=== PATIENT | female | born 1970 | race Caucasian/White ===

== ENCOUNTER → 2016-07-05 | Outpatient (CLI) | payer MEDICAID ==
--- NOTE | 2016-07-05 16:01 | US ---
EXAMINATION TYPE: US venous doppler duplex LE LT DATE OF EXAM: 07/05/2016 3:51 PM COMPARISON: prior 2013 in [facility] CLINICAL HISTORY: M79.605 Pain in left leg. Red area lower calf cellulitis, pt put on antibiotic toda y SIDE PERFORMED: Left VESSELS IMAGED: External Iliac Vein (EIV) Common Femoral Vein Deep Femoral Vein Greater Saphenous Vein * Femoral Vein Popliteal Vein Small Saphenous Vein * Proximal Calf Veins (* superficial vessels) IMPRESSION: no DVT seen, left leg, superficial veins prominent over lower reddened calf area Left Leg: Negative for DVT
== END | disposition home or self-care (01) ==
LOC: RADUSWWP 15:26
PROVIDERS: ATTEND Family Medicine
DX: M79.605 Pain in left leg (principal)

== ENCOUNTER 2016-07-31 09:28 | Emergency (ER) | payer MEDICAID, OTHER ==
[2016-07-31 09:43] VITALS: TEMP 97.8
--- NOTE | 2016-07-31 10:16 | XR ---
EXAMINATION TYPE: XR wrist complete LT DATE OF EXAM: 07/31/2016 10:08 AM COMPARISON: 01/03/2016 HISTORY: 45-year-old female with a posterior wrist pain after impact against a piece of metal. TECHNIQUE: 4 views FINDINGS: Redemonstrated bony irregularity along the dorsal carpus. No acute fracture, subluxation, or dislocat ion. Radiocarpal and distal radioulnar joints as well as the midcarpal compartment appear intact. IMPRESSION: There is some bone irregularity along the dorsal carpus probably relating to a healed deformity of andres reyes's previously seen triquetral fracture. No acute osseous abnormality seen.
--- NOTE | 2016-07-31 10:32 | ED ---
Upper Extremity HPI - General Chief Complaint: Extremity Injury, Upper Stated Complaint: [facility] left wrist injury Time Seen by Provider: 07/31/16 10:07 Source: patient Mode of arrival: ambulatory Limitations: no limitations - History of Present Illness Initial Comments: This patient is a 45-year-old woman who states that this morning at work she reached for an object and struck the dorsum of her left wrist on a laundry press. The patient has history of previous wrist fracture. She states that she was having pain at the area of the base of the hand, so she thought that should be checked. Patient denies loss of sensation or movement. Complaint: Injury to:: left -: hour(s) Other Extremity Injury: Wrist: Left Handedness: right Place: work Improves With: cold therapy Worsens With: movement of extremity Context: direct blow Associated Symptoms: denies other symptoms Treatments Prior to Arrival: cold therapy - Related Data Allergies Allergy/AdvReac Type Severity Reaction Status Date / Time Penicillins Allergy Unknown Verified 07/31/16 10:02 Review of Systems ROS Statement: Those systems with pertinent positive or pertinent negative responses have been documented in the HPI. ROS Other: All systems not noted in ROS Statement are negative. Constitutional: Denies: weakness Musculoskeletal: Reports: as per HPI, arthralgia Skin: Denies: lesions Neurological: Denies: weakness, numbness, paresthesias Past Medical History Past Medical History: Hypertension History of Any Multi-Drug Resistant Organisms: None Reported Past Surgical History: No Surgical Hx Reported Past Psychological History: No Psychological Hx Reported Smoking Status: Never smoker Past Alcohol Use History: None Reported Past Drug Use History: None Reported General Exam Limitations: no limitations General appearance: alert, in no apparent distress Cardiovascular Exam: Present: other (Radial all her pulse as well as capillary refill normal throughout the left hand) Left Elbow exam: Present: normal inspection, full ROM Forearm Wrist exam: Present: normal inspection, full ROM. Absent: tenderness, swelling Hand Wrist exam: Present: tenderness, other (Patient has mild tenderness to the dorsum of the hand overlying the carpal bones. No obvious deformity. The passive range of motion and active range of motion are normal at the wrist and hand. Sensorimotor function intact throughout the hand.). Absent: laceration, ecchymosis, deformity, crepitus, dislocation, erythema, amputation, nail avulsion, subungual hematoma Neurological exam: Present: alert. Absent: motor sensory deficit Skin exam: Present: warm, dry, intact, normal color Course Vital Signs 07/31/16 09:41 Temperature 97.8 F Pulse Rate 58 L Respiratory 20 Rate Blood Pressure 123/58 O2 Sat by Pulse 98 Oximetry Disposition Clinical Impression: Contusion Disposition: HOME SELF-CARE Condition: Good Instructions: Contusion in Adults (ED) Additional Instructions: As we discussed, follow-up with the [facility] to have a reevaluation and to have formal work restrictions. Referrals: Karie Grider MD [Primary Care Provider] - 1-2 days Yaniv Yanes DO [Doctor of Osteopathic Medicine] - 1-2 days
[2016-07-31 10:57] VITALS: BP 136/63; PULSE 97; RESP 12
== END 2016-07-31 10:57 | disposition home or self-care (01) ==
LOC: EC 09:28
DX: S60.212A Contusion of left wrist, initial encounter (principal); Z88.0 Allergy status to penicillin; W22.09XA Striking against other stationary object, initial encounter; Y99.0 Civilian activity done for income or pay
CPT/HCPCS: 99283

== ENCOUNTER → 2019-01-16 | Outpatient (CLI) | payer MEDICAID ==
[2019-01-16 08:54] LABS: Albumin 4.4 g/dL (3.5-5.0); Calcium 9.6 mg/dL (8.4-10.2); Potassium 4.6 mmol/L (3.5-5.1); Total Bilirubin 0.9 mg/dL (0.2-1.3); Total Protein 7.1 g/dL (6.3-8.2)
== END | disposition home or self-care (01) ==
LOC: LABPAT 08:16
PROVIDERS: ATTEND Internal Medicine Clinical Cardiac Electrophysiology
DX: Z01.812 Encounter for preprocedural laboratory examination (principal); I48.1 Persistent atrial fibrillation
CPT/HCPCS: 80053; 84443

== ENCOUNTER → 2019-01-23 | Day surgery (SDC) | payer MEDICAID ==
[2019-01-16 16:22] VITALS: BMI 34.9
[~2019-01-23] MED LIST: LACTATED RINGERS 1,000 ML IV SCH; LIDOCAINE 1% INJ 10MG/ML (20 ML MDV) ONE; PROPOFOL 10 MG/ML 20 ML VIAL IV ONE; SODIUM CHLORIDE 0.9% 1,000 ML IV SCH
[2019-01-23 09:14] VITALS: RESP 18; TEMP 98.2
--- NOTE | 2019-01-23 10:46 | HP ---
HISTORY AND PHYSICAL Maria Del Rosario Reich is a 48-year-old female who has a past history of myocarditis that was diagnosed in 2000. She has mild cardiomyopathy with ejection fraction of 45%. She has a history of atrial fibrillation, is quite symptomatic. She gets very short of breath with exertion and sometimes gets dizzy. She is constantly fatigued. She does complain of palpitations and dizziness. She was initially on Eliquis, but she had heavy menstrual bleeding and therefore she was switched to Xarelto in November. Subsequently, she has not had any problems. Her last stress test in 2015 did not show any reversible ischemia. PAST MEDICAL HISTORY: Past history of myocarditis and hypertension. MEDICATION LIST: Medication list includes: 1. Aldactone. 2. Aspirin. 3. Captopril. 4. Cordarone 100 mg p.o. daily. 5. Carvedilol. 6. Digoxin. 7. Lasix. 8. Lipitor. 9. Potassium. 10.Slow-Mag. 11.Xarelto. REVIEW OF SYSTEMS: No fever, chills, or rigors. No cough or expectoration. No nausea, vomiting, or diarrhea. No hematuria or dysuria. No strokes, seizures. No skin lesions. No musculoskeletal complaints. PHYSICAL EXAMINATION: On examination, the rhythm is irregular. Blood pressure is normal. Heart sounds S1, S2 normal, but irregular. Breath sounds are clear. No rhonchi, no crackles. Abdomen is soft, nontender. IMPRESSION: 1. Symptomatic atrial fibrillation with tiredness, fatigue, shortness of breath and dizziness and palpitations. 2. History of nonischemic cardiomyopathy in the past and history of nonischemic cardiomyopathy, currently left ventricular ejection fraction of 45%. 3. Stable from congestive heart failure standpoint with chronic left ventricular systolic dysfunction, which is mild class 2 congestive heart failure. SUGGEST: The patient is stable to proceed with an electrical cardioversion from a heart failure standpoint. We will proceed with electrical cardioversion and continue amiodarone and continue Xarelto. MMODL / IJN: [id number] /
[2019-01-23 11:46] VITALS: BP 116/75; PULSE 66
--- NOTE | 2019-01-23 17:06 | P.PCN ---
Preoperative Diagnosis: Diagnosis Symptomatic persistent atrial fibrillation, failed amiodarone therapy 100 mg by mouth daily History of myocarditis, nonischemic current myopathy left ventricular ejection fraction 45% Procedure: Electrical cardioversion under anesthesia A 360 J biphasic shock in the AP configuration successfully converted the patient to sinus rhythm Twelve-lead ECG: Sinus mechanism GA and told mildly prolonged at 204 ms, narrow QRS, normal ST segments, QT interval less than 450 ms Impression Successful electrical cardioversion for atrial fibrillation, symptomatic Plan Continue anticoagulation, Heart failure medications and 100 mg of amiodarone by mouth daily Follow-up in the office within 2-3 weeks
== END ==
LOC: CATHEP 08:54
PROVIDERS: ATTEND Internal Medicine Clinical Cardiac Electrophysiology
DX: I48.1 Persistent atrial fibrillation (principal); I42.9 Cardiomyopathy, unspecified; I11.0 Hypertensive heart disease with heart failure; I50.22 Chronic systolic (congestive) heart failure; E78.5 Hyperlipidemia, unspecified; I25.10 Atherosclerotic heart disease of native coronary artery without angina pectoris; Z79.01 Long term (current) use of anticoagulants; Z79.82 Long term (current) use of aspirin; Z79.899 Other long term (current) drug therapy; Z88.0 Allergy status to penicillin
CPT/HCPCS: 92960; 81025; J2001; J2704

== ENCOUNTER 2019-09-29 13:56 | Emergency (ER) | payer MEDICAID ==
[2019-09-29 14:02] VITALS: BP 106/67; PULSE 68; RESP 18; TEMP 97.4
--- NOTE | 2019-09-29 15:19 | XR ---
EXAMINATION TYPE: XR wrist complete LT DATE OF EXAM: 09/29/2019 COMPARISON: 07/31/2016 HISTORY: Left wrist pain, no known injury TECHNIQUE: Left wrist examining 4 projections. FINDINGS: No displaced fractures are identified. There appears to be a cyst formation within the base of the capitate. The dorsal bony prominence of the wrist is again evident and stable. There is some prominence of the scapholunate space, slightly greater than prior. Scapholunate disasso ciation should be considered. Diffuse soft tissue swelling is present especially noted dorsally. IMPRESSION: 1. No acute fractures. 2. Clinical consideration for scapholunate disassociation. This could be evaluated with MRI. 3. Probable old posttraumatic changes dorsal carpal region, stable from comparison.
--- NOTE | 2019-09-29 15:32 | ED ---
Extremity Problem HPI - General Chief complaint: Extremity Problem,Nontraumatic Stated complaint: left wrist pain Time Seen by Provider: 09/29/19 14:04 Source: patient Mode of arrival: ambulatory Limitations: no limitations - History of Present Illness Initial comments: Patient is a 49-year-old female presented to the emergency Department with complaints of left wrist pain 3 days. She denies falling on her wrist or any other trauma. She is not sure how she hurt her wrist. Patient is having pain with gripping as well as range of motion. She denies any previous surgeries on this wrist. She is left hand dominant. She has no other complaints at this time. - Related Data Home Medications Medication Instructions Recorded Confirmed Amiodarone [Cordarone] 100 mg PO DAILY 07/31/16 01/23/19 Atorvastatin [Lipitor] 20 mg PO HS 07/31/16 01/23/19 Captopril [Capoten] 50 mg PO AC-BID 07/31/16 01/23/19 Carvedilol [Coreg] 25 mg PO BID 07/31/16 01/23/19 Digoxin [Digitek] 125 mcg PO DAILY 07/31/16 01/23/19 Furosemide [Lasix] 40 mg PO BID 07/31/16 01/23/19 Potassium Chloride ER [K-Dur 10] 10 meq PO BID 07/31/16 01/23/19 Spironolactone [Aldactone] 25 mg PO DAILY 07/31/16 01/23/19 Aspirin [Adult Low Dose Aspirin EC] 81 mg PO DAILY 01/16/19 01/23/19 Rivaroxaban [Xarelto] 20 mg PO DAILY 01/16/19 01/23/19 Allergies Allergy/AdvReac Type Severity Reaction Status Date / Time Penicillins Allergy Unknown Verified 09/29/19 14:02 Sulfa (Sulfonamide Allergy Swelling Verified 09/29/19 14:02 Antibiotics) Review of Systems ROS Statement: Those systems with pertinent positive or pertinent negative responses have been documented in the HPI. ROS Other: All systems not noted in ROS Statement are negative. Past Medical History Past Medical History: Hypertension Additional Past Medical History / Comment(s): CHF History of Any Multi-Drug Resistant Organisms: None Reported Past Surgical History: No Surgical Hx Reported Additional Past Surgical History / Comment(s): Lumbar injection, dental work. Past Anesthesia/Blood Transfusion Reactions: No Reported Reaction Past Psychological History: No Psychological Hx Reported Smoking Status: Never smoker Past Alcohol Use History: None Reported Past Drug Use History: None Reported - Past Family History Mother Family Medical History: No Reported History General Exam - General Exam Comments Initial Comments: GENERAL: Well-appearing, well-nourished and in no acute distress. HEAD: Atraumatic, normocephalic. EYES: Pupils equal round and reactive to light, extraocular movements intact, sclera anicteric, conjunctiva are normal. ENT: Moist mucous membranes. NECK: Normal range of motion, supple without lymphadenopathy or JVD. LUNGS: Breath sounds clear to auscultation bilaterally and equal. No wheezes rales or rhonchi. HEART: Regular rate and rhythm without murmurs, rubs or gallops. ABDOMEN: Soft, nontender, normoactive bowel sounds. No guarding, no rebound. No masses appreciated. : Deferred EXTREMITIES: Patient has pain with palpation of the left wrist, dorsal aspect. Patient has limited range of motion secondary to pain. She does have some mild swelling of the dorsal aspect of her left wrist. She is neurovascular intact. No pain of the left forearm, left elbow. No clubbing or cyanosis. NEUROLOGICAL: Normal speech, normal gait. PSYCH: Normal mood, normal affect. SKIN: Warm, Dry, normal turgor, no rashes or lesions noted. Limitations: no limitations Course Vital Signs 09/29/19 13:57 Temperature 97.4 F L Pulse Rate 68 Respiratory 18 Rate Blood Pressure 106/67 O2 Sat by Pulse 99 Oximetry Medical Decision Making - Medical Decision Making Patient is a 49 -year-old female here for left wrist pain. She denies any falls or trauma to her left wrist. X-rays of the left wrist reveal that there might be some scapholunate disassociation. No acute fractures. I discussed these results with the patient. Patient did come to the ER with a supportive wrist brace. I discussed with her to keep in this wrist base and follow-up with orthopedics. She is stable for discharge. She is in agreement with this plan of care. Disposition Clinical Impression: Left wrist pain Disposition: HOME SELF-CARE Condition: Stable Instructions (If sedation given, give patient instructions): Wrist Injury (ED) Additional Instructions: Please return to the Emergency Department if symptoms worsen or any other concerns. Continue to wear wrist splint. May ice to area. Follow up with orthopedics as discussed. Is patient prescribed a controlled substance at d/c from ED?: No Referrals: Valery Arenas MD [Primary Care Provider] - 1-2 days Fredrick Frey DO [Doctor of Osteopathic Medicine] - 1-2 days
== END 2019-09-29 15:55 | disposition home or self-care (01) ==
LOC: EC 13:56
DX: M25.532 Pain in left wrist (principal); I11.0 Hypertensive heart disease with heart failure; I50.9 Heart failure, unspecified; Z79.01 Long term (current) use of anticoagulants; Z79.02 Long term (current) use of antithrombotics/antiplatelets; Z79.82 Long term (current) use of aspirin; Z79.899 Other long term (current) drug therapy; Z88.0 Allergy status to penicillin; Z88.2 Allergy status to sulfonamides
CPT/HCPCS: 99283

== ENCOUNTER → 2019-11-10 | Outpatient (CLI) | payer OTHER ==
--- NOTE | 2019-11-10 10:54 | XR ---
EXAMINATION TYPE: XR ankle complete 3 views LT, XR foot complete 3 views LT DATE OF EXAM: 11/10/2019 COMPARISON: NONE HISTORY: 49-year-old female for an ankle pain, S93.402A, S93.602A FINDINGS: Ankle: Circumferential soft tissue swelling at the ankle. Talar dome is intact. Ankle mortise remains congru ent. No fracture, subluxation, or dislocation seen. Subtalar joint is aligned. Small posterior and pl kaylee calcaneal spurs. Foot: No acute fracture, subluxation, or dislocation. IMPRESSION: Ankle and foot: Circumferential soft tissue swelling at the ankle. No acute osseous abnormality seen. Posterior and plantar calcaneal spurs.
== END | disposition home or self-care (01) ==
LOC: RADXRMAIN 10:20
PROVIDERS: ATTEND Emergency Medicine
DX: M79.89 Other specified soft tissue disorders (principal); M77.32 Calcaneal spur, left foot

== ENCOUNTER → 2019-11-20 | Outpatient (CLI) | payer OTHER ==
--- NOTE | 2019-11-20 12:25 | XR ---
EXAMINATION TYPE: XR foot complete LT DATE OF EXAM: 11/20/2019 COMPARISON: NONE HISTORY: sprain of foot pain across top of foot ran over with a heavy cart. TECHNIQUE: Three-view left foot FINDINGS: Metatarsal tarsal alignment appears normal. No acute fractures or dislocations are evident. Joint spaces appear preserved. Mild valgus deformity of the distal fifth digit is present. Calcaneal heel spurs are present. Soft tissue swelling is over the dorsum of the foot. Follow-up exams can be performed 7-10 days from acute trauma for continued pain. IMPRESSION: 1. Soft tissue swelling dorsum of foot. 2. No acute osseous abnormality. 3. Calcaneal heel spurs.
== END | disposition home or self-care (01) ==
LOC: RADXRMAIN 11:58
PROVIDERS: ATTEND Emergency Medicine
DX: M79.89 Other specified soft tissue disorders (principal); M77.32 Calcaneal spur, left foot

== ENCOUNTER → 2020-03-16 | Outpatient (CLI) | payer MEDICAID ==
--- NOTE | 2020-03-16 11:00 | US ---
EXAMINATION TYPE: US venous doppler duplex LE RT DATE OF EXAM: 03/16/2020 10:48 AM COMPARISON: NONE CLINICAL HISTORY: M79.671 Pain in right foot, L03.115 cellulitis of. SIDE PERFORMED: Right TECHNIQUE: The lower extremity deep venous system is examined utilizing real time linear array sonog janine with graded compression, doppler sonography and color-flow sonography. VESSELS IMAGED: External Iliac Vein (EIV) Common Femoral Vein Deep Femoral Vein Greater Saphenous Vein * Femoral Vein Popliteal Vein Small Saphenous Vein * Proximal Calf Veins (* superficial vessels) Right Leg: Negative for DVT Grayscale, color doppler, spectral doppler imaging performed of the deep veins of the right lower ext remity. There is normal flow, compressibility, vascular waveforms. IMPRESSION: No ultrasound evidence for acute DVT in the right lower extremity.
== END | disposition home or self-care (01) ==
LOC: RADUSMAIN 10:13
PROVIDERS: ATTEND Physician Assistant
DX: L03.115 Cellulitis of right lower limb (principal); I80.231 Phlebitis and thrombophlebitis of right tibial vein; I80.01 Phlebitis and thrombophlebitis of superficial vessels of right lower extremity; M79.671 Pain in right foot; M79.661 Pain in right lower leg; M10.9 Gout, unspecified; I11.9 Hypertensive heart disease without heart failure; E78.5 Hyperlipidemia, unspecified

== ENCOUNTER 2020-03-30 07:48 | Day surgery (SDC) | payer MEDICAID ==
[2020-03-25 14:43] VITALS: BMI 36.6
[~2020-03-30 07:48] MED LIST changes: +ALPRAZolam 0.25 MG TAB PO PRN; +ALPRAZolam 0.5 MG TAB PO PRN; +ASPIRIN 325 MG TAB PO STA; -LACTATED RINGERS 1,000 ML IV SCH; -LIDOCAINE 1% INJ 10MG/ML (20 ML MDV) ONE; +NITROGLYCERIN SL TABS 0.4 MG TAB SUBLINGUAL PRN; -PROPOFOL 10 MG/ML 20 ML VIAL IV ONE; -SODIUM CHLORIDE 0.9% 1,000 ML IV SCH; +SODIUM CHLORIDE 0.9% 1,000 ML in EMPTY BAG 1 BAG IV ONE
[2020-03-30] MEDS ORDERED: SODIUM CHLORIDE 0.9% 1,000 ML IV ONE (08:12)
[2020-03-30 08:16] VITALS: TEMP 98
[2020-03-30 08:22] LABS: Basophils # (A) 0.1 k/uL (0-0.2); Basophils % (A) 1 %; Eosinophils # (A) 0.4 k/uL (0-0.7); Eosinophils % (A) 4 %; HCT 43.6 % (34.0-46.0); HGB 13.8 gm/dL (11.4-16.0); Hypochromasia Slight; Lymphocytes # (A) 1.6 k/uL (1.0-4.8); Lymphocytes % (A) 15 %; MCH 29.4 pg (25.0-35.0); MCHC 31.7 g/dL (31.0-37.0); MCV 92.9 fL (80.0-100.0); Mean Platelet Volume 7.5; Monocytes # (A) 0.5 k/uL (0-1.0); Monocytes % (A) 5 %; Neutrophils # (A) 7.7 k/uL (1.3-7.7); Neutrophils % (A) 74 %; Platelet Count 269 k/uL (150-450); RBC 4.69 m/uL (3.80-5.40); RDW 14.8 % (11.5-15.5); WBC 10.4 k/uL (3.8-10.6)
[2020-03-30 08:29] LABS: HCG,Qualitative Serum Not Detected
[2020-03-30 08:30] LABS: Anion Gap 9 mmol/L; Blood Urea Nitrogen 24 mg/dL (7-17); Carbon Dioxide 31 mmol/L (22-30); Chloride 100 mmol/L (98-107); Glucose 121 mg/dL (74-99); Potassium 4.2 mmol/L (3.5-5.1); Sodium 140 mmol/L (137-145)
[2020-03-30 08:31] LABS: African American GFR (CKD) 70 (>60 ml/min/1.73 sqM); Calcium 9.8 mg/dL (8.4-10.2); Non-African American GFR(CKD) 61 (>60 ml/min/1.73 sqM)
[2020-03-30] MEDS ORDERED: LIDOCAINE 1% INJ 10MG/ML (20 ML MDV) SQ ONE ×2 (09:13→09:30)
[2020-03-30] MEDS ORDERED: MIDAZOLAM 2 MG/2 ML VIAL IV ONE (09:16)
[2020-03-30] MEDS ORDERED: IOPAMIDOL-370 50ML BTL INJ ONE (09:47)
[2020-03-30] MEDS ORDERED: IOPAMIDOL-370 125ML BTL INJ ONE (09:48)
[2020-03-30] MEDS ORDERED: SODIUM CHLORIDE 0.9% 1,000 ML IV SCH (10:00)
--- NOTE | 2020-03-30 10:09 | P.CARDCATH ---
Date of Procedure: 03/30/20 Description of Procedure: PROCEDURES PERFORMED: Left heart catheterization, left ventriculogram, bilateral coronary angiography, ultrasound access INDICATION: Cardiomyopathy, ventricular tachycardia HISTORY: Patient is a pleasant 49-year-old female of Dr. Salcedo with history of hypertension, hyperlipidemia, cardiomyopathy with last ejection fraction documented at 45%, and ventricular tachycardia who presents for elective heart catheterization. She has been noting increasing fatigue and has also been having palpitations with monitors showing nonsustained ventricular tachycardia. She therefore presented for elective heart catheterization. CONSENT:I have discussed the risks, benefits and alternative therapies for the above-mentioned procedure and for both sedation/analgesia as well as necessary blood product administration, if indicated, as they pertain to this patient. The patient has indicated understanding and acceptance of the risks and procedures discussed. PROCEDURE: After the risks, benefits and alternatives of the above mentioned procedure explained in detail with the patient, informed consent was obtained. Patient was taken to the catheterization lab and prepped and draped in usual fashion. 1% lidocaine was used to anesthetize the right radial area. Patient had a poor pulse and even with ultrasound guidance right radial artery access could not be obtained. Therefore a 6-Senegalese sheath was placed in the right femoral artery using micropuncture an ultrasound guidance. Left coronary angiography was performed with a 6-Senegalese JL 4.0 catheter and right coronary angiography was performed with a 6-[place]e JR4 catheter in various views. A 5- [place] pigtail catheter was inserted into the left ventricle and pressure measurements were obtained. Left ventriculography was performed in the JACOBS projection with a power injection. The right femoral angiogram showed adequate anatomy for closure. A 6-[place]alese Angio-Seal was placed and hemostasis was achieved. The patient tolerated the procedure well. Patient was transported back to the post catheterization holding area in stable condition. Conscious Sedation: Patient was monitored under the direct supervision of vision of myself for conscious sedation using one mg Versed and 25 mcg fentanyl for a total duration of 41 minutes HEMODYNAMICS: Aorta: 121/83 LV: 124/8, LVEDP 32 SELECTIVE CORONARY ARTERIOGRAPHY: LEFT MAIN: The left main is a large caliber vessel which bifurcates into the LAD and circumflex. There is no significant stenosis. LEFT ANTERIOR DESCENDING CORONARY ARTERY: LAD is a large caliber vessel which wraps around to the apex. There is no significant stenosis. LEFT CIRCUMFLEX CORONARY ARTERY: Left circumflex is a moderate caliber vessel without significant stenosis. RIGHT CORONARY ARTERY: The right coronary artery is a large caliber vessel which gives off a PDA and PLV branch and is the dominant vessel. There is no significant stenosis. LEFT VENTRICULOGRAPHY: Left ventricular ejection fraction is 10-15% with global hypokinesis however mid cavity appears more hypokinetic than the apex and bases. Possibly consistent with mid cavitary Takatsubo's or focal myocarditis. There is 1-2+ mitral regurgitation worsened with PVC and no significant gradient with pullback across the aortic valve. FINAL IMPRESSION: 1. Normal coronary arteries as described above. 2. Reduced ejection fraction 10-15% with predominantly global hypokinesis however worsened mid cavitary hypokinesis, possibly consistent with mid cavitary Takatsubo's or focal myocarditis. 3. Elevated left-sided filling pressures. PLAN: 1. Aggressive risk factor modification per most recent ACC/AHA guidelines. 2. 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
[2020-03-30 11:06] VITALS: RESP 16
[2020-03-30] MEDS ORDERED: RX INFO: IV CONTRAST WAS GIVEN 1 EACH MISC MISCELLANE PRN (11:07)
[2020-03-30 13:52] VITALS: BP 136/72; PULSE 67
== END 2020-03-30 13:59 | disposition home or self-care (01) ==
LOC: CATHCVL 07:48
PROVIDERS: ATTEND Internal Medicine
DX: I49.3 Ventricular premature depolarization (principal); I47.2 Ventricular tachycardia; I42.8 Other cardiomyopathies; I34.0 Nonrheumatic mitral (valve) insufficiency; I50.9 Heart failure, unspecified; E78.5 Hyperlipidemia, unspecified; Z82.49 Family history of ischemic heart disease and other diseases of the circulatory system; E78.00 Pure hypercholesterolemia, unspecified; Z79.01 Long term (current) use of anticoagulants; Z79.82 Long term (current) use of aspirin; Z79.899 Other long term (current) drug therapy; Z88.0 Allergy status to penicillin
CPT/HCPCS: 93458; 80048; 85025; 84703; C1760; C1894 ×2; C1769 ×3; J2250; J2001; Q9967 ×2

== ENCOUNTER 2020-05-11 07:26 | Observation (INO) | payer MEDICAID, OTHER ==
[2020-05-11] MEDS ORDERED: ASPIRIN 81 MG PO STA (07:46)
[2020-05-11] MEDS ORDERED: NITROGLYCERIN SL TABS 0.4 MG TAB SUBLINGUAL STA ×2 (07:46)
--- NOTE | 2020-05-11 07:49 | ED ---
General Adult HPI - General Chief complaint: Chest Pain Stated complaint: Chest Pain Time Seen by Provider: 05/11/20 07:33 Source: patient, RN notes reviewed Mode of arrival: wheelchair Limitations: no limitations - History of Present Illness Initial comments: Patient is a pleasant 49-year-old female presenting to the emergency Department with complaints of chest discomfort. Onset of symptoms was at work while moving a part. Patient does not know if there was a specific movement that she did because the discomfort. Discomfort is somewhat severe. Difficult to describe type of discomfort. No radiation. Discomfort is right sternal region. Patient does have mild associated dyspnea and nausea. No history of similar symptoms previously. No sweating. No leg pain or leg swelling. Discomfort does increase with deep breaths. - Related Data Home Medications Medication Instructions Recorded Confirmed Atorvastatin [Lipitor] 20 mg PO HS 07/31/16 05/11/20 Carvedilol [Coreg] 50 mg PO BID 07/31/16 05/11/20 Furosemide [Lasix] 40 mg PO BID 07/31/16 05/11/20 Spironolactone [Aldactone] 50 mg PO DAILY 07/31/16 05/11/20 Rivaroxaban [Xarelto] 20 mg PO DAILY@1200 01/16/19 05/11/20 Acetaminophen Tab [Tylenol Tab] 500 mg PO Q6H PRN 03/08/20 05/11/20 Ergocalciferol [Vitamin D2] 50,000 unit PO KENT 03/08/20 05/11/20 Allopurinol [Zyloprim] 300 mg PO DAILY 05/11/20 05/11/20 Losartan Potassium 50 mg PO DAILY 05/11/20 05/11/20 Allergies Allergy/AdvReac Type Severity Reaction Status Date / Time amoxicillin Allergy Rash/Hives Verified 05/11/20 08:52 Penicillins Allergy Rash/Hives Verified 05/11/20 08:52 Sulfa (Sulfonamide Allergy Swelling Verified 05/11/20 08:52 Antibiotics) Review of Systems ROS Statement: Those systems with pertinent positive or pertinent negative responses have been documented in the HPI. ROS Other: All systems not noted in ROS Statement are negative. Constitutional: Denies: fever Eyes: Denies: eye pain ENT: Denies: ear pain Respiratory: Reports: as per HPI. Denies: cough Cardiovascular: Reports: as per HPI, chest pain Endocrine: Denies: fatigue Gastrointestinal: Denies: abdominal pain Genitourinary: Denies: dysuria Musculoskeletal: Denies: back pain Skin: Denies: rash Neurological: Denies: weakness Past Medical History Past Medical History: Atrial Fibrillation, Heart Failure, Eye Disorder, Hyperlipidemia, Hypertension, Skin Disorder Additional Past Medical History / Comment(s): cellulitis rt lower leg(healed), psoriasis, gout, keratoconus rt eye History of Any Multi-Drug Resistant Organisms: None Reported Past Surgical History: Heart Catheterization Additional Past Surgical History / Comment(s): cardioversion, lumbar injection, Past Anesthesia/Blood Transfusion Reactions: No Reported Reaction Past Psychological History: No Psychological Hx Reported Smoking Status: Former smoker Past Alcohol Use History: None Reported Past Drug Use History: None Reported - Past Family History Mother Family Medical History: No Reported History General Exam Limitations: no limitations General appearance: alert, in no apparent distress Head exam: Present: normocephalic Eye exam: Present: normal appearance Neck exam: Present: normal inspection Respiratory exam: Present: normal lung sounds bilaterally, chest wall tenderness (Mild tenderness right sternal region) Cardiovascular Exam: Present: regular rate, normal rhythm Expanded Peripheral pulses: 2+: Radial (R), Radial (L), Dorsalis Pedis (R), Dorsalis Pedis (L) GI/Abdominal exam: Present: soft. Absent: tenderness Extremities exam: Present: normal inspection. Absent: pedal edema, calf tenderness Neurological exam: Present: alert Psychiatric exam: Present: normal affect, normal mood Skin exam: Present: normal color Course Vital Signs 05/11/20 05/11/20 05/11/20 07:26 08:03 08:17 Temperature 97.6 F Pulse Rate 62 59 L Respiratory 20 18 Rate Blood Pressure 81/57 110/54 101/51 O2 Sat by Pulse 97 100 96 Oximetry 05/11/20 09:40 Temperature Pulse Rate 52 L Respiratory 18 Rate Blood Pressure 87/37 O2 Sat by Pulse 100 Oximetry EKG Findings - EKG Comments: EKG Findings:: Normal sinus rhythm 60. For screening AV block WA of 208. QRS 104. QTC 494. QTC 494. Normal axis. Normal QRS. Nonspecific ST-T. Medical Decision Making - Medical Decision Making Patient reevaluated and resting currently in bed. Patient updated. Case discussed with Dr. Arenas, who will admit his patient. - Lab Data Result diagrams: 05/11/20 07:58 05/11/20 07:58 Lab Results 05/11/20 05/11/20 05/11/20 Range/Units 07:58 07:58 07:58 WBC 8.4 (3.8-10.6) k/uL RBC 4.35 (3.80-5.40) m/uL Hgb 13.0 (11.4-16.0) gm/dL Hct 39.2 (34.0-46.0) % MCV 90.1 D (80.0-100.0) fL MCH 29.8 (25.0-35.0) pg MCHC 33.1 (31.0-37.0) g/dL RDW 15.8 H (11.5-15.5) % Plt Count 213 (150-450) k/uL MPV 7.7 Neutrophils % 79 % Lymphocytes % 10 % Monocytes % 5 % Eosinophils % 2 % Basophils % 2 % Neutrophils # 6.6 (1.3-7.7) k/uL Lymphocytes # 0.8 L (1.0-4.8) k/uL Monocytes # 0.4 (0-1.0) k/uL Eosinophils # 0.2 (0-0.7) k/uL Basophils # 0.2 (0-0.2) k/uL PT 14.9 H (9.0-12.0) sec INR 1.5 H (<1.2) APTT 32.3 H (22.0-30.0) sec D-Dimer 0.63 H (<0.60) mg/L FEU Sodium 139 (137-145) mmol/L Potassium 4.5 (3.5-5.1) mmol/L Chloride 105 (98-107) mmol/L Carbon Dioxide 26 (22-30) mmol/L Anion Gap 8 mmol/L BUN 31 H (7-17) mg/dL Creatinine 1.11 H (0.52-1.04) mg/dL Est GFR (CKD-EPI)AfAm 68 (>60 ml/min/1.73 sqM) Est GFR (CKD-EPI)NonAf 59 (>60 ml/min/1.73 sqM) Glucose 118 H (74-99) mg/dL Calcium 9.4 (8.4-10.2) mg/dL Magnesium 1.9 (1.6-2.3) mg/dL Total Bilirubin 1.1 (0.2-1.3) mg/dL AST 28 (14-36) U/L ALT 16 (4-34) U/L Alkaline Phosphatase 75 (38-126) U/L Troponin I (0.000-0.034) ng/mL NT-Pro-B Natriuret Pep pg/mL Total Protein 7.2 (6.3-8.2) g/dL Albumin 4.5 (3.5-5.0) g/dL Coronavirus (PCR) (Not Detectd) 05/11/20 05/11/20 05/11/20 Range/Units 07:58 07:58 08:43 WBC (3.8-10.6) k/uL RBC (3.80-5.40) m/uL Hgb (11.4-16.0) gm/dL Hct (34.0-46.0) % MCV (80.0-100.0) fL MCH (25.0-35.0) pg MCHC (31.0-37.0) g/dL RDW (11.5-15.5) % Plt Count (150-450) k/uL MPV Neutrophils % % Lymphocytes % % Monocytes % % Eosinophils % % Basophils % % Neutrophils # (1.3-7.7) k/uL Lymphocytes # (1.0-4.8) k/uL Monocytes # (0-1.0) k/uL Eosinophils # (0-0.7) k/uL Basophils # (0-0.2) k/uL PT (9.0-12.0) sec INR (<1.2) APTT (22.0-30.0) sec D-Dimer (<0.60) mg/L FEU Sodium (137-145) mmol/L Potassium (3.5-5.1) mmol/L Chloride (98-107) mmol/L Carbon Dioxide (22-30) mmol/L Anion Gap mmol/L BUN (7-17) mg/dL Creatinine (0.52-1.04) mg/dL Est GFR (CKD-EPI)AfAm (>60 ml/min/1.73 sqM) Est GFR (CKD-EPI)NonAf (>60 ml/min/1.73 sqM) Glucose (74-99) mg/dL Calcium (8.4-10.2) mg/dL Magnesium (1.6-2.3) mg/dL Total Bilirubin (0.2-1.3) mg/dL AST (14-36) U/L ALT (4-34) U/L Alkaline Phosphatase (38-126) U/L Troponin I <0.012 (0.000-0.034) ng/mL NT-Pro-B Natriuret Pep 3950 pg/mL Total Protein (6.3-8.2) g/dL Albumin (3.5-5.0) g/dL Coronavirus (PCR) Not Detected (Not Detectd) - Radiology Data Radiology results: report reviewed (Computed tomography scan shows no central pulmonary embolism. Suboptimal study. Cardiomegaly with alveolar edema. Left hilar consolidation or atelectasis. Suspect heart failure.), image reviewed (Chest x-ray shows diffuse interstitial pattern, correlate for CHF versus interstitial infiltrate) Disposition Clinical Impression: Chest pain, Congestive heart failure Disposition: ADMITTED IP TO THIS HOSP Is patient prescribed a controlled substance at d/c from ED?: No Referrals: Valery Arenas MD [Primary Care Provider] - 1-2 days Decision Time: 09:44
[2020-05-11] MEDS ORDERED: MORPHINE SULFATE 2 MG/ML SYRINGE IVP STA (08:05)
[2020-05-11] MEDS ORDERED: SODIUM CHLORIDE 0.9% 500 ML 500 ML IV STA (08:06)
[2020-05-11] MEDS: NITROGLYCERIN SL TABS 0.4 MG TAB SUBLINGUAL STA (08:09)
[2020-05-11 08:10] LABS: Basophils # (A) 0.2 k/uL (0-0.2); Basophils % (A) 2 %; Eosinophils # (A) 0.2 k/uL (0-0.7); Eosinophils % (A) 2 %; HCT 39.2 % (34.0-46.0); Lymphocytes # (A) 0.8 k/uL (1.0-4.8); Lymphocytes % (A) 10 %; MCH 29.8 pg (25.0-35.0); MCHC 33.1 g/dL (31.0-37.0); Mean Platelet Volume 7.7; Monocytes # (A) 0.4 k/uL (0-1.0); Monocytes % (A) 5 %; Neutrophils # (A) 6.6 k/uL (1.3-7.7); Neutrophils % (A) 79 %; Platelet Count 213 k/uL (150-450); RBC 4.35 m/uL (3.80-5.40); RDW 15.8 % (11.5-15.5); WBC 8.4 k/uL (3.8-10.6)
[2020-05-11 08:14] LABS: MCV 90.1 fL (80.0-100.0)
--- NOTE | 2020-05-11 08:19 | XR ---
EXAMINATION TYPE: XR chest 2V DATE OF EXAM: 05/11/2020 COMPARISON: 05/03/2013 TECHNIQUE: PA and lateral views submitted. HISTORY: Chest pain FINDINGS: Heart is enlarged and there is diffuse interstitial pattern. No pleural effusion or pneumothorax. Sub segmental changes at both lung bases. IMPRESSION: 1. Correlate for CHF versus interstitial pneumonia.
[2020-05-11 08:21] LABS: Albumin 4.5 g/dL (3.5-5.0); Calcium 9.4 mg/dL (8.4-10.2); Magnesium 1.9 mg/dL (1.6-2.3); Potassium 4.5 mmol/L (3.5-5.1); Total Bilirubin 1.1 mg/dL (0.2-1.3); Total Protein 7.2 g/dL (6.3-8.2)
[2020-05-11 08:30] LABS: INR 1.5 (<1.2); Partial Thromboplastin Time 32.3 sec (22.0-30.0); Prothrombin Time 14.9 sec (9.0-12.0)
[2020-05-11 08:37] LABS: D-Dimer 0.63 mg/L FEU (<0.60)
--- NOTE | 2020-05-11 09:21 | CT ---
EXAMINATION TYPE: CT angio chest DATE OF EXAM: 05/11/2020 9:11 AM COMPARISON: Chest x-ray earlier today and older x-ray May 03, 2013 HISTORY: Dyspnea and chest pain. History of cardiac stent. CT DLP: 576.6 mGycm Automated exposure control for dose reduction was used. CONTRAST: CTA scan of the thorax is performed with IV Contrast, patient injected with 93ml mL of Isovue 370, pu lmonary embolism protocol. MIP images are created and reviewed. FINDINGS: LUNGS: Exam is suboptimal as patient unable to hold breath. This limits evaluation particularly for s ubcentimeter nodules. Mosaic attenuation bilaterally suggest mild alveolar edema. There is mild linea r scarring and/or atelectasis left lung base. Focal left hilar consolidation and/or atelectasis. No a dditional suspicious focal consolidation. No pleural effusion or pneumothorax noted. MEDIASTINUM: There is suboptimal bolus with some heterogeneity in the periphery, there is no central or lobar pulmonary embolism. Cannot entirely exclude segmental or subsegmental pulmonary embolism on this study. Marked cardiomegaly with moderate to severe left greater than right atrial dilatation. Th ere is moderate to severe left ventricular dilatation and mild to moderate right ventricular dilatati on. Reflux of contrast into intrahepatic IVC and hepatic veins suggest a degree of right heart failur e. There are prominent bilateral hilar lymph nodes. No mediastinal adenopathy. Mild/moderate coronary artery calcification LAD distribution. Metallic coronary stent not well visualized. No pericardial e ffusion is seen. OTHER: Spine is straightened on lateral view. IMPRESSION: 1. Suboptimal study due to respiratory motion artifact compromise and heterogeneity in the periphery. No central pulmonary embolism. Cannot entirely exclude small segmental and subsegmental PE. 2. Marked cardiomegaly with mild alveolar edema. Focal left hilar consolidation and/or atelectasis. B ilateral hilar adenopathy may warrant follow-up. Correlate clinically. Suspected right heart failure.
[2020-05-11] MEDS ORDERED: ASPIRIN 325 MG TAB PO STA (09:44)
[2020-05-11] MEDS: FUROSEMIDE 10 MG/ML 4 ML VIAL IV SCH ×2 (11:47→17:31)
[2020-05-11] MEDS ORDERED: RIVAROXABAN 20 MG TAB PO SCH (12:00)
--- NOTE | 2020-05-11 12:39 | P.CRDCN ---
History of Present Illness Consult date: 05/11/20 History of present illness: CHIEF COMPLAINT: Chest pain HISTORY OF PRESENT ILLNESS: This is a 49 -year old female with a past medical history significant for hypertension, hyperlipidemia, ventricular tachycardia, nonischemic cardiomyopathy, and paroxysmal atrial fibrillation. Patient follows in the office with Dr. Salcedo. We have been asked to see the patient in consultation for chest pain. And examined this morning at the bedside in the emergency room. Patient states she was pushing a cart while at work this morning that she believes weighed approximately 100 pounds. She states after pushing it, she developed a sharp chest pain in the middle of her chest. She denied any radiation. She states the pain is worse with movement and deep inspiration. The pain is also reproducible with palpation. She reports mild shortness of breath over the past couple days. She also reports some increased lower extremity edema. Patient underwent a cardiac catheterization with Dr. Garcia on 03/30/2020 revealing normal coronary arteries. She was found to have an ejection fraction of 10-15% at that time. DIAGNOSTICS: EKG reveals sinus rhythm with no acute signs of ischemia Chest xray correlate for CHF versus interstitial pneumonia CTA chest: Negative for pulmonary embolism Laboratory data: WBC 8.4. Hemoglobin 13.0. Platelet count 213. D-dimer 0.63. Sodium 139. Potassium 4.5. BUN 31. Creatinine 1.11. Magnesium 1.9. Troponin negative 2. Current home cardiac medications include Aldactone 50 mg daily, Xarelto 20 mg daily, losartan 50 mg daily, Lasix 40 mg twice a day, Coreg 50 mg twice a day, Lipitor 20 mg daily REVIEW OF SYSTEMS: At the time of my exam: CONSTITUTIONAL: Denies fever or chills. HEENT: Denies blurred vision, vision changes, or eye pain. Denies hemoptysis CARDIOVASCULAR: Reports mild chest discomfort. Denies orthopnea, PND or palpitations RESPIRATORY: No shortness of breath. GASTROINTESTINAL: Denies abdominal pain. Denies nausea or vomiting. HEMATOLOGIC: Denies bleeding disorders. GENITOURINARY: Denies any blood in urine. SKIN: Denies pruitis. Denies rash. PHYSICAL EXAM: VITAL SIGNS: Reviewed. GENERAL: Well-developed in no acute distress. HEENT: Head is normocephalic. Pupils are equal, round. Sclerae anicteric. Mucous membranes of the mouth are moist. Neck supple. No JVD or thyromegaly LUNGS: Respirations even and unlabored. Lungs diminished. HEART: Regular rate and rhythm. S1 and S2 heard. ABDOMEN: Soft. Nondistended. Nontender. EXTREMITIES: Normal range of motion. No clubbing or cyanosis. Peripheral pulses intact. 1+ bilateral lower extremity edema. NEUROLOGIC: Awake and alert. Oriented x 3. ASSESSMENT: Atypical chest pain Acute exacerbation of her chronic systolic congestive heart failure Severe nonischemic cardiomyopathy, EF 10-15% History of paroxysmal atrial fibrillation, on long-term anticoagulation with Xarelto History of ventricular tachycardia Hypertension Hyperlipidemia History of cardiac catheterization March 2020 revealing normal coronary arteri es Obesity: BMI 37.3 PLAN: An acute coronary event has been ruled out Resume home cardiac medications. Parameters have been added to her medications to hold for systolic less than 90. Continue IV Lasix Monitor kidney function Daily weight Accurate I&O Obtain 2-D echo to assess cardiac structure and function Further recommendations pending patient's course Nurse practitioner note has been reviewed by physician. Signing provider agrees with the documented findings, assessment, and plan of care. Past Medical History Past Medical History: Atrial Fibrillation, Heart Failure, Eye Disorder, Hyperlipidemia, Hypertension, Skin Disorder Additional Past Medical History / Comment(s): cellulitis rt lower leg(healed), psoriasis, gout, keratoconus rt eye History of Any Multi-Drug Resistant Organisms: None Reported Past Surgical History: Heart Catheterization Additional Past Surgical History / Comment(s): cardioversion, lumbar injection, Past Anesthesia/Blood Transfusion Reactions: No Reported Reaction Past Psychological History: No Psychological Hx Reported Smoking Status: Former smoker Past Alcohol Use History: None Reported Past Drug Use History: None Reported - Past Family History Mother Family Medical History: No Reported History Medications and Allergies Home Medications Medication Instructions Recorded Confirmed Type Atorvastatin [Lipitor] 20 mg PO HS 07/31/16 05/11/20 History Carvedilol [Coreg] 50 mg PO BID 07/31/16 05/11/20 History Furosemide [Lasix] 40 mg PO BID 07/31/16 05/11/20 History Spironolactone [Aldactone] 50 mg PO DAILY 07/31/16 05/11/20 History Rivaroxaban [Xarelto] 20 mg PO DAILY@1200 01/16/19 05/11/20 History Acetaminophen Tab [Tylenol Tab] 500 mg PO Q6H PRN 03/08/20 05/11/20 History Ergocalciferol [Vitamin D2] 50,000 unit PO KENT 03/08/20 05/11/20 History Allopurinol [Zyloprim] 300 mg PO DAILY 05/11/20 05/11/20 History Losartan Potassium 50 mg PO DAILY 05/11/20 05/11/20 History Allergies Allergy/AdvReac Type Severity Reaction Status Date / Time amoxicillin Allergy Rash/Hives Verified 05/11/20 08:52 Penicillins Allergy Rash/Hives Verified 05/11/20 08:52 Sulfa (Sulfonamide Allergy Swelling Verified 05/11/20 08:52 Antibiotics) Physical Exam Vitals: Vital Signs Temp Pulse Resp BP Pulse Ox 05/11/20 09:40 52 L 18 87/37 100 05/11/20 08:17 59 L 18 101/51 96 05/11/20 08:03 110/54 100 05/11/20 07:26 97.6 F 62 20 81/57 97 Intake and Output 05/10/20 05/11/20 05/11/20 22:59 06:59 14:59 Other: Weight 106.594 kg Results 05/11/20 07:58 05/11/20 07:58 Cardiac Enzymes 05/11/20 05/11/20 05/11/20 Range/Units 07:58 07:58 11:09 AST 28 (14-36) U/L Troponin I <0.012 <0.012 (0.000-0.034) ng/mL Coagulation 05/11/20 Range/Units 07:58 PT 14.9 H (9.0-12.0) sec APTT 32.3 H (22.0-30.0) sec CBC 05/11/20 Range/Units 07:58 WBC 8.4 (3.8-10.6) k/uL RBC 4.35 (3.80-5.40) m/uL Hgb 13.0 (11.4-16.0) gm/dL Hct 39.2 (34.0-46.0) % Plt Count 213 (150-450) k/uL Comprehensive Metabolic Panel 05/11/20 Range/Units 07:58 Sodium 139 (137-145) mmol/L Potassium 4.5 (3.5-5.1) mmol/L Chloride 105 (98-107) mmol/L Carbon Dioxide 26 (22-30) mmol/L BUN 31 H (7-17) mg/dL Creatinine 1.11 H (0.52-1.04) mg/dL Glucose 118 H (74-99) mg/dL Calcium 9.4 (8.4-10.2) mg/dL AST 28 (14-36) U/L ALT 16 (4-34) U/L Alkaline Phosphatase 75 (38-126) U/L Total Protein 7.2 (6.3-8.2) g/dL Albumin 4.5 (3.5-5.0) g/dL Current Medications Generic Name Dose Route Start Last Admin Trade Name Freq PRN Reason Stop Dose Admin Atorvastatin Calcium 20 mg 05/11/20 21:00 Atorvastatin 20 Mg Tab PO HS ROE Carvedilol 50 mg 05/11/20 17:30 Carvedilol 12.5 Mg Tab PO BID-W/MEALS ROE Furosemide 40 mg 05/11/20 10:00 05/11/20 11:47 Furosemide 10 Mg/Ml 4 Ml Vial IV Not Given Q8H ROE Losartan Potassium 50 mg 05/12/20 09:00 Losartan 50 Mg Tab PO DAILY ROE Rivaroxaban 20 mg 05/11/20 12:00 Rivaroxaban 20 Mg Tab PO DAILY@1200 ROE Sodium Chloride 10 ml 05/11/20 21:00 Sodium Chloride 0.9% Flush 10 Ml Syringe IV BID ROE Spironolactone 50 mg 05/12/20 09:00 Spironolactone 25 Mg Tab PO DAILY [facility] Intake and Output 05/10/20 05/11/20 05/11/20 22:59 06:59 14:59 Other: Weight 106.594 kg Patient Weight 05/12/20 06:59 Weight 106.594 kg 05/11/20 07:58 05/11/20 07:58
[2020-05-11] MEDS ORDERED: NITROGLYCERIN OINT 1 INCH/GM PACKET TOPICAL SCH (13:00)
[2020-05-11] MEDS: carvediloL 12.5 MG TAB PO SCH (17:31)
--- NOTE | 2020-05-11 18:26 | P.HPIM ---
History of Present Illness H&P Date: 05/11/20 Chief Complaint: Chest pain Maria Del Rosario Reich, he is a 49-year-old female who presented to [facility] emergency room with a chief complaint of chest pain and shortness of breath patient was evaluated in the emergency room vital examination on presentation revealed a temperature of 97.6 pulse 62 respiration 20 blood pressure 81/57 pulse ox 97% on room air white blood count on presentation was 8.4 hemoglobin 13.0 platelet count 213 INR 1.5 d-dimer 0.63 BUN 31 creatinine 1.11 glucose 118 troponin level less than 0.012 BNP 3950 chest x-ray revealed evidence of cardiomegaly and interstitial pattern suggestive of congestive heart failure exacerbation versus interstitial pneumonia EKG revealed normal sinus rhythm with nonspecific ST and T-wave abnormality CT angiogram of the chest was done in the emergency room there was no evidence of central pulmonary embolism. Patient was admitted to telemetry floor cardiology consultation was requested. Patient has a known history of hypertension, hyperlipidemia, nonischemic cardiomyopathy, ventricular tachycardia, paroxysmal atrial fibrillation, she follows with Dr. Graham and as outpatient she underwent cardiac catheterization recently that revealed normal coronary arteries ejection fraction at that time was 10-15%. On review of systems patient denies any fever or chills no headache or dizziness, no cough no nausea or vomiting no abdominal pain no diarrhea no blood in the stools no burning with urination no frequency or urgency and no hematuria Past Medical History Past Medical History: Atrial Fibrillation, Heart Failure, Eye Disorder, Hyperlipidemia, Hypertension, Skin Disorder Additional Past Medical History / Comment(s): cellulitis rt lower leg(healed), psoriasis, gout, keratoconus rt eye History of Any Multi-Drug Resistant Organisms: None Reported Past Surgical History: Heart Catheterization Additional Past Surgical History / Comment(s): cardioversion, lumbar injection, Past Anesthesia/Blood Transfusion Reactions: No Reported Reaction Past Psychological History: No Psychological Hx Reported Smoking Status: Former smoker Past Alcohol Use History: None Reported Past Drug Use History: None Reported - Past Family History Mother Family Medical History: No Reported History Medications and Allergies Home Medications Medication Instructions Recorded Confirmed Type Atorvastatin [Lipitor] 20 mg PO HS 07/31/16 05/11/20 History Carvedilol [Coreg] 50 mg PO BID 07/31/16 05/11/20 History Furosemide [Lasix] 40 mg PO BID 07/31/16 05/11/20 History Spironolactone [Aldactone] 50 mg PO DAILY 07/31/16 05/11/20 History Rivaroxaban [Xarelto] 20 mg PO DAILY@1200 01/16/19 05/11/20 History Acetaminophen Tab [Tylenol Tab] 500 mg PO Q6H PRN 03/08/20 05/11/20 History Ergocalciferol [Vitamin D2] 50,000 unit PO KENT 03/08/20 05/11/20 History Allopurinol [Zyloprim] 300 mg PO DAILY 05/11/20 05/11/20 History Losartan Potassium 50 mg PO DAILY 05/11/20 05/11/20 History Allergies Allergy/AdvReac Type Severity Reaction Status Date / Time amoxicillin Allergy Rash/Hives Verified 05/11/20 08:52 Penicillins Allergy Rash/Hives Verified 05/11/20 08:52 Sulfa (Sulfonamide Allergy Swelling Verified 05/11/20 08:52 Antibiotics) Physical Exam Vitals: Vital Signs Temp Pulse Resp BP Pulse Ox 05/11/20 09:40 52 L 18 87/37 100 05/11/20 08:17 59 L 18 101/51 96 05/11/20 08:03 110/54 100 05/11/20 07:26 97.6 F 62 20 81/57 97 Intake and Output 05/10/20 05/11/20 05/11/20 22:59 06:59 14:59 Other: Weight 106.594 kg In general patient is alert and oriented 3 in no apparent distress HEENT head normocephalic and atraumatic Neck is supple no JVD no goiter no lymphadenopathy Chest exam reveals a few scattered crackles in both lung lawrence no wheezing Cardiac exam reveals regular heart sounds S1 and S2 no gallops no murmurs Abdomen is soft nontender no organomegaly with normal bowel sounds Extremity exam reveals no edema no cyanosis or clubbing Neurological examination reveals no gross focal deficit Results CBC & Chem 7: 05/11/20 07:58 05/11/20 07:58 Labs: Abnormal Lab Results - Last 24 Hours (Table) 05/11/20 05/11/20 05/11/20 Range/Units 07:58 07:58 07:58 RDW 15.8 H (11.5-15.5) % Lymphocytes # 0.8 L (1.0-4.8) k/uL PT 14.9 H (9.0-12.0) sec INR 1.5 H (<1.2) APTT 32.3 H (22.0-30.0) sec D-Dimer 0.63 H (<0.60) mg/L FEU BUN 31 H (7-17) mg/dL Creatinine 1.11 H (0.52-1.04) mg/dL Glucose 118 H (74-99) mg/dL Assessment and Plan Plan: #1 episode of chest pain atypical for cardiac ischemia patient is admitted to telemetry floor cardiology consultation is requested #2 acute exacerbation of systolic congestive heart failure patient started on IV Lasix cardiology consultation requested #3 underlying history of severe nonischemic cardiomyopathy #4 underlying history of paroxysmal atrial fibrillation maintained on #5 underlying history of hypertension #6 underlying history of ventricular tachycardia #7 underlying history of hyperlipidemia At this time medication and labs were reviewed continue was current management Will follow in the
[2020-05-11] MEDS ORDERED: ATORVASTATIN 20 MG TAB PO SCH (21:00)
[2020-05-12] MEDS: FUROSEMIDE 10 MG/ML 4 ML VIAL IV SCH ×2 (02:58→09:58)
[2020-05-12] MEDS: carvediloL 12.5 MG TAB PO SCH (08:35)
[2020-05-12] MEDS ORDERED: ASPIRIN 325 MG TAB PO SCH (09:00)
[2020-05-12] MEDS ORDERED: LOSARTAN 50 MG TAB PO SCH (09:00)
[2020-05-12] MEDS ORDERED: SPIRONOLACTONE 25 MG TAB PO SCH (09:00)
[2020-05-12 09:31] LABS: Calcium 9.7 mg/dL (8.4-10.2)
[2020-05-12 09:38] VITALS: BP 112/62; PULSE 63; RESP 16; TEMP 97.9
--- NOTE | 2020-05-12 09:48 | P.PN ---
Subjective Progress Note Date: 05/12/20 CHIEF COMPLAINT: Chest pain HISTORY OF PRESENT ILLNESS: Patient examined this morning at the bedside. Patient denies any further episodes of chest discomfort. She denies shortness of breath. Lower extremity edema has resolved. PHYSICAL EXAM: VITAL SIGNS: Reviewed. GENERAL: Well-developed in no acute distress. HEENT: Head is normocephalic. Pupils are equal, round. Sclerae anicteric. Mucous membranes of the mouth are moist. Neck supple. No JVD or thyromegaly LUNGS: Respirations even and unlabored. Lungs clear to auscultation HEART: Regular rate and rhythm. S1 and S2 heard. ABDOMEN: Soft. Nondistended. Nontender. EXTREMITIES: Normal range of motion. No clubbing or cyanosis. Peripheral pulses intact. No lower extremity edema. NEUROLOGIC: Awake and alert. Oriented x 3. ASSESSMENT: Atypical chest pain Acute exacerbation of her chronic systolic congestive heart failure Severe nonischemic cardiomyopathy, EF 10-15% History of paroxysmal atrial fibrillation, on long-term anticoagulation with Xarelto History of ventricular tachycardia Hypertension Hyperlipidemia History of cardiac catheterization March 2020 revealing normal coronary arteries Obesity: BMI 37.3 PLAN: 2-D echo ordered. Await results Discontinue IV Lasix. Resume home dose of oral Lasix 40 mg twice a day Patient is stable for discharge home today from a cardiac perspective. She is to follow up outpatient with Dr. Salcedo Nurse practitioner note has been reviewed by physician. Signing provider agrees with the documented findings, assessment, and plan of care. Objective - Vital Signs Vital signs: Vital Signs Temp 97.9 F 05/12/20 08:33 Pulse 63 05/12/20 09:00 Resp 16 05/12/20 09:00 BP 112/62 05/12/20 08:33 Pulse Ox 97 05/12/20 08:33 Intake & Output 05/11/20 05/12/20 05/12/20 18:59 06:59 18:59 Intake Total 480 300 Balance 480 300 Weight 108 kg 105 kg Intake: Oral 480 300 Other: Voiding Method Toilet Toilet # Voids 4 2 - Labs CBC & Chem 7: 05/11/20 07:58 05/12/20 09:03 Labs: Abnormal Lab Results - Last 24 Hours (Table) 05/12/20 Range/Units 09:03 Carbon Dioxide 32 H (22-30) mmol/L BUN 22 H (7-17) mg/dL Glucose 121 H (74-99) mg/dL
--- NOTE | 2020-05-12 09:50 | ECHOF ---
Referral Reason:LV function, chest pain MEASUREMENTS -------- HEIGHT: 170.2 cm WEIGHT: 106.6 kg BP: 87/37 RVIDd: 3.7 cm (< 3.3) IVSd: 0.9 cm (0.6 - 1.1) LVIDd: 6.3 cm (3.9 - 5.3) LVPWd: 1.0 cm (0.6 - 1.1) IVSs: 1.1 cm LVIDs: 4.5 cm LVPWs: 1.3 cm LA Diam: 4.8 cm (2.7 - 3.8) LAESV Index (A-L): 42.42 ml/m Ao Diam: 2.5 cm (2.0 - 3.7) AV Cusp: 1.6 cm (1.5 - 2.6) MV EXCURSION: 15.857 mm (> 18.000) MV EF SLOPE: 104 mm/s (70 - 150) EPSS: 0.8 cm RAP: 15.00 mmHg RVSP: 75.13 mmHg FINDINGS -------- Sinus rhythm. This was a technically adequate study. The left ventricle is severely dilated. Left ventricular wall thickness is normal. There is sever e global hypokinesis of LV . Overall left ventricular systolic function is severely impaired with, an EF between 20 - 25 %. Global hypokinesis The right ventricle is mild to moderately enlarged. LA is severely dilated >40 ml/m2 The right atrial size is normal. Interatrial and interventricular septum intact. The aortic valve is trileaflet, and appears structurally normal. No aortic stenosis or regurgitation. The mitral valve is normal. Moderate mitral regurgitation is present. Moderate tricuspid regurgitation present. There is severe pulmonary hypertension. The right ventr icular systolic pressure, as measured by Doppler, is 75.13mmHg. Trace/mild (physiologic) pulmonic regurgitation. The aortic root size is normal. The inferior vena cava is dilated with no significant inspiratory collapse which is consistent estima evelyn right atrial pressure of >15 mmHg. There is no pericardial effusion. CONCLUSIONS -------- 1. The left ventricle is severely dilated. 2. There is severe global hypokinesis of LV . 3. Overall left ventricular systolic function is severely impaired with, an EF between 20 - 25 %. 4. Global hypokinesis 5. The right ventricle is mild to moderately enlarged. 6. LA is severely dilated >40 ml/m2 7. The aortic valve is trileaflet, and appears structurally normal. No aortic stenosis or regurgitati on. 8. Moderate mitral regurgitation is present. 9. Moderate tricuspid regurgitation present. 10. There is severe pulmonary hypertension. 11. Trace/mild (physiologic) pulmonic regurgitation. 12. The inferior vena cava is dilated with no significant inspiratory collapse which is consistent es timated right atrial pressure of >15 mmHg. 13. There is no pericardial effusion. SPRAY APPLICATOR: Yuko Up RDCS
--- NOTE | 2020-05-12 10:37 | P.DS ---
Providers Date of admission: 05/11/20 09:49 Expected date of discharge: 05/12/20 Attending physician: Valery Arenas Consults: 05/11/20 09:44 Consult Physician Routine Consulting Provider: Raven More Consult Reason/Comments: cp, chf Do you want consulting provider notified?: Yes Primary care physician: Valeryeduardo Arenas [facility] Course: Diagnosis on discharge: #1 episode of chest pain atypical for cardiac ischemia patient is admitted to telemetry floor cardiology consultation is requested #2 acute exacerbation of systolic congestive heart failure patient started on IV Lasix cardiology consultation requested #3 underlying history of severe nonischemic cardiomyopathy #4 underlying history of paroxysmal atrial fibrillation maintained on #5 underlying history of hypertension #6 underlying history of ventricular tachycardia #7 underlying history of hyperlipidemia Hospital course: Maria Del Rosario Reich, he is a 49-year-old female who presented to [facility] emergency room with a chief complaint of chest pain and shortness of breath patient was evaluated in the emergency room vital examination on presentation revealed a temperature of 97.6 pulse 62 respiration 20 blood pressure 81/57 pulse ox 97% on room air white blood count on presentation was 8.4 hemoglobin 13.0 platelet count 213 INR 1.5 d-dimer 0.63 BUN 31 creatinine 1.11 glucose 118 troponin level less than 0.012 BNP 3950 chest x-ray revealed evidence of cardiomegaly and interstitial pattern suggestive of congestive heart failure exacerbation versus interstitial pneumonia EKG revealed normal sinus rhythm with nonspecific ST and T-wave abnormality CT angiogram of the chest was done in the emergency room there was no evidence of central pulmonary embolism. Patient was admitted to telemetry floor cardiology consultation was requested. Patient has a known history of hypertension, hyperlipidemia, nonischemic cardiomyopathy, ventricular tachycardia, paroxysmal atrial fibrillation, she follows with Dr. Graham and as outpatient she underwent cardiac catheterization recently that revealed normal coronary arteries ejection fraction at that time was 10-15%. On review of systems patient denies any fever or chills no headache or dizziness, no cough no nausea or vomiting no abdominal pain no diarrhea no blood in the stools no burning with urination no frequency or urgency and no hematuria On 05/12/2020 patient was seen and examined on the medical floor she is alert and oriented 3 in no apparent distress, she is feeling better there is no new episodes of chest pain, her shortness of breath has improved otherwise she denies any complaints there is no fever or chills no headache or dizziness no cough no nausea or vomiting no abdominal pain no diarrhea no burning with urination no frequency or urgency and no hematuria. Patient had an echocardiogram yesterday that revealed left ventricle is severely dilated with an ejection fraction of 20-25% with global hypokinesia, patient was evaluated by cardiology today IV Lasix was discontinued patient was resumed on her oral Lasix 40 mg by mouth twice daily she was cleared for discharge. Patient seen and examined she is feels that she is ready for discharge. Patient was discharged home today she will be seen in our office in 2 days she will resume her home medication as prior to admission she was instructed to have a very low salt diet and to report any symptoms or weight gain as soon as possible. Plan - Discharge Summary Discharge Rx Participant: Yes New Discharge Prescriptions: Continue Spironolactone [Aldactone] 50 mg PO DAILY Furosemide [Lasix] 40 mg PO BID Carvedilol [Coreg] 50 mg PO BID Atorvastatin [Lipitor] 20 mg PO HS Rivaroxaban [Xarelto] 20 mg PO DAILY@1200 Ergocalciferol [Vitamin D2 (DRISDOL)] 50,000 unit PO KENT Acetaminophen Tab [Tylenol] 500 mg PO Q6H PRN PRN Reason: Pain Losartan Potassium 50 mg PO DAILY Allopurinol [Zyloprim] 300 mg PO DAILY Discharge Medication List Atorvastatin [Lipitor] 20 mg PO HS 07/31/16 [History] Carvedilol [Coreg] 50 mg PO BID 07/31/16 [History] Furosemide [Lasix] 40 mg PO BID 07/31/16 [History] Spironolactone [Aldactone] 50 mg PO DAILY 07/31/16 [History] Rivaroxaban [Xarelto] 20 mg PO DAILY@1200 01/16/19 [History] Acetaminophen Tab [Tylenol] 500 mg PO Q6H PRN 03/08/20 [History] Ergocalciferol [Vitamin D2 (DRISDOL)] 50,000 unit PO KENT 03/08/20 [History] Allopurinol [Zyloprim] 300 mg PO DAILY 05/11/20 [History] Losartan Potassium 50 mg PO DAILY 05/11/20 [History] Follow up Appointment(s)/Referral(s): Valery Arenas MD [Primary Care Provider] - 1-2 days
[2020-05-12 11:13] VITALS: BMI 36.2
[2020-05-12] MEDS ORDERED: FUROSEMIDE 40 MG TAB PO SCH (16:00)
== END 2020-05-12 11:05 | disposition home or self-care (01) ==
LOC: EC 07:26 → 1SOBS 09:49
PROVIDERS: ADMIT Internal Medicine; ATTEND Internal Medicine
DX: R07.89 Other chest pain (principal); R06.00 Dyspnea, unspecified; R11.0 Nausea; I11.0 Hypertensive heart disease with heart failure; I50.23 Acute on chronic systolic (congestive) heart failure; I42.8 Other cardiomyopathies; I48.0 Paroxysmal atrial fibrillation; E78.5 Hyperlipidemia, unspecified; H18.601 Keratoconus, unspecified, right eye; L40.9 Psoriasis, unspecified; M10.9 Gout, unspecified; E66.9 Obesity, unspecified; Z68.37 Body mass index [BMI] 37.0-37.9, adult; Z79.899 Other long term (current) drug therapy; Z79.01 Long term (current) use of anticoagulants; Z88.2 Allergy status to sulfonamides; Z88.0 Allergy status to penicillin; Z88.1 Allergy status to other antibiotic agents; Z86.19 Personal history of other infectious and parasitic diseases; Z87.891 Personal history of nicotine dependence; Z20.828 Contact with and (suspected) exposure to other viral communicable diseases; Z95.5 Presence of coronary angioplasty implant and graft; Z86.79 Personal history of other diseases of the circulatory system
CPT/HCPCS: 96376; 96361; 96374; 96375; 99285; 36415; 93005; 93306; 85379; 83880; 80053; 80048; 83735; 84484; 85025; 85610; 85730; 87635; 71046; 71275; G0378 ×2; J1940 ×2; J2270; Q9967

== ENCOUNTER → 2020-07-08 | Day surgery (SDC) | payer MEDICAID ==
[2020-07-02 09:58] VITALS: BMI 37.0
[~2020-07-08] MED LIST changes: +ACETAMINOPHEN IV (For NPO) 1,000 MG in EMPTY BAG 1 BAG IVPB ONE; +ACETAMINOPHEN TAB 325 MG TAB PO PRN; -ALPRAZolam 0.25 MG TAB PO PRN; -ALPRAZolam 0.5 MG TAB PO PRN; -ASPIRIN 325 MG TAB PO STA; +CLINDAMYCIN 600 MG in SODIUM CHLORIDE 0.9% 250 ML IRRIGATION PRN; +CLINDAMYCIN 900 MG in DEXTROSE 5% IN WATER 50 ML IVPB PRN; +CLINDAMYCIN 900 MG in DEXTROSE 5% IN WATER 50 ML IVPB SCH; +DEXAMETHASONE SOD PHOSPHATE 4 MG/ML 1 ML VIAL IV ONE; +FUROSEMIDE 40 MG TAB PO SCH; +HYDROmorphone 0.5 MG/0.5 ML SYRINGE IVP PRN; +IOPAMIDOL-370 50ML BTL INJ ONE; +LACTATED RINGERS 1,000 ML IV SCH; +LIDOCAINE 1% (10MG/ML) FOR IV START INTRADERMA PRN; +LIDOCAINE 1% INJ 10MG/ML (20 ML MDV) ONE; +MIDAZOLAM 2 MG/2 ML VIAL IV PRN; +MIDAZOLAM 2 MG/2 ML VIAL ONE; -NITROGLYCERIN SL TABS 0.4 MG TAB SUBLINGUAL PRN; +ONDANSETRON 4 MG/2 ML VIAL IVP ONE; +PROPOFOL 10 MG/ML 20 ML VIAL IV ONE; +SODIUM CHLORIDE 0.9% 1,000 ML IV SCH; -SODIUM CHLORIDE 0.9% 1,000 ML in EMPTY BAG 1 BAG IV ONE; +WATER FOR INJECTION, STERILE 10 ML VIAL IV ONE; +carvediloL 12.5 MG TAB PO SCH; +ePHEDrine SULFATE/0.9% NACL/PF 50 MG/5 ML SYRINGE IV ONE; +fentaNYL (PF) 50 MCG/ML 2 ML AMP ONE
[2020-07-08 08:39] VITALS: RESP 18; TEMP 98.8
[2020-07-08] MEDS: LIDOCAINE 1% INJ 10MG/ML (20 ML MDV) SQ ONE ×2 (10:59→11:05)
--- NOTE | 2020-07-08 13:38 | CE ---
CARDIAC ELECTROPHYSIOLOGY REPORT This is a 49-year-old female who has nonischemic cardiomyopathy congestive heart failure and is on heart failure medications. She has severe LV dysfunction, congestive heart failure class 2-3. She is brought in for dual-chamber ICD implant. She also has bradycardia. She is on medical treatment greater than 6 months. Patient was brought to the EP lab in a fasting state. Written informed consent was obtained prior to the procedure. The left shoulder area was prepped and draped as per protocol and 1% lidocaine was used for local anesthesia. A 4 cm incision was made parallel to the deltopectoral groove, about 1.5 cm medial to it. The incision was carried down to the level of the pectoralis muscle. A subfascial pocket was made. Hemostasis was assured. The left axillary vein was accessed at 2 separate points under fluoroscopy and via appropriately-sized introducer sheath 2 leads were positioned the right heart. The atrial lead was a Medtronic model number 5076, 52 cm in length and serial number [id number]. P-waves 3 mV, pacing impedance 860 ohms, pacing threshold 1.9 V at 0.5 milliseconds. Ten volt test is negative. The RV lead was a Med[employer]onic model number 6935M, 62 cm in length and serial number [id number]. This was positioned in the RV septum. R-waves 5.2 mV, pacing impedance 588 ohms, pacing threshold 0.8 V at 0.5 milliseconds. Ten volt test is negative. Both leads were secured to the underlying pectoralis fascia using 2 nonabsorbable sutures. Pocket was irrigated with antibiotic solution. Leads were connected to the generator (Evera MRI XT, DF4 device. This is a model number [id number], serial number [id number]). The leads and generator were then placed in subfascial pocket. The wound was closed in 3 layers and dressed per protocol. RESULT: Successful dual-chamber pacemaker implantation for primary prevention of sudden cardiac in patient with nonischemic cardiomyopathy with class 2-3 heart failure symptoms. The patient tolerated the procedure well without any acute complications. DFT testing was performed under anesthesia. Shock T-wave protocol was used to induce ventricular fibrillation and this was detected at least sensitivity, but a 10-joule shock was unsuccessful. This was repeated with 20 joule shock and 6 dropouts were noted, but the patient was successfully defibrillated with a 20 joule shock. The charge time was 4 seconds and the shock impedance was 68 ohms. No post shock noise. IMPRESSION: 1. Dual-chamber ICD implantation for severe nonischemic cardiomyopathy with congestive heart failure class 2-3. 2. Elevated high DFT at 20 joules. The device was then programmed with Madit-RIT programming with appropriate antitachycardia pacing, cardioversion, defibrillation and long detection intervals. The bib parameters were programmed to AAIR-DDDR 60-130 ppm. MMODL / IJN: [id number] /
--- NOTE | 2020-07-08 15:44 | XR ---
EXAMINATION TYPE: XR chest 1V portable DATE OF EXAM: 07/08/2020 Comparison: 05/11/2020 Clinical History: 49-year-old female Lead placement check Findings: Left anterior chest wall AICD generator with right atrial and right ventricular leads. Heart is enlar ged. Large patient body habitus results in underpenetration and hazy bilateral densities. No lei co nsolidation or sizable effusion. Impression: Left anterior chest wall pacemaker generator with right atrial and right ventricular leads. Mild card iomegaly. No definite acute process.
[2020-07-08 17:37] VITALS: BP 103/66; PULSE 61
== END ==
LOC: CATHEP 07:47
PROVIDERS: ATTEND Internal Medicine Clinical Cardiac Electrophysiology
DX: I42.0 Dilated cardiomyopathy (principal); I42.8 Other cardiomyopathies; I11.0 Hypertensive heart disease with heart failure; I50.22 Chronic systolic (congestive) heart failure; I05.9 Rheumatic mitral valve disease, unspecified; I48.0 Paroxysmal atrial fibrillation; I47.1 Supraventricular tachycardia; Z87.891 Personal history of nicotine dependence; Z98.890 Other specified postprocedural states; Z88.0 Allergy status to penicillin; Z79.01 Long term (current) use of anticoagulants; Z79.899 Other long term (current) drug therapy; Z88.2 Allergy status to sulfonamides
CPT/HCPCS: 93641; 33249; 81025; 71045; C1769 ×4; C1892; C1898; C1895; C1721; J2250; J2001; J3010; J0131; J2704; Q9967

== ENCOUNTER 2020-07-26 16:48 | Inpatient (IN) | payer MEDICAID ==
--- NOTE | 2020-07-26 17:43 | ED ---
General Adult HPI - General Source: patient, EMS, RN notes reviewed Mode of arrival: EMS Limitations: no limitations <Joe Paredes - Last Filed: 07/26/20 18:44> <Rashid Begum - Last Filed: 07/26/20 19:06> - General Chief complaint: Weakness Stated complaint: Weakness Time Seen by Provider: 07/26/20 17:15 - History of Present Illness Initial comments: This is a 49-year-old female presents emergency Department with chief complaint of generalized weakness. Patient presented emergency from via EMS. Patient's been having severe vaginal bleeding with clots Over the last 2 weeks. Patient states that her menstrual cycles were not regular prior to this. Patient is on Xarelto and takes entresto for her cardiomyopathy. Patient states her surveillance officer is Dr. Salcedo. Patient states she had a pacemaker placed 06/30/2020. Patient states that she has severe cardiomyopathy. Patient's had some shortness of breath, chest discomfort, severe dizziness. Patient states she is so weak that she cannot stand up. Patient states that she has no history of anemia. Patient does admit to abdominal cramping.Patient states she's had multiple falls recently. Patient states that she has struck her head along the right side and left periorbital region (Joe Paredes) - Related Data Home Medications Medication Instructions Recorded Confirmed Atorvastatin [Lipitor] 20 mg PO HS 07/31/16 07/08/20 Carvedilol [Coreg] 50 mg PO BID 07/31/16 07/08/20 Furosemide [Lasix] 40 mg PO BID 07/31/16 07/08/20 Spironolactone [Aldactone] 50 mg PO DAILY 07/31/16 07/08/20 Rivaroxaban [Xarelto] 20 mg PO DAILY@1200 01/16/19 07/08/20 Ergocalciferol [Vitamin D2 50,000 unit PO KENT 03/08/20 07/08/20 (DRISDOL)] Allopurinol [Zyloprim] 300 mg PO DAILY 05/11/20 07/08/20 Sacubitril/Valsartan [Entresto 24 1 each PO BID 07/02/20 07/08/20 mg-26 mg Tablet] Allergies Allergy/AdvReac Type Severity Reaction Status Date / Time amoxicillin Allergy Rash/Hives Verified 07/08/20 08:23 Penicillins Allergy Rash/Hives Verified 07/08/20 08:23 Sulfa (Sulfonamide Allergy Swelling Verified 07/08/20 08:23 Antibiotics) Review of Systems ROS Other: All systems not noted in ROS Statement are negative. <Joe Paredes - Last Filed: 07/26/20 18:44> ROS Other: All systems not noted in ROS Statement are negative. <Rashid Begum - Last Filed: 07/26/20 19:06> ROS Statement: Those systems with pertinent positive or pertinent negative responses have been documented in the HPI. Past Medical History Past Medical History: Atrial Fibrillation, Heart Failure, Eye Disorder, Hyperlipidemia, Hypertension, Skin Disorder Additional Past Medical History / Comment(s): See Dr Salcedo H&P, psoriasis, gout, keratoconus rt eye History of Any Multi-Drug Resistant Organisms: None Reported Past Surgical History: Heart Catheterization Additional Past Surgical History / Comment(s): cardioversion, lumbar injection, Past Anesthesia/Blood Transfusion Reactions: No Reported Reaction Past Psychological History: No Psychological Hx Reported Smoking Status: Former smoker - Past Family History Mother Family Medical History: No Reported History <Joe Paredes - Last Filed: 07/26/20 18:44> General Exam Limitations: no limitations General appearance: alert, in no apparent distress Head exam: Present: atraumatic, normocephalic. Absent: normal inspection (Ecchymosis on the right temporal region) Eye exam: Present: normal appearance, PERRL, EOMI, periorbital swelling (Left with ecchymosis noted), periorbital tenderness. Absent: scleral icterus, conjunctival injection ENT exam: Present: normal exam, normal oropharynx, mucous membranes moist, TM's normal bilaterally, normal external ear exam Neck exam: Present: normal inspection, full ROM. Absent: tenderness, meningismus, lymphadenopathy Respiratory exam: Present: normal lung sounds bilaterally. Absent: respiratory distress, wheezes, rales, rhonchi, stridor Cardiovascular Exam: Present: regular rate, normal rhythm, normal heart sounds. Absent: systolic murmur, diastolic murmur, rubs, gallop, clicks GI/Abdominal exam: Present: soft, normal bowel sounds. Absent: distended, tenderness, guarding, rebound, rigid Extremities exam: Present: normal inspection, full ROM, normal capillary refill. Absent: tenderness, pedal edema, joint swelling, calf tenderness Neurological exam: Present: alert, oriented X3, CN II-XII intact Skin exam: Present: warm, dry, intact. Absent: normal color (Pale), rash <Joe Paredes - Last Filed: 07/26/20 18:44> Course <Joe Paredes - Last Filed: 07/26/20 18:44> Vital Signs 07/26/20 07/26/20 07/26/20 16:52 17:00 17:07 Temperature 98.9 F Pulse Rate 82 Respiratory 14 Rate Blood Pressure 67/28 90/44 73/28 O2 Sat by Pulse 97 Oximetry 07/26/20 07/26/20 07/26/20 17:10 17:15 17:32 Temperature Pulse Rate 78 Respiratory 14 16 Rate Blood Pressure 73/28 76/32 O2 Sat by Pulse Oximetry 07/26/20 07/26/20 07/26/20 18:08 18:20 18:53 Temperature 98.2 F Pulse Rate 80 82 82 Respiratory 14 16 16 Rate Blood Pressure 84/37 81/33 78/70 O2 Sat by Pulse 100 100 Oximetry 07/26/20 19:00 Temperature Pulse Rate 82 Respiratory 16 Rate Blood Pressure 83/39 O2 Sat by Pulse 100 Oximetry - Reevaluation(s) Reevaluation #1: 07/26/20 17:42 Patient was evaluated, labs were ordered immediately along with CT, EKG. Patient appears to be anemic, type and screen was ordered. Patient's prior medical records were reviewed will not started on aggressive fluid hydration as she has severe Cardiomyopathy with ejection fracture approximately 20% along with her severe vaginal bleeding. Patient given 250 mL bolus, await CBC for probable transfusion. (Joe Paredes) EKG Findings - EKG Comments: EKG Findings:: EKG performed at 17:26 sinus rhythm with prolonged QT rate of 83 CT 182 QRS 96 QT/QTC 414/46 <Joe Paredes - Last Filed: 07/26/20 18:44> Medical Decision Making - Lab Data Result diagrams: 07/26/20 17:31 07/26/20 17:31 <Joe Paredes - Last Filed: 07/26/20 18:44> - Lab Data Result diagrams: 07/26/20 17:31 07/26/20 17:31 <Rashid Begum - Last Filed: 07/26/20 19:06> - Medical Decision Making Case discussed with leather cleaner, hospitalist, cardiology patient admitted to ICU for anemia on anticoagulation anticoagulation was held, patient does have hypotension secondary to her anemia. (Joe Paredes) 49-year-old female with presented initially with general weakness and vaginal bleeding. She had recent ICD placed for nonischemic cardiomyopathy. She is on Xarelto with a remote history of atrial fibrillation. She's had vaginal bleeding for the last almost 3 weeks. She states she had not had vaginal bleeding prior to this. She reports generalized weakness and multiple falls including head injury. Workup is initiated emergency department. She is initially hypotensive and quite pale. No active vaginal bleeding. Workup is no significant for severe anemia with hemoglobin of 4.1. Most recent baseline was 12. She is transfused 2 units initially, Xarelto will be discontinued. I discussed case with Dr. More, , Dr. Mai, and Dr. Arenas. Additionally ultrasound will be performed and [employer] will be placed on consult. (Rashid Begum) - Lab Data Lab Results 07/26/20 07/26/20 07/26/20 Range/Units 17:15 17:18 17:31 WBC 11.5 H (3.8-10.6) k/uL RBC 1.47 L (3.80-5.40) m/uL Hgb 4.1 L* (11.4-16.0) gm/dL Hct 13.6 L* (34.0-46.0) % MCV 92.7 (80.0-100.0) fL MCH 27.9 (25.0-35.0) pg MCHC 30.1 L (31.0-37.0) g/dL RDW 18.1 H (11.5-15.5) % Plt Count 273 (150-450) k/uL MPV 7.2 Neutrophils % 89 % Lymphocytes % 5 % Monocytes % 4 % Eosinophils % 1 % Basophils % 0 % Neutrophils # 10.3 H (1.3-7.7) k/uL Lymphocytes # 0.6 L (1.0-4.8) k/uL Monocytes # 0.4 (0-1.0) k/uL Eosinophils # 0.1 (0-0.7) k/uL Basophils # 0.0 (0-0.2) k/uL Hypochromasia Marked Poikilocytosis Moderate Anisocytosis Slight PT (9.0-12.0) sec INR (<1.2) APTT (22.0-30.0) sec Sodium (137-145) mmol/L Potassium (3.5-5.1) mmol/L Chloride (98-107) mmol/L Carbon Dioxide (22-30) mmol/L Anion Gap mmol/L BUN (7-17) mg/dL Creatinine (0.52-1.04) mg/dL Est GFR (CKD-EPI)AfAm (>60 ml/min/1.73 sqM) Est GFR (CKD-EPI)NonAf (>60 ml/min/1.73 sqM) Glucose (74-99) mg/dL Plasma Lactic Acid Artis (0.7-2.0) mmol/L Calcium (8.4-10.2) mg/dL Magnesium (1.6-2.3) mg/dL Total Bilirubin (0.2-1.3) mg/dL AST (14-36) U/L ALT (4-34) U/L Alkaline Phosphatase (38-126) U/L Troponin I (0.000-0.034) ng/mL NT-Pro-B Natriuret Pep pg/mL Total Protein (6.3-8.2) g/dL Albumin (3.5-5.0) g/dL Blood Type A Negative Blood Type Confirm A Negative Blood Type Recheck No Previous Record Bld Type Recheck Status CABO Indicated Antibody Screen NEGATIVE Crossmatch See Detail Spec Expiration Date 07/29/2020 - 233007/26/20 07/26/20 07/26/20 Range/Units 17:31 17:31 17:31 WBC (3.8-10.6) k/uL RBC (3.80-5.40) m/uL Hgb (11.4-16.0) gm/dL Hct (34.0-46.0) % MCV (80.0-100.0) fL MCH (25.0-35.0) pg MCHC (31.0-37.0) g/dL RDW (11.5-15.5) % Plt Count (150-450) k/uL MPV Neutrophils % % Lymphocytes % % Monocytes % % Eosinophils % % Basophils % % Neutrophils # (1.3-7.7) k/uL Lymphocytes # (1.0-4.8) k/uL Monocytes # (0-1.0) k/uL Eosinophils # (0-0.7) k/uL Basophils # (0-0.2) k/uL Hypochromasia Poikilocytosis Anisocytosis PT 11.2 (9.0-12.0) sec INR 1.1 (<1.2) APTT 16.5 L (22.0-30.0) sec Sodium 135 L (137-145) mmol/L Potassium 4.8 (3.5-5.1) mmol/L Chloride 103 (98-107) mmol/L Carbon Dioxide 21 L (22-30) mmol/L Anion Gap 11 mmol/L BUN 25 H (7-17) mg/dL Creatinine 1.28 H (0.52-1.04) mg/dL Est GFR (CKD-EPI)AfAm 57 (>60 ml/min/1.73 sqM) Est GFR (CKD-EPI)NonAf 49 (>60 ml/min/1.73 sqM) Glucose 166 H (74-99) mg/dL Plasma Lactic Acid Artis 4.8 H* (0.7-2.0) mmol/L Calcium 9.0 (8.4-10.2) mg/dL Magnesium 2.3 (1.6-2.3) mg/dL Total Bilirubin 0.7 (0.2-1.3) mg/dL AST 22 (14-36) U/L ALT 16 (4-34) U/L Alkaline Phosphatase 40 (38-126) U/L Troponin I (0.000-0.034) ng/mL NT-Pro-B Natriuret Pep pg/mL Total Protein 5.7 L (6.3-8.2) g/dL Albumin 3.6 (3.5-5.0) g/dL Blood Type Blood Type Confirm Blood Type Recheck Bld Type Recheck Status Antibody Screen Crossmatch Spec Expiration Date 07/26/20 07/26/20 Range/Units 17:31 17:31 WBC (3.8-10.6) k/uL RBC (3.80-5.40) m/uL Hgb (11.4-16.0) gm/dL Hct (34.0-46.0) % MCV (80.0-100.0) fL MCH (25.0-35.0) pg MCHC (31.0-37.0) g/dL RDW (11.5-15.5) % Plt Count (150-450) k/uL MPV Neutrophils % % Lymphocytes % % Monocytes % % Eosinophils % % Basophils % % Neutrophils # (1.3-7.7) k/uL Lymphocytes # (1.0-4.8) k/uL Monocytes # (0-1.0) k/uL Eosinophils # (0-0.7) k/uL Basophils # (0-0.2) k/uL Hypochromasia Poikilocytosis Anisocytosis PT (9.0-12.0) sec INR (<1.2) APTT (22.0-30.0) sec Sodium (137-145) mmol/L Potassium (3.5-5.1) mmol/L Chloride (98-107) mmol/L Carbon Dioxide (22-30) mmol/L Anion Gap mmol/L BUN (7-17) mg/dL Creatinine (0.52-1.04) mg/dL Est GFR (CKD-EPI)AfAm (>60 ml/min/1.73 sqM) Est GFR (CKD-EPI)NonAf (>60 ml/min/1.73 sqM) Glucose (74-99) mg/dL Plasma Lactic Acid Artis (0.7-2.0) mmol/L Calcium (8.4-10.2) mg/dL Magnesium (1.6-2.3) mg/dL Total Bilirubin (0.2-1.3) mg/dL AST (14-36) U/L ALT (4-34) U/L Alkaline Phosphatase (38-126) U/L Troponin I <0.012 (0.000-0.034) ng/mL NT-Pro-B Natriuret Pep 4160 pg/mL Total Protein (6.3-8.2) g/dL Albumin (3.5-5.0) g/dL Blood Type Blood Type Confirm Blood Type Recheck Bld Type Recheck Status Antibody Screen Crossmatch Spec Expiration Date Critical Care Time Critical Care Time: Yes Total Critical Care Time: 35 <Joe Paredes - Last Filed: 07/26/20 18:44> Critical Care Time: Total 35 minutes of critical care time use initially the patient, reviewed past medical history including labs, EKG, CT and x-ray. Patient found to be anemic and hypotensive with a hemoglobin of 4.1. Patient did have type and screen and 2 L were ordered initially patient does have severe cardiac myopathy with ejection fracture proximal May 20 percent. Patient will be closely monitored for fluid overload fluids were not ordered initially given her low EF. Patient CT does not reveal any acute intracranial hemorrhage. Patient case was discussed with cardiology, PCP, leather cleaner. Patient will be given 2 units of blood with repeat CBC patient blood pressure [facility] monitored there is no clear source for infection at this time lactic acid is also likely related from anemia and dehydration. (Joe Paredes) Disposition <Joe Paredes - Last Filed: 07/26/20 18:44> Is patient prescribed a controlled substance at d/c from ED?: No Decision to Admit Reason: Admit from EC Decision Date: 07/26/20 Decision Time: 19:06 <Rashid Begum - Last Filed: 07/26/20 19:06> Clinical Impression: Anemia, Dysfunctional uterine bleeding, Hypotension, Acute blood loss anemia Disposition: ADMITTED IP TO THIS HOSP Condition: Critical
[2020-07-26 17:54] LABS: Albumin 3.6 g/dL (3.5-5.0); Anisocytosis Slight; Basophils % (A) 0 %; Eosinophils # (A) 0.1 k/uL (0-0.7); Eosinophils % (A) 1 %; Hypochromasia Marked; Lymphocytes # (A) 0.6 k/uL (1.0-4.8); Lymphocytes % (A) 5 %; MCH 27.9 pg (25.0-35.0); MCHC 30.1 g/dL (31.0-37.0); MCV 92.7 fL (80.0-100.0); Magnesium 2.3 mg/dL (1.6-2.3); Mean Platelet Volume 7.2; Monocytes # (A) 0.4 k/uL (0-1.0); Monocytes % (A) 4 %; Neutrophils # (A) 10.3 k/uL (1.3-7.7); Neutrophils % (A) 89 %; Platelet Count 273 k/uL (150-450); Poikilocytosis Moderate; Potassium 4.8 mmol/L (3.5-5.1); RBC 1.47 m/uL (3.80-5.40); RDW 18.1 % (11.5-15.5); Total Bilirubin 0.7 mg/dL (0.2-1.3); Total Protein 5.7 g/dL (6.3-8.2); WBC 11.5 k/uL (3.8-10.6)
[2020-07-26 17:56] LABS: HCT 13.6 % (34.0-46.0); HGB 4.1 gm/dL (11.4-16.0)
[2020-07-26 17:59] LABS: INR 1.1 (<1.2); Prothrombin Time 11.2 sec (9.0-12.0)
[2020-07-26 18:00] LABS: Partial Thromboplastin Time 16.5 sec (22.0-30.0)
--- NOTE | 2020-07-26 18:03 | XR ---
EXAMINATION TYPE: XR chest 2V DATE OF EXAM: 07/26/2020 COMPARISON: 07/08/2020 HISTORY: Weakness TECHNIQUE: 2 views FINDINGS: Heart is enlarged. There is left axillary pacemaker. There are chest leads. Lung bases are clear. There are no hilar masses. There is no heart failure. Costophrenic angles are clear. Exam limi evelyn by patient's size. IMPRESSION: Cardiomegaly. No acute lung disease. No definite change compared to recent exam.
--- NOTE | 2020-07-26 18:33 | CT ---
EXAMINATION TYPE: CT brain cspine wo con DATE OF EXAM: 07/26/2020 COMPARISON: None HISTORY: Fall x2. CT DLP: 1576.4 mGycm Automated exposure control for dose reduction was used. Exam performed without contrast. Ventricles have normal size. There is no mass effect nor midline shift. There is no sign of intracran ial hemorrhage. The calvarium is intact. The skull base is intact. There is 1.5 cm calcification on t he inner table of the left posterior frontal bone that is probably an osteoma. There is normal aerati on of the mastoid sinuses. Cervical vertebra show some straightening. There is anterior spurring at C5-6 and C6-7. Posterior abbey ments are intact. Facet joints are intact. There is mild posterior endplate spur formation at C5-6 an d C6-7 with slight impingement on the spinal canal. IMPRESSION: Spondylotic changes in the lower cervical spine. No fracture. Negative CT scan of the brain. No evidence of traumatic injury.
[2020-07-26] MEDS ORDERED: NALOXONE 0.4 MG/ML 1 ML VIAL IV PRN (18:38)
--- NOTE | 2020-07-26 21:56 | US ---
EXAMINATION TYPE: US pelvic complete DATE OF EXAM: 07/26/2020 COMPARISON: US CLINICAL HISTORY: Vaginal bleeding. Vaginal bleeding. LMP unknown. Patient was poor historian. . TECHNIQUE: Transabdominal (TA). Transvaginal exam not performed, patient refusing. Date of LMP: Unknown. EXAM MEASUREMENTS: Uterus: 10.8 x 5.1 x 3.8 cm Endometrial Stripe: 0.58 cm Right Ovary: Area in right adnexa seen, appears to be right ovary. Measured at 7.3 x 7.7 x 6.6 cm Left Ovary: Not seen cm 1. Uterus: Anteverted Measures upper limits of normal versus slightly enlarged. 2. Endometrium: Measured at 0.58 cm. 3. Right Ovary: Area measured in right adnexa appears to be the right ovary. If this area does resem ble the right ovary, it appears enlarged. Anechoic area seen within measuring 5.7 x 6.3 x 5.9 cm. Artis ous waveform is seen within this right adnexal area. It was difficult to show a clear arterial wavefo rm. Limited arterial waveform seen possibly due to depth. 4. Left Ovary: Not seen. 5. Bilateral Adnexa: Appear wnl. 6. Posterior cul-de-sac: Hypoechoic area seen which appears to be fluid measuring 3.7 x 4.6 x 1.2 cm . IMPRESSION: There is some free fluid in the cul-de-sac. There is 7.5 cm cystic mass in the right adne xal region consistent with ovarian cyst. Normal uterus.
[2020-07-27 00:13] LABS: Glucose,Whole Blood 100 mg/dL (75-99)
[2020-07-27 02:08] LABS: Anisocytosis Slight; Basophils % (A) 0 %; Eosinophils # (A) 0.1 k/uL (0-0.7); Eosinophils % (A) 1 %; HCT 21.1 % (34.0-46.0); Hypochromasia Moderate; Lymphocytes % (A) 9 %; MCH 29.3 pg (25.0-35.0); MCHC 31.7 g/dL (31.0-37.0); MCV 92.4 fL (80.0-100.0); Mean Platelet Volume 7.3; Monocytes # (A) 0.8 k/uL (0-1.0); Monocytes % (A) 7 %; Neutrophils # (A) 9.7 k/uL (1.3-7.7); Neutrophils % (A) 83 %; Platelet Count 236 k/uL (150-450); Poikilocytosis Moderate; RBC 2.28 m/uL (3.80-5.40); RDW 16.3 % (11.5-15.5); WBC 11.7 k/uL (3.8-10.6)
[2020-07-27 02:10] LABS: HGB 6.7 gm/dL (11.4-16.0)
[2020-07-27] MEDS ORDERED: SODIUM CHLORIDE 0.9% 500 ML 500 ML IV ONE (02:47)
[2020-07-27 08:25] LABS: Basophils % (A) 0 %; Eosinophils # (A) 0.1 k/uL (0-0.7); Eosinophils % (A) 1 %; HCT 21.6 % (34.0-46.0); Hypochromasia Slight; Lymphocytes # (A) 0.9 k/uL (1.0-4.8); Lymphocytes % (A) 9 %; MCH 29.9 pg (25.0-35.0); MCHC 32.3 g/dL (31.0-37.0); MCV 92.6 fL (80.0-100.0); Mean Platelet Volume 7.4; Monocytes # (A) 0.8 k/uL (0-1.0); Monocytes % (A) 8 %; Neutrophils # (A) 8.1 k/uL (1.3-7.7); Neutrophils % (A) 81 %; Platelet Count 228 k/uL (150-450); Poikilocytosis Moderate; RBC 2.33 m/uL (3.80-5.40); RDW 15.7 % (11.5-15.5)
[2020-07-27 08:35] LABS: Albumin 3.1 g/dL (3.5-5.0); Calcium 8.4 mg/dL (8.4-10.2); Potassium 4.3 mmol/L (3.5-5.1); Total Bilirubin 1.1 mg/dL (0.2-1.3); Total Protein 5.3 g/dL (6.3-8.2)
--- NOTE | 2020-07-27 08:35 | XR ---
EXAMINATION TYPE: XR chest 1V portable DATE OF EXAM: 07/27/2020 COMPARISON: 07/26/2020 INDICATION: Short of breath TECHNIQUE: Single frontal view of the chest is obtained. FINDINGS: The heart size is enlarged. The pulmonary vasculature is normal. The lungs are clear. Respect overlies left chest. IMPRESSION: 1. Stable very prominent cardiomegaly. 2. No acute pulmonary process.
--- NOTE | 2020-07-27 09:15 | P.CRDCN ---
History of Present Illness Consult date: 07/27/20 Chief complaint: Paroxysmal atrial fibrillation History of present illness: This is a very pleasant 49-year-old female patient with a past medical history significant for paroxysmal atrial fibrillation on oral anticoagulation as well as history of nonischemic cardiomyopathy who presented to the hospital complaining of generalized weakness and fatigue. She was brought to the emergency department by ambulance. The patient has been experiencing severe vagina bleeding for the last 2-3 weeks. Lately she has been feeling tired and fatigued and has no energy. Also she has been experiencing symptoms of dizziness and lightheadedness. No loss of consciousness or syncope. No symptoms of chest pain or chest discomfort. She underwent recently a placement of biventricular AICD. When she presented to the emergency department by ambulance she was found to be anemic with a hemoglobin around 4. She received blood and her hemoglobin this morning is around 6. An WATER AND FIRE TECHNICIAN consult was placed and the patient is in process to be seen. Ultrasound of the pelvis was performed. The patient remains hemodynamically stable. She is in sinus rhythm with frequent PVCs and multiple runs of nonsustained ventricular tachycardia. She is also having bigeminy and trigeminy. The last echocardiogram revealed severe cardiomyopathy was EF between 20-25%. Currently the oral anticoagulation is on hold at this point. Beside that she is not on any antiplatelet. Past Medical History Past Medical History: Atrial Fibrillation, Heart Failure, Eye Disorder, Hyperlipidemia, Hypertension, Skin Disorder Additional Past Medical History / Comment(s): See Dr Salcedo H&P, psoriasis, gout, keratoconus rt eye History of Any Multi-Drug Resistant Organisms: None Reported Past Surgical History: Heart Catheterization, Pacemaker Additional Past Surgical History / Comment(s): cardioversion, lumbar injection, pacemaker placement Past Anesthesia/Blood Transfusion Reactions: No Reported Reaction Type of Cardiac Device: Permanent Pacemaker Device Placement Date:: 06/30/2020 Smoking Status: Former smoker - Past Family History Mother Family Medical History: AICD/Pacemaker Father Family Medical History: AICD/Pacemaker Medications and Allergies Home Medications Medication Instructions Recorded Confirmed Type Atorvastatin [Lipitor] 20 mg PO HS 07/31/16 07/26/20 History Carvedilol [Coreg] 50 mg PO BID 07/31/16 07/26/20 History Furosemide [Lasix] 40 mg PO BID 07/31/16 07/26/20 History Spironolactone [Aldactone] 50 mg PO DAILY 07/31/16 07/26/20 History Rivaroxaban [Xarelto] 20 mg PO HS 01/16/19 07/26/20 History Ergocalciferol [Vitamin D2 50,000 unit PO KENT 03/08/20 07/26/20 History (DRISDOL)] Allopurinol [Zyloprim] 300 mg PO DAILY 05/11/20 07/26/20 History Sacubitril/Valsartan [Entresto 24 1 tab PO BID 07/02/20 07/26/20 History mg-26 mg Tablet] Allergies Allergy/AdvReac Type Severity Reaction Status Date / Time amoxicillin Allergy Rash/Hives Verified 07/08/20 08:23 Penicillins Allergy Rash/Hives Verified 07/08/20 08:23 Sulfa (Sulfonamide Allergy Swelling Verified 07/08/20 08:23 Antibiotics) Physical Exam Vitals: Vital Signs Temp Pulse Resp BP Pulse Ox 07/27/20 07:00 86 26 H 102/53 97 07/27/20 06:30 83 21 91/38 97 07/27/20 06:00 84 24 92/46 96 07/27/20 05:50 98.2 F 86 20 83/51 98 07/27/20 05:30 86 26 H 97/50 98 07/27/20 05:00 79 25 H 95/45 97 07/27/20 04:30 87 23 106/54 97 07/27/20 04:11 98.1 F 85 20 106/54 97 07/27/20 04:00 98.1 F 91 23 77/34 98 07/27/20 03:41 98.6 F 84 16 77/34 98 07/27/20 03:31 98.8 F 91 20 89/33 98 07/27/20 03:30 90 18 68/33 98 07/27/20 03:00 86 21 92/48 96 07/27/20 02:30 86 24 107/54 96 07/27/20 02:00 96 17 93/37 98 07/27/20 01:30 89 9 L 104/42 98 07/27/20 01:00 91 20 94/47 99 07/27/20 00:30 88 28 H 97/59 99 07/27/20 00:00 98.4 F 84 21 104/45 98 02/15/21 23:50 98.4 F 92 18 97/59 99 07/26/20 23:00 98.0 F 86 23 96/49 99 07/26/20 22:05 98.0 F 94 18 91/47 99 07/26/20 22:00 81 22 91/47 07/26/20 21:35 98.0 F 82 18 103/42 07/26/20 21:25 98.0 F 88 20 98/60 07/26/20 21:00 86 100/47 100 07/26/20 20:49 82 20 100/47 99 07/26/20 20:30 82 19 80/46 100 07/26/20 20:00 82 15 91/35 07/26/20 19:34 98.0 F 81 20 88/50 07/26/20 19:30 80 20 95/37 100 07/26/20 19:20 77 20 95/37 98 07/26/20 19:04 98.2 F 79 18 89/50 07/26/20 19:00 81 19 67/43 96 07/26/20 18:53 98.2 F 82 16 78/70 07/26/20 18:30 82 18 81/33 100 07/26/20 18:20 82 16 81/33 100 07/26/20 18:19 85 84/37 100 07/26/20 18:08 80 14 84/37 100 07/26/20 17:32 16 07/26/20 17:15 76/32 07/26/20 17:10 78 14 73/28 07/26/20 17:07 73/28 07/26/20 17:00 90/44 07/26/20 16:52 98.9 F 82 14 67/28 97 Intake and Output 07/26/20 07/27/20 07/27/20 22:59 06:59 14:59 Intake Total 720 1231 10 Output Total 375 Balance 720 856 10 Intake: IV 570 10 .9 70 10 Sodium Chloride 0.9% 500 500 ml 500 ml @ 999 mls/hr IV .Q31M ONE Rx#:[id number] Blood Product 620 561 Rc As-1 Unit 310 0 [id number] Rc As-1 Unit 310 [id number] Rc Pheresis 2 As3 Unit 281 [id number] Other 100 100 Rc As-1 Unit 100 100 [id number] Output: Urine 375 Other: Voiding Method Bedpan # Voids 1 Weight 108.862 kg 108.5 kg - Constitutional General appearance: no acute distress - Respiratory Respiratory: bilateral: diminished - Cardiovascular Rhythm: regular Heart sounds: normal: S1, S2 Results 07/27/20 07:52 07/27/20 07:52 Cardiac Enzymes 07/26/20 07/26/20 07/27/20 Range/Units 17:31 17:31 07:52 AST 22 20 (14-36) U/L Troponin I <0.012 (0.000-0.034) ng/mL Coagulation 07/26/20 Range/Units 17:31 PT 11.2 (9.0-12.0) sec APTT 16.5 L (22.0-30.0) sec CBC 07/26/20 07/27/20 07/27/20 Range/Units 17:31 01:30 07:52 WBC 11.5 H 11.7 H 10.0 (3.8-10.6) k/uL RBC 1.47 L 2.28 L 2.33 L (3.80-5.40) m/uL Hgb 4.1 L* 6.7 L* D 7.0 L (11.4-16.0) gm/dL Hct 13.6 L* 21.1 L 21.6 L (34.0-46.0) % Plt Count 273 236 228 (150-450) k/uL Comprehensive Metabolic Panel 07/26/20 07/27/20 Range/Units 17:31 07:52 Sodium 135 L 135 L (137-145) mmol/L Potassium 4.8 4.3 (3.5-5.1) mmol/L Chloride 103 104 (98-107) mmol/L Carbon Dioxide 21 L 23 (22-30) mmol/L BUN 25 H 25 H (7-17) mg/dL Creatinine 1.28 H 1.22 H (0.52-1.04) mg/dL Glucose 166 H 95 (74-99) mg/dL Calcium 9.0 8.4 (8.4-10.2) mg/dL AST 22 20 (14-36) U/L ALT 16 7 (4-34) U/L Alkaline Phosphatase 40 43 (38-126) U/L Total Protein 5.7 L 5.3 L (6.3-8.2) g/dL Albumin 3.6 3.1 L (3.5-5.0) g/dL Current Medications Generic Name Dose Route Start Last Admin Trade Name Freq PRN Reason Stop Dose Admin Acetaminophen 650 mg 07/26/20 18:38 Acetaminophen Tab 325 Mg Tab PO Q4HR PRN Fever and/or Mild Pain Naloxone HCl 0.2 mg 07/26/20 18:38 Naloxone 0.4 Mg/Ml 1 Ml Vial IV Q2M PRN Opioid Reversal Pantoprazole Sodium 40 mg 07/27/20 09:00 Pantoprazole 40 Mg/10 Ml Vial IV DAILY ROE Intake and Output 07/26/20 07/27/20 07/27/20 22:59 06:59 14:59 Intake Total 720 1231 10 Output Total 375 Balance 720 856 10 Intake: IV 570 10 .9 70 10 Sodium Chloride 0.9% 500 500 ml 500 ml @ 999 mls/hr IV .Q31M ONE Rx#:[id number] Blood Product 620 561 Rc As-1 Unit 310 0 [id number] Rc As-1 Unit 310 [id number] Rc Pheresis 2 As3 Unit 281 [id number] Other 100 100 Rc As-1 Unit 100 100 [id number] Output: Urine 375 Other: Voiding Method Bedpan # Voids 1 Weight 108.862 kg 108.5 kg 07/27/20 07:52 07/27/20 07:52 Assessment and Plan Assessment: Assessment #1 severe anemia and blood loss anemia #2 vagina bleeding #3 paroxysmal atrial fibrillation #4 cardiomyopathy nonischemic Plan Continue holding the oral anticoagulation #2 monitor the hemoglobin and blood transfusion #3 awaiting for the consult from W[employer] AND FIRE TECHNICIAN #4 follow-up with the patient
[2020-07-27 10:41] LABS: Appearance,Urine Cloudy (Clear); Bilirubin,Urine Negative (Negative); Blood,Urine Small (Negative); Color,Urine Yellow; Glucose,Urine (UA) Negative (Negative); Ketones,Urine Negative (Negative); Leukocyte Esterase,Urine Large (Negative); Nitrite,Urine Positive (Negative); PH, Urine 5.5 (5.0-8.0); Protein,Urine Trace (Negative); RBC,Urine 2 /hpf (0-5); Specific Gravity,Urine 1.018 (1.001-1.035); Urobilinogen,Urine <2.0 mg/dL (<2.0); WBC,Urine >182 /hpf (0-5)
[2020-07-27] MEDS: PANTOPRAZOLE 40 MG/10 ML VIAL IV SCH (12:06)
[2020-07-27 13:47] LABS: Anisocytosis Slight; HCT 21.5 % (34.0-46.0); Hypochromasia Moderate; MCH 28.5 pg (25.0-35.0); MCV 91.8 fL (80.0-100.0); Mean Platelet Volume 7.2; Platelet Count 213 k/uL (150-450); Poikilocytosis Moderate; RBC 2.34 m/uL (3.80-5.40); RDW 16.1 % (11.5-15.5); WBC 10.8 k/uL (3.8-10.6)
--- NOTE | 2020-07-27 13:51 | P.HPIM ---
History of Present Illness H&P Date: 07/27/20 Maria Del Rosario Reich, is a 49-year-old female who presented to [facility] emergency room with a chief complaint of generalized weakness and vaginal bleeding for about 2 weeks, patient has a known history of cardiomyopathy , she was seen by her property site manager on 06/30/2020 she underwent a pacemaker placement and was started on an Entresto and Xarelto, shortly after that she started having some vaginal bleeding she did not seek any medical attention until today, patient was evaluated in the emergency room, vital examination on presentation revealed a temperature of 98.9 pulse 82 respiration 14 blood pressure 67/28 pulse ox 97% on room air, her white blood count was 11.5 hemoglobin 4.1 platelet count 273 sodium 135 potassium 4.8 BUN 25 creatinine 1.28 lactic acid 4.8 patient was admitted directly to intensive care unit she was given 2 units of red blood cells cardiology consultation, critical care consultation and gynecology consultation were requested. On review of systems patient is sitting up in her bed in ICU she is alert and oriented 3 in no distress she is feeling better she denies any fever or chills no headache or dizziness no chest pain no shortness of breath no cough no nausea or vomiting no abdominal pain no diarrhea no blood in the stools no burning with urination no frequency or urgency no hematuria she is still having some minimal vaginal bleeding at this time Past Medical History Past Medical History: Atrial Fibrillation, Heart Failure, Eye Disorder, Hyperlipidemia, Hypertension, Skin Disorder Additional Past Medical History / Comment(s): See Dr Salcedo H&P, psoriasis, gout, keratoconus rt eye History of Any Multi-Drug Resistant Organisms: None Reported Past Surgical History: Heart Catheterization, Pacemaker Additional Past Surgical History / Comment(s): cardioversion, lumbar injection, pacemaker placement Past Anesthesia/Blood Transfusion Reactions: No Reported Reaction Type of Cardiac Device: Permanent Pacemaker Device Placement Date:: 06/30/2020 Smoking Status: Former smoker - Past Family History Mother Family Medical History: AICD/Pacemaker Father Family Medical History: AICD/Pacemaker Medications and Allergies Home Medications Medication Instructions Recorded Confirmed Type Atorvastatin [Lipitor] 20 mg PO HS 07/31/16 07/26/20 History Carvedilol [Coreg] 50 mg PO BID 07/31/16 07/26/20 History Furosemide [Lasix] 40 mg PO BID 07/31/16 07/26/20 History Spironolactone [Aldactone] 50 mg PO DAILY 07/31/16 07/26/20 History Rivaroxaban [Xarelto] 20 mg PO HS 01/16/19 07/26/20 History Ergocalciferol [Vitamin D2 50,000 unit PO KENT 03/08/20 07/26/20 History (DRISDOL)] Allopurinol [Zyloprim] 300 mg PO DAILY 05/11/20 07/26/20 History Sacubitril/Valsartan [Entresto 24 1 tab PO BID 07/02/20 07/26/20 History mg-26 mg Tablet] Allergies Allergy/AdvReac Type Severity Reaction Status Date / Time amoxicillin Allergy Rash/Hives Verified 07/08/20 08:23 Penicillins Allergy Rash/Hives Verified 07/08/20 08:23 Sulfa (Sulfonamide Allergy Swelling Verified 07/08/20 08:23 Antibiotics) Physical Exam Vitals: Vital Signs Temp Pulse Resp BP Pulse Ox 07/27/20 07:00 86 26 H 102/53 97 07/27/20 06:30 83 21 91/38 97 07/27/20 06:00 84 24 92/46 96 07/27/20 05:50 98.2 F 86 20 83/51 98 07/27/20 05:30 86 26 H 97/50 98 07/27/20 05:00 79 25 H 95/45 97 07/27/20 04:30 87 23 106/54 97 07/27/20 04:11 98.1 F 85 20 106/54 97 07/27/20 04:00 98.1 F 91 23 77/34 98 07/27/20 03:41 98.6 F 84 16 77/34 98 07/27/20 03:31 98.8 F 91 20 89/33 98 07/27/20 03:30 90 18 68/33 98 07/27/20 03:00 86 21 92/48 96 07/27/20 02:30 86 24 107/54 96 07/27/20 02:00 96 17 93/37 98 07/27/20 01:30 89 9 L 104/42 98 07/27/20 01:00 91 20 94/47 99 07/27/20 00:30 88 28 H 97/59 99 07/27/20 00:00 98.4 F 84 21 104/45 98 07/26/20 23:50 98.4 F 92 18 97/59 99 07/26/20 23:00 98.0 F 86 23 96/49 99 07/26/20 22:05 98.0 F 94 18 91/47 99 07/26/20 22:00 81 22 91/47 07/26/20 21:35 98.0 F 82 18 103/42 07/26/20 21:25 98.0 F 88 20 98/60 07/26/20 21:00 86 100/47 100 07/26/20 20:49 82 20 100/47 99 07/26/20 20:30 82 19 80/46 100 07/26/20 20:00 82 15 91/35 07/26/20 19:34 98.0 F 81 20 88/50 07/26/20 19:30 80 20 95/37 100 07/26/20 19:20 77 20 95/37 98 07/26/20 19:04 98.2 F 79 18 89/50 07/26/20 19:00 81 19 67/43 96 07/26/20 18:53 98.2 F 82 16 78/70 07/26/20 18:30 82 18 81/33 100 07/26/20 18:20 82 16 81/33 100 07/26/20 18:19 85 84/37 100 07/26/20 18:08 80 14 84/37 100 07/26/20 17:32 16 07/26/20 17:15 76/32 07/26/20 17:10 78 14 73/28 07/26/20 17:07 73/28 07/26/20 17:00 90/44 07/26/20 16:52 98.9 F 82 14 67/28 97 Intake and Output 07/26/20 07/27/20 07/27/20 22:59 06:59 14:59 Intake Total 720 1231 10 Output Total 375 Balance 720 856 10 Intake: IV 570 10 .9 70 10 Sodium Chloride 0.9% 500 500 ml 500 ml @ 999 mls/hr IV .Q31M ONE Rx#:[id number] Blood Product 620 561 Rc As-1 Unit 310 0 [id number] Rc As-1 Unit 310 [id number] Rc Pheresis 2 As3 Unit 281 [id number] Other 100 100 As-1 Unit 100 100 [id number] Output: Urine 375 Other: Voiding Method Bedpan # Voids 1 Weight 108.862 kg 108.5 kg In general patient is alert and oriented 3 in no apparent distress HEENT head normocephalic and atraumatic Neck is supple no JVD no goiter no lymphadenopathy Chest exam reveals a few scattered rhonchi no wheezing Cardiac exam reveals regular heart sounds S1 and S2 no gallops no murmurs Abdomen is soft nontender no organomegaly was normal bowel sounds Extremity exam reveals no edema no cyanosis or clubbing Neurological examination reveals no gross focal deficit Results CBC & Chem 7: 07/27/20 07:52 07/27/20 07:52 Labs: Abnormal Lab Results - Last 24 Hours (Table) 07/26/20 07/26/20 07/26/20 Range/Units 17:15 17:31 17:31 WBC 11.5 H (3.8-10.6) k/uL RBC 1.47 L (3.80-5.40) m/uL Hgb 4.1 L* (11.4-16.0) gm/dL Hct 13.6 L* (34.0-46.0) % MCHC 30.1 L (31.0-37.0) g/dL RDW 18.1 H (11.5-15.5) % Neutrophils # 10.3 H (1.3-7.7) k/uL Lymphocytes # 0.6 L (1.0-4.8) k/uL APTT 16.5 L (22.0-30.0) sec Sodium (137-145) mmol/L Carbon Dioxide (22-30) mmol/L BUN (7-17) mg/dL Creatinine (0.52-1.04) mg/dL Glucose (74-99) mg/dL POC Glucose (mg/dL) (75-99) mg/dL Plasma Lactic Acid Artis (0.7-2.0) mmol/L Total Protein (6.3-8.2) g/dL Crossmatch See Detail 07/26/20 07/26/20 07/27/20 Range/Units 17:31 17:31 00:12 WBC (3.8-10.6) k/uL RBC (3.80-5.40) m/uL Hgb (11.4-16.0) gm/dL Hct (34.0-46.0) % MCHC (31.0-37.0) g/dL RDW (11.5-15.5) % Neutrophils # (1.3-7.7) k/uL Lymphocytes # (1.0-4.8) k/uL APTT (22.0-30.0) sec Sodium 135 L (137-145) mmol/L Carbon Dioxide 21 L (22-30) mmol/L BUN 25 H (7-17) mg/dL Creatinine 1.28 H (0.52-1.04) mg/dL Glucose 166 H (74-99) mg/dL POC Glucose (mg/dL) 100 H (75-99) mg/dL Plasma Lactic Acid Artis 4.8 H* (0.7-2.0) mmol/L Total Protein 5.7 L (6.3-8.2) g/dL Crossmatch 07/27/20 07/27/20 Range/Units 01:30 07:52 WBC 11.7 H (3.8-10.6) k/uL RBC 2.28 L 2.33 L (3.80-5.40) m/uL Hgb 6.7 L* D 7.0 L (11.4-16.0) gm/dL Hct 21.1 L 21.6 L (34.0-46.0) % MCHC (31.0-37.0) g/dL RDW 16.3 H 15.7 H (11.5-15.5) % Neutrophils # 9.7 H 8.1 H (1.3-7.7) k/uL Lymphocytes # 0.9 L (1.0-4.8) k/uL APTT (22.0-30.0) sec Sodium (137-145) mmol/L Carbon Dioxide (22-30) mmol/L BUN (7-17) mg/dL Creatinine (0.52-1.04) mg/dL Glucose (74-99) mg/dL POC Glucose (mg/dL) (75-99) mg/dL Plasma Lactic Acid Artis (0.7-2.0) mmol/L Total Protein (6.3-8.2) g/dL Crossmatch Thrombosis Risk Factor Assmnt - Choose All That Apply Any of the Below Risk Factors Present?: Yes Each Factor Represents 1 point: Age 41-60 years, History of prior major surgery (<1month), Medical pt on bed rest, Obesity (BMI >25) Other Risk Factors: No Other congenital or acquired thrombophilia - If yes, enter type in comment: No Thrombosis Risk Factor Assessment Total Risk Factor Score: 4 Thrombosis Risk Factor Assessment Level: Moderate Risk Assessment and Plan Plan: Severe acute blood loss anemia Vaginal bleeding Recently started on anticoagulation with Xarelto Underlying history of nonischemic cardiomyopathy Recent history of pacemaker placement Underlying history of paroxysmal atrial fibrillation At this time patient is admitted to ICU 2 units of red blood cell transfusion were given Will monitor hemoglobin closely and continue to transfuse if needed Blood pressure remains low patient is maintained on IV fluid, blood pressure medications are on hold Xarelto is on hold Cardiology pulmonary and gynecology consult requested Will follow closely
[2020-07-27 13:54] LABS: HGB 6.7 gm/dL (11.4-16.0)
--- NOTE | 2020-07-27 14:45 | P.CNPUL ---
History of Present Illness Consult date: 07/27/20 Requesting physician: Valery Arenas Reason for consult: other (ICU management, acute blood loss anemia secondary to vaginal bleeding) Chief complaint: Generalized weakness fatigue and vaginal bleeding History of present illness: This is a 49-year-old female with history of paroxysmal atrial fibrillation, nonischemic cardiomyopathy, maintained on Xarelto. History of AICD placement. Patient presented to the ER yesterday with a few days' history of fatigue, generalized weakness, patient has been also complaining of vaginal bleeding severe for the last 2-3 weeks. Upon presentation to the ER, patient was noted to have extremely low hemoglobin at 4.0. Patient was admitted to the ICU, received so far 3 units of packed RBCs, and her hemoglobin this morning is 6.7. Coagulation profile is normal. Platelets are normal. PT and PTT are normal. Chest x-ray on admission showed mostly cardiomegaly. Patient is yet to be seen by LOW VISION THERAPIST on consultation, she did have a pelvic ultrasound which showed posterior fluid collection in the cul-de-sac, 3.74.61.2. It also showed a cystic mass in the right ovary measuring 5.76.35.9. Considering the patient's profound anemia and ongoing vaginal bleeding, and considering the patient has severe ischemic cardiomyopathy and LV dysfunction, patient was admitted to the ICU, and I was asked to see her on consultation. Last night I was notified ab out this patient's low blood pressure, and I recommended mostly transfusion of blood until the hemoglobin is above 7, and close monitoring for any potential worsening shortness of breath and developing pulmonary edema considering her LV dysfunction. In fact the patient is doing well from the pulmonary perspective, she had no cough, no shortness of breath, her chest x-ray showed no evidence of pulmonary edema. Patient is on room air this morning. And she is quite comfortable. Unfortunately she continues to have ongoing vaginal bleeding, and this will be addressed by gynecology. Patient tells me that her last menstrual period was a year ago, and she hasn't had a menstrual period for over a year. Review of Systems Constitutional: Weakness fatigue malaise no fever, no chills, no weight loss. HEENT: Negative. Pulmonary: Negative. Cardiac: History of non ischemic cardiomyopathy paroxysmal atrial fibrillation maintained on Xarelto on a regular basis. GI: Negative. Genitourinary: As noted in HPI mostly vaginal bleeding. Musculoskeletal: Negative. Neurologic: Negative. Hematologic: No history of clotting bleeding or bruising except for this episode of vaginal bleeding. Psychiatric: Negative. Neurologic: Negative. Skin: Negative. Past Medical History Past Medical History: Atrial Fibrillation, Heart Failure, Eye Disorder, Hyperlipidemia, Hypertension, Skin Disorder Additional Past Medical History / Comment(s): See Dr Salcedo H&P, psoriasis, gout, keratoconus rt eye History of Any Multi-Drug Resistant Organisms: None Reported Past Surgical History: Heart Catheterization, Pacemaker Additional Past Surgical History / Comment(s): cardioversion, lumbar injection, pacemaker placement Past Anesthesia/Blood Transfusion Reactions: No Reported Reaction Type of Cardiac Device: Permanent Pacemaker Device Placement Date:: 06/30/2020 Smoking Status: Former smoker - Past Family History Mother Family Medical History: AICD/Pacemaker Father Family Medical History: AICD/Pacemaker Medications and Allergies Home Medications Medication Instructions Recorded Confirmed Type Atorvastatin [Lipitor] 20 mg PO HS 07/31/16 07/26/20 History Carvedilol [Coreg] 50 mg PO BID 07/31/16 07/26/20 History Furosemide [Lasix] 40 mg PO BID 07/31/16 07/26/20 History Spironolactone [Aldactone] 50 mg PO DAILY 07/31/16 07/26/20 History Rivaroxaban [Xarelto] 20 mg PO HS 01/16/19 07/26/20 History Ergocalciferol [Vitamin D2 50,000 unit PO KENT 03/08/20 07/26/20 History (DRISDOL)] Allopurinol [Zyloprim] 300 mg PO DAILY 05/11/20 07/26/20 History Sacubitril/Valsartan [Entresto 24 1 tab PO BID 07/02/20 07/26/20 History mg-26 mg Tablet] Allergies Allergy/AdvReac Type Severity Reaction Status Date / Time amoxicillin Allergy Rash/Hives Verified 07/08/20 08:23 Penicillins Allergy Rash/Hives Verified 07/08/20 08:23 Sulfa (Sulfonamide Allergy Swelling Verified 07/08/20 08:23 Antibiotics) Physical Exam Vitals: Vital Signs Temp Pulse Resp BP Pulse Ox 07/27/20 14:29 98.5 F 73 14 93/49 100 07/27/20 14:00 66 21 84/36 97 07/27/20 13:00 80 11 L 81/40 100 07/27/20 12:00 97.9 F 80 25 H 98/42 100 07/27/20 11:00 80 18 92/46 98 07/27/20 10:00 80 15 116/58 98 07/27/20 09:00 82 21 103/72 98 07/27/20 08:00 97.9 F 87 26 H 110/58 96 07/27/20 07:00 86 26 H 102/53 97 07/27/20 06:30 83 21 91/38 97 07/27/20 06:00 84 24 92/46 96 07/27/20 05:50 98.2 F 86 20 83/51 98 07/27/20 05:30 86 26 H 97/50 98 07/27/20 05:00 79 25 H 95/45 97 07/27/20 04:30 87 23 106/54 97 07/27/20 04:11 98.1 F 85 20 106/54 97 07/27/20 04:00 98.1 F 91 23 77/34 98 07/27/20 03:41 98.6 F 84 16 77/34 98 07/27/20 03:31 98.8 F 91 20 89/33 98 07/27/20 03:30 90 18 68/33 98 07/27/20 03:00 86 21 92/48 96 07/27/20 02:30 86 24 107/54 96 07/27/20 02:00 96 17 93/37 98 07/27/20 01:30 89 9 L 104/42 98 07/27/20 01:00 91 20 94/47 99 07/27/20 00:30 88 28 H 97/59 99 07/27/20 00:00 98.4 F 84 21 104/45 98 07/26/20 23:50 98.4 F 92 18 97/59 99 07/26/20 23:00 98.0 F 86 23 96/49 99 07/26/20 22:05 98.0 F 94 18 91/47 99 07/26/20 22:00 81 22 91/47 07/26/20 21:35 98.0 F 82 18 103/42 07/26/20 21:25 98.0 F 88 20 98/60 07/26/20 21:00 86 100/47 100 07/26/20 20:49 82 20 100/47 99 07/26/20 20:30 82 19 80/46 100 07/26/20 20:00 82 15 91/35 07/26/20 19:34 98.0 F 81 20 88/50 07/26/20 19:30 80 20 95/37 100 07/26/20 19:20 77 20 95/37 98 07/26/20 19:04 98.2 F 79 18 89/50 07/26/20 19:00 81 19 67/43 96 07/26/20 18:53 98.2 F 82 16 78/70 07/26/20 18:30 82 18 81/33 100 07/26/20 18:20 82 16 81/33 100 07/26/20 18:19 85 84/37 100 07/26/20 18:08 80 14 84/37 100 07/26/20 17:32 16 07/26/20 17:15 76/32 07/26/20 17:10 78 14 73/28 07/26/20 17:07 73/28 07/26/20 17:00 90/44 07/26/20 16:52 98.9 F 82 14 97 Intake and Output 07/26/20 07/27/20 07/27/20 22:59 06:59 14:59 Intake Total 720 1231 680 Output Total 375 400 Balance 720 856 280 Intake: IV 570 80 .9 70 80 Sodium Chloride 0.9% 500 500 ml 500 ml @ 999 mls/hr IV .Q31M ONE Rx#:[id number] Oral 600 Blood Product 620 561 0 Rc As-1 Unit 310 0 [id number] Rc As-1 Unit 310 [id number] Rc Pheresis 2 As3 Unit 0 [id number] Rc Pheresis 2 As3 Unit 281 [id number] Other 100 100 Rc As-1 Unit 100 100 [id number] Output: Urine 375 400 Other: Voiding Method Bedpan # Voids 1 Weight 108.862 kg 108.5 kg Physical Exam revealed 49-year-old female in no distress. Head: Atraumatic, normocephalic. HEENT:[Neck is supple.] [No neck masses.] [No thyromegaly.] [No JVD.] pale conjunctivae, anicteric. Dry mucous membranes. Chest: [Clear throughout, no crackles, no rhonchi, no wheezes.] Cardiac Exam: Irregular irregular rhythm. [Normal S1 and S2, no S3 gallop, over 6 systolic murmur thought the precordium. Abdomen: [These, Soft, nontender, no megaly, no rebound, no guarding, normal bowel sounds.] Extremities: [No clubbing, no edema, no cyanosis.] Pulses bilaterally. Skeletal: No deformities, no limitation in range of motion. Neurological Exam: [No focal neurologic deficit.] Alert and oriented 3. Psychiatric: Normal mood affect and normal mental status examination. Results - Laboratory Findings CBC and BMP: 07/27/20 12:55 07/27/20 07:52 PT/INR, D-dimer PT 11.2 sec (9.0-12.0) 07/26/20 17:31 INR 1.1 (<1.2) 07/26/20 17:31 Abnormal lab findings: Abnormal Labs 07/26/20 07/26/20 07/26/20 17:15 17:31 17:31 WBC 11.5 H RBC 1.47 L Hgb 4.1 L* Hct 13.6 L* MCHC 30.1 L RDW 18.1 H Neutrophils # 10.3 H Lymphocytes # 0.6 L APTT 16.5 L Sodium Carbon Dioxide BUN Creatinine Glucose POC Glucose (mg/dL) Plasma Lactic Acid Artis Magnesium Total Protein Albumin Urine Appearance Urine Protein Urine Blood Urine Nitrite Ur Leukocyte Esterase Urine WBC Urine WBC Clumps Crossmatch See Detail 07/26/20 07/26/20 07/27/20 17:31 17:31 00:12 WBC RBC Hgb Hct MCHC RDW Neutrophils # Lymphocytes # APTT Sodium 135 L Carbon Dioxide 21 L BUN 25 H Creatinine 1.28 H Glucose 166 H POC Glucose (mg/dL) 100 H Plasma Lactic Acid Artis 4.8 H* Magnesium Total Protein 5.7 L Albumin Urine Appearance Urine Protein Urine Blood Urine Nitrite Ur Leukocyte Esterase Urine WBC Urine WBC Clumps Crossmatch 07/27/20 07/27/20 07/27/20 01:30 07:52 07:52 WBC 11.7 H RBC 2.28 L 2.33 L Hgb 6.7 L* D 7.0 L Hct 21.1 L 21.6 L MCHC RDW 16.3 H 15.7 H Neutrophils # 9.7 H 8.1 H Lymphocytes # 0.9 L APTT Sodium 135 L Carbon Dioxide BUN 25 H Creatinine 1.22 H Glucose POC Glucose (mg/dL) Plasma Lactic Acid Artis Magnesium Total Protein 5.3 L Albumin 3.1 L Urine Appearance Urine Protein Urine Blood Urine Nitrite Ur Leukocyte Esterase Urine WBC Urine WBC Clumps Crossmatch 07/27/20 07/27/20 07/27/20 07:52 10:15 12:55 WBC 10.8 H RBC 2.34 L Hgb 6.7 L* Hct 21.5 L MCHC RDW 16.1 H Neutrophils # Lymphocytes # APTT Sodium Carbon Dioxide BUN Creatinine Glucose POC Glucose (mg/dL) Plasma Lactic Acid Artis Magnesium 2.4 H Total Protein Albumin Urine Appearance Cloudy H Urine Protein Trace H Urine Blood Small H Urine Nitrite Positive H Ur Leukocyte Esterase Large H Urine WBC >182 H Urine WBC Clumps Many H Crossmatch - Diagnostic Findings Chest x-ray: image reviewed (As noted in HPI.) Additional studies: Pelvic ultrasound: As noted in HPI. Assessment and Plan Assessment: Impression: Acute severe blood loss anemia secondary to vaginal bleeding, exact etiology is not clear, that is being addressed by gynecology on the case. Paroxysmal atrial fibrillation. Hypotension, hypovolemic in nature secondary to blood loss anemia and vaginal bleeding. History of nonischemic cardiomyopathy and LV dysfunction. History of paroxysmal atrial fibrillation. History of AICD placement for LV dysfunction. Recommendation: Continue to hold Xarelto. Transfuse to keep hemoglobin just above 7. Awaiting POLICY ISSUE CLERK consultation. Monitor closely for pulmonary edema since the patient has severe LV dysfunction. Diuresis if necessary. We will continue to follow the patient while in the ICU. Continue GI prophylaxis. Hold any anticoagulation therapy for now. Time with Patient: Greater than 30
--- NOTE | 2020-07-27 17:09 | P.OBCN ---
History of Present Illness Consult date: 07/27/20 Requesting physician: Valery Arenas Reason for consult: other (Vaginal bleeding) Chief complaint: Heavy vaginal bleeding 2 weeks on anticoagulation History of present illness: This is a 49-year-old 0 woman who reports heavy vaginal bleeding beginning on 07/08/2020. She had recently been started on anticoagulation after placement of an a ICD for history of severe cardiomyopathy and atrial fibrillation. Prior to that she had no vaginal bleeding for over a year consistent with menopause. She describes the bleeding as heavy, requiring her to change a pad every 1-2 hours and passage of large clots. She denies bleeding from the rectum, blood in the stool or urine or nosebleeds. She became progressively more fatigued and weak over the last couple of days which led her to present to the emergency room. She was found to have a hemoglobin of 4.1. She has received 3 units of packed red blood cells and her most recent hemoglobin is 6.7. She is currently being transfused a fourth unit. She reports she is feeling significantly better. On transabdominal ultrasound the uterus measures 10.8 x 5.5 x 3.8 cm. The endometrial stripe is 0.58 cm. She has a septated right ovarian cyst measuring 5.7 x 6.3 x 5.9 cm. There is some free fluid in the pelvis measuring 4.6 cm. This was technically limited transabdominal ultrasound. The patient denies previous history of gynecologic problems. She denies history of abnormal Pap smears, menstrual abnormalities, ovarian cysts or other issues. She has not regularly seen a distributed generation project manager in her adulthood. She denies family history of breast, ovarian, uterine, colon cancer. She does not do self breast exams. She denies any previous gynecologic procedures. Review of Systems Constitutional: Reports fatigue, Reports weakness Breasts: absent: masses, nipple discharge Cardiovascular: Reports shortness of breath, Denies chest pain, Denies irregular heart beat Respiratory: Denies congestion, Denies cough Gastrointestinal: Denies abdominal pain, Denies BRBPR, Denies diarrhea, Denies hematemesis, Denies melena, Denies nausea, Denies vomiting Genitourinary: Reports abnormal vaginal bleeding, Denies difficulty voiding, Denies dysuria, Denies hematuria, Denies pelvic pain, Denies vaginal discharge Menstruation: Reports as per HPI Integumentary: Denies rash Neurological: Reports weakness Hematologic/Lymphatic: Denies easy bleeding, Denies easy bruising Past Medical History Past Medical History: Atrial Fibrillation, Heart Failure, Eye Disorder, Hyperlipidemia, Hypertension, Skin Disorder Additional Past Medical History / Comment(s): See Dr Salcedo H&P, psoriasis, gout, keratoconus rt eye History of Any Multi-Drug Resistant Organisms: None Reported Past Surgical History: Heart Catheterization, Pacemaker Additional Past Surgical History / Comment(s): cardioversion, lumbar injection, pacemaker placement Past Anesthesia/Blood Transfusion Reactions: No Reported Reaction Type of Cardiac Device: Permanent Pacemaker Device Placement Date:: 06/30/2020 Smoking Status: Former smoker - Past Family History Mother Family Medical History: AICD/Pacemaker Father Family Medical History: AICD/Pacemaker Medications and Allergies Home Medications Medication Instructions Recorded Confirmed Type Atorvastatin [Lipitor] 20 mg PO HS 07/31/16 07/26/20 History Carvedilol [Coreg] 50 mg PO BID 07/31/16 07/26/20 History Furosemide [Lasix] 40 mg PO BID 07/31/16 07/26/20 History Spironolactone [Aldactone] 50 mg PO DAILY 07/31/16 07/26/20 History Rivaroxaban [Xarelto] 20 mg PO HS 01/16/19 07/26/20 History Ergocalciferol [Vitamin D2 50,000 unit PO KENT 03/08/20 07/26/20 History (DRISDOL)] Allopurinol [Zyloprim] 300 mg PO DAILY 05/11/20 07/26/20 History Sacubitril/Valsartan [Entresto 24 1 tab PO BID 07/02/20 07/26/20 History mg-26 mg Tablet] Allergies Allergy/AdvReac Type Severity Reaction Status Date / Time amoxicillin Allergy Rash/Hives Verified 07/08/20 08:23 Penicillins Allergy Rash/Hives Verified 07/08/20 08:23 Sulfa (Sulfonamide Allergy Swelling Verified 07/08/20 08:23 Antibiotics) Exam Vital Signs Temp Pulse Resp BP Pulse Ox 07/27/20 16:15 86 18 67/51 100 07/27/20 16:00 98.1 F 83 20 94/46 97 07/27/20 15:45 80 22 88/43 99 07/27/20 15:30 84 27 H 87/45 99 02/16/21 15:15 82 13 84/52 99 07/27/20 15:09 98.1 F 85 22 84/52 100 07/27/20 15:00 78 26 H 90/43 100 07/27/20 14:45 72 14 83/54 100 07/27/20 14:39 98.1 F 73 20 83/54 99 07/27/20 14:30 73 15 93/49 98 07/27/20 14:29 98.5 F 73 14 93/49 100 07/27/20 14:15 67 22 80/38 97 07/27/20 14:00 66 21 84/36 97 07/27/20 13:00 80 11 L 81/40 100 07/27/20 12:00 97.9 F 80 25 H 98/42 100 07/27/20 11:00 80 18 92/46 98 07/27/20 10:00 80 15 116/58 98 07/27/20 09:00 82 21 103/72 98 07/27/20 08:00 97.9 F 87 26 H 110/58 96 07/27/20 07:00 86 26 H 102/53 97 07/27/20 06:30 83 21 91/38 97 07/27/20 06:00 84 24 92/46 96 07/27/20 05:50 98.2 F 86 20 83/51 98 07/27/20 05:30 86 26 H 97/50 98 07/27/20 05:00 79 25 H 95/45 97 07/27/20 04:30 87 23 106/54 97 07/27/20 04:11 98.1 F 85 20 106/54 97 07/27/20 04:00 98.1 F 91 23 77/34 98 07/27/20 03:41 98.6 F 84 16 77/34 98 07/27/20 03:31 98.8 F 91 20 89/33 98 07/27/20 03:30 90 18 68/33 98 07/27/20 03:00 86 21 92/48 96 07/27/20 02:30 86 24 107/54 96 07/27/20 02:00 96 17 93/37 98 07/27/20 01:30 89 9 L 104/42 98 07/27/20 01:00 91 20 94/47 99 07/27/20 00:30 88 28 H 97/59 99 07/27/20 00:00 98.4 F 84 21 104/45 98 07/26/20 23:50 98.4 F 92 18 97/59 99 07/26/20 23:00 98.0 F 86 23 96/49 99 07/26/20 22:05 98.0 F 94 18 91/47 99 07/26/20 22:00 81 22 91/47 07/26/20 21:35 98.0 F 82 18 103/42 07/26/20 21:25 98.0 F 88 20 98/60 07/26/20 21:00 86 100/47 100 07/26/20 20:49 82 20 100/47 99 07/26/20 20:30 82 19 80/46 100 07/26/20 20:00 82 15 91/35 07/26/20 19:34 98.0 F 81 20 88/50 07/26/20 19:30 80 20 95/37 100 07/26/20 19:20 77 20 95/37 98 07/26/20 19:04 98.2 F 79 18 89/50 07/26/20 19:00 81 19 67/43 96 07/26/20 18:53 98.2 F 82 16 78/70 07/26/20 18:30 82 18 81/33 100 07/26/20 18:20 82 16 81/33 100 07/26/20 18:19 85 84/37 100 07/26/20 18:08 80 14 84/37 100 07/26/20 17:32 16 07/26/20 17:15 76/32 07/26/20 17:10 78 14 73/28 07/26/20 17:07 73/28 07/26/20 17:00 90/44 07/26/20 16:52 98.9 F 82 14 67/28 97 Intake and Output 07/27/20 07/27/20 07/27/20 06:59 14:59 22:59 Intake Total 1231 680 20 Output Total 375 400 80 Balance 856 280 -60 Intake: IV 570 80 20 .9 70 80 20 Sodium Chloride 0.9% 500 500 ml 500 ml @ 999 mls/hr IV .Q31M ONE Rx#:[id number] Oral 600 Blood Product 561 0 Rc As-1 Unit 0 [id number] Rc Pheresis 2 As3 Unit 0 [id number] Rc Pheresis 2 As3 Unit 281 [id number] Other 100 Rc As-1 Unit 100 [id number] Output: Urine 375 400 80 Other: Voiding Method Bedpan # Voids 1 Weight 108.5 kg This is a pale but alert and pleasant female appearing older than her stated age. - OBG Physical Exam Breast: both: normal, nipple abnormal, mass, axillary nodes, skin changes Abdomen: Obese, soft, nontender Abdomen: bowel sounds normal, no diffuse tenderness, no guarding noted, no mass Vulva: both: normal, atrophy Vagina: Small dark clot at the introitus. No active bright red vaginal bleeding observed. Cervix: Cervix palpable, small and nulliparous, free of palpable mass. Uterus: Not palpable secondary to patient's body habitus Adnexa: No adnexal masses or tenderness on bedside examination. Exam is limited secondary to patient's body habitus and positioning. Anus/Rectum: No rectal masses. Results Result Diagrams: 07/27/20 12:55 07/27/20 07:52 Abnormal Lab Results - Last 24 Hours (Table) 07/26/20 07/26/20 07/26/20 Range/Units 17:15 17:31 17:31 WBC 11.5 H (3.8-10.6) k/uL RBC 1.47 L (3.80-5.40) m/uL Hgb 4.1 L* (11.4-16.0) gm/dL Hct 13.6 L* (34.0-46.0) % MCHC 30.1 L (31.0-37.0) g/dL RDW 18.1 H (11.5-15.5) % Neutrophils # 10.3 H (1.3-7.7) k/uL Lymphocytes # 0.6 L (1.0-4.8) k/uL APTT 16.5 L (22.0-30.0) sec Sodium (137-145) mmol/L Carbon Dioxide (22-30) mmol/L BUN (7-17) mg/dL Creatinine (0.52-1.04) mg/dL Glucose (74-99) mg/dL POC Glucose (mg/dL) (75-99) mg/dL Plasma Lactic Acid Artis (0.7-2.0) mmol/L Magnesium (1.6-2.3) mg/dL Total Protein (6.3-8.2) g/dL Albumin (3.5-5.0) g/dL Urine Appearance (Clear) Urine Protein (Negative) Urine Blood (Negative) Urine Nitrite (Negative) Ur Leukocyte Esterase (Negative) Urine WBC (0-5) /hpf Urine WBC Clumps (None) /hpf Crossmatch See Detail 07/26/20 07/26/20 07/27/20 Range/Units 17:31 17:31 00:12 WBC (3.8-10.6) k/uL RBC (3.80-5.40) m/uL Hgb (11.4-16.0) gm/dL Hct (34.0-46.0) % MCHC (31.0-37.0) g/dL RDW (11.5-15.5) % Neutrophils # (1.3-7.7) k/uL Lymphocytes # (1.0-4.8) k/uL APTT (22.0-30.0) sec Sodium 135 L (137-145) mmol/L Carbon Dioxide 21 L (22-30) mmol/L BUN 25 H (7-17) mg/dL Creatinine 1.28 H (0.52-1.04) mg/dL Glucose 166 H (74-99) mg/dL POC Glucose (mg/dL) 100 H (75-99) mg/dL Plasma Lactic Acid Artis 4.8 H* (0.7-2.0) mmol/L Magnesium (1.6-2.3) mg/dL Total Protein 5.7 L (6.3-8.2) g/dL Albumin (3.5-5.0) g/dL Urine Appearance (Clear) Urine Protein (Negative) Urine Blood (Negative) Urine Nitrite (Negative) Ur Leukocyte Esterase (Negative) Urine WBC (0-5) /hpf Urine WBC Clumps (None) /hpf Crossmatch 07/27/20 07/27/20 07/27/20 Range/Units 01:30 07:52 07:52 WBC 11.7 H (3.8-10.6) k/uL RBC 2.28 L 2.33 L (3.80-5.40) m/uL Hgb 6.7 L* D 7.0 L (11.4-16.0) gm/dL Hct 21.1 L 21.6 L (34.0-46.0) % MCHC (31.0-37.0) g/dL RDW 16.3 H 15.7 H (11.5-15.5) % Neutrophils # 9.7 H 8.1 H (1.3-7.7) k/uL Lymphocytes # 0.9 L (1.0-4.8) k/uL APTT (22.0-30.0) sec Sodium 135 L (137-145) mmol/L Carbon Dioxide (22-30) mmol/L BUN 25 H (7-17) mg/dL Creatinine 1.22 H (0.52-1.04) mg/dL Glucose (74-99) mg/dL POC Glucose (mg/dL) (75-99) mg/dL Plasma Lactic Acid Artis (0.7-2.0) mmol/L Magnesium (1.6-2.3) mg/dL Total Protein 5.3 L (6.3-8.2) g/dL Albumin 3.1 L (3.5-5.0) g/dL Urine Appearance (Clear) Urine Protein (Negative) Urine Blood (Negative) Urine Nitrite (Negative) Ur Leukocyte Esterase (Negative) Urine WBC (0-5) /hpf Urine WBC Clumps (None) /hpf Crossmatch 07/27/20 07/27/20 07/27/20 Range/Units 07:52 10:15 12:55 WBC 10.8 H (3.8-10.6) k/uL RBC 2.34 L (3.80-5.40) m/uL Hgb 6.7 L* (11.4-16.0) gm/dL Hct 21.5 L (34.0-46.0) % MCHC (31.0-37.0) g/dL RDW 16.1 H (11.5-15.5) % Neutrophils # (1.3-7.7) k/uL Lymphocytes # (1.0-4.8) k/uL APTT (22.0-30.0) sec Sodium (137-145) mmol/L Carbon Dioxide (22-30) mmol/L BUN (7-17) mg/dL Creatinine (0.52-1.04) mg/dL Glucose (74-99) mg/dL POC Glucose (mg/dL) (75-99) mg/dL Plasma Lactic Acid Artis (0.7-2.0) mmol/L Magnesium 2.4 H (1.6-2.3) mg/dL Total Protein (6.3-8.2) g/dL Albumin (3.5-5.0) g/dL Urine Appearance Cloudy H (Clear) Urine Protein Trace H (Negative) Urine Blood Small H (Negative) Urine Nitrite Positive H (Negative) Ur Leukocyte Esterase Large H (Negative) Urine WBC >182 H (0-5) /hpf Urine WBC Clumps Many H (None) /hpf Crossmatch Microbiology - Last 24 Hours (Table) 07/27/20 10:15 Urine Culture - Preliminary Urine,Voided US - abdomen: report reviewed Assessment and Plan (1) Acute blood loss anemia Current Visit: Yes Status: Acute Code(s): D62 - ACUTE POSTHEMORRHAGIC ANEMIA SNOMED Code(s): 058576543 (2) Dysfunctional uterine bleeding Current Visit: Yes Status: Acute Code(s): N93.8 - OTHER SPECIFIED ABNORMAL UTERINE AND VAGINAL BLEEDING SNOMED Code(s): 07416584882680 (3) Hypotension Current Visit: Yes Status: Acute Code(s): I95.9 - HYPOTENSION, UNSPECIFIED SNOMED Code(s): 83019930 (4) Congestive heart failure Current Visit: No Status: Acute Code(s): I50.9 - HEART FAILURE, UNSPECIFIED SNOMED Code(s): 93994092 (5) Ovarian mass, right Current Visit: Yes Status: Acute Code(s): N83.8 - OTH NONINFLAMMATORY DISORD OF OVARY, FALLOP AND BROAD LIGMT SNOMED Code(s): 07773975188429656 Plan: This is a 49-year-old 0 woman with a two-week history of heavy vaginal bleeding on anticoagulation. Hemoglobin currently 6.7 status post 4 units of packed red blood cells. She has no prior history of dysfunctional uterine bleeding and this episode will likely improve with discontinuation of her anticoagulation. She has a small amount of bleeding at the time of my exam today. In the short-term her bleeding could be controlled oral estradiol and/or progesterone, transexamic acid or D&C. Both IV estradiol and IV transexamic acid have a risk of VTE. Short-term oral estradiol carries less risk but still may be contraindicated.. If she is stable from a cardiovascular standpoint for general anesthetic D&C can be performed. I recommend reassessing status of vaginal bleeding after off of anticoagulation for at least 24-36 hours. At that time if she has ongoing vaginal bleeding D&C is likely the best option. The patient has consented to transvaginal pelvic ultrasound for better imaging of the right adnexal mass found on transabdominal ultrasound. Serum tumor markers will be ordered. It's unclear if this is related to her current uterine bleeding. Thank you for the consultation, I will follow along closely. Time with Patient: Greater than 30
--- NOTE | 2020-07-27 18:49 | US ---
EXAMINATION TYPE: US transvaginal DATE OF EXAM: 07/27/2020 COMPARISON: US CLINICAL HISTORY: vaginal bleeding, right adnexal mass. Vaginal bleeding. G0. TECHNIQUE: Transvaginal (TV). Transabdominal sonographic images taken yesterday 07/26/2020. Patient now consenting to do transvaginal exam. Date of LMP: Unknown. EXAM MEASUREMENTS: Uterus: 9.2 x 4.3 x 3.8 cm. Limited measurement. Endometrial Stripe: Measured at 0.89 cm Right Ovary: Not definitely seen. See below. Left Ovary: 3.9 x 2.7 x 2.4 cm 1. Uterus: Anteverted Anechoic area seen lower uterus/cervix measuring 0.5 x 0.7 x 0.6 cm. Heterog eneous, hypoechoic area seen in cervix measuring 1.8 x 2.0 x 0.9 cm. Heterogeneous, hypoechoic area s een mid uterus measuring 1.3 x 1.0 x 1.0 cm. 2. Endometrium: Measured at 0.89 cm. Difficult to clearly visualize. 3. Right Ovary: Area seen in right adnexa that could resemble the right ovary as mentioned below. 4. Left Ovary: Measures upper limits of normal versus slightly enlarged. Anechoic areas seen, larges t measures 1.7 x 1.6 x 1.1 cm. Spectral, color and waveform doppler imaging shows arterial and morena ous flow within the left ovary. 5. Bilateral Adnexa: Area seen in right adnexa that could resemble the right ovary measuring 8.1 x 7 .6 x 6.4 cm. If this area resembles the right ovary, it measures enlarged. Septated anechoic area see n within measuring 7.0 x 6.7 x 6.0 cm. It was difficult to show arterial waveform within area measur ed. Arterial waveform shown does appear to be high-resistant. Venous waveform seen. 6. Posterior cul-de-sac: Fluid seen measuring 3.5 x 1.6 x 0.4 cm. IMPRESSION: There is 7 cm x 8 cm predominantly cystic mass in the right adnexal region that probably is arising f rom the right ovary. Mild free fluid in the cul-de-sac. Uterus within normal limits. No evidence of ovarian torsion. No significant change compared to yesterday.
[2020-07-27] MEDS: ATORVASTATIN 20 MG TAB PO SCH (20:27)
[2020-07-27 20:57] LABS: HCT 23.9 % (34.0-46.0); HGB 7.9 gm/dL (11.4-16.0); Hypochromasia Slight; MCH 29.9 pg (25.0-35.0); MCHC 32.9 g/dL (31.0-37.0); MCV 90.7 fL (80.0-100.0); Mean Platelet Volume 7.9; Platelet Count 195 k/uL (150-450); Poikilocytosis Moderate; RBC 2.63 m/uL (3.80-5.40); RDW 15.8 % (11.5-15.5); WBC 12.2 k/uL (3.8-10.6)
[2020-07-28 04:31] LABS: Basophils % (A) 0 %; Eosinophils # (A) 0.4 k/uL (0-0.7); Eosinophils % (A) 4 %; HCT 22.9 % (34.0-46.0); HGB 7.4 gm/dL (11.4-16.0); Hypochromasia Slight; Lymphocytes # (A) 1.2 k/uL (1.0-4.8); Lymphocytes % (A) 11 %; MCH 29.8 pg (25.0-35.0); MCHC 32.5 g/dL (31.0-37.0); MCV 91.6 fL (80.0-100.0); Mean Platelet Volume 7.7; Monocytes # (A) 0.8 k/uL (0-1.0); Monocytes % (A) 8 %; Neutrophils # (A) 8.4 k/uL (1.3-7.7); Neutrophils % (A) 77 %; Platelet Count 187 k/uL (150-450); Poikilocytosis Moderate; WBC 10.9 k/uL (3.8-10.6)
[2020-07-28 04:51] LABS: Albumin 3.1 g/dL (3.5-5.0); Calcium 8.6 mg/dL (8.4-10.2); Total Bilirubin 1.1 mg/dL (0.2-1.3); Total Protein 5.2 g/dL (6.3-8.2)
[2020-07-28 05:01] LABS: Potassium 4.2 mmol/L (3.5-5.1)
--- NOTE | 2020-07-28 06:56 | P.PN ---
Subjective Progress Note Date: 07/28/20 Principal diagnosis: Vaginal bleeding, anemia Patient reports she is feeling well. She does describe some ongoing vaginal bleeding through the night however less than yesterday. RN confirms minimal bleeding on pad throughout the night. Review of transvaginal ultrasound confirms presence of 7 x 6.7 x 6 cm right adnexal mass. This is simply septated. Endometrial stripe is 0.9 cm. Left ovary appears normal. CA-125 level elevated at 51.4. Hemoglobin improved, 7.9 post transfusion, 7.4 currently. Objective - Vital Signs Vital signs: Vital Signs Temp 98.3 F 07/28/20 04:00 Pulse 85 07/28/20 06:00 Resp 20 07/28/20 06:00 BP 109/60 07/28/20 06:00 Pulse Ox 99 07/28/20 06:00 Intake & Output 07/27/20 07/27/20 07/28/20 06:59 18:59 06:59 Intake Total 1951 1215 Output Total 375 560 670 Balance 1576 655 -670 Weight 108.5 kg 108.9 kg Intake: IV 570 100 .9 70 100 Sodium Chloride 0.9% 500 500 ml 500 ml @ 999 mls/hr IV .Q31M ONE Rx#:[id number] Oral 840 Blood Product 1181 275 Rc As-1 Unit 310 [id number] Rc As-1 Unit 310 [id number] Rc Pheresis 2 As3 Unit 275 [id number] Rc Pheresis 2 As3 Unit 281 [id number] Other 200 Rc As-1 Unit 200 [id number] Output: Urine 375 560 670 Other: Voiding Method Bedpan Indwelling Catheter Indwelling Catheter # Voids 1 - Labs CBC & Chem 7: 07/28/20 03:41 07/28/20 03:41 Labs: Abnormal Lab Results - Last 24 Hours (Table) 07/26/20 07/27/20 07/27/20 Range/Units 17:15 07:52 07:52 WBC (3.8-10.6) k/uL RBC 2.33 L (3.80-5.40) m/uL Hgb 7.0 L (11.4-16.0) gm/dL Hct 21.6 L (34.0-46.0) % RDW 15.7 H (11.5-15.5) % Neutrophils # 8.1 H (1.3-7.7) k/uL Lymphocytes # 0.9 L (1.0-4.8) k/uL Sodium 135 L (137-145) mmol/L BUN 25 H (7-17) mg/dL Creatinine 1.22 H (0.52-1.04) mg/dL Magnesium (1.6-2.3) mg/dL Total Protein 5.3 L (6.3-8.2) g/dL Albumin 3.1 L (3.5-5.0) g/dL CA 125 Antigen (0.0-30.1) U/mL Urine Appearance (Clear) Urine Protein (Negative) Urine Blood (Negative) Urine Nitrite (Negative) Ur Leukocyte Esterase (Negative) Urine WBC (0-5) /hpf Urine WBC Clumps (None) /hpf Crossmatch See Detail 07/27/20 07/27/20 07/27/20 Range/Units 07:52 07:52 10:15 WBC (3.8-10.6) k/uL RBC (3.80-5.40) m/uL Hgb (11.4-16.0) gm/dL Hct (34.0-46.0) % RDW (11.5-15.5) % Neutrophils # (1.3-7.7) k/uL Lymphocytes # (1.0-4.8) k/uL Sodium (137-145) mmol/L BUN (7-17) mg/dL Creatinine (0.52-1.04) mg/dL Magnesium 2.4 H (1.6-2.3) mg/dL Total Protein (6.3-8.2) g/dL Albumin (3.5-5.0) g/dL CA 125 Antigen 51.3 H (0.0-30.1) U/mL Urine Appearance Cloudy H (Clear) Urine Protein Trace H (Negative) Urine Blood Small H (Negative) Urine Nitrite Positive H (Negative) Ur Leukocyte Esterase Large H (Negative) Urine WBC >182 H (0-5) /hpf Urine WBC Clumps Many H (None) /hpf Crossmatch 07/27/20 07/27/20 07/28/20 Range/Units 12:55 20:44 03:41 WBC 10.8 H 12.2 H (3.8-10.6) k/uL RBC 2.34 L 2.63 L (3.80-5.40) m/uL Hgb 6.7 L* 7.9 L (11.4-16.0) gm/dL Hct 21.5 L 23.9 L (34.0-46.0) % RDW 16.1 H 15.8 H (11.5-15.5) % Neutrophils # (1.3-7.7) k/uL Lymphocytes # (1.0-4.8) k/uL Sodium 132 L (137-145) mmol/L BUN 21 H (7-17) mg/dL Creatinine (0.52-1.04) mg/dL Magnesium (1.6-2.3) mg/dL Total Protein 5.2 L (6.3-8.2) g/dL Albumin 3.1 L (3.5-5.0) g/dL CA 125 Antigen (0.0-30.1) U/mL Urine Appearance (Clear) Urine Protein (Negative) Urine Blood (Negative) Urine Nitrite (Negative) Ur Leukocyte Esterase (Negative) Urine WBC (0-5) /hpf Urine WBC Clumps (None) /hpf Crossmatch 07/28/20 Range/Units 03:41 WBC 10.9 H (3.8-10.6) k/uL RBC 2.50 L (3.80-5.40) m/uL Hgb 7.4 L (11.4-16.0) gm/dL Hct 22.9 L (34.0-46.0) % RDW 16.0 H (11.5-15.5) % Neutrophils # 8.4 H (1.3-7.7) k/uL Lymphocytes # (1.0-4.8) k/uL Sodium (137-145) mmol/L BUN (7-17) mg/dL Creatinine (0.52-1.04) mg/dL Magnesium (1.6-2.3) mg/dL Total Protein (6.3-8.2) g/dL Albumin (3.5-5.0) g/dL CA 125 Antigen (0.0-30.1) U/mL Urine Appearance (Clear) Urine Protein (Negative) Urine Blood (Negative) Urine Nitrite (Negative) Ur Leukocyte Esterase (Negative) Urine WBC (0-5) /hpf Urine WBC Clumps (None) /hpf Crossmatch Microbiology - Last 24 Hours (Table) 07/27/20 10:15 Urine Culture - Preliminary Urine,Voided Assessment and Plan (1) Acute blood loss anemia Current Visit: Yes Status: Acute Code(s): D62 - ACUTE POSTHEMORRHAGIC ANEMIA SNOMED Code(s): 843510680 (2) Dysfunctional uterine bleeding Current Visit: Yes Status: Acute Code(s): N93.8 - OTHER SPECIFIED ABNORMAL UTERINE AND VAGINAL BLEEDING SNOMED Code(s): 14632636736344 (3) Hypotension Current Visit: Yes Status: Acute Code(s): I95.9 - HYPOTENSION, UNSPECIFIED SNOMED Code(s): 64725312 (4) Congestive heart failure Current Visit: No Status: Acute Code(s): I50.9 - HEART FAILURE, UNSPECIFIED SNOMED Code(s): 88645889 (5) Ovarian mass, right Current Visit: Yes Status: Acute Code(s): N83.8 - OTH NONINFLAMMATORY DISORD OF OVARY, FALLOP AND BROAD LIGMT SNOMED Code(s): 12295361696546480 Plan: This is a 49-year-old 0 woman with a two-week history of heavy vaginal bleeding on anticoagulation. Hemoglobin currently 7.4 status post 4 units packed red blood cells. Additional imaging confirms presence of a septated 7 cm right adnexal mass, thickened endometrial stripe at 0.89 cm. Elevated CA 125 level of 51.4. CA 125 is a nonspecific test for ovarian cancer however in the presence of a pelvic mass this would indicate that surgical diagnosis is warranted. I would consider transfer to facility with [facility] oncology service for surgical diagnosis. I reviewed all this with the patient at the bedside. All questions were answered.
--- NOTE | 2020-07-28 07:43 | P.PN ---
Subjective Progress Note Date: 07/28/20 Principal diagnosis: Paroxysmal atrial fibrillation This is a pleasant 49-year-old female patient with paroxysmal atrial fibrillation history of nonischemic cardiomyopathy who was admitted to the hospital was blood loss anemia secondary to vagina bleeding. The patient was seen today July 282020. Fortunately she is not having any more bleeding. The hemoglobin this morning is above 7. Oral anticoagulation is on hold. She was seen by the MAC ARTIST service and the plan is to transfer the patient to different facility for possible it seems to be complex hysterectomy. Clinically the patient is doing good and she is hemodynamically stable and she has been maintaining normal sinus mechanism. Objective - Vital Signs Vital signs: Vital Signs Temp 98.3 F 07/28/20 04:00 Pulse 85 07/28/20 07:00 Resp 16 07/28/20 07:00 BP 98/64 07/28/20 07:00 Pulse Ox 99 07/28/20 06:00 Intake & Output 07/27/20 07/28/20 07/28/20 18:59 06:59 18:59 Intake Total 1215 Output Total 560 670 65 Balance 655 -670 -65 Weight 108.9 kg Intake: IV 100 .9 100 Oral 840 Blood Product 275 Rc Pheresis 2 As3 Unit 275 [id number] Output: Urine 560 670 65 Other: Voiding Method Indwelling Catheter Indwelling Catheter - Constitutional General appearance: Present: no acute distress - Respiratory Respiratory: bilateral: CTA - Cardiovascular Rhythm: regular Heart sounds: normal: S1, S2 - Labs CBC & Chem 7: 07/28/20 03:41 07/28/20 03:41 Labs: Abnormal Lab Results - Last 24 Hours (Table) 07/26/20 07/27/20 07/27/20 Range/Units 17:15 07:52 07:52 WBC (3.8-10.6) k/uL RBC 2.33 L (3.80-5.40) m/uL Hgb 7.0 L (11.4-16.0) gm/dL Hct 21.6 L (34.0-46.0) % RDW 15.7 H (11.5-15.5) % Neutrophils # 8.1 H (1.3-7.7) k/uL Lymphocytes # 0.9 L (1.0-4.8) k/uL Sodium 135 L (137-145) mmol/L BUN 25 H (7-17) mg/dL Creatinine 1.22 H (0.52-1.04) mg/dL Magnesium (1.6-2.3) mg/dL Total Protein 5.3 L (6.3-8.2) g/dL Albumin 3.1 L (3.5-5.0) g/dL CA 125 Antigen (0.0-30.1) U/mL Urine Appearance (Clear) Urine Protein (Negative) Urine Blood (Negative) Urine Nitrite (Negative) Ur Leukocyte Esterase (Negative) Urine WBC (0-5) /hpf Urine WBC Clumps (None) /hpf Crossmatch See Detail 07/27/20 07/27/20 07/27/20 Range/Units 07:52 07:52 10:15 WBC (3.8-10.6) k/uL RBC (3.80-5.40) m/uL Hgb (11.4-16.0) gm/dL Hct (34.0-46.0) % RDW (11.5-15.5) % Neutrophils # (1.3-7.7) k/uL Lymphocytes # (1.0-4.8) k/uL Sodium (137-145) mmol/L BUN (7-17) mg/dL Creatinine (0.52-1.04) mg/dL Magnesium 2.4 H (1.6-2.3) mg/dL Total Protein (6.3-8.2) g/dL Albumin (3.5-5.0) g/dL CA 125 Antigen 51.3 H (0.0-30.1) U/mL Urine Appearance Cloudy H (Clear) Urine Protein Trace H (Negative) Urine Blood Small H (Negative) Urine Nitrite Positive H (Negative) Ur Leukocyte Esterase Large H (Negative) Urine WBC >182 H (0-5) /hpf Urine WBC Clumps Many H (None) /hpf Crossmatch 07/27/20 07/27/20 07/28/20 Range/Units 12:55 20:44 03:41 WBC 10.8 H 12.2 H (3.8-10.6) k/uL RBC 2.34 L 2.63 L (3.80-5.40) m/uL Hgb 6.7 L* 7.9 L (11.4-16.0) gm/dL Hct 21.5 L 23.9 L (34.0-46.0) % RDW 16.1 H 15.8 H (11.5-15.5) % Neutrophils # (1.3-7.7) k/uL Lymphocytes # (1.0-4.8) k/uL Sodium 132 L (137-145) mmol/L BUN 21 H (7-17) mg/dL Creatinine (0.52-1.04) mg/dL Magnesium (1.6-2.3) mg/dL Total Protein 5.2 L (6.3-8.2) g/dL Albumin 3.1 L (3.5-5.0) g/dL CA 125 Antigen (0.0-30.1) U/mL Urine Appearance (Clear) Urine Protein (Negative) Urine Blood (Negative) Urine Nitrite (Negative) Ur Leukocyte Esterase (Negative) Urine WBC (0-5) /hpf Urine WBC Clumps (None) /hpf Crossmatch 07/28/20 Range/Units 03:41 WBC 10.9 H (3.8-10.6) k/uL RBC 2.50 L (3.80-5.40) m/uL Hgb 7.4 L (11.4-16.0) gm/dL Hct 22.9 L (34.0-46.0) % RDW 16.0 H (11.5-15.5) % Neutrophils # 8.4 H (1.3-7.7) k/uL Lymphocytes # (1.0-4.8) k/uL Sodium (137-145) mmol/L BUN (7-17) mg/dL Creatinine (0.52-1.04) mg/dL Magnesium (1.6-2.3) mg/dL Total Protein (6.3-8.2) g/dL Albumin (3.5-5.0) g/dL CA 125 Antigen (0.0-30.1) U/mL Urine Appearance (Clear) Urine Protein (Negative) Urine Blood (Negative) Urine Nitrite (Negative) Ur Leukocyte Esterase (Negative) Urine WBC (0-5) /hpf Urine WBC Clumps (None) /hpf Crossmatch Microbiology - Last 24 Hours (Table) 07/27/20 10:15 Urine Culture - Preliminary Urine,Voided Assessment and Plan Assessment: Assessment #1 severe anemia and blood loss anemia #2 vagina bleeding #3 paroxysmal atrial fibrillation #4 cardiomyopathy nonischemic Plan #1 continue holding oral anticoagulation #2 continue holding the beta mago and all the cardiomyopathy medication in view of the low blood pressure #3 the patient is possibly going to be transferred
[2020-07-28] MEDS: PANTOPRAZOLE 40 MG/10 ML VIAL IV SCH (08:01)
[2020-07-28] MEDS: allopurinoL 300 MG TAB PO SCH (08:01)
[2020-07-28] MEDS: ACETAMINOPHEN TAB 325 MG TAB PO PRN ×3 (08:01→21:01)
--- NOTE | 2020-07-28 08:28 | XR ---
EXAMINATION TYPE: XR chest 1V portable DATE OF EXAM: 07/28/2020 HISTORY: Shortness of breath. COMPARISON: 07/27/2020 TECHNIQUE: Single view of the chest is submitted. FINDINGS: Demonstrated are scattered senescent parenchymal change. Patchy right lower lobe infiltrate. Correlate for pneumonia. The heart is stable. Hilar and mediastinal structures are within normal limits. Degenerative changes are seen of the dorsal spine. IMPRESSION: 1. Patchy right lower lobe infiltrate. Correlate for pneumonia.
--- NOTE | 2020-07-28 09:01 | XR ---
EXAMINATION TYPE: XR wrist complete LT DATE OF EXAM: 07/28/2020 CLINICAL HISTORY: pain TECHNIQUE: Frontal, lateral and oblique images of the left wrist are obtained. COMPARISON: None. FINDINGS: There is no acute fracture/dislocation evident. The joint spaces appear within normal kidd its. The overlying soft tissue appears unremarkable. IMPRESSION: There is no acute fracture or dislocation seen. ICD 10 NO FRACTURE, INITIAL EVALUATION
[2020-07-28] MEDS: FUROSEMIDE 40 MG TAB PO SCH ×2 (10:25→15:16)
--- NOTE | 2020-07-28 12:54 | P.PN ---
Subjective Progress Note Date: 07/28/20 Maria Del Rosario Reich, is a 49-year-old female who presented to [facility] emergency room with a chief complaint of generalized weakness and vaginal bleeding for about 2 weeks, patient has a known history of cardiomyopathy , she was seen by her parts coordinator on 06/30/2020 she underwent a pacemaker placement and was started on an Entresto and Xarelto, shortly after that she started having some vaginal bleeding she did not seek any medical attention until today, patient was evaluated in the emergency room, vital examination on presentation revealed a temperature of 98.9 pulse 82 respiration 14 blood pressure 67/28 pulse ox 97% on room air, her white blood count was 11.5 hemoglobin 4.1 platelet count 273 sodium 135 potassium 4.8 BUN 25 creatinine 1.28 lactic acid 4.8 patient was admitted directly to intensive care unit she was given 2 units of red blood cells cardiology consultation, critical care consultation and gynecology consultation were requested. On review of systems patient is sitting up in her bed in ICU she is alert and oriented 3 in no distress she is feeling better she denies any fever or chills no headache or dizziness no chest pain no shortness of breath no cough no nausea or vomiting no abdominal pain no diarrhea no blood in the stools no burning with urination no frequency or urgency no hematuria she is still having some minimal vaginal bleeding at this time On 07/28/2020 patient is alert and oriented 3 resting comfortably in the ICU. Per critical care patient has been downgraded to MedSurg. Hemoglobin stable at 7.4. Did discuss case with BOAT JOINER HELPER Dr. Snyder. Discussed possible transfer if patient is unable to be off anticoagulation for extended period of time per cardiology. Awaiting cardiology input. Minimum vaginal bleeding noted per nurs ing staff. Patient denies chest pain or shortness of breath. Patient denies nausea vomiting or diarrhea. Patient denies any urinary burning or frequency Objective - Vital Signs Vital signs: Vital Signs Temp 98.0 F 07/28/20 12:00 Pulse 81 07/28/20 12:00 Resp 16 07/28/20 12:00 BP 91/52 07/28/20 12:00 Pulse Ox 100 07/28/20 12:00 Intake & Output 07/27/20 07/28/20 07/28/20 18:59 06:59 18:59 Intake Total 1215 Output Total 560 670 275 Balance 740 -162 -289 Weight 108.9 kg Intake: IV 100 .9 100 Oral 840 Blood Product 275 Rc Pheresis 2 As3 Unit 275 [id number] Output: Urine 009 657 275 Other: Voiding Method Indwelling Catheter Indwelling Catheter Indwelling Catheter - Exam In general patient is alert and oriented 3 in no apparent distress HEENT head normocephalic and atraumatic Neck is supple no JVD no goiter no lymphadenopathy Chest exam reveals a few scattered rhonchi no wheezing Cardiac exam reveals regular heart sounds S1 and S2 no gallops no murmurs Abdomen is soft nontender no organomegaly was normal bowel sounds Extremity exam reveals no edema no cyanosis or clubbing Neurological examination reveals no gross focal deficit - Labs CBC & Chem 7: 07/28/20 03:41 07/28/20 03:41 Labs: Abnormal Lab Results - Last 24 Hours (Table) 07/26/20 07/27/20 07/27/20 Range/Units 17:15 07:52 12:55 WBC 10.8 H (3.8-10.6) k/uL RBC 2.34 L (3.80-5.40) m/uL Hgb 6.7 L* (11.4-16.0) gm/dL Hct 21.5 L (34.0-46.0) % RDW 16.1 H (11.5-15.5) % Neutrophils # (1.3-7.7) k/uL Sodium (137-145) mmol/L BUN (7-17) mg/dL Total Protein (6.3-8.2) g/dL Albumin (3.5-5.0) g/dL CA 125 Antigen 51.3 H (0.0-30.1) U/mL Crossmatch See Detail 07/27/20 07/28/20 07/28/20 Range/Units 20:44 03:41 03:41 WBC 12.2 H 10.9 H (3.8-10.6) k/uL RBC 2.63 L 2.50 L (3.80-5.40) m/uL Hgb 7.9 L 7.4 L (11.4-16.0) gm/dL Hct 23.9 L 22.9 L (34.0-46.0) % RDW 15.8 H 16.0 H (11.5-15.5) % Neutrophils # 8.4 H (1.3-7.7) k/uL Sodium 132 L (137-145) mmol/L BUN 21 H (7-17) mg/dL Total Protein 5.2 L (6.3-8.2) g/dL Albumin 3.1 L (3.5-5.0) g/dL CA 125 Antigen (0.0-30.1) U/mL Crossmatch Microbiology - Last 24 Hours (Table) 07/27/20 10:15 Urine Culture - Preliminary Urine,Voided Assessment and Plan Plan: Severe acute blood loss anemia Vaginal bleeding Recently started on anticoagulation with Xarelto Underlying history of nonischemic cardiomyopathy Recent history of pacemaker placement Underlying history of paroxysmal atrial fibrillation Status post transfusion of 4 RBCs, hgb 7.4 Continue to monitor hemoglobin closely Possible transfer to tertiary facility for surgical BOAT JOINER HELPER if patient is unable to stay off anticoagulation for prolonged time. Case being discussed with BOAT JOINER HELPER and cardiology services
--- NOTE | 2020-07-28 13:47 | P.PN ---
Subjective Progress Note Date: 07/28/20 Principal diagnosis: Acute blood loss anemia secondary to vaginal bleeding This is a 49-year-old female with history of paroxysmal atrial fibrillation, nonischemic cardiomyopathy, maintained on Xarelto. History of AICD placement. Patient presented to the ER yesterday with a few days' history of fatigue, generalized weakness, patient has been also complaining of vaginal bleeding severe for the last 2-3 weeks. Upon presentation to the ER, patient was noted to have extremely low hemoglobin at 4.0. Patient was admitted to the ICU, received so far 3 units of packed RBCs, and her hemoglobin this morning is 6.7. Coagulation profile is normal. Platelets are normal. PT and PTT are normal. Chest x-ray on admission showed mostly cardiomegaly. Patient is yet to be seen by MATHS TUTOR on consultation, she did have a pelvic ultrasound which showed posterior fluid collection in the cul-de-sac, 3.74.61.2. It also showed a cystic mass in the right ovary measuring 5.76.35.9. Considering the patient's profound anemia and ongoing vaginal bleeding, and considering the patient has severe ischemic cardiomyopathy and LV dysfunction, patient was admitted to the ICU, and I was asked to see her on consultation. Last night I was notified about this patient's low blood pressure, and I recommended mostly transfusion of blood until the hemoglobin is above 7, and close monitoring for any potential worsening shortness of breath and developing pulmonary edema considering her LV dysfunction. In fact the patient is doing well from the pulmonary perspective, she had no cough, no shortness of breath, her chest x-ray showed no evidence of pulmonary edema. Patient is on room air this morning. And she is quite comfortable. Unfortunately she continues to have ongoing vaginal bleeding, and this will be addressed by gynecology. Patient tells me that her last menstrual period was a year ago, and she hasn't had a menstrual period for over a year. Reevaluated today on 07/28/2020, patient remains in the ICU, stable, doing extremely well, she is on room air, received a total of 4 units of packed RBCs since admission, hemoglobin is 7.4 today, and there is no further vaginal bleeding. However the patient was seen by gynecology on consultation, and recommended evaluation in a tertiary care center for her presumptive right ovarian mass, suspicious for malignancy. And she felt that her bleeding was dysfunctional uterine bleeding. At any rate from my perspective the patient is doing great, she will receive or go back on her usual dose of Lasix, and I will transfer the patient to a monitor bed on . I believe transfer to [facility] will be left up to the seed and fertilizer specialist and the primary care physician on the case. Objective - Vital Signs Vital signs: Vital Signs Temp 98.0 F 07/28/20 12:00 Pulse 81 07/28/20 12:00 Resp 16 07/28/20 12:00 BP 91/52 07/28/20 12:00 Pulse Ox 100 07/28/20 12:00 Intake & Output 07/27/20 07/28/20 07/28/20 18:59 06:59 18:59 Intake Total 1215 Output Total 560 670 275 Balance 655 -670 -275 Weight 108.9 kg Intake: IV 100 .9 100 Oral 840 Blood Product 275 Rc Pheresis 2 As3 Unit 275 [id number] Output: Urine 560 670 275 Other: Voiding Method Indwelling Catheter Indwelling Catheter Indwelling Catheter - Exam Physical Exam revealed 49-year-old female in no distress. Head: Atraumatic, normocephalic. HEENT:[Neck is supple.] [No neck masses.] [No thyromegaly.] [No JVD.] pale conjunctivae, anicteric. Dry mucous membranes. Chest: [Clear throughout, no crackles, no rhonchi, no wheezes.] Cardiac Exam: Irregular irregular rhythm. [Normal S1 and S2, no S3 gallop, over 6 systolic murmur thought the precordium. Abdomen: [These, Soft, nontender, no megaly, no rebound, no guarding, normal bowel sounds.] Extremities: [No clubbing, no edema, no cyanosis.] Pulses bilaterally. Skeletal: No deformities, no limitation in range of motion. Neurological Exam: [No focal neurologic deficit.] Alert and oriented 3. Psychiatric: Normal mood affect and normal mental status examination. - Labs CBC & Chem 7: 07/28/20 03:41 07/28/20 03:41 Labs: Abnormal Lab Results - Last 24 Hours (Table) 07/26/20 07/27/20 07/27/20 Range/Units 17:15 07:52 12:55 WBC 10.8 H (3.8-10.6) k/uL RBC 2.34 L (3.80-5.40) m/uL Hgb 6.7 L* (11.4-16.0) gm/dL Hct 21.5 L (34.0-46.0) % RDW 16.1 H (11.5-15.5) % Neutrophils # (1.3-7.7) k/uL Sodium (137-145) mmol/L BUN (7-17) mg/dL Total Protein (6.3-8.2) g/dL Albumin (3.5-5.0) g/dL CA 125 Antigen 51.3 H (0.0-30.1) U/mL Crossmatch See Detail 07/27/20 07/28/20 07/28/20 Range/Units 20:44 03:41 03:41 WBC 12.2 H 10.9 H (3.8-10.6) k/uL RBC 2.63 L 2.50 L (3.80-5.40) m/uL Hgb 7.9 L 7.4 L (11.4-16.0) gm/dL Hct 23.9 L 22.9 L (34.0-46.0) % RDW 15.8 H 16.0 H (11.5-15.5) % Neutrophils # 8.4 H (1.3-7.7) k/uL Sodium 132 L (137-145) mmol/L BUN 21 H (7-17) mg/dL Total Protein 5.2 L (6.3-8.2) g/dL Albumin 3.1 L (3.5-5.0) g/dL CA 125 Antigen (0.0-30.1) U/mL Crossmatch Microbiology - Last 24 Hours (Table) 07/27/20 10:15 Urine Culture - Preliminary Urine,Voided Gram Neg Bacilli Assessment and Plan Assessment: Impression: Acute severe blood loss anemia secondary to vaginal bleeding, felt to be dysfunctional uterine bleeding. Paroxysmal atrial fibrillation. Hypotension, hypovolemic in nature secondary to blood loss anemia and vaginal bleeding. Resolved with blood transfusion. History of nonischemic cardiomyopathy and LV dysfunction. History of paroxysmal atrial fibrillation. History of AICD placement for LV dysfunction. Right ovarian mass, suspicious for malignancy, and the seed and fertilizer specialist is recommending transfer to a tertiary care center to handle such a complex problem Recommendation: Transfer patient out of the ICU to a cardiac floor. Primary care and gynecology to decide on the transfer whether it could be done on inpatient basis on outpatient basis. Continue to hold Xarelto for now. Resume home diuretics/Lasix. Continue GI prophylaxis. Will follow when necessary. Time with Patient: Less than 30
--- NOTE | 2020-07-28 16:22 | CDI ---
Documentation Clarification Form Date: 07/28/2020 04:09:42 PM From: Miroslava Meyer CCS, CCDS Admit Date: 07/26/2020 06:51:00 PM Patient Name: Maria Del Rosario Reich Visit Number: [id number] Discharge Date: ATTENTION: The Clinical Documentation Specialists (CDI) and [facility] Coding Staff appreciate your assistance in clarifying documentation. Please respond to the clarification below the line at the bottom and electronically sign. The CDI & [facility] Coding staff will review the response and follow-up if needed. Please note: Queries are made part of the Legal Health Record. If you have any questions, please contact the author of this message via ITS. Dr. Rai Gil: Heart Failure is documented in the patient's Past Medical History in the 07/26 ED Note, the 07/27 History & Physical, the 07/27 Cardiology Consult, the 07/27 Pulmonary/Critical Care Consult, the 07/27 FUEL CELL BATTERY TECHNICIAN Consult and in a subsequent Progress Note without further specificity. History/Risk Factors Per the 07/26 ED Note & the 07/27 History & Physical patient's Past Medical History: Atrial Fibrillation, Heart Failure, Hyperlipidemia, Hypertension, Gout. Previous Heart Catheterization and Cardioversion. Clinical Indicators: Presented to the ED on 07/27 via EMS with Weakness, severe vaginal bleeding with clots over 2 weeks, SOB, chest discomfort, severe dizziness and abdominal cramping. On Entresto for Cardiomyopathy. ED Clinical Impression: Dysfunctional Uterine Bleeding, Hypotension, Acute Blood Loss Anemia. VS 07/26: T 98.9, P 82, R 14, BP 67/28, PO 97 RA LAB: Hgb 4.1, Hct 13.6, APTT 16.5, BNP 4150 07/26 CXR: Cardiomegaly. Echocardiogram Results (most recent 05/11/2020): Left ventricle is severely dilated, Severe global hypokinesis of LV, Left ventricular systolic function severely impaired w/EF 20-25%, Global hypokinesis, Right ventricle is mild- moderately enlarged, Mod MR, Mod TR, Severe pulmonary hypertension, Trace/mild pulmonic regurgitation. Treatment 07/26: Entresto held, po Tylenol, IV fluid 500 mls @ 999 mls/hr q31M, IV Protonix, po Lasix 40 mg BID, Transfused 4 units PRBCs 07/26 - 07/27. In your professional opinion, can you please clarify the acuity and type of CHF if known? Systolic Heart Failure: o Acute o Chronic o Acute on Chronic Other specificity of Heart Failure: Unable to Determine (Last Revision: September 2017) MTDD
[2020-07-28] MEDS: ATORVASTATIN 20 MG TAB PO SCH (21:01)
[2020-07-28] MEDS: CIPROFLOXACIN HCL 500 MG TAB PO SCH (21:01)
[2020-07-29] MEDS: ACETAMINOPHEN TAB 325 MG TAB PO PRN ×4 (00:24→16:21)
[2020-07-29 04:16] LABS: Albumin 3.4 g/dL (3.5-5.0); Calcium 8.6 mg/dL (8.4-10.2); Potassium 4.2 mmol/L (3.5-5.1); Total Bilirubin 1.1 mg/dL (0.2-1.3); Total Protein 5.7 g/dL (6.3-8.2)
[2020-07-29 04:38] LABS: Anisocytosis Slight; HCT 24.6 % (34.0-46.0); HGB 7.8 gm/dL (11.4-16.0); Hypochromasia Moderate; MCH 28.6 pg (25.0-35.0); MCHC 31.7 g/dL (31.0-37.0); MCV 90.2 fL (80.0-100.0); Mean Platelet Volume 7.6; Platelet Count 194 k/uL (150-450); Poikilocytosis Moderate; RBC 2.73 m/uL (3.80-5.40); RDW 16.1 % (11.5-15.5)
[2020-07-29 05:00] LABS: Anisocytosis (M) Present; Eosinophils # (M) 0.33 k/uL (0-0.7); Lymphocytes # (M) 0.56 k/uL (1.0-4.8); Monocytes # (M) 0.89 k/uL (0-1.0); Neutrophils # (M) 9.32 k/uL (1.3-7.7); Neutrophils % (M) 84 %; Nucleated Red Blood Cells 1 /100 WBC (0-0); Poikilocytosis (M) Present; Polychromasia Present; Total Cells Counted 200; WBC 11.1 k/uL (3.8-10.6)
[2020-07-29] MEDS: allopurinoL 300 MG TAB PO SCH (08:11)
[2020-07-29] MEDS: FUROSEMIDE 40 MG TAB PO SCH ×2 (08:11→15:22)
[2020-07-29] MEDS: CIPROFLOXACIN HCL 500 MG TAB PO SCH (08:12)
[2020-07-29] MEDS: PANTOPRAZOLE 40 MG/10 ML VIAL IV SCH (08:13)
--- NOTE | 2020-07-29 08:17 | P.PN ---
Subjective Progress Note Date: 07/29/20 Principal diagnosis: Paroxysmal atrial fibrillation This is a pleasant 49-year-old female patient with paroxysmal atrial fibrillation history of nonischemic cardiomyopathy who was admitted to the hospital was blood loss anemia secondary to vagina bleeding. The patient was seen today July 29. She is hemodynamically stable. No more episodes of bleeding. The hemoglobin has been stable. Oral anticoagulation are on hold at this point. Objective - Vital Signs Vital signs: Vital Signs Temp 98 F 07/29/20 04:00 Pulse 80 07/29/20 04:00 Resp 16 07/29/20 04:00 BP 102/50 07/29/20 04:00 Pulse Ox 94 L 07/29/20 04:00 Intake & Output 07/28/20 07/29/20 07/29/20 18:59 06:59 18:59 Output Total 555 1000 Balance -555 -1000 Weight 107.8 kg Output: Urine 555 1000 Other: Voiding Method Toilet Bedside Commode # Voids 1 3 - Constitutional General appearance: Present: no acute distress - Respiratory Respiratory: bilateral: CTA - Cardiovascular Rhythm: regular Heart sounds: normal: S1, S2 - Labs CBC & Chem 7: 07/29/20 03:12 07/29/20 03:12 Labs: Abnormal Lab Results - Last 24 Hours (Table) 07/29/20 07/29/20 Range/Units 03:12 03:12 WBC 11.1 H (3.8-10.6) k/uL RBC 2.73 L (3.80-5.40) m/uL Hgb 7.8 L (11.4-16.0) gm/dL Hct 24.6 L (34.0-46.0) % RDW 16.1 H (11.5-15.5) % Neutrophils # (Manual) 9.32 H (1.3-7.7) k/uL Lymphocytes # (Manual) 0.56 L (1.0-4.8) k/uL Nucleated RBCs 1 H (0-0) /100 WBC Sodium 134 L (137-145) mmol/L Carbon Dioxide 31 H (22-30) mmol/L BUN 21 H (7-17) mg/dL Creatinine 1.08 H (0.52-1.04) mg/dL Total Protein 5.7 L (6.3-8.2) g/dL Albumin 3.4 L (3.5-5.0) g/dL Microbiology - Last 24 Hours (Table) 07/27/20 10:15 Urine Culture - Preliminary Urine,Voided Gram Neg Bacilli Assessment and Plan Assessment: Assessment #1 severe anemia and blood loss anemia #2 vagina bleeding #3 paroxysmal atrial fibrillation #4 cardiomyopathy nonischemic Plan #1 continue holding oral anticoagulation #2 continue holding the beta mago and all the cardiomyopathy medication in view of the low blood pressure
[2020-07-29 09:34] VITALS: RESP 18; TEMP 98.1
[2020-07-29 15:36] VITALS: BP 112/69; PULSE 93
--- NOTE | 2020-07-29 16:56 | P.PN ---
Subjective Progress Note Date: 07/29/20 Maria Del Rosario Reich, is a 49-year-old female who presented to [facility] emergency room with a chief complaint of generalized weakness and vaginal bleeding for about 2 weeks, patient has a known history of cardiomyopathy , she was seen by her practice billing associate on 06/30/2020 she underwent a pacemaker placement and was started on an Entresto and Xarelto, shortly after that she started having some vaginal bleeding she did not seek any medical attention until today, patient was evaluated in the emergency room, vital examination on presentation revealed a temperature of 98.9 pulse 82 respiration 14 blood pressure 67/28 pulse ox 97% on room air, her white blood count was 11.5 hemoglobin 4.1 platelet count 273 sodium 135 potassium 4.8 BUN 25 creatinine 1.28 lactic acid 4.8 patient was admitted directly to intensive care unit she was given 2 units of red blood cells cardiology consultation, critical care consultation and gynecology consultation were requested. On review of systems patient is sitting up in her bed in ICU she is alert and oriented 3 in no distress she is feeling better she denies any fever or chills no headache or dizziness no chest pain no shortness of breath no cough no nausea or vomiting no abdominal pain no diarrhea no blood in the stools no burning with urination no frequency or urgency no hematuria she is still having some minimal vaginal bleeding at this time On 07/28/2020 patient is alert and oriented 3 resting comfortably in the ICU. Per critical care patient has been downgraded to MedSurg. Hemoglobin stable at 7.4. Did discuss case with POSTAL DELIVERY OFFICER Dr. Snyder. Discussed possible transfer if patient is unable to be off anticoagulation for extended period of time per cardiology. Awaiting cardiology input. Minimum vaginal bleeding noted per nurs ing staff. Patient denies chest pain or shortness of breath. Patient denies nausea vomiting or diarrhea. Patient denies any urinary burning or frequency On 07/29/2020 patient was seen and examined in the ICU she is alert and oriented 3 in no apparent distress there is no fever or chills no headache or dizziness no chest pain no shortness of breath no cough no nausea or vomiting no abdominal pain no diarrhea no blood in the stools no burning with urination no frequency or urgency and no hematuria, patient is still having minimal vaginal bleeding her hemoglobin is stable at 7.8 white blood count is up to 11.1 patient has evidence of urinary tract infection and is maintained on Cipro Objective - Vital Signs Vital signs: Vital Signs Temp 98.1 F 07/29/20 12:06 Pulse 89 07/29/20 13:20 Resp 18 07/29/20 13:20 BP 120/57 07/29/20 12:06 Pulse Ox 99 07/29/20 08:00 Intake & Output 07/28/20 07/29/20 07/29/20 18:59 06:59 18:59 Output Total 555 1000 1 Balance -555 -1000 -1 Weight 107.8 kg Output: Urine 555 1000 1 Other: Voiding Method Toilet Bedside Commode Toilet # Voids 1 3 # Bowel Movements 1 - Exam In general patient is alert and oriented 3 in no apparent distress HEENT head normocephalic and atraumatic Neck is supple no JVD no goiter no lymphadenopathy Chest exam reveals a few scattered rhonchi no wheezing Cardiac exam reveals regular heart sounds S1 and S2 no gallops no murmurs Abdomen is soft nontender no organomegaly was normal bowel sounds Extremity exam reveals no edema no cyanosis or clubbing Neurological examination reveals no gross focal deficit - Labs CBC & Chem 7: 07/29/20 03:12 07/29/20 03:12 Labs: Abnormal Lab Results - Last 24 Hours (Table) 07/29/20 07/29/20 Range/Units 03:12 03:12 WBC 11.1 H (3.8-10.6) k/uL RBC 2.73 L (3.80-5.40) m/uL Hgb 7.8 L (11.4-16.0) gm/dL Hct 24.6 L (34.0-46.0) % RDW 16.1 H (11.5-15.5) % Neutrophils # (Manual) 9.32 H (1.3-7.7) k/uL Lymphocytes # (Manual) 0.56 L (1.0-4.8) k/uL Nucleated RBCs 1 H (0-0) /100 WBC Sodium 134 L (137-145) mmol/L Carbon Dioxide 31 H (22-30) mmol/L BUN 21 H (7-17) mg/dL Creatinine 1.08 H (0.52-1.04) mg/dL Total Protein 5.7 L (6.3-8.2) g/dL Albumin 3.4 L (3.5-5.0) g/dL Microbiology - Last 24 Hours (Table) 07/27/20 10:15 Urine Culture - Final Urine,Voided Escherichia coli Assessment and Plan Plan: Severe acute blood loss anemia Vaginal bleeding Recently started on anticoagulation with Xarelto Underlying history of nonischemic cardiomyopathy Recent history of pacemaker placement Underlying history of paroxysmal atrial fibrillation Status post transfusion of 4 RBCs, hgb 7.4 Continue to monitor hemoglobin closely Possible transfer to tertiary facility for surgical POSTAL DELIVERY OFFICER if patient is unable to stay off anticoagulation for prolonged time. Case being discussed with POSTAL DELIVERY OFFICER and cardiology services
--- NOTE | 2020-07-30 14:39 | CDI ---
Documentation Clarification Form Date: 07/30/2020 02:36:00 PM From: Shameka Long CCS Phone: If you have a question about this query, please contact Gianna Shannon Diffusion Operator at [phone] between 8am and 5pm Admit Date: 07/26/2020 06:51:00 PM Patient Name: Maria Del Rosario Reich Visit Number: [id number] Discharge Date: 07/29/2020 04:51:00 PM ATTENTION: The Clinical Documentation Specialists (CDI) and [facility] Coding Staff appreciate your assistance in clarifying documentation. Please respond to the clarification below the line at the bottom and electronically sign. The CDI & [facility] Coding staff will review the response and follow-up if needed. Please note: Queries are made part of the Legal Health Record. If you have any questions, please contact the author of this message via ITS. Dr. Valery Arenas The diagnosis right ovarian mass suspicious for malignancy was documented in the 07/28 PN, but is not noted in subsequent documentation. PN 07/28 documents: CA 125 is a nonspecific test for ovarian cancer however in the presence of a pelvic mass this would indicate that surgical diagnosis is warranted. Right ovarian mass, suspicious for malignancy, and the applied anthropologist is recommending transfer to a tertiary care center to handle such a complex problem History/Risk Factors: ABLA, Abnormal bleeding, HTN, CMP, CHF, AFIB, Obesity, Gout Clinical Indicators: Ovarian mass, Elevated CA 125 Treatment: Transfer to tertiary care Please clarify if the suspected ovarian malignancy was Present/active this admission Ruled out Other, please specify Clinically unable to determine Clinically unable to determine: Patient has a cystic ovarian mass which could or could not be malignant, CA 125 was mildly elevated which again could be related to malignancy. Patient may need biopsy or excision of the cystic mass for pathology to diagnose malignancy she was transferred to [facility] for further evaluation [facility]
[2020-08-01] MEDS ORDERED: ERGOCALCIFEROL 1,250 MCG (50,000 IU) CAPSULE PO SCH (09:00)
--- NOTE | 2020-08-01 11:33 | P.DS ---
Providers Date of admission: 07/26/20 18:51 Expected date of discharge: 07/29/20 Attending physician: Valery Arenas Consults: 07/26/20 18:38 Consult Physician Stat Consulting Provider: Tresa Mai Consult Reason/Comments: ICU management Do you want consulting provider notified?: Already Contacted Consult Physician Urgent Consulting Provider: Zac Salcedo Consult Reason/Comments: anemia, Anticoagulation, cardiomyopathy Do you want consulting provider notified?: Yes Consult Physician Urgent Consulting Provider: Montserrat Parra Consult Reason/Comments: Anemia, dysfunctional uterine bleeding Do you want consulting provider notified?: Yes Primary care physician: Valeryeduardo Arenas [facility] Course: Discharge diagnosis Severe acute blood loss anemia Vaginal bleeding possibly secondary dysfunctional uterine bleeding Recently started on anticoagulation with Xarelto Underlying history of nonischemic cardiomyopathy Recent history of pacemaker placement Underlying history of paroxysmal atrial fibrillation Right ovarian mass suspicious for malignancy. TAPE MAKER recommending transfer to tertiary hospital due to complex problem Status post transfusion of 4 RBCs, hgb 7.4 Patient transferred [place] [facility] [place] Maria Del Rosario Reich, is a 49-year-old female who presented to [facility] emergency room with a chief complaint of generalized weakness and vaginal bleeding for about 2 weeks, patient has a known history of cardiomyopathy , she was seen by her travel guide on 06/30/2020 she underwent a pacemaker placement and was started on an Entresto and Xarelto, shortly after that she started having some vaginal bleeding she did not seek any medical attention until today, patient was evaluated in the emergency room, vital examination on presentation revealed a temperature of 98.9 pulse 82 respiration 14 blood pressure 67/28 pulse ox 97% on room air, her white blood count was 11.5 hemoglobin 4.1 platelet count 273 sodium 135 potassium 4.8 BUN 25 creatinine 1.28 lactic acid 4.8 patient was admitted directly to intensive care unit she was given 2 units of red blood cells cardiology consultation, critical care consultation and gynecology consultation were requested. On review of systems patient is sitting up in her bed in ICU she is alert and oriented 3 in no distress she is feeling better she denies any fever or chills no headache or dizziness no chest pain no shortness of breath no cough no nausea or vomiting no abdominal pain no diarrhea no blood in the stools no burning with urination no frequency or urgency no hematuria she is still having some minimal vaginal bleeding at this time On 07/28/2020 patient is alert and oriented 3 resting comfortably in the ICU. Per critical care patient has been downgraded to MedSurg. Hemoglobin stable at 7.4. Did discuss case with TAPE MAKER Dr. Snyder. Discussed possible transfer if patient is unable to be off anticoagulation for extended period of time per cardiology. Awaiting cardiology input. Minimum vaginal bleeding noted per nursing staff. Patient denies chest pain or shortness of breath. Patient denies nausea vomiting or diarrhea. Patient denies any urinary burning or frequency On 07/29/2020 patient was seen and examined in the ICU she is alert and oriented 3 in no apparent distress there is no fever or chills no headache or dizziness no chest pain no shortness of breath no cough no nausea or vomiting no abdominal pain no diarrhea no blood in the stools no burning with urination no frequency or urgency and no hematuria, patient is still having minimal vaginal bleeding her hemoglobin is stable at 7.8 white blood count is up to 11.1 patient has evidence of urinary tract infection and is maintained on Cipro Patient was [place] [facility] due to complexity with right ovarian mass and dysfunctional uterine bleeding and requirement of anticoagulation due to cardiac function. Hemoglobin 7.8 at transfer Patient Condition at Discharge: Stable Plan - Discharge Summary Discharge Rx Participant: Yes New Discharge Prescriptions: No Action Spironolactone [Aldactone] 50 mg PO DAILY Furosemide [Lasix] 40 mg PO BID Carvedilol [Coreg] 50 mg PO BID Atorvastatin [Lipitor] 20 mg PO HS Rivaroxaban [Xarelto] 20 mg PO HS Ergocalciferol [Vitamin D2 (DRISDOL)] 50,000 unit PO KENT Allopurinol [Zyloprim] 300 mg PO DAILY Sacubitril/Valsartan [Entresto 24 mg-26 mg Tablet] 1 tab PO BID Discharge Medication List Atorvastatin [Lipitor] 20 mg PO HS 07/31/16 [History] Carvedilol [Coreg] 50 mg PO BID 07/31/16 [History] Furosemide [Lasix] 40 mg PO BID 07/31/16 [History] Spironolactone [Aldactone] 50 mg PO DAILY 07/31/16 [History] Rivaroxaban [Xarelto] 20 mg PO HS 01/16/19 [History] Ergocalciferol [Vitamin D2 (DRISDOL)] 50,000 unit PO KENT 03/08/20 [History] Allopurinol [Zyloprim] 300 mg PO DAILY 05/11/20 [History] Sacubitril/Valsartan [Entresto 24 mg-26 mg Tablet] 1 tab PO BID 07/02/20 [History] Follow up Appointment(s)/Referral(s): Valery Arenas MD [Primary Care Provider] - 1-2 days Discharge Disposition: TRANSFER TO SHORT TERM HOSP
== END 2020-07-29 16:51 | disposition short-term general hospital (02) | DRG 755 ==
LOC: EC 16:48 → 2SICU 18:51 → 3SCARD 07-29 12:00
PROVIDERS: ADMIT Internal Medicine; ATTEND Internal Medicine
PROC: 30233N1 Transfusion of Nonautologous Red Blood Cells into Peripheral Vein, Percutaneous Approach (ICD-10-PCS; principal; 2020-07-26)
DX: C56.1 Malignant neoplasm of right ovary (principal); D62 Acute posthemorrhagic anemia; I47.2 Ventricular tachycardia; I42.8 Other cardiomyopathies; N39.0 Urinary tract infection, site not specified; I11.0 Hypertensive heart disease with heart failure; I95.9 Hypotension, unspecified; I50.9 Heart failure, unspecified; I48.0 Paroxysmal atrial fibrillation; E78.5 Hyperlipidemia, unspecified; E86.1 Hypovolemia; I49.3 Ventricular premature depolarization; N93.8 Other specified abnormal uterine and vaginal bleeding; R29.6 Repeated falls; H18.601 Keratoconus, unspecified, right eye; L40.9 Psoriasis, unspecified; M10.9 Gout, unspecified; Z79.01 Long term (current) use of anticoagulants; Z79.899 Other long term (current) drug therapy; Z87.891 Personal history of nicotine dependence; Z95.810 Presence of automatic (implantable) cardiac defibrillator; Z88.0 Allergy status to penicillin; Z88.2 Allergy status to sulfonamides
CPT/HCPCS: 36415; 36430; 70450; 71045; 71046; 72125; 76830; 76856; 80053; 81001; 83605; 83735; 83880; 84484; 85025; 85027; 85610; 85730; 86304; 86850; 86900; 86901; 86920; 87077; 87086; 87186; 93005; 93975; 93976; 99291

== ENCOUNTER 2020-12-02 20:36 | Inpatient (IN) | payer MEDICAID, OTHER ==
--- NOTE | 2020-12-02 21:31 | ED ---
Chest Pain HPI - General Chief Complaint: Chest Pain Stated Complaint: chest pain Time Seen by Provider: 12/02/20 20:54 Source: patient Mode of arrival: ambulatory Limitations: no limitations - History of Present Illness Initial Comments: This is a 50-year-old female who has a history of CHF, dysfunctional uterine bleeding who presents emergent department for an episode of not feeling quite right with some chest pain and some shortness of breath and lightheadedness. Patient stated that she felt fine all day however this evening she had an episode where she started feeling lightheaded, short of breath, and had some associated chest discomfort when she got up. She states that she "just did not feel". This is persisted until she came in here. She does state that she recently had her Lasix dose decreased from 40 mg down to 20 mg. She states that she's had a little bit of increased swelling in her lower extremities since that time. However she has not really complained of any shortness of breath until this evening. She states that the chest pain is on the left side of her chest nonradiating. She denies any nausea, vomiting, diarrhea. No vaginal bleeding. No other complaints. - Related Data Home Medications Medication Instructions Recorded Confirmed Atorvastatin [Lipitor] 20 mg PO DAILY 07/31/16 12/02/20 Spironolactone [Aldactone] 50 mg PO DAILY 07/31/16 12/02/20 Ergocalciferol [Vitamin D2 50,000 unit PO KENT 03/08/20 12/02/20 (DRISDOL)] Allopurinol [Zyloprim] 300 mg PO DAILY 05/11/20 12/02/20 Sacubitril/Valsartan [Entresto 24 1 tab PO BID 07/02/20 12/02/20 mg-26 mg Tablet] Acetaminophen Tab [Tylenol Tab] 1,000 mg PO Q6HR PRN 12/02/20 12/02/20 Carvedilol [Coreg] 6.25 mg PO BID 12/02/20 12/02/20 Ferrous Sulfate [Feosol] 325 mg PO DAILY@1200 12/02/20 12/02/20 Furosemide [Lasix] 20 mg PO DAILY 12/02/20 12/02/20 Allergies Allergy/AdvReac Type Severity Reaction Status Date / Time amoxicillin Allergy Rash/Hives Verified 12/02/20 21:39 Penicillins Allergy Rash/Hives Verified 12/02/20 21:39 Sulfa (Sulfonamide Allergy Swelling Verified 12/02/20 21:39 Antibiotics) Review of Systems ROS Statement: Those systems with pertinent positive or pertinent negative responses have been documented in the HPI. ROS Other: All systems not noted in ROS Statement are negative. EKG Findings - EKG Comments: EKG Findings:: EKG showing normal sinus rhythm with a rate of 87. No abnormal ST segment changes or T-wave inversions. QTC is 505. Other intervals normal. Patient does have frequent PVCs. Past Medical History Past Medical History: Atrial Fibrillation, Heart Failure, Eye Disorder, Hyperlipidemia, Hypertension, Skin Disorder Additional Past Medical History / Comment(s): See Dr Salcedo H&P, psoriasis, gout, keratoconus rt eye. anemic. History of Any Multi-Drug Resistant Organisms: None Reported Past Surgical History: Heart Catheterization, Pacemaker Additional Past Surgical History / Comment(s): cardioversion, lumbar injection, pacemaker placement Past Anesthesia/Blood Transfusion Reactions: No Reported Reaction Type of Cardiac Device: Permanent Pacemaker Device Placement Date:: 06/30/2020 Past Psychological History: No Psychological Hx Reported Smoking Status: Former smoker Past Alcohol Use History: None Reported Past Drug Use History: None Reported - Past Family History Mother Family Medical History: AICD/Pacemaker Father Family Medical History: AICD/Pacemaker General Exam Limitations: no limitations Course Vital Signs 12/02/20 12/02/20 20:42 22:57 Temperature 98.0 F 98.7 F Pulse Rate 74 89 Respiratory 16 22 Rate Blood Pressure 99/66 107/71 O2 Sat by Pulse 100 100 Oximetry Chest Pain MDM - MDM Is a 50-year-old female presents emergency department for not feeling right, shortness of breath, and what sounds like chest tightness. The patient was having a difficult time describing what she was feeling. EKG appeared unchanged from previous. Initial troponin was negative. BNP is still pending. Chest x- ray showed cardiomegaly without any new plural effusions or pulmonary edema. I went to reevaluate the patient and she still saying that she is having this tightness in her chest. She is not having any shortness of breath currently. Oxygen saturations 100%. She is not tachycardic. I doubt pulmonary embolism as source of her symptoms. However she does have a reaction history and history of hypertension and hyperlipidemia. We'll place her in the hospital and observation for monitoring and further evaluation. Dr. Arenas accepts the patient for admission. Disposition Clinical Impression: Chest pain Disposition: ADMITTED IP TO THIS HOSP Condition: Stable Referrals: Valery Arenas MD [Primary Care Provider] - 1-2 days
[2020-12-02 22:06] LABS: Anisocytosis Moderate; Basophils # (A) 0.1 k/uL (0-0.2); Basophils % (A) 0 %; Eosinophils # (A) 0.3 k/uL (0-0.7); Eosinophils % (A) 2 %; HCT 35.9 % (34.0-46.0); HGB 11.2 gm/dL (11.4-16.0); Hypochromasia Marked; Lymphocytes # (A) 0.6 k/uL (1.0-4.8); Lymphocytes % (A) 4 %; MCH 23.5 pg (25.0-35.0); MCHC 31.1 g/dL (31.0-37.0); MCV 75.5 fL (80.0-100.0); Microcytosis Moderate; Monocytes # (A) 0.6 k/uL (0-1.0); Monocytes % (A) 4 %; Neutrophils % (A) 90 %; Platelet Count 259 k/uL (150-450); RBC 4.75 m/uL (3.80-5.40); RDW 20.8 % (11.5-15.5); WBC 15.6 k/uL (3.8-10.6)
[2020-12-02 22:16] LABS: ALT 6 U/L (4-34); AST 21 U/L (14-36); African American GFR (CKD) >90 (>60 ml/min/1.73 sqM); Albumin 4.4 g/dL (3.5-5.0); Alkaline Phosphatase 101 U/L (38-126); Anion Gap 10 mmol/L; Blood Urea Nitrogen 16 mg/dL (7-17); Calcium 9.4 mg/dL (8.4-10.2); Carbon Dioxide 26 mmol/L (22-30); Chloride 103 mmol/L (98-107); Glucose 104 mg/dL (74-99); Magnesium 2.1 mg/dL (1.6-2.3); Non-African American GFR(CKD) >90 (>60 ml/min/1.73 sqM); Potassium 4.8 mmol/L (3.5-5.1); Sodium 139 mmol/L (137-145); Total Bilirubin 0.8 mg/dL (0.2-1.3); Total Protein 6.9 g/dL (6.3-8.2)
[2020-12-02 22:23] LABS: INR 1.1 (<1.2); Partial Thromboplastin Time 23.5 sec (22.0-30.0); Prothrombin Time 11.4 sec (9.0-12.0)
--- NOTE | 2020-12-02 22:25 | XR ---
EXAMINATION TYPE: XR chest 2V DATE OF EXAM: 12/02/2020 COMPARISON: 07/28/2020 HISTORY: Short of breath TECHNIQUE: FINDINGS: Heart appears enlarged. There is no definite heart failure. There is left axillary pacemake r. Costophrenic angles are fairly clear. There are chest leads. There is slight coarsening of interst itial markings. IMPRESSION: Cardiomegaly. No significant change compared to old exam. No obvious heart failure.
[2020-12-02] MEDS ORDERED: ASPIRIN 81 MG PO STA (23:04)
[2020-12-02] MEDS ORDERED: NITROGLYCERIN SL TABS 0.4 MG TAB SUBLINGUAL PRN (23:06)
[2020-12-03] MEDS: FUROSEMIDE 10 MG/ML 4 ML VIAL IV STA ×2 (08:56→09:17)
[2020-12-03] MEDS: SACUBITRIL/VALSARTAN 24 MG-26 MG TABLET PO SCH ×2 (08:57→21:17)
[2020-12-03] MEDS: ATORVASTATIN 20 MG TAB PO SCH (08:57)
[2020-12-03] MEDS: carvediloL 6.25 MG TAB PO SCH ×2 (08:57→18:10)
[2020-12-03] MEDS: SPIRONOLACTONE 25 MG TAB PO SCH (08:57)
[2020-12-03] MEDS ORDERED: ASPIRIN 325 MG TAB PO SCH (09:00)
--- NOTE | 2020-12-03 10:19 | P.CRDCN ---
History of Present Illness Consult date: 12/03/20 History of present illness: HISTORY OF PRESENT ILLNESS: This is a 50-year-old female with a past medical history significant for nonischemic myopathy with previous AICD implantation, congestive heart failure, paroxysmal atrial fibrillation on anticoagulation secondary to vaginal bleeding, hypertension and hyperlipidemia. Patient follows in the office with Dr. Salcedo. We have been asked to see the patient in consultation for chest pain. Patient examined at the bedside. Patient states yesterday she was sitting on the couch when she developed shortness of breath. She denied chest pain at that time. She reports she was concerned so she came to the ER for further evaluation. She reports that once she got to the ER, she began having chest pain. She describes the pain was in the middle of her chest and felt like a stabbing sensation. She received aspirin which relieved her pain. She reports some stabbing pain this morning that is worse with deep inspiration. She reports minimal SOB at rest, but does have SOB with exertion. EKG reveals sinus mechanism with PVCs Chest xray cardiomegaly. No significant change compared to old exam. No obvious heart failure. Laboratory data: WBC 15.6. Hemoglobin 11.2. Platelet count 259. Sodium 139. Potassium 4.8. BUN 16. Creatinine 0.76. Troponin negative 3. BNP 2580 Current home cardiac medications include Entresto 24-26mg BID, Lasix 20 mg daily, Aldactone 50 mg daily, carvedilol 6.25 mg twice a day, and atorvastatin 20 mg daily Echocardiogram completed in May 2020 revealing ejection fraction 20-25% Patient underwent cardiac catheterization in March 2020 revealing normal cor onary arteries REVIEW OF SYSTEMS: At the time of my exam: CONSTITUTIONAL: Denies fever or chills. HEENT: Denies blurred vision, vision changes, or eye pain. Denies hemoptysis CARDIOVASCULAR: Denies chest pain. Denies orthopnea. Denies PND. Denies palpitations RESPIRATORY: Denies shortness of breath. GASTROINTESTINAL: Denies abdominal pain. Denies nausea or vomiting. HEMATOLOGIC: Denies bleeding disorders. GENITOURINARY: Denies any blood in urine. SKIN: Denies pruitis. Denies rash. PHYSICAL EXAM: VITAL SIGNS: Reviewed. GENERAL: Well-developed in no acute distress. HEENT: Head is normocephalic. Pupils are equal, round. Sclerae anicteric. Mucous membranes of the mouth are moist. Neck supple. No JVD or thyromegaly LUNGS: Respirations even and unlabored. Lungs diminished bilaterally with minimal rales to right lung base. HEART: Regular rate and rhythm. S1 and S2 heard. ABDOMEN: Soft. Nondistended. Nontender. EXTREMITIES: Normal range of motion. No clubbing or cyanosis. Peripheral pulses intact. 1+ bilateral lower extremity edema NEUROLOGIC: Awake and alert. Oriented x 3. ASSESSMENT: Chest pain, atypical, troponin negative x 3 Acute exacerbation of chronic systolic congestive heart failure Nonischemic cardiomyopathy with previous AICD implantation Paroxysmal atrial fibrillation not on anticoagulation secondary to vaginal bleeding Hypertension Hyperlipidemia Anxiety Former nicotine dependence PLAN: Obtain 2-D echo to assess cardiac structure and function Resume cardiac medications Begin Lasix 40 mg IV every 12 hours Monitor kidney function Daily weight Accurate I&O Further recommendations pending patient course Nurse practitioner note has been reviewed by physician. Signing provider agrees with the documented findings, assessment, and plan of care. Past Medical History Past Medical History: Atrial Fibrillation, Heart Failure, Eye Disorder, Hyperlipidemia, Hypertension, Skin Disorder Additional Past Medical History / Comment(s): See Dr Salcedo H&P, psoriasis, gout, keratoconus rt eye. anemic. History of Any Multi-Drug Resistant Organisms: None Reported Past Surgical History: Heart Catheterization, Pacemaker Additional Past Surgical History / Comment(s): cardioversion, lumbar injection, pacemaker placement Past Anesthesia/Blood Transfusion Reactions: No Reported Reaction Type of Cardiac Device: Permanent Pacemaker Device Placement Date:: 06/30/2020 Past Psychological History: Anxiety Smoking Status: Former smoker Past Alcohol Use History: None Reported Additional Past Alcohol Use History / Comment(s): Quit smoking 1999. smoked for a couple yrs Past Drug Use History: None Reported - Past Family History Mother Family Medical History: AICD/Pacemaker Father Family Medical History: AICD/Pacemaker Medications and Allergies Home Medications Medication Instructions Recorded Confirmed Type Atorvastatin [Lipitor] 20 mg PO DAILY 07/31/16 12/02/20 History Spironolactone [Aldactone] 50 mg PO DAILY 07/31/16 12/02/20 History Ergocalciferol [Vitamin D2 50,000 unit PO KENT 03/08/20 12/02/20 History (JENNYFER)] Allopurinol [Zyloprim] 300 mg PO DAILY 05/11/20 12/02/20 History Sacubitril/Valsartan [Entresto 24 1 tab PO BID 07/02/20 12/02/20 History mg-26 mg Tablet] Acetaminophen Tab [Tylenol Tab] 1,000 mg PO Q6HR PRN 12/02/20 12/02/20 History Carvedilol [Coreg] 6.25 mg PO BID 12/02/20 12/02/20 History Ferrous Sulfate [Feosol] 325 mg PO DAILY@1200 12/02/20 12/02/20 History Furosemide [Lasix] 20 mg PO DAILY 12/02/20 12/02/20 History Allergies Allergy/AdvReac Type Severity Reaction Status Date / Time amoxicillin Allergy Rash/Hives Verified 12/02/20 21:39 Penicillins Allergy Rash/Hives Verified 12/02/20 21:39 Sulfa (Sulfonamide Allergy Swelling Verified 12/02/20 21:39 Antibiotics) Physical Exam Vitals: Vital Signs Temp Pulse Pulse Pulse Resp BP BP 12/03/20 07:00 98.2 F 83 18 109/72 12/03/20 02:00 99.0 F 56 L 16 99/56 12/03/20 01:50 79 12/03/20 00:07 99.0 F 74 18 111/76 12/02/20 23:23 99.0 F 79 18 111/76 12/02/20 22:57 98.7 F 89 22 107/71 12/02/20 20:42 98.0 F 74 16 99/66 Pulse Ox 12/03/20 07:00 100 12/03/20 02:00 92 L 12/03/20 01:50 12/03/20 00:07 98 12/02/20 23:23 98 12/02/20 22:57 100 12/02/20 20:42 100 Intake and Output 12/02/20 12/03/20 12/03/20 22:59 06:59 14:59 Other: Voiding Method Toilet # Voids 2 Weight 113.398 kg 118.1 kg Results 12/02/20 21:52 12/02/20 21:52 Cardiac Enzymes 12/02/20 12/02/20 12/03/20 Range/Units 21:52 21:52 01:00 AST 21 (14-36) U/L Troponin I <0.012 <0.012 (0.000-0.034) ng/mL 12/03/20 Range/Units 04:14 AST (14-36) U/L Troponin I <0.012 (0.000-0.034) ng/mL Coagulation 12/02/20 Range/Units 21:52 PT 11.4 (9.0-12.0) sec APTT 23.5 (22.0-30.0) sec CBC 12/02/20 Range/Units 21:52 WBC 15.6 H (3.8-10.6) k/uL RBC 4.75 (3.80-5.40) m/uL Hgb 11.2 L (11.4-16.0) gm/dL Hct 35.9 (34.0-46.0) % Plt Count 259 (150-450) k/uL Comprehensive Metabolic Panel 12/02/20 Range/Units 21:52 Sodium 139 (137-145) mmol/L Potassium 4.8 (3.5-5.1) mmol/L Chloride 103 (98-107) mmol/L Carbon Dioxide 26 (22-30) mmol/L BUN 16 (7-17) mg/dL Creatinine 0.76 (0.52-1.04) mg/dL Glucose 104 H (74-99) mg/dL Calcium 9.4 (8.4-10.2) mg/dL AST 21 (14-36) U/L ALT 6 (4-34) U/L Alkaline Phosphatase 101 (38-126) U/L Total Protein 6.9 (6.3-8.2) g/dL Albumin 4.4 (3.5-5.0) g/dL Current Medications Generic Name Dose Route Start Last Admin Trade Name Freq PRN Reason Stop Dose Admin Aspirin 325 mg 12/03/20 09:00 12/03/20 08:57 Aspirin 325 Mg Tab PO 325 mg DAILY ROE Administration Atorvastatin Calcium 20 mg 12/03/20 09:00 12/03/20 08:57 Atorvastatin 20 Mg Tab PO 20 mg DAILY ROE Administration Carvedilol 6.25 mg 12/03/20 09:00 12/03/20 08:57 Carvedilol 6.25 Mg Tab PO 6.25 mg AC-BID ROE Administration Nitroglycerin 0.4 mg 06/24/21 23:06 Nitroglycerin Sl Tabs 0.4 Mg Tab SUBLINGUAL Q5M PRN Chest Pain Sacubitril/Valsartan 1 each 12/03/20 09:00 12/03/20 08:57 Sacubitril/Valsartan 24 Mg-26 Mg Tablet PO 1 each BID ROE Administration Spironolactone 50 mg 12/03/20 09:00 12/03/20 08:57 Spironolactone 25 Mg Tab PO 50 mg DAILY ROE Administration Intake and Output 12/02/20 12/03/20 12/03/20 22:59 06:59 14:59 Other: Voiding Method Toilet # Voids 2 Weight 113.398 kg 118.1 kg 12/02/20 21:52 12/02/20 21:52
[2020-12-03 10:24] LABS: Chol/HDL Ratio 3.52; LDL Cholesterol,Calculated 49.8 mg/dL (0.0-131.0); VLDL Calculation 13.2 mg/dL (5.00-40.00)
--- NOTE | 2020-12-03 11:43 | ECHOF ---
Referral Reason:LV function MEASUREMENTS -------- HEIGHT: 170.2 cm WEIGHT: 117.9 kg BP: 109/72 RVIDd: 4.5 cm (< 3.3) IVSd: 0.9 cm (0.6 - 1.1) LVIDd: 6.7 cm (3.9 - 5.3) LVPWd: 1.0 cm (0.6 - 1.1) IVSs: 1.1 cm LVIDs: 5.8 cm LVPWs: 1.1 cm LA Diam: 4.5 cm (2.7 - 3.8) LAESV Index (A-L): 37.36 ml/m Ao Diam: 2.5 cm (2.0 - 3.7) AV Cusp: 1.4 cm (1.5 - 2.6) MV EXCURSION: 22.054 mm (> 18.000) MV EF SLOPE: 182 mm/s (70 - 150) EPSS: 1.4 cm RAP: 15.00 mmHg RVSP: 86.16 mmHg TAPSE: 13.35 mm FINDINGS -------- AICD This was a technically adequate study. The left ventricle is severely dilated. Left ventricular wall thickness is normal. Overall left v entricular systolic function is severely impaired with, an EF between 20 - 25 %. Both the mean atri al pressure as well as the LV end diastolic pressure is elevated {E/E'}. The right ventricle is severely enlarged. LA is moderately dilated 34-39 ml/m2 The right atrium is normal in size. Interatrial and interventricular septum intact. Aortic valve is trileaflet and is mildly thickened. [id number] mitral regurgitation is present. Moderate tricuspid regurgitation present. There is severe pulmonary hypertension. The right ventr icular systolic pressure, as measured by Doppler, is 86.16mmHg. Trace/mild (physiologic) pulmonic regurgitation. The aortic root size is normal. Normal inferior vena cava with less than 50% inspiratory collapse consistent with estimated right atr ial pressure of 15 mmHg. There is no pericardial effusion. CONCLUSIONS -------- 1. AICD 2. The left ventricle is severely dilated. 3. Left ventricular wall thickness is normal. 4. Overall left ventricular systolic function is severely impaired with, an EF between 20 - 25 %. 5. Both the mean atrial pressure as well as the LV end diastolic pressure is elevated {E/E'}. 6. The right ventricle is severely enlarged. 7. LA is moderately dilated 34-39 ml/m2 8. Aortic valve is trileaflet and is mildly thickened. 9. [id number] mitral regurgitation is present. 10. Moderate tricuspid regurgitation present. 11. There is severe pulmonary hypertension. 12. The right ventricular systolic pressure, as measured by Doppler, is 86.16mmHg. 13. Trace/mild (physiologic) pulmonic regurgitation. 14. Normal inferior vena cava with less than 50% inspiratory collapse consistent with estimated right atrial pressure of 15 mmHg. 15. There is no pericardial effusion. BEHAVIORAL GENETICIST: OLGA Dozier
[2020-12-03 13:31] VITALS: BMI 40.6
--- NOTE | 2020-12-03 16:43 | P.HPIM ---
History of Present Illness H&P Date: 12/03/20 Maria Del Rosario Reich is a 50-year-old female with known history of nonischemic cardiomyopathy and history of AICD placement who presented to [facility] emergency room with a chief complaint of worsening shortness of breath, in the emergency room patient started having episodes of chest pain, she was evaluated in the emergency room vital examination on presentation revealed a temperature of 98 pulse 74 respiration 16 blood pressure 99/66 pulse ox 100% on room air laboratory data revealed a white blood count of 15.6 hemoglobin 11.2 platelet count 259 BUN 16 creatinine 0.76 troponin level less than 0.012 BNP 2580 coronavirus PCR not detected, EKG on admission revealed normal sinus rhythm with occasional PVC, chest x-ray done in the emergency room revealed evidence of cardiomegaly otherwise no acute abnormality.She was admitted to telemetry floor cardiology consultation was requested. Past Medical History Past Medical History: Atrial Fibrillation, Heart Failure, Eye Disorder, Hyperlipidemia, Hypertension, Skin Disorder Additional Past Medical History / Comment(s): See Dr Salcedo H&P, psoriasis, gout, keratoconus rt eye. anemic. History of Any Multi-Drug Resistant Organisms: None Reported Past Surgical History: Heart Catheterization, Pacemaker Additional Past Surgical History / Comment(s): cardioversion, lumbar injection, pacemaker placement Past Anesthesia/Blood Transfusion Reactions: No Reported Reaction Type of Cardiac Device: Permanent Pacemaker Device Placement Date:: 06/30/2020 Past Psychological History: Anxiety Smoking Status: Former smoker Past Alcohol Use History: None Reported Additional Past Alcohol Use History / Comment(s): Quit smoking 1999. smoked for a couple yrs Past Drug Use History: None Reported - Past Family History Mother Family Medical History: AICD/Pacemaker Father Family Medical History: AICD/Pacemaker Medications and Allergies Home Medications Medication Instructions Recorded Confirmed Type Atorvastatin [Lipitor] 20 mg PO DAILY 07/31/16 12/02/20 History Spironolactone [Aldactone] 50 mg PO DAILY 07/31/16 12/02/20 History Ergocalciferol [Vitamin D2 50,000 unit PO KENT 03/08/20 12/02/20 History (JENNYFER)] Allopurinol [Zyloprim] 300 mg PO DAILY 05/11/20 12/02/20 History Sacubitril/Valsartan [Entresto 24 1 tab PO BID 07/02/20 12/02/20 History mg-26 mg Tablet] Acetaminophen Tab [Tylenol Tab] 1,000 mg PO Q6HR PRN 12/02/20 12/02/20 History Carvedilol [Coreg] 6.25 mg PO BID 12/02/20 12/02/20 History Ferrous Sulfate [Feosol] 325 mg PO DAILY@1200 12/02/20 12/02/20 History Furosemide [Lasix] 20 mg PO DAILY 12/02/20 12/02/20 History Allergies Allergy/AdvReac Type Severity Reaction Status Date / Time amoxicillin Allergy Rash/Hives Verified 12/02/20 21:39 Penicillins Allergy Rash/Hives Verified 12/02/20 21:39 Sulfa (Sulfonamide Allergy Swelling Verified 12/02/20 21:39 Antibiotics) Physical Exam Vitals: Vital Signs Temp Pulse Pulse Pulse Resp BP BP 12/03/20 07:00 98.2 F 83 18 109/72 12/03/20 02:00 99.0 F 56 L 16 99/56 12/03/20 01:50 79 12/03/20 00:07 99.0 F 74 18 111/76 12/02/20 23:23 99.0 F 79 18 111/76 12/02/20 22:57 98.7 F 89 22 107/71 12/02/20 20:42 98.0 F 74 16 99/66 Pulse Ox 12/03/20 07:00 100 12/03/20 02:00 92 L 12/03/20 01:50 12/03/20 00:07 98 12/02/20 23:23 98 12/02/20 22:57 100 12/02/20 20:42 100 Intake and Output 12/02/20 12/03/20 12/03/20 22:59 06:59 14:59 Other: Voiding Method Toilet # Voids 2 Weight 113.398 kg 118.1 kg In general patient is alert and oriented x 3 in no distress HEENT head normocephalic and atraumatic Neck is supple no JVD no goiter no lymphadenopathy no carotid bruit Chest examination is clear to auscultation no crackles no wheezing Cardiac exam reveals regular heart sounds S1 and S2 no gallops no murmurs Abdomen is soft nontender no organomegaly with normal bowel sounds Extremity exam reveals no edema no cyanosis or clubbing Neurological examination reveals no gross focal deficits Results CBC & Chem 7: 12/02/20 21:52 12/02/20 21:52 Labs: Abnormal Lab Results - Last 24 Hours (Table) 12/02/20 12/02/20 12/03/20 Range/Units 21:52 21:52 04:14 WBC 15.6 H (3.8-10.6) k/uL Hgb 11.2 L (11.4-16.0) gm/dL MCV 75.5 L (80.0-100.0) fL MCH 23.5 L (25.0-35.0) pg RDW 20.8 H (11.5-15.5) % Neutrophils # 14.0 H (1.3-7.7) k/uL Lymphocytes # 0.6 L (1.0-4.8) k/uL Glucose 104 H (74-99) mg/dL HDL Cholesterol 25.0 L (40.0-60.0) mg/dL Thrombosis Risk Factor Assmnt - Choose All That Apply Any of the Below Risk Factors Present?: Yes Each Factor Represents 1 point: Age 41-60 years, Swollen legs (current) Thrombosis Risk Factor Assessment Total Risk Factor Score: 2 Thrombosis Risk Factor Assessment Level: Low Risk Assessment and Plan Plan: Acute exacerbation of chronic systolic congestive heart failure Known history of nonischemic cardiomyopathy with previous history of AICD placement Episodes of chest pain on presentation to emergency room, no ischemic changes on EKG troponin negative 3 sets Paroxysmal atrial fibrillation, patient unable to tolerate anticoagulation due to vaginal bleeding Underlying history of hypertension Underlying history of hyperlipidemia Underlying history of anxiety disorder At this time patient is admitted to telemetry floor, serial cardiac enzymes ordered, cardiology consultation was requested Echocardiogram ordered Patient was started on IV Lasix Patient is complaining of worsening anxiety she will be given Lexapro and when necessary Xanax For DVT prophylaxis we will use subcu Lovenox Will follow closely
[2020-12-03] MEDS: ENOXAPARIN 40 MG/0.4 ML SYRINGE SQ SCH (18:09)
[2020-12-03] MEDS: ALPRAZolam 0.25 MG TAB PO PRN (18:14)
[2020-12-03] MEDS: FUROSEMIDE 10 MG/ML 4 ML VIAL IV SCH (20:31)
[2020-12-04] MEDS: ESCITALOPRAM 10 MG TAB PO SCH (07:52)
[2020-12-04] MEDS: FUROSEMIDE 10 MG/ML 4 ML VIAL IV SCH (07:52)
[2020-12-04] MEDS: SACUBITRIL/VALSARTAN 24 MG-26 MG TABLET PO SCH ×2 (07:53→19:29)
[2020-12-04] MEDS: ATORVASTATIN 20 MG TAB PO SCH (07:53)
[2020-12-04] MEDS: ENOXAPARIN 40 MG/0.4 ML SYRINGE SQ SCH (07:53)
[2020-12-04] MEDS: SPIRONOLACTONE 25 MG TAB PO SCH (07:53)
[2020-12-04] MEDS: carvediloL 6.25 MG TAB PO SCH (07:53)
[2020-12-04] MEDS ORDERED: FUROSEMIDE 20 MG TAB PO SCH (09:00)
[2020-12-04] MEDS ORDERED: carvediloL 6.25 MG TAB PO STA (09:15)
[2020-12-04 09:20] LABS: HCT 33.6 % (37.2-46.3); HGB 9.6 g/dL (12.0-15.0); MCH 22.6 pg (27.0-32.0); MCHC 28.6 g/dL (32.0-37.0); MCV 79.2 fL (80.0-97.0); Mean Platelet Volume 10.5 fL (9.5-12.2); Platelet Count 264 X 10*3/uL (140-440); RBC 4.24 X 10*6/uL (4.10-5.20); RDW 22.1 % (11.5-14.5); WBC 11.57 X 10*3/uL (4.50-10.00)
[2020-12-04 10:10] LABS: ALT <8 U/L (8-44); AST 15 U/L (13-35); African American GFR (CKD) 86.4 (60.0-200.0); Albumin/Globulin Ratio 2.05 (1.60-3.17); Alkaline Phosphatase 92 U/L (41-126); BUN/Creat Ratio 16.67 Ratio (12.00-20.00); Calcium 8.6 mg/dL (8.7-10.3); Carbon Dioxide 27.2 mmol/L (21.6-31.8); Chloride 99 mmol/L (96-109); Glucose 69 mg/dL (70-110); Non-African American GFR(CKD) 74.6 (60.0-200.0); Potassium 4.2 mmol/L (3.5-5.5); Sodium 138 mmol/L (135-145); Total Bilirubin 1.4 mg/dL (0.2-1.2); Total Protein 6.1 g/dL (6.2-8.2)
[2020-12-04 10:11] LABS: Anisocytosis (M) 2+; Basophils # (A) 0.06 X 10*3/uL (0.00-0.10); Basophils % (A) 0.5 %; Eosinophils # (A) 0.24 X 10*3/uL (0.04-0.35); Eosinophils % (A) 2.1 %; Lymphocytes # (A) 1.29 X 10*3/uL (0.90-5.00); Lymphocytes % (A) 11.1 %; Microcytosis (M) 2+; Monocytes # (A) 0.78 X 10*3/uL (0.20-1.00); Monocytes % (A) 6.7 %; Neutrophils # (A) 9.15 X 10*3/uL (1.80-7.70); Neutrophils % (A) 79.2 %
--- NOTE | 2020-12-04 11:53 | P.PN ---
Subjective Progress Note Date: 12/04/20 HISTORY OF PRESENT ILLNESS: This is a 50-year-old female with a past medical history significant for nonischemic myopathy with previous AICD implantation, congestive heart failure, paroxysmal atrial fibrillation on anticoagulation secondary to vaginal bleeding, hypertension and hyperlipidemia. Patient follows in the office with Dr. Salcedo. We have been asked to see the patient in consultation for chest pain. Patient examined at the bedside. Patient states yesterday she was sitting on the couch when she developed shortness of breath. She denied chest pain at that time. She reports she was concerned so she came to the ER for further evaluation. She reports that once she got to the ER, she began having chest pain. She describes the pain was in the middle of her chest and felt like a stabbing sensation. She received aspirin which relieved her pain. She reports some stabbing pain this morning that is worse with deep inspiration. She reports minimal SOB at rest, but does have SOB with exertion. EKG reveals sinus mechanism with PVCs Chest xray cardiomegaly. No significant change compared to old exam. No obvious heart failure. Laboratory data: WBC 15.6. Hemoglobin 11.2. Platelet count 259. Sodium 139. Potassium 4.8. BUN 16. Creatinine 0.76. Troponin negative 3. BNP 2580 Current home cardiac medications include Entresto 24-26mg BID, Lasix 20 mg daily, Aldactone 50 mg daily, carvedilol 6.25 mg twice a day, and atorvastatin 20 mg daily Echocardiogram completed in May 2020 revealing ejection fraction 20-25% Patient underwent cardiac catheterization in March 2020 revealing normal coronary arteries 12/04/2020 Patient examined this morning at the bedside. Patient reports she is still having some shortness of breath with exertion although it is improved from yesterday. She also reports improvement in her lower extremity edema. She denies chest pain or pressure. She remains on IV Lasix. Patient is currently in atrial fibrillation with mildly uncontrolled ventricular rate this morning. Patient is having runs of nonsustained ventricular tachycardia. Potassium 4.2. Magnesium 2.1. Echocardiogram completed reveals an ejection fraction 20-25%, mild to moderate mitral regurgitation, moderate tricuspid regurgitation, and severe pulmonary hypertension. PHYSICAL EXAM: VITAL SIGNS: Reviewed. GENERAL: Well-developed in no acute distress. HEENT: Head is normocephalic. Pupils are equal, round. Sclerae anicteric. Mucous membranes of the mouth are moist. Neck supple. No JVD or thyromegaly LUNGS: Respirations even and unlabored. Lungs diminished bilaterally. HEART: Tachycardic. Irregular rate and rhythm. S1 and S2 heard. ABDOMEN: Soft. Nondistended. Nontender. EXTREMITIES: Normal range of motion. No clubbing or cyanosis. Peripheral pulses intact. 1+ bilateral lower extremity edema NEUROLOGIC: Awake and alert. Oriented x 3. ASSESSMENT: Chest pain, atypical, troponin negative x 3 Acute exacerbation of chronic systolic congestive heart failure Nonischemic cardiomyopathy with previous AICD implantation Paroxysmal atrial fibrillation not on anticoagulation secondary to vaginal bleeding Hypertension Hyperlipidemia Anxiety Former nicotine dependence Nonsustained ventricular tachycardia PLAN: Continue current cardiac medications Discontinue IV Lasix. Begin oral Lasix 40 mg twice a day Discontinue carvedilol. Begin metoprolol tartrate 50 mg twice a day Continue telemetry monitoring Monitor kidney function Daily weight Accurate I&O Bilateral knee JAMES hose Further recommendations pending patient course Nurse practitioner note has been reviewed by physician. Signing provider agrees with the documented findings, assessment, and plan of care. Objective - Vital Signs Vital signs: Vital Signs Temp 98.1 F 12/04/20 07:00 Pulse 83 12/04/20 07:00 Resp 16 12/04/20 07:00 BP 117/74 12/04/20 07:00 Pulse Ox 97 12/04/20 07:00 Intake & Output 12/03/20 12/04/20 12/04/20 18:59 06:59 18:59 Intake Total 1480 690 Output Total 400 1600 800 Balance 1080 -1600 -110 Weight 117.6 kg 116.3 kg Intake: Oral 1480 690 Output: Urine 400 1600 800 Other: Voiding Method Toilet Toilet - Labs CBC & Chem 7: 12/04/20 05:27 12/04/20 05:27 Labs: Abnormal Lab Results - Last 24 Hours (Table) 12/04/20 12/04/20 Range/Units 05:27 05:27 WBC 11.57 H (4.50-10.00) X 10*3/uL Hgb 9.6 L (12.0-15.0) g/dL Hct 33.6 L (37.2-46.3) % MCV 79.2 L (80.0-97.0) fL MCH 22.6 L (27.0-32.0) pg MCHC 28.6 L (32.0-37.0) g/dL RDW 22.1 H (11.5-14.5) % Absolute Nucleated RBC 0.02 H (0.00-0.00) X 10*3/uL Immature Gran # 0.05 H (0.00-0.04) X 10*3/uL Neutrophils # 9.15 H (1.80-7.70) X 10*3/uL NRBC/100 WBC Diff 0.2 H (0.0-0.0) /100 WBCS Glucose 69 L (70-110) mg/dL Calcium 8.6 L (8.7-10.3) mg/dL Total Bilirubin 1.4 H (0.2-1.2) mg/dL ALT <8 L (8-44) U/L Total Protein 6.1 L (6.2-8.2) g/dL
--- NOTE | 2020-12-04 13:27 | P.PN ---
Subjective Progress Note Date: 12/04/20 Maria Del Rosario Reich is a 50-year-old female with known history of nonischemic cardiomyopathy and history of AICD placement who presented to [facility] emergency room with a chief complaint of worsening shortness of breath, in the emergency room patient started having episodes of chest pain, she was evaluated in the emergency room vital examination on presentation revealed a temperature of 98 pulse 74 respiration 16 blood pressure 99/66 pulse ox 100% on room air laboratory data revealed a white blood count of 15.6 hemoglobin 11.2 platelet count 259 BUN 16 creatinine 0.76 troponin level less than 0.012 BNP 2580 coronavirus PCR not detected, EKG on admission revealed normal sinus rhythm with occasional PVC, chest x-ray done in the emergency room revealed evidence of cardiomegaly otherwise no acute abnormality.She was admitted to telemetry floor cardiology consultation was requested. On 12/04/2020 Patient was seen and examined on the medical floor, he is alert and oriented x 3 in no distress, he denies any complaints there is no fever or chills no headache or dizziness no chest pain no shortness of breath no palpitation no cough no nausea or vomiting no abdominal pain no diarrhea no blood in the stools no burning with urination no frequency or urgency and no hematuria, there is no weakness or numbness in any of the extremities no change in vision speech or gait. At this time cardiac medications are being adjusted by cardiology Coreg was discontinued metoprolol started, patient also has severe anxiety Lexapro and Xanax were added to her medication regimen, will follow in a.m. Objective - Vital Signs Vital signs: Vital Signs Temp 98.1 F 12/04/20 07:00 Pulse 83 12/04/20 07:00 Resp 16 12/04/20 07:00 BP 117/74 12/04/20 07:00 Pulse Ox 97 12/04/20 07:00 Intake & Output 12/03/20 12/04/20 12/04/20 18:59 06:59 18:59 Intake Total 1480 690 Output Total 400 1600 800 Balance 1080 -1600 -110 Weight 117.6 kg 116.3 kg Intake: Oral 1480 690 Output: Urine 400 1600 800 Other: Voiding Method Toilet Toilet - Exam In general patient is alert and oriented x 3 in no distress HEENT head normocephalic and atraumatic Neck is supple no JVD no goiter no lymphadenopathy no carotid bruit Chest examination is clear to auscultation no crackles no wheezing Cardiac exam reveals regular heart sounds S1 and S2 no gallops no murmurs Abdomen is soft nontender no organomegaly with normal bowel sounds Extremity exam reveals no edema no cyanosis or clubbing Neurological examination reveals no gross focal deficits - Labs CBC & Chem 7: 12/04/20 05:27 12/04/20 05:27 Labs: Abnormal Lab Results - Last 24 Hours (Table) 12/04/20 12/04/20 Range/Units 05:27 05:27 WBC 11.57 H (4.50-10.00) X 10*3/uL Hgb 9.6 L (12.0-15.0) g/dL Hct 33.6 L (37.2-46.3) % MCV 79.2 L (80.0-97.0) fL MCH 22.6 L (27.0-32.0) pg MCHC 28.6 L (32.0-37.0) g/dL RDW 22.1 H (11.5-14.5) % Absolute Nucleated RBC 0.02 H (0.00-0.00) X 10*3/uL Immature Gran # 0.05 H (0.00-0.04) X 10*3/uL Neutrophils # 9.15 H (1.80-7.70) X 10*3/uL NRBC/100 WBC Diff 0.2 H (0.0-0.0) /100 WBCS Glucose 69 L (70-110) mg/dL Calcium 8.6 L (8.7-10.3) mg/dL Total Bilirubin 1.4 H (0.2-1.2) mg/dL ALT <8 L (8-44) U/L Total Protein 6.1 L (6.2-8.2) g/dL Assessment and Plan Plan: Acute exacerbation of chronic systolic congestive heart failure Known history of nonischemic cardiomyopathy with previous history of AICD placement Episodes of chest pain on presentation to emergency room, no ischemic changes on EKG troponin negative 3 sets Paroxysmal atrial fibrillation, patient unable to tolerate anticoagulation due to vaginal bleeding Underlying history of hypertension Underlying history of hyperlipidemia Underlying history of anxiety disorder At this time patient is admitted to telemetry floor, serial cardiac enzymes ordered, cardiology consultation was requested Echocardiogram ordered Patient was started on IV Lasix Patient is complaining of worsening anxiety she will be given Lexapro and when necessary Xanax For DVT prophylaxis we will use subcu Lovenox Will follow closely
[2020-12-04 13:57] LABS: Appearance,Urine Clear (Clear); Bilirubin,Urine Negative (Negative); Blood,Urine Negative (Negative); Color,Urine Yellow; Glucose,Urine (UA) Negative (Negative); Ketones,Urine Negative (Negative); Leukocyte Esterase,Urine Small (Negative); Mucus,Urine Rare /hpf; Nitrite,Urine Negative (Negative); Protein,Urine Negative (Negative); RBC,Urine <1 /hpf (0-5); Specific Gravity,Urine 1.011 (1.001-1.035); Squamous Epithelial Cell,Urine 2 /hpf (0-4); Urobilinogen,Urine <2.0 mg/dL (<2.0); WBC,Urine 2 /hpf (0-5)
[2020-12-04] MEDS: FUROSEMIDE 40 MG TAB PO SCH (16:12)
[2020-12-04 17:18] LABS: Folate, Serum 5.7 ng/mL
[2020-12-04] MEDS ORDERED: carvediloL 12.5 MG TAB PO SCH (17:30)
[2020-12-04 17:35] LABS: % Iron Saturation 6.31 (12.00-45.00)
[2020-12-04] MEDS: ALPRAZolam 0.25 MG TAB PO PRN (20:17)
[2020-12-04] MEDS ORDERED: METOPROLOL TARTRATE 50 MG TAB PO SCH (21:00)
[2020-12-04] MEDS ORDERED: METOPROLOL TARTRATE 25 MG TAB PO STA (23:33)
[2020-12-05 02:52] VITALS: RESP 18
[2020-12-05] MEDS: ALPRAZolam 0.25 MG TAB PO PRN ×2 (05:34→21:57)
[2020-12-05] MEDS: SPIRONOLACTONE 25 MG TAB PO SCH (07:35)
[2020-12-05] MEDS: ENOXAPARIN 40 MG/0.4 ML SYRINGE SQ SCH (07:36)
[2020-12-05] MEDS: ATORVASTATIN 20 MG TAB PO SCH (07:36)
[2020-12-05] MEDS: SACUBITRIL/VALSARTAN 24 MG-26 MG TABLET PO SCH ×2 (07:36→20:22)
[2020-12-05] MEDS: FUROSEMIDE 40 MG TAB PO SCH ×2 (07:36→15:36)
[2020-12-05] MEDS: ESCITALOPRAM 10 MG TAB PO SCH (07:36)
[2020-12-05] MEDS ORDERED: METOPROLOL TARTRATE 50 MG TAB PO SCH (09:00)
--- NOTE | 2020-12-05 09:52 | P.PN ---
Subjective Progress Note Date: 12/05/20 Maria Del Rosario Reich is a 50-year-old female with known history of nonischemic cardiomyopathy and history of AICD placement who presented to [facility] emergency room with a chief complaint of worsening shortness of breath, in the emergency room patient started having episodes of chest pain, she was evaluated in the emergency room vital examination on presentation revealed a temperature of 98 pulse 74 respiration 16 blood pressure 99/66 pulse ox 100% on room air laboratory data revealed a white blood count of 15.6 hemoglobin 11.2 platelet count 259 BUN 16 creatinine 0.76 troponin level less than 0.012 BNP 2580 coronavirus PCR not detected, EKG on admission revealed normal sinus rhythm with occasional PVC, chest x-ray done in the emergency room revealed evidence of cardiomegaly otherwise no acute abnormality.She was admitted to telemetry floor cardiology consultation was requested. On 12/04/2020 Patient was seen and examined on the medical floor, he is alert and oriented x 3 in no distress, he denies any complaints there is no fever or chills no headache or dizziness no chest pain no shortness of breath no palpitation no cough no nausea or vomiting no abdominal pain no diarrhea no blood in the stools no burning with urination no frequency or urgency and no hematuria, there is no weakness or numbness in any of the extremities no change in vision speech or gait. At this time cardiac medications are being adjusted by cardiology Coreg was discontinued metoprolol started, patient also has severe anxiety Lexapro and Xanax were added to her medication regimen, will follow in a.m. On 12/05/2020 patient is alert and oriented 3. Discussed case with cardiology services. Patient still having elevated heart rate. Lopressor has been increased to 50 mg 3 times a day. Lasix was transitioned to oral yesterday. Patient also complaining of some increased anxiety but reports that the Xanax is helping. At this time patient denies chest pain or shortness of breath. Epi reyes denies nausea vomiting or diarrhea. Patient denies any urinary burning or frequency Objective - Vital Signs Vital signs: Vital Signs Temp 97.6 F 12/05/20 07:35 Pulse 120 H 12/05/20 07:35 Resp 18 12/05/20 07:35 BP 108/72 12/05/20 07:35 Pulse Ox 95 12/05/20 07:35 Intake & Output 12/04/20 12/05/20 12/05/20 18:59 06:59 18:59 Intake Total 1600 650 Output Total 1050 700 450 Balance 550 -700 200 Weight 116.2 kg Intake: Oral 1600 650 Output: Urine 1050 700 450 Other: Voiding Method Toilet Toilet # Bowel Movements 1 - Exam In general patient is alert and oriented x 3 in no distress HEENT head normocephalic and atraumatic Neck is supple no JVD no goiter no lymphadenopathy no carotid bruit Chest examination is clear to auscultation no crackles no wheezing Cardiac exam reveals regular heart sounds S1 and S2 no gallops no murmurs Abdomen is soft nontender no organomegaly with normal bowel sounds Extremity exam reveals no edema no cyanosis or clubbing Neurological examination reveals no gross focal deficits - Labs CBC & Chem 7: 12/04/20 05:27 12/04/20 05:27 Labs: Abnormal Lab Results - Last 24 Hours (Table) 12/04/20 12/04/20 12/04/20 Range/Units 05:27 05:27 11:51 Immature Gran # 0.05 H (0.00-0.04) X 10*3/uL Neutrophils # 9.15 H (1.80-7.70) X 10*3/uL Glucose 69 L (70-110) mg/dL Calcium 8.6 L (8.7-10.3) mg/dL Iron 26 L (50-170) ug/dL % Saturation 6.31 L (12.00-45.00) Total Bilirubin 1.4 H (0.2-1.2) mg/dL ALT <8 L (8-44) U/L Total Protein 6.1 L (6.2-8.2) g/dL Ur Leukocyte Esterase (Negative) Urine Mucus (None) /hpf 12/04/20 Range/Units 13:40 Immature Gran # (0.00-0.04) X 10*3/uL Neutrophils # (1.80-7.70) X 10*3/uL Glucose (70-110) mg/dL Calcium (8.7-10.3) mg/dL Iron (50-170) ug/dL % Saturation (12.00-45.00) Total Bilirubin (0.2-1.2) mg/dL ALT (8-44) U/L Total Protein (6.2-8.2) g/dL Ur Leukocyte Esterase Small H (Negative) Urine Mucus Rare H (None) /hpf Assessment and Plan Plan: Acute exacerbation of chronic systolic congestive heart failure. Lasix transition to by mouth per cardiology Known history of nonischemic cardiomyopathy with previous history of AICD placement Episodes of chest pain on presentation to emergency room, no ischemic changes on EKG troponin negative 3 sets Paroxysmal atrial fibrillation, patient unable to tolerate anticoagulation due to vaginal bleeding. Heart rate remains elevated. Discussed with cardiology team Lopressor increased to 3 times a day Underlying history of hypertension Underlying history of hyperlipidemia Underlying history of anxiety disorder Patient is complaining of worsening anxiety she will be given Lexapro and when necessary Xanax For DVT prophylaxis we will use subcu Lovenox Will follow closely
[2020-12-05 10:11] LABS: Anisocytosis Moderate; Basophils # (A) 0.1 k/uL (0-0.2); Basophils % (A) 1 %; Eosinophils # (A) 0.2 k/uL (0-0.7); Eosinophils % (A) 2 %; HCT 37.3 % (34.0-46.0); HGB 10.8 gm/dL (11.4-16.0); Hypochromasia Marked; Lymphocytes # (A) 1.3 k/uL (1.0-4.8); Lymphocytes % (A) 11 %; MCH 22.5 pg (25.0-35.0); MCHC 28.8 g/dL (31.0-37.0); MCV 78.1 fL (80.0-100.0); Microcytosis Moderate; Monocytes # (A) 0.8 k/uL (0-1.0); Monocytes % (A) 7 %; Neutrophils # (A) 9.3 k/uL (1.3-7.7); Neutrophils % (A) 79 %; Platelet Count 304 k/uL (150-450); RBC 4.78 m/uL (3.80-5.40); RDW 20.6 % (11.5-15.5); WBC 11.9 k/uL (3.8-10.6)
[2020-12-05 10:29] LABS: African American GFR (CKD) 86.4 (60.0-200.0); BUN/Creat Ratio 18.89 Ratio (12.00-20.00); Calcium 8.9 mg/dL (8.7-10.3); Non-African American GFR(CKD) 74.6 (60.0-200.0); Potassium 4.6 mmol/L (3.5-5.5)
--- NOTE | 2020-12-05 11:49 | P.PN ---
Subjective Progress Note Date: 12/05/20 HISTORY OF PRESENT ILLNESS: This is a 50-year-old female with a past medical history significant for nonischemic myopathy with previous AICD implantation, congestive heart failure, paroxysmal atrial fibrillation on anticoagulation secondary to vaginal bleeding, hypertension and hyperlipidemia. Patient follows in the office with Dr. Salcedo. We have been asked to see the patient in consultation for chest pain. Patient examined at the bedside. Patient states yesterday she was sitting on the couch when she developed shortness of breath. She denied chest pain at that time. She reports she was concerned so she came to the ER for further evaluation. She reports that once she got to the ER, she began having chest pain. She describes the pain was in the middle of her chest and felt like a stabbing sensation. She received aspirin which relieved her pain. She reports some stabbing pain this morning that is worse with deep inspiration. She reports minimal SOB at rest, but does have SOB with exertion. EKG reveals sinus mechanism with PVCs Chest xray cardiomegaly. No significant change compared to old exam. No obvious heart failure. Laboratory data: WBC 15.6. Hemoglobin 11.2. Platelet count 259. Sodium 139. Potassium 4.8. BUN 16. Creatinine 0.76. Troponin negative 3. BNP 2580 Current home cardiac medications include Entresto 24-26mg BID, Lasix 20 mg daily, Aldactone 50 mg daily, carvedilol 6.25 mg twice a day, and atorvastatin 20 mg daily Echocardiogram completed in May 2020 revealing ejection fraction 20-25% Patient underwent cardiac catheterization in March 2020 revealing normal coronary arteries 12/04/2020 Patient examined this morning at the bedside. Patient reports she is still having some shortness of breath with exertion although it is improved from yesterday. She also reports improvement in her lower extremity edema. She denies chest pain or pressure. She remains on IV Lasix. Patient is currently in atrial fibrillation with mildly uncontrolled ventricular rate this morning. Patient is having runs of nonsustained ventricular tachycardia. Potassium 4.2. Magnesium 2.1. Echocardiogram completed reveals an ejection fraction 20-25%, mild to moderate mitral regurgitation, moderate tricuspid regurgitation, and severe pulmonary hypertension. 12/05/2020 Patient examined this morning at the bedside. Patient states her shortness of breath has resolved. She was transitioned to oral Lasix yesterday. She is wearing knee-high JAMES hose. Patient remains in atrial fibrillation. Patient's heart rate was uncontrolled overnight and was given an extra dose of metoprolol 25 mg. Patient reports feeling some palpitations overnight but denies palpitations this morning. Patient's heart rate remains uncontrolled this morning with heart rate between 100-125. PHYSICAL EXAM: VITAL SIGNS: Reviewed. GENERAL: Well-developed in no acute distress. HEENT: Head is normocephalic. Pupils are equal, round. Sclerae anicteric. Mucous membranes of the mouth are moist. Neck supple. No JVD or thyromegaly LUNGS: Respirations even and unlabored. Lungs diminished bilaterally. HEART: Tachycardic. Irregular rate and rhythm. S1 and S2 heard. ABDOMEN: Soft. Nondistended. Nontender. EXTREMITIES: Normal range of motion. No clubbing or cyanosis. Peripheral pulses intact. 1+ bilateral lower extremity edema NEUROLOGIC: Awake and alert. Oriented x 3. ASSESSMENT: Chest pain, atypical, troponin negative x 3 Acute exacerbation of chronic systolic congestive heart failure Nonischemic cardiomyopathy with previous AICD implantation Paroxysmal atrial fibrillation not on anticoagulation secondary to vaginal bleeding Hypertension Hyperlipidemia Anxiety Former nicotine dependence Nonsustained ventricular tachycardia PLAN: Continue current cardiac medications Increase metoprolol to 75 mg 3 times a day Decrease Aldactone to 25 mg daily Continue telemetry monitoring Monitor kidney function Daily weight Accurate I&O Further recommendations pending patient course Possible discharge home tomorrow if patient's heart rate is controlled Nurse practitioner note has been reviewed by physician. Signing provider agrees with the documented findings, assessment, and plan of care. Objective - Vital Signs Vital signs: Vital Signs Temp 97.6 F 12/05/20 07:35 Pulse 120 H 12/05/20 07:35 Resp 18 12/05/20 07:35 BP 108/72 12/05/20 07:35 Pulse Ox 95 12/05/20 07:35 Intake & Output 12/04/20 12/05/20 12/05/20 18:59 06:59 18:59 Intake Total 1600 650 Output Total 1050 700 450 Balance 550 -700 200 Weight 116.2 kg Intake: Oral 1600 650 Output: Urine 1050 700 450 Other: Voiding Method Toilet Toilet # Bowel Movements 1 - Labs CBC & Chem 7: 12/05/20 05:18 12/05/20 05:18 Labs: Abnormal Lab Results - Last 24 Hours (Table) 12/04/20 12/04/20 12/05/20 Range/Units 11:51 13:40 05:18 WBC 11.9 H (3.8-10.6) k/uL Hgb 10.8 L (11.4-16.0) gm/dL MCV 78.1 L (80.0-100.0) fL MCH 22.5 L (25.0-35.0) pg MCHC 28.8 L (31.0-37.0) g/dL RDW 20.6 H (11.5-15.5) % Neutrophils # 9.3 H (1.3-7.7) k/uL Iron 26 L (50-170) ug/dL % Saturation 6.31 L (12.00-45.00) Ur Leukocyte Esterase Small H (Negative) Urine Mucus Rare H (None) /hpf
[2020-12-05] MEDS: METOPROLOL TARTRATE 25 MG TAB PO SCH ×2 (15:36→21:57)
[2020-12-05] MEDS ORDERED: ACETAMINOPHEN TAB 500 MG TAB PO PRN (22:42)
[2020-12-06 07:45] VITALS: TEMP 97.6
[2020-12-06] MEDS: ENOXAPARIN 40 MG/0.4 ML SYRINGE SQ SCH (07:54)
[2020-12-06] MEDS: FUROSEMIDE 40 MG TAB PO SCH (07:54)
[2020-12-06] MEDS: SACUBITRIL/VALSARTAN 24 MG-26 MG TABLET PO SCH (07:54)
[2020-12-06] MEDS: ESCITALOPRAM 10 MG TAB PO SCH (07:54)
[2020-12-06] MEDS: METOPROLOL TARTRATE 25 MG TAB PO SCH (07:54)
[2020-12-06] MEDS: ATORVASTATIN 20 MG TAB PO SCH (07:55)
[2020-12-06 08:45] LABS: Basophils # (A) 0.06 X 10*3/uL (0.00-0.10); Basophils % (A) 0.6 %; Eosinophils # (A) 0.15 X 10*3/uL (0.04-0.35); Eosinophils % (A) 1.4 %; HCT 35.5 % (37.2-46.3); HGB 10.2 g/dL (12.0-15.0); Lymphocytes % (A) 17.4 %; MCH 22.6 pg (27.0-32.0); MCHC 28.7 g/dL (32.0-37.0); MCV 78.7 fL (80.0-97.0); Mean Platelet Volume 10.3 fL (9.5-12.2); Monocytes # (A) 0.84 X 10*3/uL (0.20-1.00); Monocytes % (A) 8.1 %; Neutrophils # (A) 7.47 X 10*3/uL (1.80-7.70); Neutrophils % (A) 72.2 %; Platelet Count 328 X 10*3/uL (140-440); RBC 4.51 X 10*6/uL (4.10-5.20); RDW 21.9 % (11.5-14.5); WBC 10.35 X 10*3/uL (4.50-10.00)
[2020-12-06] MEDS ORDERED: SPIRONOLACTONE 25 MG TAB PO SCH (09:00)
[2020-12-06 09:38] LABS: African American GFR (CKD) 76.1 (60.0-200.0); Albumin 4.3 g/dL (3.80-4.90); Albumin/Globulin Ratio 2.05 (1.60-3.17); Anion Gap 11.4 mmol/L (4.00-12.00); Calcium 8.9 mg/dL (8.7-10.3); Carbon Dioxide 25.6 mmol/L (21.6-31.8); Globulin 2.1 g/dL (1.6-3.3); Non-African American GFR(CKD) 65.6 (60.0-200.0); Potassium 4.4 mmol/L (3.5-5.5); Total Bilirubin 1.1 mg/dL (0.2-1.2); Total Protein 6.4 g/dL (6.2-8.2)
[2020-12-06] MEDS: ALPRAZolam 0.25 MG TAB PO PRN (11:00)
--- NOTE | 2020-12-06 13:07 | P.PN ---
Subjective This is a 50-year-old female with a past medical history significant for nonischemic myopathy with previous AICD implantation, congestive heart failure, paroxysmal atrial fibrillation on anticoagulation secondary to vaginal bleeding, hypertension and hyperlipidemia. Patient follows in the office with Dr. Salcedo. We have been asked to see the patient in consultation for chest pain. EKG reveals sinus mechanism with PVCs. Laboratory data: WBC 15.6. Hemoglobin 11.2. Platelet count 259. Sodium 139. Potassium 4.8. BUN 16. Creatinine 0.76. T roponin negative 3. BNP 2580. Chest xray cardiomegaly. No significant change compared to old exam. No obvious heart failure. Current home cardiac medications include Entresto 24-26mg BID, Lasix 20 mg daily, Aldactone 50 mg daily, carvedilol 6.25 mg twice a day, and atorvastatin 20 mg daily Echocardiogram completed in May 2020 revealing ejection fraction 20-25% Patient underwent cardiac catheterization in March 2020 revealing normal coronary arteries 12/04/2020: Started on IV Lasix. Patient went into atrial fibrillation with mildly uncontrolled ventricular rate this morning. Patient is having runs of nonsustained ventricular tachycardia. Potassium 4.2. Magnesium 2.1. Echocardiogram completed reveals an ejection fraction 20-25%, mild to moderate mitral regurgitation, moderate tricuspid regurgitation, and severe pulmonary hypertension. 12/05/2020 Patient remained in atrial fibrillation. Patient's heart rate was uncontrolled overnight and was given an extra dose of metoprolol 25 mg. Patient's heart rate remains uncontrolled this morning with heart rate between 100-125. Patient was transitioned from carvedilol to Metoprolol tartrate and was increased to 75mg TID. 12/06/2020: Patient seen and examined at bedside, no acute distress. She is anxious about her heart rate. Denies chest pain, shortness of breath, lightheadedness, dizziness. Patient has been given 3 doses of the metoprolol tartrate. Telemetry reviewed, patient continues to be in atrial fibrillation and heart rates are 90- 120 with PVCs. This morning after patient's metoprolol tartrate dose patient's heart rate has been around 95-105. Patient currently being maintained on spironolactone 25mg daily, Lasix 40mg BID, metoprolol tartrate 75mg TID, atorvasatin 20mg daily, and Entresto 25 mg/26 mg twice a day. Laboratory data reviewed, WBC 10.3, hemoglobin 10.2, platelets 328, sodium 135, potassium 4.4, BUN 24, serum creatinine 1.0 PHYSICAL EXAM: VITAL SIGNS: Reviewed. GENERAL: Well-developed in no acute distress. HEENT: Neck supple. No JVD or thyromegaly LUNGS: Respirations even and unlabored. Lungs diminished bilaterally. HEART: Tachycardic. Irregular rate and rhythm. S1 and S2 heard. ABDOMEN: Soft. Nondistended. Nontender. EXTREMITIES: Normal range of motion. No clubbing or cyanosis. Peripheral pulses intact. 1+ bilateral lower extremity edema NEUROLOGIC: Awake and alert. Oriented x 3. ASSESSMENT: Chest pain, atypical, troponin negative x 3 Acute exacerbation of chronic systolic congestive heart failure Nonischemic cardiomyopathy with previous AICD implantation Paroxysmal atrial fibrillation not on anticoagulation secondary to vaginal bleeding Hypertension Hyperlipidemia Anxiety Former nicotine dependence Nonsustained ventricular tachycardia PLAN: Continue metoprolol to 75 mg 3 times a day Continue Aldactone to 25 mg daily Continue Lasix 40mg BID and Entresto Patient's heart rate is better controlled today. From a cardiology perspective, patient is stable to be discharged home. Recommend patient to follow up with Dr. Salcedo within 2 weeks Nurse practitioner note has been reviewed by physician. Signing provider agrees with the documented findings, assessment, and plan of care. Objective - Vital Signs Vital signs: Vital Signs Temp 97.6 F 12/06/20 07:44 Pulse 108 H 12/06/20 08:00 Resp 18 12/06/20 08:00 BP 102/64 12/06/20 07:44 Pulse Ox 100 12/06/20 07:44 Intake & Output 12/05/20 12/06/20 12/06/20 18:59 06:59 18:59 Intake Total 1240 240 Output Total 1550 1200 800 Balance -310 -1200 -560 Weight 116.3 kg Intake: Oral 1240 240 Output: Urine 1550 1200 800 Other: Voiding Method Toilet Toilet # Bowel Movements 1 - Labs CBC & Chem 7: 12/06/20 05:46 12/06/20 05:46 Labs: Abnormal Lab Results - Last 24 Hours (Table) 12/06/20 12/06/20 Range/Units 05:46 05:46 WBC 10.35 H (4.50-10.00) X 10*3/uL Hgb 10.2 L (12.0-15.0) g/dL Hct 35.5 L (37.2-46.3) % MCV 78.7 L (80.0-97.0) fL MCH 22.6 L (27.0-32.0) pg MCHC 28.7 L (32.0-37.0) g/dL RDW 21.9 H (11.5-14.5) % BUN/Creatinine Ratio 24.00 H (12.00-20.00) Ratio
[2020-12-06 14:46] VITALS: BP 110/74; PULSE 95
--- NOTE | 2020-12-08 13:25 | P.DS ---
Providers Date of admission: 12/04/20 00:09 Expected date of discharge: 12/06/20 Attending physician: Valery Arenas Consults: 12/02/20 23:06 Consult Physician Urgent Consulting Provider: [facility] Consult Reason/Comments: chest pain Do you want consulting provider notified?: Yes, Notify in am Primary care physician: Valery Arenas [facility] Course: Diagnoses on discharge: Acute exacerbation of chronic systolic congestive heart failure. Lasix transition to by mouth per cardiology Known history of nonischemic cardiomyopathy with previous history of AICD placement Episodes of chest pain on presentation to emergency room, no ischemic changes on EKG troponin negative 3 sets Paroxysmal atrial fibrillation, patient unable to tolerate anticoagulation due to vaginal bleeding. Heart rate remains elevated. Discussed with cardiology team Lopressor increased to 3 times a day Underlying history of hypertension Underlying history of hyperlipidemia Underlying history of anxiety disorder Hospital course: Maria Del Rosario Reich is a 50-year-old female with known history of nonischemic cardiomyopathy and history of AICD placement who presented to [facility] emergency room with a chief complaint of worsening shortness of breath, in the emergency room patient started having episodes of chest pain, she was evaluated in the emergency room vital examination on presentation revealed a temperature of 98 pulse 74 respiration 16 blood pressure 99/66 pulse ox 100% on room air laboratory data revealed a white blood count of 15.6 hemoglobin 11.2 platelet count 259 BUN 16 creatinine 0.76 troponin level less than 0.012 BNP 2580 coronavirus PCR not detected, EKG on admission revealed normal sinus rhythm with occasional PVC, chest x-ray done in the emergency room revealed evidence of cardiomegaly otherwise no acute abnormality.She was admitted to telemetry floor cardiology consultation was requested. On 12/04/2020 Patient was seen and examined on the medical floor, he is alert and oriented x 3 in no distress, he denies any complaints there is no fever or chills no headache or dizziness no chest pain no shortness of breath no palpitation no cough no nausea or vomiting no abdominal pain no diarrhea no blood in the stools no burning with urination no frequency or urgency and no hematuria, there is no weakness or numbness in any of the extremities no change in vision speech or gait. At this time cardiac medications are being adjusted by cardiology Coreg was discontinued metoprolol started, patient also has severe anxiety Lexapro and Xanax were added to her medication regimen, will follow in a.m. On 12/05/2020 patient is alert and oriented 3. Discussed case with cardiology services. Patient still having elevated heart rate. Lopressor has been increased to 50 mg 3 times a day. Lasix was transitioned to oral yesterday. Patient also complaining of some increased anxiety but reports that the Xanax is helping. At this time patient denies chest pain or shortness of breath. Patient denies nausea vomiting or diarrhea. Patient denies any urinary burning or frequency On 12/06/2020 patient has been cleared for discharge from cardiology standpoint. Patient will be discharged on Lopressor 75 mg 3 times a day, Lasix 40 mg twice a day and Aldactone 25 mg daily. Patient to follow-up PCP and cardiology services for further management. Blood sugars denies chest pain or shortness breath. Patient denies nausea vomiting or diarrhea. Patient denies any urinary burning or frequency Patient Condition at Discharge: Stable Plan - Discharge Summary Discharge Rx Participant: Yes New Discharge Prescriptions: New Spironolactone [Aldactone] 25 mg PO DAILY 30 Days #30 tab Furosemide [Lasix] 40 mg PO BID@0900,1600 30 Days #60 tab Escitalopram [Lexapro] 10 mg PO DAILY tab Metoprolol Tartrate [Lopressor] 75 mg PO TID 30 Days #270 tab Acetaminophen Tab [Tylenol] 500 mg PO Q6HR PRN tab PRN Reason: Fever And/ Or Pain ALPRAZolam [Xanax] 0.25 mg PO QID PRN tab PRN Reason: Anxiety Continue Atorvastatin [Lipitor] 20 mg PO DAILY Ergocalciferol [Vitamin D2 (DRISDOL)] 50,000 unit PO KENT Allopurinol [Zyloprim] 300 mg PO DAILY Sacubitril/Valsartan [Entresto 24 mg-26 mg Tablet] 1 tab PO BID Ferrous Sulfate [Feosol] 325 mg PO DAILY@1200 Discontinued Spironolactone [Aldactone] 50 mg PO DAILY Furosemide [Lasix] 20 mg PO DAILY Carvedilol [Coreg] 6.25 mg PO BID Acetaminophen Tab [Tylenol Tab] 1,000 mg PO Q6HR PRN PRN Reason: Pain Discharge Medication List Atorvastatin [Lipitor] 20 mg PO DAILY 07/31/16 [History] Ergocalciferol [Vitamin D2 (DRISDOL)] 50,000 unit PO KENT 03/08/20 [History] Allopurinol [Zyloprim] 300 mg PO DAILY 05/11/20 [History] Sacubitril/Valsartan [Entresto 24 mg-26 mg Tablet] 1 tab PO BID 07/02/20 [History] Ferrous Sulfate [Feosol] 325 mg PO DAILY@1200 12/02/20 [History] ALPRAZolam [Xanax] 0.25 mg PO QID PRN tab 12/06/20 [Rx] Acetaminophen Tab [Tylenol] 500 mg PO Q6HR PRN tab 12/06/20 [Rx] Escitalopram [Lexapro] 10 mg PO DAILY tab 12/06/20 [Rx] Furosemide [Lasix] 40 mg PO BID@0900,1600 30 Days #60 tab 12/06/20 [Rx] Metoprolol Tartrate [Lopressor] 75 mg PO TID 30 Days #270 tab 12/06/20 [Rx] Spironolactone [Aldactone] 25 mg PO DAILY 30 Days #30 tab 12/06/20 [Rx] Follow up Appointment(s)/Referral(s): Zac Salcedo MD [STAFF PHYSICIAN] - 2 Weeks (office will call patient with appointment ) Valery Arenas MD [Primary Care Provider] - 1-2 days
== END 2020-12-06 15:01 | disposition home or self-care (01) | DRG 292 ==
LOC: EC 20:36 → 6NMEDSUR 23:06 → OBSVTOIN 12-04 00:09
PROVIDERS: ADMIT Internal Medicine; ATTEND Internal Medicine
DX: I11.0 Hypertensive heart disease with heart failure (principal); I47.2 Ventricular tachycardia; E78.5 Hyperlipidemia, unspecified; I50.23 Acute on chronic systolic (congestive) heart failure; I42.8 Other cardiomyopathies; Z20.822 Contact with and (suspected) exposure to COVID-19; I27.20 Pulmonary hypertension, unspecified; I48.0 Paroxysmal atrial fibrillation; I49.3 Ventricular premature depolarization; I08.1 Rheumatic disorders of both mitral and tricuspid valves; F41.9 Anxiety disorder, unspecified; M10.9 Gout, unspecified; L40.9 Psoriasis, unspecified; D64.9 Anemia, unspecified; H18.601 Keratoconus, unspecified, right eye; Z79.899 Other long term (current) drug therapy; Z87.891 Personal history of nicotine dependence; Z95.0 Presence of cardiac pacemaker; Z95.810 Presence of automatic (implantable) cardiac defibrillator
CPT/HCPCS: 36415; 71046; 80048; 80053; 80061; 81001; 82607; 82746; 83540; 83550; 83735; 83880; 84484; 85025; 85610; 85730; 87635; 93005; 93306; 99285

== ENCOUNTER 2020-12-11 17:38 | Inpatient (IN) | payer OTHER ==
[2020-12-11] MEDS ORDERED: DILTIAZEM DRIP BOLUS FROM BAG 1 MG SOLN IV ONE (18:24)
[2020-12-11] MEDS ORDERED: LORazepam 2 MG/ML INJ IV STA (18:24)
--- NOTE | 2020-12-11 18:28 | ED ---
General Adult HPI - General Chief complaint: Arrhythmia/Palpitations Stated complaint: racing heart, trouble urinating Time Seen by Provider: 12/11/20 18:00 Source: patient, RN notes reviewed Mode of arrival: wheelchair Limitations: physical limitation - History of Present Illness Initial comments: Patient is a pleasant 50-year-old female presenting to the emergency Department with complaints of palpitations. Patient states symptoms have been occurring for a long time. Patient denies any chest pain. No dyspnea. Patient is very anxious regarding this and does admit to this. Patient states she does have a history of this previously and has seen Dr. martínez previously for this. No leg pain or leg swelling. Patient states she last urinated around 6 PM. Patient also has been having some intermittent constipation and diarrhea. - Related Data Home Medications Medication Instructions Recorded Confirmed Atorvastatin [Lipitor] 20 mg PO DAILY 07/31/16 12/11/20 Ergocalciferol [Vitamin D2 50,000 unit PO KENT 03/08/20 12/11/20 (DRISDOL)] Allopurinol [Zyloprim] 300 mg PO DAILY 05/11/20 12/11/20 Sacubitril/Valsartan [Entresto 24 1 tab PO BID 07/02/20 12/11/20 mg-26 mg Tablet] Ferrous Sulfate [Feosol] 325 mg PO DAILY@1200 12/02/20 12/11/20 Previous Rx's Medication Instructions Recorded ALPRAZolam [Xanax] 0.25 mg PO QID PRN tab 12/06/20 Acetaminophen Tab [Tylenol] 500 mg PO Q6HR PRN tab 12/06/20 Escitalopram [Lexapro] 10 mg PO DAILY tab 12/06/20 Furosemide [Lasix] 40 mg PO BID@0900,1600 30 Days #60 12/06/20 tab Metoprolol Tartrate [Lopressor] 75 mg PO TID 30 Days #270 tab 12/06/20 Spironolactone [Aldactone] 25 mg PO DAILY 30 Days #30 tab 12/06/20 Allergies Allergy/AdvReac Type Severity Reaction Status Date / Time amoxicillin Allergy Rash/Hives Verified 12/11/20 17:44 Penicillins Allergy Rash/Hives Verified 12/11/20 17:44 Sulfa (Sulfonamide Allergy Swelling Verified 12/11/20 17:44 Antibiotics) Review of Systems ROS Statement: Those systems with pertinent positive or pertinent negative responses have been documented in the HPI. ROS Other: All systems not noted in ROS Statement are negative. Constitutional: Denies: fever Eyes: Denies: eye pain ENT: Denies: ear pain Respiratory: Denies: cough Cardiovascular: Reports: palpitations. Denies: chest pain Endocrine: Denies: fatigue Gastrointestinal: Denies: abdominal pain, nausea, vomiting Genitourinary: Reports: as per HPI Musculoskeletal: Denies: back pain Skin: Denies: rash Neurological: Denies: weakness Psychiatric: Reports: anxiety Past Medical History Past Medical History: Atrial Fibrillation, Heart Failure, Eye Disorder, Hyperlipidemia, Hypertension, Skin Disorder Additional Past Medical History / Comment(s): psoriasis, gout, keratoconus rt eye, anemic. History of Any Multi-Drug Resistant Organisms: None Reported Past Surgical History: Heart Catheterization, Pacemaker Additional Past Surgical History / Comment(s): cardioversion, lumbar injection, pacemaker placement Past Anesthesia/Blood Transfusion Reactions: No Reported Reaction Type of Cardiac Device: Permanent Pacemaker Device Placement Date:: 06/30/2020 Past Psychological History: Anxiety Smoking Status: Former smoker Past Alcohol Use History: None Reported Past Drug Use History: None Reported - Past Family History Mother Family Medical History: AICD/Pacemaker Father Family Medical History: AICD/Pacemaker General Exam Limitations: physical limitation General appearance: alert, in no apparent distress Head exam: Present: normocephalic Eye exam: Present: normal appearance Neck exam: Present: normal inspection Respiratory exam: Present: normal lung sounds bilaterally Cardiovascular Exam: Present: tachycardia, irregular rhythm Expanded Peripheral pulses: 2+: Radial (R), Radial (L), Dorsalis Pedis (R), Dorsalis Pedis (L) GI/Abdominal exam: Present: soft. Absent: tenderness Extremities exam: Present: normal inspection. Absent: pedal edema, calf tenderness Neurological exam: Present: alert Psychiatric exam: Present: anxious Skin exam: Present: normal color Course Vital Signs 12/11/20 12/11/20 12/11/20 17:40 18:01 19:08 Temperature 97.9 F Pulse Rate 129 H 113 H 101 H Respiratory 17 16 16 Rate Blood Pressure 104/63 O2 Sat by Pulse 97 97 98 Oximetry 12/11/20 19:27 Temperature Pulse Rate 96 Respiratory 18 Rate Blood Pressure 96/69 O2 Sat by Pulse 98 Oximetry EKG Findings - EKG Comments: EKG Findings:: A. fib with RVR, rate 126. QRS 100 QT 348. QTC 54. Right axis. Q waves V1 and V2. No acute ST change. Medical Decision Making - Medical Decision Making Patient reevaluated with slight improvement. Heart rate varies between 90 and 1:15. Patient and family updated on results and plan. Case discussed with Dr. Arenas who will admit his patient. - Lab Data Result diagrams: 12/11/20 17:56 12/11/20 17:56 Lab Results 12/11/20 12/11/20 12/11/20 Range/Units 17:56 17:56 17:56 WBC 14.6 H (3.8-10.6) k/uL RBC 5.19 (3.80-5.40) m/uL Hgb 11.6 (11.4-16.0) gm/dL Hct 39.5 (34.0-46.0) % MCV 76.1 L (80.0-100.0) fL MCH 22.3 L (25.0-35.0) pg MCHC 29.3 L (31.0-37.0) g/dL RDW 20.2 H (11.5-15.5) % Plt Count 357 (150-450) k/uL MPV 7.2 Neutrophils % 84 % Lymphocytes % 8 % Monocytes % 6 % Eosinophils % 1 % Basophils % 1 % Neutrophils # 12.3 H (1.3-7.7) k/uL Lymphocytes # 1.1 (1.0-4.8) k/uL Monocytes # 0.8 (0-1.0) k/uL Eosinophils # 0.1 (0-0.7) k/uL Basophils # 0.1 (0-0.2) k/uL Hypochromasia Marked Poikilocytosis Slight Anisocytosis Moderate Microcytosis Moderate PT 13.9 H (9.0-12.0) sec INR 1.4 H (<1.2) APTT 22.5 (22.0-30.0) sec Sodium 133 L (137-145) mmol/L Potassium 5.1 (3.5-5.1) mmol/L Chloride 98 (98-107) mmol/L Carbon Dioxide 22 (22-30) mmol/L Anion Gap 13 mmol/L BUN 33 H (7-17) mg/dL Creatinine 1.12 H (0.52-1.04) mg/dL Est GFR (CKD-EPI)AfAm 66 (>60 ml/min/1.73 sqM) Est GFR (CKD-EPI)NonAf 57 (>60 ml/min/1.73 sqM) Glucose 128 H (74-99) mg/dL Calcium 9.3 (8.4-10.2) mg/dL Magnesium 2.3 (1.6-2.3) mg/dL Total Bilirubin 1.4 H (0.2-1.3) mg/dL AST 168 H (14-36) U/L ALT 140 H (4-34) U/L Alkaline Phosphatase 132 H (38-126) U/L Troponin I (0.000-0.034) ng/mL NT-Pro-B Natriuret Pep pg/mL Total Protein 6.6 (6.3-8.2) g/dL Albumin 4.1 (3.5-5.0) g/dL TSH 2.070 (0.465-4.680) mIU/L 12/11/20 12/11/20 Range/Units 17:56 17:56 WBC (3.8-10.6) k/uL RBC (3.80-5.40) m/uL Hgb (11.4-16.0) gm/dL Hct (34.0-46.0) % MCV (80.0-100.0) fL MCH (25.0-35.0) pg MCHC (31.0-37.0) g/dL RDW (11.5-15.5) % Plt Count (150-450) k/uL MPV Neutrophils % % Lymphocytes % % Monocytes % % Eosinophils % % Basophils % % Neutrophils # (1.3-7.7) k/uL Lymphocytes # (1.0-4.8) k/uL Monocytes # (0-1.0) k/uL Eosinophils # (0-0.7) k/uL Basophils # (0-0.2) k/uL Hypochromasia Poikilocytosis Anisocytosis Microcytosis PT (9.0-12.0) sec INR (<1.2) APTT (22.0-30.0) sec Sodium (137-145) mmol/L Potassium (3.5-5.1) mmol/L Chloride (98-107) mmol/L Carbon Dioxide (22-30) mmol/L Anion Gap mmol/L BUN (7-17) mg/dL Creatinine (0.52-1.04) mg/dL Est GFR (CKD-EPI)AfAm (>60 ml/min/1.73 sqM) Est GFR (CKD-EPI)NonAf (>60 ml/min/1.73 sqM) Glucose (74-99) mg/dL Calcium (8.4-10.2) mg/dL Magnesium (1.6-2.3) mg/dL Total Bilirubin (0.2-1.3) mg/dL AST (14-36) U/L ALT (4-34) U/L Alkaline Phosphatase (38-126) U/L Troponin I 0.025 (0.000-0.034) ng/mL NT-Pro-B Natriuret Pep 8720 pg/mL Total Protein (6.3-8.2) g/dL Albumin (3.5-5.0) g/dL TSH (0.465-4.680) mIU/L - Radiology Data Radiology results: image reviewed (Chest x-ray shows cardiomegaly. No acute process. Abdominal x-ray shows no acute process.) Critical Care Time Critical Care Time: Yes Total Critical Care Time: 32 Disposition Clinical Impression: Atrial fibrillation with RVR, CHF (congestive heart failure) Disposition: ADMITTED IP TO THIS HOSP Is patient prescribed a controlled substance at d/c from ED?: No Referrals: Valery Arenas MD [Primary Care Provider] - 1-2 days Decision Time: 20:02
--- NOTE | 2020-12-11 18:45 | XR ---
EXAMINATION TYPE: XR abdomen 1V DATE OF EXAM: 12/11/2020 COMPARISON: NONE HISTORY: Palpitations. Constipation TECHNIQUE: 2 views upright FINDINGS: There is no sign of intestinal obstruction or pneumoperitoneum. Fecal pattern is normal. Th ere is IUD noted in the uterus. There are no calcifications over the kidneys. There is no evidence of abdominal mass. Heart appears enlarged. IMPRESSION: Nonacute abdomen. Cardiomegaly.
[2020-12-11 18:46] LABS: Anisocytosis Moderate; Basophils # (A) 0.1 k/uL (0-0.2); Basophils % (A) 1 %; Eosinophils # (A) 0.1 k/uL (0-0.7); Eosinophils % (A) 1 %; HCT 39.5 % (34.0-46.0); HGB 11.6 gm/dL (11.4-16.0); Hypochromasia Marked; Lymphocytes # (A) 1.1 k/uL (1.0-4.8); Lymphocytes % (A) 8 %; MCH 22.3 pg (25.0-35.0); MCHC 29.3 g/dL (31.0-37.0); MCV 76.1 fL (80.0-100.0); Mean Platelet Volume 7.2; Microcytosis Moderate; Monocytes # (A) 0.8 k/uL (0-1.0); Monocytes % (A) 6 %; Neutrophils # (A) 12.3 k/uL (1.3-7.7); Neutrophils % (A) 84 %; Platelet Count 357 k/uL (150-450); Poikilocytosis Slight; RBC 5.19 m/uL (3.80-5.40); RDW 20.2 % (11.5-15.5); WBC 14.6 k/uL (3.8-10.6)
--- NOTE | 2020-12-11 18:46 | XR ---
EXAMINATION TYPE: XR chest 2V DATE OF EXAM: 12/11/2020 COMPARISON: 12/02/2020 HISTORY: Chest pain TECHNIQUE: 2 views FINDINGS: Heart is enlarged. There is no heart failure. There are no hilar masses. Costophrenic angle s are clear. There is left axillary pacemaker. There are chest leads. Bony thorax appears intact. IMPRESSION: Cardiomegaly. No heart failure. No change compared to recent exam.
[2020-12-11 18:54] LABS: INR 1.4 (<1.2); Partial Thromboplastin Time 22.5 sec (22.0-30.0); Prothrombin Time 13.9 sec (9.0-12.0)
[2020-12-11 18:55] LABS: Albumin 4.1 g/dL (3.5-5.0); Calcium 9.3 mg/dL (8.4-10.2); Magnesium 2.3 mg/dL (1.6-2.3); Potassium 5.1 mmol/L (3.5-5.1); Total Bilirubin 1.4 mg/dL (0.2-1.3); Total Protein 6.6 g/dL (6.3-8.2)
[2020-12-11] MEDS ORDERED: DILTIAZEM 5 MG/ML 5 ML VIAL IVP STA (19:05)
[2020-12-11] MEDS ORDERED: DILTIAZEM 5 MG/ML 5 ML VIAL IV ONE (19:15)
[2020-12-11] MEDS ORDERED: DILTIAZEM 125 MG in SODIUM CHLORIDE 0.9% 100 ML IV SCH (19:30)
[2020-12-11] MEDS ORDERED: ASPIRIN 325 MG TAB PO STA (20:02)
--- NOTE | 2020-12-11 20:45 | US ---
EXAMINATION TYPE: US gallbladder DATE OF EXAM: 12/11/2020 COMPARISON: CLINICAL HISTORY: Liver enzymes. abnormal labs. Patient states she hasn't been able to eat. EXAM MEASUREMENTS: Liver Length: 19.3 cm Gallbladder Wall: 0.4 cm CBD: 0.3 cm Right Kidney: 10.5 x 4.8 x 3.9 cm Pancreas: Tail obscured by overlying bowel gas. Echogenic in appearance. Liver: Enlarged in size Gallbladder: Possible wall thickening Evidence for sonographic Jennings's sign: neg CBD: wnl Right Kidney: No hydronephrosis or masses seen IMPRESSION: Mild gallbladder wall thickening. No gallstones. No dilated ducts.
[2020-12-11] MEDS: FUROSEMIDE 10 MG/ML 4 ML VIAL IV SCH (21:10)
[2020-12-11] MEDS ORDERED: ACETAMINOPHEN TAB 500 MG TAB PO PRN (23:57)
[2020-12-12 08:16] LABS: Albumin 3.7 g/dL (3.5-5.0); Calcium 8.7 mg/dL (8.4-10.2); Total Bilirubin 1.4 mg/dL (0.2-1.3); Total Protein 6.1 g/dL (6.3-8.2)
[2020-12-12 08:17] LABS: Potassium 4.7 mmol/L (3.5-5.1)
[2020-12-12 08:27] LABS: Anisocytosis Slight; Basophils # (A) 0.1 k/uL (0-0.2); Basophils % (A) 1 %; Eosinophils # (A) 0.1 k/uL (0-0.7); Eosinophils % (A) 1 %; HCT 37.3 % (34.0-46.0); Hypochromasia Marked; Lymphocytes # (A) 1.3 k/uL (1.0-4.8); Lymphocytes % (A) 11 %; MCH 22.8 pg (25.0-35.0); MCHC 29.5 g/dL (31.0-37.0); MCV 77.2 fL (80.0-100.0); Microcytosis Moderate; Monocytes # (A) 1.1 k/uL (0-1.0); Monocytes % (A) 9 %; Neutrophils # (A) 9.5 k/uL (1.3-7.7); Neutrophils % (A) 78 %; Platelet Count 323 k/uL (150-450); RBC 4.83 m/uL (3.80-5.40); WBC 12.2 k/uL (3.8-10.6)
[2020-12-12 08:46] LABS: Appearance,Urine Clear (Clear); Bilirubin,Urine Negative (Negative); Blood,Urine Small (Negative); Color,Urine Yellow; Glucose,Urine (UA) Negative (Negative); Hyaline Casts,Urine 37 /lpf (0-2); Ketones,Urine Negative (Negative); Leukocyte Esterase,Urine Negative (Negative); Mucus,Urine Rare /hpf; Nitrite,Urine Negative (Negative); Protein,Urine Negative (Negative); RBC,Urine 1 /hpf (0-5); Specific Gravity,Urine 1.016 (1.001-1.035); Squamous Epithelial Cell,Urine 5 /hpf (0-4); Urobilinogen,Urine <2.0 mg/dL (<2.0); WBC,Urine 2 /hpf (0-5)
[2020-12-12] MEDS ORDERED: ASPIRIN 325 MG TAB PO SCH (09:00)
[2020-12-12] MEDS ORDERED: ATORVASTATIN 20 MG TAB PO SCH (09:00)
[2020-12-12] MEDS ORDERED: METOPROLOL TARTRATE 25 MG TAB PO SCH (09:00)
[2020-12-12] MEDS: allopurinoL 300 MG TAB PO SCH (09:13)
[2020-12-12] MEDS: FUROSEMIDE 10 MG/ML 4 ML VIAL IV SCH ×2 (09:14→20:27)
[2020-12-12] MEDS: ESCITALOPRAM 10 MG TAB PO SCH (09:14)
[2020-12-12] MEDS: ERGOCALCIFEROL 1,250 MCG (50,000 IU) CAPSULE PO SCH (09:15)
[2020-12-12] MEDS: SPIRONOLACTONE 25 MG TAB PO SCH (09:15)
[2020-12-12] MEDS: SACUBITRIL/VALSARTAN 24 MG-26 MG TABLET PO SCH ×2 (09:15→20:28)
[2020-12-12] MEDS: FUROSEMIDE 40 MG TAB PO SCH ×2 (09:24→15:42)
[2020-12-12 09:42] LABS: Polychromasia Present
--- NOTE | 2020-12-12 09:42 | P.HPIM ---
History of Present Illness H&P Date: 12/12/20 Chief Complaint: palpitations This is a 50-year-old female patient who presented to the ER with complaints of palpitations. Patient reports that she's had this issue intermittently occurring. She reports that she felt anxious with prompted her to come to ER for further evaluation. Patient has a past medical history of chronic systolic congestive heart failure, nonischemic cardiomyopathy with previous AICD placement, paroxysmal atrial fibrillation, essential hypertension, hyperlipidemia and anxiety. She denies any recent illness. X-ray completed showing nonacute abdomen. Cardiomegaly. Chest x-ray performed showing cardiomegaly no heart failure no change compared to recent exam. Gallbladder ultrasound performed showing mild gallbladder wall thickening no gallstones or dilated ducts. Liver enzymes slightly elevated total bili 1.4, AST 168, ALT 140 and alkaline phosphatase 132. Troponin negative. BNP 8720. At this time patient was started on IV Lasix IV Cardizem. Cardiology services have been consulted. Patient denies chest pain. Patient denies shortness breath. Patient denies nausea vomiting or diarrhea. Patient denies any urinary burning or frequency. Review of Systems please refer to HPI otherwise unremarkable Past Medical History Past Medical History: Atrial Fibrillation, Heart Failure, Eye Disorder, Hyperlipidemia, Hypertension, Skin Disorder Additional Past Medical History / Comment(s): psoriasis, gout, keratoconus rt eye, anemic. History of Any Multi-Drug Resistant Organisms: None Reported Past Surgical History: Heart Catheterization, Pacemaker Additional Past Surgical History / Comment(s): cardioversion, lumbar injection, pacemaker placement Past Anesthesia/Blood Transfusion Reactions: No Reported Reaction Type of Cardiac Device: Permanent Pacemaker Device Placement Date:: 06/30/2020 Past Psychological History: Anxiety Smoking Status: Never smoker Past Alcohol Use History: None Reported Additional Past Alcohol Use History / Comment(s): Quit smoking 1999. smoked for a couple yrs Past Drug Use History: None Reported - Past Family History Mother Family Medical History: AICD/Pacemaker Father Family Medical History: AICD/Pacemaker Medications and Allergies Home Medications Medication Instructions Recorded Confirmed Type Atorvastatin [Lipitor] 20 mg PO DAILY 07/31/16 12/11/20 History Ergocalciferol [Vitamin D2 50,000 unit PO KENT 03/08/20 12/11/20 History (DRISDOL)] Allopurinol [Zyloprim] 300 mg PO DAILY 05/11/20 12/11/20 History Sacubitril/Valsartan [Entresto 24 1 tab PO BID 07/02/20 12/11/20 History mg-26 mg Tablet] Ferrous Sulfate [Feosol] 325 mg PO DAILY@1200 12/02/20 12/11/20 History ALPRAZolam [Xanax] 0.25 mg PO QID PRN tab 12/06/20 12/11/20 Rx Acetaminophen Tab [Tylenol] 500 mg PO Q6HR PRN tab 12/06/20 12/11/20 Rx Escitalopram [Lexapro] 10 mg PO DAILY tab 12/06/20 12/11/20 Rx Furosemide [Lasix] 40 mg PO BID@0900,1600 30 Days #60 12/06/20 12/11/20 Rx tab Metoprolol Tartrate [Lopressor] 75 mg PO TID 30 Days #270 tab 12/06/20 12/11/20 Rx Spironolactone [Aldactone] 25 mg PO DAILY 30 Days #30 tab 12/06/20 12/11/20 Rx Allergies Allergy/AdvReac Type Severity Reaction Status Date / Time amoxicillin Allergy Rash/Hives Verified 12/11/20 17:44 Penicillins Allergy Rash/Hives Verified 12/11/20 17:44 Sulfa (Sulfonamide Allergy Swelling Verified 12/11/20 17:44 Antibiotics) Physical Exam Vitals: Vital Signs Temp Pulse Pulse Resp BP BP Pulse Ox 12/12/20 08:00 112 H 18 109/79 99 12/12/20 04:00 108 H 18 109/70 98 12/12/20 00:00 101 H 18 109/52 100 12/11/20 20:27 97.7 F 115 H 24 116/67 100 12/11/20 19:27 96 18 96/69 98 12/11/20 19:08 101 H 16 98 12/11/20 18:01 113 H 16 104/63 97 12/11/20 17:40 97.9 F 129 H 17 97 Intake and Output 12/11/20 12/12/20 12/12/20 22:59 06:59 14:59 Intake Total 480 480 Balance 480 480 Intake: Oral 480 480 Other: Voiding Method Toilet Toilet # Voids 2 Weight 115.666 kg 116.3 kg Head normocephalic Neck supple Lungs clear to auscultation bilaterally no wheezing or crackles Heart irregular heart rate known atrial fibrillation Abdomen is soft nontender nondistended positive bowel sounds no hepatosplenomegaly Extremities no edema Neuro alert and orientated to 3 Results CBC & Chem 7: 12/12/20 07:12 12/12/20 07:12 Labs: Abnormal Lab Results - Last 24 Hours (Table) 12/11/20 12/11/20 12/11/20 Range/Units 17:56 17:56 17:56 WBC 14.6 H (3.8-10.6) k/uL Hgb (11.4-16.0) gm/dL MCV 76.1 L (80.0-100.0) fL MCH 22.3 L (25.0-35.0) pg MCHC 29.3 L (31.0-37.0) g/dL RDW 20.2 H (11.5-15.5) % Neutrophils # 12.3 H (1.3-7.7) k/uL PT 13.9 H (9.0-12.0) sec INR 1.4 H (<1.2) Sodium 133 L (137-145) mmol/L BUN 33 H (7-17) mg/dL Creatinine 1.12 H (0.52-1.04) mg/dL Glucose 128 H (74-99) mg/dL Total Bilirubin 1.4 H (0.2-1.3) mg/dL AST 168 H (14-36) U/L ALT 140 H (4-34) U/L Alkaline Phosphatase 132 H (38-126) U/L Total Protein (6.3-8.2) g/dL Urine Blood (Negative) Ur Squamous Epith Cells (0-4) /hpf Hyaline Casts (0-2) /lpf Urine Mucus (None) /hpf 12/12/20 12/12/20 12/12/20 Range/Units 07:12 07:12 07:36 WBC 12.2 H (3.8-10.6) k/uL Hgb 11.0 L (11.4-16.0) gm/dL MCV 77.2 L (80.0-100.0) fL MCH 22.8 L (25.0-35.0) pg MCHC 29.5 L (31.0-37.0) g/dL RDW 20.0 H (11.5-15.5) % Neutrophils # (1.3-7.7) k/uL PT (9.0-12.0) sec INR (<1.2) Sodium 132 L (137-145) mmol/L BUN 38 H (7-17) mg/dL Creatinine (0.52-1.04) mg/dL Glucose (74-99) mg/dL Total Bilirubin 1.4 H (0.2-1.3) mg/dL AST 136 H (14-36) U/L ALT 137 H (4-34) U/L Alkaline Phosphatase (38-126) U/L Total Protein 6.1 L (6.3-8.2) g/dL Urine Blood Small H (Negative) Ur Squamous Epith Cells 5 H (0-4) /hpf Hyaline Casts 37 H (0-2) /lpf Urine Mucus Rare H (None) /hpf Assessment and Plan Assessment: 1. Atrial fibrillation with rapid ventricular response. cardiology services consulted 2. Acute exacerbation of chronic systolic congestive heart failure. Patient maintained on IV Lasix for neurology service is consulted 3. Elevated liver enzymes. gallbladder ultrasound completed showing mild gallbladder wall thickening stones no dilated ducts. Tylenol and Lipitor currently on hold 4. Known history of nonischemic cardiomyopathy the with previous history of AICD placement 5. Paroxysmal atrial fibrillation patient unable to tolerate it regulation due to vaginal bleeding 6. History of essential hypertension 7. History of hyperlipidemia 8. History of anxiety disorder DVT prophylaxis SCDs. GI prophylaxis Protonix Cardiology services consulted Patient remains on IV Unasyn Repeat labs ordered Blood cultures ordered Time with Patient: Greater than 30 (Greater than 60% of the total time spent in counseling and coordination of care)
--- NOTE | 2020-12-12 13:31 | P.CRDCN ---
History of Present Illness Consult date: 12/12/20 History of present illness: The patient is a 50-year-old female who follows with Dr. Salcedo in the office. We were consult and for A. fib with RVR. The patient was recently admitted to [facility] for congestive heart failure in late November. She states she was feeling more short of breath and palpitations, therefore she sought further evaluation. On arrival patient was in A. fib with heart rates in the 130s to 140s. The patient was given IV Cardizem in the emergency room, however infusion was not initiated until admitted to the floor. The patient states he continues to have palpitations, shortness of breath, and weakness. No chest pain or chest pressure. No dizziness or lightheadedness. The patient also reports recent decrease in appetite. The patient was taken off of her anticoagulation in July for vaginal bleeding. She was followed with an [facility] ASSOCIATE in [place], where she previously underwent D&C. She states she has not found a local promotional model to take over her care and was instructed not to resume anticoagulation. DIAGNOSTICS: EKG shows atrial fibrillation with heart rates in the 130s Chest x-ray shows cardiomegaly without heart failure Vital signs 109/79, SpO2 99%, pulse rate 112, respiratory rate 18 Laboratory data: WBC 14.6, hemoglobin 11.6, hematocrit 39.5, platelet 357, sodium 133, BUN 33, creatinine 1.12, AST 168, ALT 140, ALP 132, troponin 8720, troponin 0.02, TSH 2.0 PAST MEDICAL HISTORY: Nonischemic cardiomyopathy status post AICD, congestive heart failure, paroxysmal atrial fibrillation, hypertension, and dyslipidemia REVIEW OF SYSTEMS: No fever or chills. No cough or expectoration. No diaphoresis. Patient denies headache, dizziness, blurred vision, double vision. Patient denies any stomach discomfort. No nausea, vomiting. No hematochezia. No hematemesis. Denies any black stools or blood in his stools. Denies dysuria or hematuria. No muscle weakness or numbness. PHYSICAL EXAMINATION: This is a 50-year-old female in no apparent distress at the time of my examination. HEENT: Head is atraumatic, normocephalic. Pupils are equal, round. Sclerae anicteric. Conjunctivae are clear. Mucous membranes of the mouth are moist. Neck is supple. There is no jugular venous distention. No carotid bruit is heard. CHEST EXAMINATION: Lungs are clear to auscultation. No chest wall tenderness is noted on palpation or with deep breathing. HEART EXAMINATION: Irregular rate and rhythm. S1, S2 heard. No murmurs, gallops or rub. ABDOMEN: Soft, nontender. Bowel sounds are heard. No organomegaly noted. EXTREMITIES: 2+ peripheral pulses with no evidence of peripheral edema and no calf tenderness noted. NEUROLOGIC EXAMINATION: Patient is awake, alert and oriented x3. FINAL ASSESSMENT AND PLAN: A. fib with RVR, not on anticoagulation due to vaginal bleeding Chronic systolic heart failure, elevated BNP Nonischemic cardiomyopathy, status post AICD, last EF 20-25% Pulmonary hypertension, RVSP on last echocardiogram 86 mmHg Leukocytosis, patient denies recent infection Elevated liver enzymes Hypertension Dyslipidemia Anxiety PLAN: Maximize beta blockers for rate control Switched to metoprolol succinate [address] Salcedo to perform right heart cath once heart rates are consistently well c ontrolled Consideration for resuming anticoagulation Strict I&O Continue to monitor electrolytes Further recommendations on clinical course The patient has been seen and evaluated. Plan of care has been reviewed and agreed upon by Dr Salcedo. Past Medical History Past Medical History: Atrial Fibrillation, Heart Failure, Eye Disorder, Hyperlipidemia, Hypertension, Skin Disorder Additional Past Medical History / Comment(s): psoriasis, gout, keratoconus rt eye, anemic. History of Any Multi-Drug Resistant Organisms: None Reported Past Surgical History: Heart Catheterization, Pacemaker Additional Past Surgical History / Comment(s): cardioversion, lumbar injection, pacemaker placement Past Anesthesia/Blood Transfusion Reactions: No Reported Reaction Type of Cardiac Device: Permanent Pacemaker Device Placement Date:: 06/30/2020 Past Psychological History: Anxiety Smoking Status: Never smoker Past Alcohol Use History: None Reported Additional Past Alcohol Use History / Comment(s): Quit smoking 1999. smoked for a couple yrs Past Drug Use History: None Reported - Past Family History Mother Family Medical History: AICD/Pacemaker Father Family Medical History: AICD/Pacemaker Medications and Allergies Home Medications Medication Instructions Recorded Confirmed Type Atorvastatin [Lipitor] 20 mg PO DAILY 07/31/16 12/11/20 History Ergocalciferol [Vitamin D2 50,000 unit PO KENT 03/08/20 12/11/20 History (ISDOL)] Allopurinol [Zyloprim] 300 mg PO DAILY 05/11/20 12/11/20 History Sacubitril/Valsartan [Entresto 24 1 tab PO BID 07/02/20 12/11/20 History mg-26 mg Tablet] Ferrous Sulfate [Feosol] 325 mg PO DAILY@1200 12/02/20 12/11/20 History ALPRAZolam [Xanax] 0.25 mg PO QID PRN tab 12/06/20 12/11/20 Rx Acetaminophen Tab [Tylenol] 500 mg PO Q6HR PRN tab 12/06/20 12/11/20 Rx Escitalopram [Lexapro] 10 mg PO DAILY tab 12/06/20 12/11/20 Rx Furosemide [Lasix] 40 mg PO BID@0900,1600 30 Days #60 12/06/20 12/11/20 Rx tab Metoprolol Tartrate [Lopressor] 75 mg PO TID 30 Days #270 tab 12/06/20 12/11/20 Rx Spironolactone [Aldactone] 25 mg PO DAILY 30 Days #30 tab 12/06/20 12/11/20 Rx Allergies Allergy/AdvReac Type Severity Reaction Status Date / Time amoxicillin Allergy Rash/Hives Verified 12/11/20 17:44 Penicillins Allergy Rash/Hives Verified 12/11/20 17:44 Sulfa (Sulfonamide Allergy Swelling Verified 12/11/20 17:44 Antibiotics) Physical Exam Vitals: Vital Signs Temp Pulse Pulse Resp BP BP Pulse Ox 12/12/20 08:00 112 H 18 109/79 99 12/12/20 04:00 108 H 18 109/70 98 12/12/20 00:00 101 H 18 109/52 100 12/11/20 20:27 97.7 F 115 H 24 116/67 100 12/11/20 19:27 96 18 96/69 98 12/11/20 19:08 101 H 16 98 12/11/20 18:01 113 H 16 104/63 97 12/11/20 17:40 97.9 F 129 H 17 97 Intake and Output 12/11/20 12/12/20 12/12/20 22:59 06:59 14:59 Intake Total 480 480 240 Output Total 400 Balance 480 480 -160 Intake: Oral 480 480 240 Output: Urine 400 Other: Voiding Method Toilet Toilet # Voids 2 # Bowel Movements 2 Weight 115.666 kg 116.3 kg Results 12/12/20 07:12 12/12/20 07:12 Cardiac Enzymes 12/11/20 12/11/20 12/12/20 Range/Units 17:56 17:56 07:12 AST 168 H 136 H (14-36) U/L Troponin I 0.025 (0.000-0.034) ng/mL Coagulation 12/11/20 Range/Units 17:56 PT 13.9 H (9.0-12.0) sec APTT 22.5 (22.0-30.0) sec CBC 12/11/20 12/12/20 Range/Units 17:56 07:12 WBC 14.6 H 12.2 H (3.8-10.6) k/uL RBC 5.19 4.83 (3.80-5.40) m/uL Hgb 11.6 11.0 L (11.4-16.0) gm/dL Hct 39.5 37.3 (34.0-46.0) % Plt Count 357 323 (150-450) k/uL Comprehensive Metabolic Panel 12/11/20 12/12/20 Range/Units 17:56 07:12 Sodium 133 L 132 L (137-145) mmol/L Potassium 5.1 4.7 (3.5-5.1) mmol/L Chloride 98 98 (98-107) mmol/L Carbon Dioxide 22 23 (22-30) mmol/L BUN 33 H 38 H (7-17) mg/dL Creatinine 1.12 H 0.97 (0.52-1.04) mg/dL Glucose 128 H 78 (74-99) mg/dL Calcium 9.3 8.7 (8.4-10.2) mg/dL AST 168 H 136 H (14-36) U/L ALT 140 H 137 H (4-34) U/L Alkaline Phosphatase 132 H 101 (38-126) U/L Total Protein 6.6 6.1 L (6.3-8.2) g/dL Albumin 4.1 3.7 (3.5-5.0) g/dL Current Medications Generic Name Dose Route Start Last Admin Trade Name Freq PRN Reason Stop Dose Admin Allopurinol 300 mg 12/12/20 09:00 12/12/20 09:13 Allopurinol 300 Mg Tab PO 300 mg DAILY ROE Administration Alprazolam 0.25 mg 12/11/20 23:57 Alprazolam 0.25 Mg Tab PO QID PRN Anxiety Aspirin 325 mg 12/12/20 09:00 12/12/20 09:14 Aspirin 325 Mg Tab PO 325 mg DAILY ROE Administration Ergocalciferol 1,250 mcg 12/12/20 09:00 12/12/20 09:15 Ergocalciferol 1,250 Mcg (50,000 Iu) Capsule PO 1,250 mcg KENT ROE Administration Escitalopram Oxalate 10 mg 12/12/20 09:00 12/12/20 09:14 Escitalopram 10 Mg Tab PO 10 mg DAILY ROE Administration Ferrous Sulfate 325 mg 12/12/20 12:00 Ferrous Sulfate 325 Mg Tab PO DAILY@1200 ROE Furosemide 40 mg 12/11/20 21:00 12/12/20 09:14 Furosemide 10 Mg/Ml 4 Ml Vial IV 40 mg Q12HR ROE Administration Furosemide 40 mg 12/12/20 09:00 12/12/20 09:24 Furosemide 40 Mg Tab PO Not Given BID@0900,1600 ROE Diltiazem HCl 125 mg/ Sodium 125 mls @ 5 mls/hr 12/11/20 19:30 12/11/20 20:25 Chloride IV Not Given .Q24H ROE 5 MG/HR Metoprolol Tartrate 75 mg 12/12/20 09:00 12/12/20 09:14 Metoprolol Tartrate 25 Mg Tab PO 75 mg TID ROE Administration Pantoprazole Sodium 40 mg 12/13/20 07:30 Pantoprazole 40 Mg Tablet PO [id number] ROE Sacubitril/Valsartan 1 each 12/12/20 09:00 12/12/20 09:15 Sacubitril/Valsartan 24 Mg-26 Mg Tablet PO 1 each BID ROE Administration Sodium Chloride 10 ml 12/11/20 21:00 12/12/20 09:14 Sodium Chloride 0.9% Flush 10 Ml Syringe IV 10 ml BID ROE Administration Spironolactone 25 mg 12/12/20 09:00 12/12/20 09:15 Spironolactone 25 Mg Tab PO 25 mg DAILY ROE Administration Intake and Output 0712/12/20 12/12/20 22:59 06:59 14:59 Intake Total 480 480 240 Output Total 400 Balance 480 480 -160 Intake: Oral 480 480 240 Output: Urine 400 Other: Voiding Method Toilet Toilet # Voids 2 # Bowel Movements 2 Weight 115.666 kg 116.3 kg 12/12/20 07:12 12/12/20 07:12
[2020-12-12] MEDS: FERROUS SULFATE 325 MG TAB PO SCH (15:40)
[2020-12-12] MEDS: METOPROLOL SUCCINATE (ER) 100 MG TAB.ER.24H PO SCH (20:28)
[2020-12-13] MEDS: PANTOPRAZOLE 40 MG TABLET PO SCH (06:12)
[2020-12-13 07:08] LABS: Anisocytosis Moderate; Basophils # (A) 0.2 k/uL (0-0.2); Basophils % (A) 2 %; Eosinophils # (A) 0.4 k/uL (0-0.7); Eosinophils % (A) 3 %; HCT 36.9 % (34.0-46.0); HGB 11.4 gm/dL (11.4-16.0); Hypochromasia Marked; Lymphocytes # (A) 1.1 k/uL (1.0-4.8); Lymphocytes % (A) 8 %; MCH 23.4 pg (25.0-35.0); MCV 75.6 fL (80.0-100.0); Mean Platelet Volume 7.5; Microcytosis Moderate; Monocytes # (A) 1.1 k/uL (0-1.0); Monocytes % (A) 8 %; Neutrophils # (A) 10.4 k/uL (1.3-7.7); Neutrophils % (A) 78 %; Platelet Count 320 k/uL (150-450); Poikilocytosis Slight; RBC 4.88 m/uL (3.80-5.40); WBC 13.4 k/uL (3.8-10.6)
[2020-12-13 07:23] LABS: Total Bilirubin 1.1 mg/dL (0.2-1.3); Total Protein 6.4 g/dL (6.3-8.2)
[2020-12-13 07:32] LABS: Potassium 4.6 mmol/L (3.5-5.1)
[2020-12-13] MEDS: SPIRONOLACTONE 25 MG TAB PO SCH (08:33)
[2020-12-13] MEDS: allopurinoL 300 MG TAB PO SCH (08:33)
[2020-12-13] MEDS: ESCITALOPRAM 10 MG TAB PO SCH (08:33)
[2020-12-13] MEDS: FUROSEMIDE 40 MG TAB PO SCH ×2 (08:33→16:39)
[2020-12-13] MEDS: FERROUS SULFATE 325 MG TAB PO SCH (08:33)
[2020-12-13] MEDS: METOPROLOL SUCCINATE (ER) 100 MG TAB.ER.24H PO SCH ×2 (08:33→20:09)
[2020-12-13] MEDS: SACUBITRIL/VALSARTAN 24 MG-26 MG TABLET PO SCH ×2 (08:33→20:42)
[2020-12-13] MEDS ORDERED: METOPROLOL SUCCINATE (ER) 50 MG TAB.ER.24H PO STA (10:37)
--- NOTE | 2020-12-13 11:01 | P.PN ---
Subjective Progress Note Date: 12/13/20 The patient believes she is feeling slightly better than yesterday. She is currently lying comfortably in bed at approximately at 30 angle. No chest pain or chest pressure. No palpitations as of this morning, however she has yet to get up and ambulate. No dizziness, lightheadedness, or abdominal discomfort. GENERAL: Well-appearing, well-nourished and in no acute distress. NECK: Supple without JVD or thyromegaly. LUNGS: Breath sounds clear to auscultation bilaterally. Respiration equal and unlabored. No wheezes, rales or rhonchi. HEART: Irregular rate and rhythm without murmurs, rubs or gallops. S1 and S2 heard. EXTREMITIES: Normal range of motion, no edema. No clubbing or cyanosis. Peripheral pulses intact and strong. VITALS: Blood pressure 95/62, pulse 95, respiratory rate 16, SpO2 98% on room air TELEMETRY: Atrial fibrillation with controlled rate overnight in the 80s LABS: WBC 13.4, hemoglobin 11.4, hematocrit 36.9, platelet 320, sodium 134, potassium 4.6, BUN 33, creatinine 0.89, AST 83, ALT 1:15, ALP 118 IMPRESSION: Paroxysmal atrial fibrillation with RVR, not on anticoagulation due to history of vaginal bleeding Chronic systolic heart failure, elevated BNP Nonischemic cardiomyopathy, known EF at 20-25%, status post AICD Pulmonary hypertension, RVSP on last echo 86 mmHg Leukocytosis Hypertension Elevated liver enzymes, improving Dyslipidemia Anxiety PLAN: Increase metoprolol to [address] Salcedo to perform right heart cath to assess PA pressures once heart rates are consistently well controlled Consideration for resuming anticoagulation; records pending from [facility] Strict I&O Further recommendations will be based on clinical course The patient has been seen and evaluated. Plan of care has been reviewed and agreed upon by Dr Salcedo. Objective - Vital Signs Vital signs: Vital Signs Temp 98.1 F 12/12/20 20:00 Pulse 95 12/13/20 08:00 Resp 16 12/13/20 08:00 BP 95/62 12/13/20 08:00 Pulse Ox 98 12/13/20 08:00 Intake & Output 12/12/20 12/13/20 12/13/20 18:59 06:59 18:59 Intake Total 720 960 Output Total 1200 Balance -480 960 Weight 114.3 kg Intake: Oral 720 960 Output: Urine 1200 Other: Voiding Method Toilet # Bowel Movements 2 - Labs CBC & Chem 7: 12/13/20 06:07 12/13/20 06:07 Labs: Abnormal Lab Results - Last 24 Hours (Table) 12/13/20 12/13/20 Range/Units 06:07 06:07 WBC 13.4 H (3.8-10.6) k/uL MCV 75.6 L (80.0-100.0) fL MCH 23.4 L (25.0-35.0) pg RDW 20.0 H (11.5-15.5) % Neutrophils # 10.4 H (1.3-7.7) k/uL Monocytes # 1.1 H (0-1.0) k/uL Sodium 134 L (137-145) mmol/L Chloride 97 L (98-107) mmol/L BUN 33 H (7-17) mg/dL AST 83 H (14-36) U/L ALT 115 H (4-34) U/L
--- NOTE | 2020-12-13 13:38 | P.PN ---
Subjective Progress Note Date: 12/13/20 This is a 50-year-old female patient who presented to the ER with complaints of palpitations. Patient reports that she's had this issue intermittently occurring. She reports that she felt anxious with prompted her to come to ER for further evaluation. Patient has a past medical history of chronic systolic congestive heart failure, nonischemic cardiomyopathy with previous AICD placement, paroxysmal atrial fibrillation, essential hypertension, hyperlipidemia and anxiety. She denies any recent illness. X-ray completed showing nonacute abdomen. Cardiomegaly. Chest x-ray performed showing cardiom egaly no heart failure no change compared to recent exam. Gallbladder ultrasound performed showing mild gallbladder wall thickening no gallstones or dilated ducts. Liver enzymes slightly elevated total bili 1.4, AST 168, ALT 140 and alkaline phosphatase 132. Troponin negative. BNP 8720. At this time patient was started on IV Lasix IV Cardizem. Cardiology services have been consulted. Patient denies chest pain. Patient denies shortness breath. Patient denies nausea vomiting or diarrhea. Patient denies any urinary burning or frequency. On 12/13/2020 Patient was seen and examined on the medical floor, she is alert and oriented x 3 in no distress, she is still complaining of shortness of breath with any activity she is also complaining of occasional palpitation otherwise she denies any complaints there is no fever or chills no headache or dizziness no chest pain, no cough no nausea or vomiting no abdominal pain no diarrhea no blood in the stools no burning with urination no frequency or urgency and no hematuria, there is no weakness or numbness in any of the extremities no change in vision speech or gait. Objective - Vital Signs Vital signs: Vital Signs Temp 98.1 F 12/12/20 20:00 Pulse 105 H 12/13/20 12:00 Resp 16 12/13/20 12:00 BP 91/62 12/13/20 12:00 Pulse Ox 97 12/13/20 12:00 Intake & Output 12/12/20 12/13/20 12/13/20 18:59 06:59 18:59 Intake Total 720 960 Output Total 1200 Balance -480 960 Weight 114.3 kg Intake: Oral 720 960 Output: Urine 1200 Other: Voiding Method Toilet Toilet # Bowel Movements 2 - Exam In general patient is alert and oriented x 3 in no distress HEENT head normocephalic and atraumatic Neck is supple no JVD no goiter no lymphadenopathy no carotid bruit Chest examination is clear to auscultation no crackles no wheezing Cardiac exam reveals irregular heart sounds S1 and S2 no gallops no murmurs Abdomen is soft nontender no organomegaly with normal bowel sounds Extremity exam reveals no edema no cyanosis or clubbing Neurological examination reveals no gross focal deficits - Labs CBC & Chem 7: 12/13/20 06:07 12/13/20 06:07 Labs: Abnormal Lab Results - Last 24 Hours (Table) 12/13/20 12/13/20 Range/Units 06:07 06:07 WBC 13.4 H (3.8-10.6) k/uL MCV 75.6 L (80.0-100.0) fL MCH 23.4 L (25.0-35.0) pg RDW 20.0 H (11.5-15.5) % Neutrophils # 10.4 H (1.3-7.7) k/uL Monocytes # 1.1 H (0-1.0) k/uL Sodium 134 L (137-145) mmol/L Chloride 97 L (98-107) mmol/L BUN 33 H (7-17) mg/dL AST 83 H (14-36) U/L ALT 115 H (4-34) U/L Assessment and Plan Assessment: 1. Atrial fibrillation with rapid ventricular response. cardiology services consulted 2. Acute exacerbation of chronic systolic congestive heart failure. Patient maintained on IV Lasix for neurology service is consulted 3. Elevated liver enzymes. gallbladder ultrasound completed showing mild gallbladder wall thickening stones no dilated ducts. Tylenol and Lipitor currently on hold 4. Known history of nonischemic cardiomyopathy the with previous history of AICD placement 5. Paroxysmal atrial fibrillation patient unable to tolerate it regulation due to vaginal bleeding 6. History of essential hypertension 7. History of hyperlipidemia 8. History of anxiety disorder DVT prophylaxis SCDs. GI prophylaxis Protonix Cardiology services consulted Patient remains on IV Unasyn Repeat labs ordered Blood cultures ordered
[2020-12-14] MEDS: PANTOPRAZOLE 40 MG TABLET PO SCH (06:11)
[2020-12-14 08:11] LABS: Albumin 3.4 g/dL (3.5-5.0); Calcium 8.7 mg/dL (8.4-10.2); Potassium 4.1 mmol/L (3.5-5.1); Total Bilirubin 1.1 mg/dL (0.2-1.3); Total Protein 5.7 g/dL (6.3-8.2)
[2020-12-14] MEDS: SACUBITRIL/VALSARTAN 24 MG-26 MG TABLET PO SCH ×2 (08:16→19:46)
[2020-12-14] MEDS: SPIRONOLACTONE 25 MG TAB PO SCH (08:16)
[2020-12-14] MEDS: allopurinoL 300 MG TAB PO SCH (08:17)
[2020-12-14] MEDS: FUROSEMIDE 40 MG TAB PO SCH ×2 (08:17→16:51)
[2020-12-14] MEDS: METOPROLOL SUCCINATE (ER) 100 MG TAB.ER.24H PO SCH ×2 (08:17→19:46)
[2020-12-14] MEDS: ESCITALOPRAM 10 MG TAB PO SCH (08:17)
[2020-12-14] MEDS: FERROUS SULFATE 325 MG TAB PO SCH (08:17)
[2020-12-14 08:23] LABS: Anisocytosis Moderate; Basophils # (A) 0.1 k/uL (0-0.2); Basophils % (A) 1 %; Eosinophils # (A) 0.3 k/uL (0-0.7); Eosinophils % (A) 2 %; HCT 34.3 % (34.0-46.0); HGB 10.4 gm/dL (11.4-16.0); Hypochromasia Marked; Lymphocytes # (A) 1.5 k/uL (1.0-4.8); Lymphocytes % (A) 12 %; MCH 22.8 pg (25.0-35.0); MCHC 30.4 g/dL (31.0-37.0); Microcytosis Moderate; Monocytes # (A) 0.9 k/uL (0-1.0); Monocytes % (A) 7 %; Neutrophils # (A) 9.3 k/uL (1.3-7.7); Neutrophils % (A) 76 %; Platelet Count 333 k/uL (150-450); Poikilocytosis Slight; RBC 4.57 m/uL (3.80-5.40); WBC 12.1 k/uL (3.8-10.6)
[2020-12-14] MEDS ORDERED: METOPROLOL SUCCINATE (ER) 50 MG TAB.ER.24H PO SCH (12:00)
[2020-12-14] MEDS: METOPROLOL SUCCINATE (ER) 50 MG TAB.ER.24H PO SCH (12:37)
--- NOTE | 2020-12-14 13:28 | P.PN ---
Subjective Progress Note Date: 12/14/20 HISTORY OF PRESENT ILLNESS: This is a 50-year-old female who follows in the office with Dr. Salcedo. Patient was admitted to the hospital secondary to A. fib with RVR. Telemetry reveals atrial fibrillation with a heart rate in the 90s. Patient has not anticoagulation secondary to a history of vaginal bleeding. Patient is currently on metoprolol succinate 100 mg twice a day and 50 mg at noon. Blood pressure 100/61. PHYSICAL EXAM: VITAL SIGNS: Reviewed. GENERAL: Well-developed in no acute distress. NECK: Supple. No JVD or thyromegaly LUNGS: Respirations even and unlabored. Lungs essentially clear to auscultation bilaterally. HEART: Irregular rate and rhythm. S1 and S2 heard. EXTREMITIES: Normal range of motion. No clubbing or cyanosis. Peripheral pulses intact. No lower extremity edema ASSESSMENT: Paroxysmal atrial fibrillation with RVR, not on anticoagulation secondary to history of vaginal bleeding Chronic systolic heart failure Nonischemic cardiomyopathy with previous AICD implantation, EF 20-25% Pulmonary hypertension Leukocytosis Elevated liver enzymes Hypertension Hyperlipidemia Anxiety PLAN: Continue telemetry monitoring Continue current cardiac medications Patient not on anticoagulation secondary to history of vaginal bleeding No further inpatient recommendations from a cardiac standpoint Patient to follow up outpatient with Dr. Salcedo Nurse practitioner note has been reviewed by physician. Signing provider agrees with the documented findings, assessment, and plan of care. Objective - Vital Signs Vital signs: Vital Signs Temp 97.8 F 12/13/20 20:00 Pulse 98 12/14/20 12:00 Resp 16 12/14/20 12:00 BP 100/61 12/14/20 12:00 Pulse Ox 100 12/14/20 12:00 Intake & Output 12/13/20 12/14/20 12/14/20 18:59 06:59 18:59 Intake Total 1080 1200 180 Output Total 800 400 900 Balance 280 800 -720 Weight 114.3 kg 115.9 kg Intake: Oral 1080 1200 180 Output: Urine 800 400 900 Other: Voiding Method Toilet Toilet Toilet # Voids 4 600 1 - Labs CBC & Chem 7: 12/14/20 06:54 12/14/20 06:54 Labs: Abnormal Lab Results - Last 24 Hours (Table) 12/14/20 12/14/20 Range/Units 06:54 06:54 WBC 12.1 H (3.8-10.6) k/uL Hgb 10.4 L (11.4-16.0) gm/dL MCV 75.0 L (80.0-100.0) fL MCH 22.8 L (25.0-35.0) pg MCHC 30.4 L (31.0-37.0) g/dL RDW 20.0 H (11.5-15.5) % Neutrophils # 9.3 H (1.3-7.7) k/uL Sodium 129 L (137-145) mmol/L Chloride 95 L (98-107) mmol/L BUN 36 H (7-17) mg/dL Glucose 71 L (74-99) mg/dL AST 60 H (14-36) U/L ALT 83 H (4-34) U/L Total Protein 5.7 L (6.3-8.2) g/dL Albumin 3.4 L (3.5-5.0) g/dL Microbiology - Last 24 Hours (Table) 12/12/20 11:03 Blood Culture - Preliminary Blood No Growth after 48 hours
[2020-12-15] MEDS: PANTOPRAZOLE 40 MG TABLET PO SCH (06:18)
[2020-12-15] MEDS: SACUBITRIL/VALSARTAN 24 MG-26 MG TABLET PO SCH ×2 (07:57→19:48)
[2020-12-15] MEDS: allopurinoL 300 MG TAB PO SCH (07:58)
[2020-12-15] MEDS: METOPROLOL SUCCINATE (ER) 100 MG TAB.ER.24H PO SCH ×2 (07:58→19:48)
[2020-12-15] MEDS: ESCITALOPRAM 10 MG TAB PO SCH (07:58)
[2020-12-15] MEDS: FUROSEMIDE 40 MG TAB PO SCH ×2 (07:58→16:50)
[2020-12-15] MEDS: FERROUS SULFATE 325 MG TAB PO SCH (07:58)
[2020-12-15] MEDS: SPIRONOLACTONE 25 MG TAB PO SCH (07:58)
[2020-12-15 08:07] LABS: Anisocytosis Moderate; HCT 32.5 % (34.0-46.0); HGB 10.4 gm/dL (11.4-16.0); Hypochromasia Marked; MCH 23.6 pg (25.0-35.0); MCV 73.9 fL (80.0-100.0); Mean Platelet Volume 7.7; Microcytosis Moderate; Platelet Count 328 k/uL (150-450); Poikilocytosis Slight; RDW 20.2 % (11.5-15.5); WBC 11.5 k/uL (3.8-10.6)
[2020-12-15 08:20] LABS: Calcium 8.6 mg/dL (8.4-10.2); Magnesium 2.2 mg/dL (1.6-2.3); Potassium 4.4 mmol/L (3.5-5.1)
--- NOTE | 2020-12-15 11:56 | P.PN ---
Subjective Progress Note Date: 12/14/20 This is a 50-year-old female patient who presented to the ER with complaints of palpitations. Patient reports that she's had this issue intermittently occurring. She reports that she felt anxious with prompted her to come to ER for further evaluation. Patient has a past medical history of chronic systolic congestive heart failure, nonischemic cardiomyopathy with previous AICD placement, paroxysmal atrial fibrillation, essential hypertension, hyperlipidemia and anxiety. She denies any recent illness. X-ray completed showing nonacute abdomen. Cardiomegaly. Chest x-ray performed showing cardiom egaly no heart failure no change compared to recent exam. Gallbladder ultrasound performed showing mild gallbladder wall thickening no gallstones or dilated ducts. Liver enzymes slightly elevated total bili 1.4, AST 168, ALT 140 and alkaline phosphatase 132. Troponin negative. BNP 8720. At this time patient was started on IV Lasix IV Cardizem. Cardiology services have been consulted. Patient denies chest pain. Patient denies shortness breath. Patient denies nausea vomiting or diarrhea. Patient denies any urinary burning or frequency. On 12/13/2020 Patient was seen and examined on the medical floor, she is alert and oriented x 3 in no distress, she is still complaining of shortness of breath with any activity she is also complaining of occasional palpitation otherwise she denies any complaints there is no fever or chills no headache or dizziness no chest pain, no cough no nausea or vomiting no abdominal pain no diarrhea no blood in the stools no burning with urination no frequency or urgency and no hematuria, there is no weakness or numbness in any of the extremities no change in vision speech or gait. On 12/14/2020 patient is alert and oriented 3. Patient relating of some dizziness. At this time patient denies chest pain or shortness breath. Patient denies nausea vomiting or diarrhea. Patient denies any urinary burning or frequency patient to be transitioned per cardiology to oral Lasix Objective - Vital Signs Vital signs: Vital Signs Temp 97.8 F 12/13/20 20:00 Pulse 50 L 12/14/20 16:00 Resp 16 12/14/20 16:00 BP 175/89 12/14/20 16:00 Pulse Ox 98 12/14/20 16:00 Intake & Output 12/13/20 12/14/20 12/14/20 18:59 06:59 18:59 Intake Total 1080 1200 580 Output Total 800 400 900 Balance 280 800 -320 Weight 114.3 kg 115.9 kg Intake: Oral 1080 1200 580 Output: Urine 800 400 900 Other: Voiding Method Toilet Toilet Toilet # Voids 4 600 1 - Exam In general patient is alert and oriented x 3 in no distress HEENT head normocephalic and atraumatic Neck is supple no JVD no goiter no lymphadenopathy no carotid bruit Chest examination is clear to auscultation no crackles no wheezing Cardiac exam reveals irregular heart sounds S1 and S2 no gallops no murmurs Abdomen is soft nontender no organomegaly with normal bowel sounds Extremity exam reveals no edema no cyanosis or clubbing Neurological examination reveals no gross focal deficits - Labs CBC & Chem 7: 12/15/20 07:17 12/15/20 07:17 Labs: Abnormal Lab Results - Last 24 Hours (Table) 12/14/20 12/14/20 Range/Units 06:54 06:54 WBC 12.1 H (3.8-10.6) k/uL Hgb 10.4 L (11.4-16.0) gm/dL MCV 75.0 L (80.0-100.0) fL MCH 22.8 L (25.0-35.0) pg MCHC 30.4 L (31.0-37.0) g/dL RDW 20.0 H (11.5-15.5) % Neutrophils # 9.3 H (1.3-7.7) k/uL Sodium 129 L (137-145) mmol/L Chloride 95 L (98-107) mmol/L BUN 36 H (7-17) mg/dL Glucose 71 L (74-99) mg/dL AST 60 H (14-36) U/L ALT 83 H (4-34) U/L Total Protein 5.7 L (6.3-8.2) g/dL Albumin 3.4 L (3.5-5.0) g/dL Microbiology - Last 24 Hours (Table) 12/12/20 11:03 Blood Culture - Preliminary Blood No Growth after 48 hours Assessment and Plan Assessment: 1. Atrial fibrillation with rapid ventricular response. cardiology services consulted 2. Acute exacerbation of chronic systolic congestive heart failure. Patient maintained on IV Lasix for neurology service is consulted 3. Elevated liver enzymes. gallbladder ultrasound completed showing mild ga llbladder wall thickening stones no dilated ducts. Tylenol and Lipitor currently on hold 4. Known history of nonischemic cardiomyopathy the with previous history of AICD placement 5. Paroxysmal atrial fibrillation patient unable to tolerate it regulation due to vaginal bleeding 6. History of essential hypertension 7. History of hyperlipidemia 8. History of anxiety disorder DVT prophylaxis SCDs. GI prophylaxis Protonix Cardiology services consulted Patient remains on IV Unasyn Repeat labs ordered Blood cultures ordered
--- NOTE | 2020-12-15 11:58 | P.PN ---
Subjective Progress Note Date: 12/15/20 This is a 50-year-old female patient who presented to the ER with complaints of palpitations. Patient reports that she's had this issue intermittently occurring. She reports that she felt anxious with prompted her to come to ER for further evaluation. Patient has a past medical history of chronic systolic congestive heart failure, nonischemic cardiomyopathy with previous AICD placement, paroxysmal atrial fibrillation, essential hypertension, hyperlipidemia and anxiety. She denies any recent illness. X-ray completed showing nonacute abdomen. Cardiomegaly. Chest x-ray performed showing cardiom egaly no heart failure no change compared to recent exam. Gallbladder ultrasound performed showing mild gallbladder wall thickening no gallstones or dilated ducts. Liver enzymes slightly elevated total bili 1.4, AST 168, ALT 140 and alkaline phosphatase 132. Troponin negative. BNP 8720. At this time patient was started on IV Lasix IV Cardizem. Cardiology services have been consulted. Patient denies chest pain. Patient denies shortness breath. Patient denies nausea vomiting or diarrhea. Patient denies any urinary burning or frequency. On 12/13/2020 Patient was seen and examined on the medical floor, she is alert and oriented x 3 in no distress, she is still complaining of shortness of breath with any activity she is also complaining of occasional palpitation otherwise she denies any complaints there is no fever or chills no headache or dizziness no chest pain, no cough no nausea or vomiting no abdominal pain no diarrhea no blood in the stools no burning with urination no frequency or urgency and no hematuria, there is no weakness or numbness in any of the extremities no change in vision speech or gait. On 12/14/2020 patient is alert and oriented 3. Patient relating of some dizziness. At this time patient denies chest pain or shortness breath. Patient denies nausea vomiting or diarrhea. Patient denies any urinary burning or frequency patient to be transitioned per cardiology to oral Lasix On 12/15/2020 patient alert and oriented 3. Patient has been transitioned to oral Lasix and cleared for discharge from cardiology services. Patient's sodium low today at 128 did discuss case with cardiology services okay for patient to have small amount of fluid 50 mL of normal saline. Patient stopped vomiting of some dizziness upon standing. Patient denies chest pain or shortness of breath. Patient denies nausea vomiting or diarrhea. Patient denies any urinary burning or frequency Objective - Vital Signs Vital signs: Vital Signs Temp 97.7 F 12/15/20 03:47 Pulse 87 12/15/20 08:00 Resp 16 12/15/20 08:00 BP 108/58 12/15/20 08:00 Pulse Ox 99 12/15/20 08:00 Intake & Output 12/14/20 12/15/20 12/15/20 18:59 06:59 18:59 Intake Total 580 240 240 Output Total 900 1400 Balance -320 -1160 240 Weight 110 kg Intake: Oral 580 240 240 Output: Urine 900 1400 Other: Voiding Method Toilet Toilet Toilet # Voids 2 1 - Exam In general patient is alert and oriented x 3 in no distress HEENT head normocephalic and atraumatic Neck is supple no JVD no goiter no lymphadenopathy no carotid bruit Chest examination is clear to auscultation no crackles no wheezing Cardiac exam reveals irregular heart sounds S1 and S2 no gallops no murmurs Abdomen is soft nontender no organomegaly with normal bowel sounds Extremity exam reveals no edema no cyanosis or clubbing Neurological examination reveals no gross focal deficits - Labs CBC & Chem 7: 12/15/20 07:17 12/15/20 07:17 Labs: Abnormal Lab Results - Last 24 Hours (Table) 12/15/20 12/15/20 Range/Units 07:17 07:17 WBC 11.5 H (3.8-10.6) k/uL Hgb 10.4 L (11.4-16.0) gm/dL Hct 32.5 L (34.0-46.0) % MCV 73.9 L (80.0-100.0) fL MCH 23.6 L (25.0-35.0) pg RDW 20.2 H (11.5-15.5) % Sodium 128 L (137-145) mmol/L Chloride 96 L (98-107) mmol/L BUN 40 H (7-17) mg/dL Microbiology - Last 24 Hours (Table) 12/12/20 11:03 Blood Culture - Preliminary Blood No Growth after 48 hours Assessment and Plan Assessment: 1. Atrial fibrillation with rapid ventricular response. cardiology services consulted 2. Acute exacerbation of chronic systolic congestive heart failure. Patient has been transitioned to oral Lasix 3. Elevated liver enzymes. gallbladder ultrasound completed showing mild gallbladder wall thickening stones no dilated ducts. Tylenol and Lipitor currently on hold 4. Known history of nonischemic cardiomyopathy the with previous history of AICD placement 5. Paroxysmal atrial fibrillation patient unable to tolerate it regulation due to vaginal bleeding 6. History of essential hypertension 7. History of hyperlipidemia 8. History of anxiety disorder 9. Hyponatremia sodium low at 128. Normal saline at 50 ordered. Did discuss with cardiology services DVT prophylaxis SCDs. GI prophylaxis Protonix
[2020-12-15] MEDS: SODIUM CHLORIDE 0.9% 1,000 ML IV SCH (12:29)
[2020-12-15] MEDS: METOPROLOL SUCCINATE (ER) 50 MG TAB.ER.24H PO SCH (12:29)
[2020-12-16] MEDS: SODIUM CHLORIDE 0.9% 1,000 ML IV SCH ×2 (03:13→21:01)
[2020-12-16] MEDS: PANTOPRAZOLE 40 MG TABLET PO SCH (06:25)
[2020-12-16] MEDS: allopurinoL 300 MG TAB PO SCH (08:30)
[2020-12-16] MEDS: METOPROLOL SUCCINATE (ER) 100 MG TAB.ER.24H PO SCH ×2 (08:30→20:59)
[2020-12-16] MEDS: SACUBITRIL/VALSARTAN 24 MG-26 MG TABLET PO SCH ×2 (08:30→20:59)
[2020-12-16] MEDS: ESCITALOPRAM 10 MG TAB PO SCH (08:30)
[2020-12-16] MEDS: FUROSEMIDE 40 MG TAB PO SCH ×2 (08:30→15:35)
[2020-12-16] MEDS: SPIRONOLACTONE 25 MG TAB PO SCH (08:31)
[2020-12-16 09:13] LABS: Anisocytosis Moderate; Basophils # (A) 0.1 k/uL (0-0.2); Basophils % (A) 1 %; Eosinophils # (A) 0.3 k/uL (0-0.7); Eosinophils % (A) 3 %; HCT 38.3 % (34.0-46.0); HGB 11.1 gm/dL (11.4-16.0); Hypochromasia Marked; Lymphocytes # (A) 1.3 k/uL (1.0-4.8); Lymphocytes % (A) 13 %; MCH 21.9 pg (25.0-35.0); MCHC 28.9 g/dL (31.0-37.0); MCV 75.6 fL (80.0-100.0); Mean Platelet Volume 6.7; Microcytosis Moderate; Monocytes # (A) 0.6 k/uL (0-1.0); Monocytes % (A) 6 %; Neutrophils # (A) 8.1 k/uL (1.3-7.7); Neutrophils % (A) 77 %; Platelet Count 322 k/uL (150-450); Poikilocytosis Slight; RBC 5.06 m/uL (3.80-5.40); RDW 20.3 % (11.5-15.5); WBC 10.6 k/uL (3.8-10.6)
[2020-12-16 09:29] LABS: Albumin 3.8 g/dL (3.5-5.0); Calcium 9.1 mg/dL (8.4-10.2); Potassium 4.8 mmol/L (3.5-5.1); Total Bilirubin 1.1 mg/dL (0.2-1.3); Total Protein 6.2 g/dL (6.3-8.2)
[2020-12-16] MEDS: FERROUS SULFATE 325 MG TAB PO SCH (13:13)
[2020-12-16] MEDS: METOPROLOL SUCCINATE (ER) 50 MG TAB.ER.24H PO SCH (15:35)
--- NOTE | 2020-12-16 18:02 | P.PN ---
Subjective Progress Note Date: 12/16/20 This is a 50-year-old female patient who presented to the ER with complaints of palpitations. Patient reports that she's had this issue intermittently occurring. She reports that she felt anxious with prompted her to come to ER for further evaluation. Patient has a past medical history of chronic systolic congestive heart failure, nonischemic cardiomyopathy with previous AICD placement, paroxysmal atrial fibrillation, essential hypertension, hyperlipidemia and anxiety. She denies any recent illness. X-ray completed showing nonacute abdomen. Cardiomegaly. Chest x-ray performed showing cardiom egaly no heart failure no change compared to recent exam. Gallbladder ultrasound performed showing mild gallbladder wall thickening no gallstones or dilated ducts. Liver enzymes slightly elevated total bili 1.4, AST 168, ALT 140 and alkaline phosphatase 132. Troponin negative. BNP 8720. At this time patient was started on IV Lasix IV Cardizem. Cardiology services have been consulted. Patient denies chest pain. Patient denies shortness breath. Patient denies nausea vomiting or diarrhea. Patient denies any urinary burning or frequency. On 12/13/2020 Patient was seen and examined on the medical floor, she is alert and oriented x 3 in no distress, she is still complaining of shortness of breath with any activity she is also complaining of occasional palpitation otherwise she denies any complaints there is no fever or chills no headache or dizziness no chest pain, no cough no nausea or vomiting no abdominal pain no diarrhea no blood in the stools no burning with urination no frequency or urgency and no hematuria, there is no weakness or numbness in any of the extremities no change in vision speech or gait. On 12/14/2020 patient is alert and oriented 3. Patient relating of some dizziness. At this time patient denies chest pain or shortness breath. Patient denies nausea vomiting or diarrhea. Patient denies any urinary burning or frequency patient to be transitioned per cardiology to oral Lasix On 12/15/2020 patient alert and oriented 3. Patient has been transitioned to oral Lasix and cleared for discharge from cardiology services. Patient's sodium low today at 128 did discuss case with cardiology services okay for patient to have small amount of fluid 50 mL of normal saline. Patient stopped vomiting of some dizziness upon standing. Patient denies chest pain or shortness of breath. Patient denies nausea vomiting or diarrhea. Patient denies any urinary burning or frequency On 1Patient was seen and examined on the medical floor, he is alert and oriented x 3 in no distress, he denies any complaints there is no fever or chills no headache or dizziness no chest pain no shortness of breath no palpitation no cough no nausea or vomiting no abdominal pain no diarrhea no blood in the stools no burning with urination no frequency or urgency and no hematuria, there is no weakness or numbness in any of the extremities no change in vision speech or gait. Blood pressure is still on the low side and sodium is still low at 128 at this time will decrease Lasix to 40 mg once daily and continue was normal saline at 50 mL per hour. Will recheck in a.m. Objective - Vital Signs Vital signs: Vital Signs Temp 97.6 F 12/16/20 08:00 Pulse 102 H 12/16/20 15:31 Resp 20 12/16/20 15:31 BP 121/58 12/16/20 15:31 Pulse Ox 100 12/16/20 12:00 Intake & Output 12/15/20 12/16/20 12/16/20 18:59 06:59 18:59 Intake Total 720 540 780 Output Total 900 200 Balance 720 -360 580 Weight 117.7 kg Intake: Intake, IV Titration 300 Amount Sodium Chloride 0.9% 1, 300 000 ml @ 50 mls/hr IV . Q20H [facility] Rx#:[id number] Oral 720 540 480 Output: Urine 900 200 Other: Voiding Method Toilet Toilet # Voids 1 1 - Exam In general patient is alert and oriented x 3 in no distress HEENT head normocephalic and atraumatic Neck is supple no JVD no goiter no lymphadenopathy no carotid bruit Chest examination is clear to auscultation no crackles no wheezing Cardiac exam reveals irregular heart sounds S1 and S2 no gallops no murmurs Abdomen is soft nontender no organomegaly with normal bowel sounds Extremity exam reveals no edema no cyanosis or clubbing Neurological examination reveals no gross focal deficits - Labs CBC & Chem 7: 12/16/20 08:52 12/16/20 08:52 Labs: Abnormal Lab Results - Last 24 Hours (Table) 12/16/20 12/16/20 Range/Units 08:52 08:52 Hgb 11.1 L (11.4-16.0) gm/dL MCV 75.6 L (80.0-100.0) fL MCH 21.9 L (25.0-35.0) pg MCHC 28.9 L (31.0-37.0) g/dL RDW 20.3 H (11.5-15.5) % Neutrophils # 8.1 H (1.3-7.7) k/uL Sodium 128 L (137-145) mmol/L Chloride 95 L (98-107) mmol/L BUN 42 H (7-17) mg/dL Creatinine 1.07 H (0.52-1.04) mg/dL ALT 55 H (4-34) U/L Total Protein 6.2 L (6.3-8.2) g/dL Microbiology - Last 24 Hours (Table) 12/12/20 11:03 Blood Culture - Preliminary Blood No Growth after 96 hours Assessment and Plan Assessment: 1. Atrial fibrillation with rapid ventricular response. cardiology services consulted 2. Acute exacerbation of chronic systolic congestive heart failure. Patient has been transitioned to oral Lasix 3. Elevated liver enzymes. gallbladder ultrasound completed showing mild gallbladder wall thickening stones no dilated ducts. Tylenol and Lipitor currently on hold 4. Known history of nonischemic cardiomyopathy the with previous history of AICD placement 5. Paroxysmal atrial fibrillation patient unable to tolerate it regulation due to vaginal bleeding 6. History of essential hypertension 7. History of hyperlipidemia 8. History of anxiety disorder 9. Hyponatremia sodium low at 128. Normal saline at 50 ordered. Did discuss with cardiology services DVT prophylaxis SCDs. GI prophylaxis Protonix
[2020-12-16] MEDS: ACETAMINOPHEN TAB 325 MG TAB PO PRN (21:00)
[2020-12-16] MEDS: ALPRAZolam 0.25 MG TAB PO PRN (22:29)
--- NOTE | 2020-12-16 23:30 | US ---
EXAMINATION TYPE: US pelvis complete transvag DATE OF EXAM: 12/16/2020 COMPARISON: US CLINICAL HISTORY: History of vaginal bleeding, complex cyst. History of vaginal bleeding, complex cy st. Patient states she has had a procedure involving her uterus, but she does not know what procedur e. G0. TECHNIQUE: Transvaginal (TV) and Transabdominal (TA) . Transabdominal sonographic images of the pel vis were acquired. Transvaginal sonographic images were medically necessary to better assess the fol lowing anatomy: Left ovary. Date of LMP: Unknown. EXAM MEASUREMENTS: Uterus: 9.9 x 4.7 x 4.4 cm Endometrial Stripe: 0.46 cm Right Ovary: Not seen with certainty. Area seen in right adnexa, as mentioned below, could resemble t he right ovary. Left Ovary: 3.4 x 2.6 x 2.3 cm 1. Uterus: Anteverted. Hyperechoic, indistinct area seen measuring 0.9 x 0.5 x 0.4 cm. Shadowing se en adjacent and posterior to area measured. Hypoechoic area seen in cervix: 1.6 x 1.6 x 1.1 cm. Anechoic fluid-appearing area seen in cervix: 1. 9 x 0.6 x 0.2 cm. 2. Endometrium: 0.46 cm. 3. Right Ovary: Possibly enlarged if right adnexal area measured resembles the right ovary. 4. Left Ovary: Multiple anechoic areas seen, largest measures: 1.1 x 1.3 x 1.4 cm. 5. Bilateral Adnexa: Complex area seen within the right adnexa measurin.4 x 7.4 x 6.2 cm. Venous flow is seen. Arterial flow was difficult to show, limited. Possible right ovary? Area visualized transabdominally only. Fluid seen in left adnexa: 1.4 x 1.1 x 1.4 cm. 6. Posterior cul-de-sac: Fluid seen: 1.0 x 2.8 x 0.5 cm. IMPRESSION: There is a 7 cm complex cyst on the right ovary. No solid adnexal mass. No evidence of ovarian torsio n. Tiny amount of fluid in the cul-de-sac. There is small uterine calcification that could be small d egenerating fibroid. Follow-up is recommended in view of the large adnexal cyst.
[2020-12-17] MEDS: ACETAMINOPHEN TAB 325 MG TAB PO PRN ×2 (02:55→21:59)
[2020-12-17] MEDS: PANTOPRAZOLE 40 MG TABLET PO SCH (06:32)
[2020-12-17] MEDS: METOPROLOL SUCCINATE (ER) 100 MG TAB.ER.24H PO SCH ×2 (08:42→20:08)
[2020-12-17] MEDS: allopurinoL 300 MG TAB PO SCH (08:42)
[2020-12-17] MEDS: ESCITALOPRAM 10 MG TAB PO SCH (08:42)
[2020-12-17 09:41] LABS: Albumin 3.4 g/dL (3.5-5.0); Calcium 8.7 mg/dL (8.4-10.2); Potassium 4.6 mmol/L (3.5-5.1); Total Bilirubin 1.1 mg/dL (0.2-1.3); Total Protein 5.7 g/dL (6.3-8.2)
[2020-12-17 09:50] LABS: Anisocytosis Moderate; Basophils # (A) 0.1 k/uL (0-0.2); Basophils % (A) 1 %; Eosinophils # (A) 0.2 k/uL (0-0.7); Eosinophils % (A) 2 %; HCT 34.8 % (34.0-46.0); HGB 10.8 gm/dL (11.4-16.0); Hypochromasia Marked; Lymphocytes % (A) 10 %; MCH 23.2 pg (25.0-35.0); MCHC 31.1 g/dL (31.0-37.0); MCV 74.5 fL (80.0-100.0); Mean Platelet Volume 7.6; Microcytosis Moderate; Monocytes # (A) 0.9 k/uL (0-1.0); Monocytes % (A) 9 %; Neutrophils # (A) 7.7 k/uL (1.3-7.7); Neutrophils % (A) 78 %; Platelet Count 344 k/uL (150-450); Poikilocytosis Slight; RBC 4.67 m/uL (3.80-5.40); RDW 20.2 % (11.5-15.5); WBC 9.8 k/uL (3.8-10.6)
--- NOTE | 2020-12-17 10:02 | P.PN ---
Subjective Progress Note Date: 12/17/20 This is a 50-year-old female patient who presented to the ER with complaints of palpitations. Patient reports that she's had this issue intermittently occurring. She reports that she felt anxious with prompted her to come to ER for further evaluation. Patient has a past medical history of chronic systolic congestive heart failure, nonischemic cardiomyopathy with previous AICD placement, paroxysmal atrial fibrillation, essential hypertension, hyperlipidemia and anxiety. She denies any recent illness. X-ray completed showing nonacute abdomen. Cardiomegaly. Chest x-ray performed showing cardiom egaly no heart failure no change compared to recent exam. Gallbladder ultrasound performed showing mild gallbladder wall thickening no gallstones or dilated ducts. Liver enzymes slightly elevated total bili 1.4, AST 168, ALT 140 and alkaline phosphatase 132. Troponin negative. BNP 8720. At this time patient was started on IV Lasix IV Cardizem. Cardiology services have been consulted. Patient denies chest pain. Patient denies shortness breath. Patient denies nausea vomiting or diarrhea. Patient denies any urinary burning or frequency. On 12/13/2020 Patient was seen and examined on the medical floor, she is alert and oriented x 3 in no distress, she is still complaining of shortness of breath with any activity she is also complaining of occasional palpitation otherwise she denies any complaints there is no fever or chills no headache or dizziness no chest pain, no cough no nausea or vomiting no abdominal pain no diarrhea no blood in the stools no burning with urination no frequency or urgency and no hematuria, there is no weakness or numbness in any of the extremities no change in vision speech or gait. On 12/14/2020 patient is alert and oriented 3. Patient relating of some dizziness. At this time patient denies chest pain or shortness breath. Patient denies nausea vomiting or diarrhea. Patient denies any urinary burning or frequency patient to be transitioned per cardiology to oral Lasix On 12/15/2020 patient alert and oriented 3. Patient has been transitioned to oral Lasix and cleared for discharge from cardiology services. Patient's sodium low today at 128 did discuss case with cardiology services okay for patient to have small amount of fluid 50 mL of normal saline. Patient stopped vomiting of some dizziness upon standing. Patient denies chest pain or shortness of breath. Patient denies nausea vomiting or diarrhea. Patient denies any urinary burning or frequency On 12/16/2020atient was seen and examined on the medical floor, he is alert and oriented x 3 in no distress, he denies any complaints there is no fever or chills no headache or dizziness no chest pain no shortness of breath no palpitation no cough no nausea or vomiting no abdominal pain no diarrhea no blood in the stools no burning with urination no frequency or urgency and no hematuria, there is no weakness or numbness in any of the extremities no change in vision speech or gait. Blood pressure is still on the low side and sodium is still low at 128 at this time will decrease Lasix to 40 mg once daily and continue was normal saline at 50 mL per hour. Will recheck in a.m. On 12/17/2020. Patient is alert and oriented 3. Patient remains on normal saline at 50. Sodium remains at 128. Transvaginal ultrasound completed. At this time patient is still complaining of intermittent episodes of dizziness. Patient denies chest pain. Patient denies shortness of breath. Patient denies nausea vomiting or diarrhea. Patient denies any urinary burning or frequency Objective - Vital Signs Vital signs: Vital Signs Temp 98 F 12/17/20 08:38 Pulse 87 12/17/20 08:40 Resp 18 12/17/20 08:40 BP 88/63 12/17/20 08:38 Pulse Ox 99 12/17/20 08:38 Intake & Output 12/16/20 12/17/20 12/17/20 18:59 06:59 18:59 Intake Total 1020 540 240 Output Total 200 1350 Balance 820 -810 240 Weight 119.6 kg Intake: Intake, IV Titration 300 Amount Sodium Chloride 0.9% 1, 300 000 ml @ 50 mls/hr IV . Q20H [facility] Rx#:[id number] Oral 720 540 240 Output: Urine 200 1350 Other: Voiding Method Toilet Toilet # Voids 1 - Exam In general patient is alert and oriented x 3 in no distress HEENT head normocephalic and atraumatic Neck is supple no JVD no goiter no lymphadenopathy no carotid bruit Chest examination is clear to auscultation no crackles no wheezing Cardiac exam reveals irregular heart sounds S1 and S2 no gallops no murmurs Abdomen is soft nontender no organomegaly with normal bowel sounds Extremity exam reveals no edema no cyanosis or clubbing Neurological examination reveals no gross focal deficits - Labs CBC & Chem 7: 12/17/20 08:54 12/17/20 08:54 Labs: Abnormal Lab Results - Last 24 Hours (Table) 12/17/20 12/17/20 Range/Units 08:54 08:54 Hgb 10.8 L (11.4-16.0) gm/dL MCV 74.5 L (80.0-100.0) fL MCH 23.2 L (25.0-35.0) pg RDW 20.2 H (11.5-15.5) % Sodium 128 L (137-145) mmol/L Chloride 96 L (98-107) mmol/L Carbon Dioxide 21 L (22-30) mmol/L BUN 42 H (7-17) mg/dL Creatinine 1.20 H (0.52-1.04) mg/dL Glucose 105 H (74-99) mg/dL ALT 43 H (4-34) U/L Total Protein 5.7 L (6.3-8.2) g/dL Albumin 3.4 L (3.5-5.0) g/dL Microbiology - Last 24 Hours (Table) 12/12/20 11:03 Blood Culture - Preliminary Blood No Growth after 96 hours Assessment and Plan Assessment: 1. Atrial fibrillation with rapid ventricular response. 2. Acute exacerbation of chronic systolic congestive heart failure. Patient has been transitioned to oral Lasix 3. Elevated liver enzymes. gallbladder ultrasound completed showing mild gallbladder wall thickening stones no dilated ducts. Tylenol and Lipitor currently on hold 4. Known history of nonischemic cardiomyopathy the with previous history of AICD placement 5. Paroxysmal atrial fibrillation patient unable to tolerate it regulation due to vaginal bleeding 6. History of essential hypertension 7. History of hyperlipidemia 8. History of anxiety disorder 9. Hyponatremia sodium low at 128. Normal saline at 50 ordered. Did discuss with cardiology services DVT prophylaxis SCDs. GI prophylaxis Protonix
[2020-12-17] MEDS: FUROSEMIDE 40 MG TAB PO SCH (11:33)
[2020-12-17] MEDS: SPIRONOLACTONE 25 MG TAB PO SCH (11:34)
[2020-12-17] MEDS: SACUBITRIL/VALSARTAN 24 MG-26 MG TABLET PO SCH ×2 (11:34→21:57)
[2020-12-17] MEDS: FERROUS SULFATE 325 MG TAB PO SCH (12:57)
--- NOTE | 2020-12-17 13:59 | P.PN ---
Subjective Progress Note Date: 12/17/20 HISTORY OF PRESENT ILLNESS: 12/14/2020 This is a 50-year-old female who follows in the office with Dr. Salcedo. Patient was admitted to the hospital secondary to A. fib with RVR. Telemetry reveals atrial fibrillation with a heart rate in the 90s. Patient has not anticoagulation secondary to a history of vaginal bleeding. Patient is currently on metoprolol succinate 100 mg twice a day and 50 mg at noon. Blood pressure 100/61. 12/17/2020 Cardiology was reconsulted secondary to hypotension. Patients blood pressure 84/57. Patient states her blood pressure at home runs between 80-100 systolic. She reports mild dizziness occasionally when walking. She reports she also has this at home. No syncope. Telemetry reveals afib with controlled ventricular rates. Sodium 128. PHYSICAL EXAM: VITAL SIGNS: Reviewed. GENERAL: Well-developed in no acute distress. NECK: Supple. No JVD or thyromegaly LUNGS: Respirations even and unlabored. Lungs essentially clear to auscultation bilaterally. HEART: Irregular rate and rhythm. S1 and S2 heard. EXTREMITIES: Normal range of motion. No clubbing or cyanosis. Peripheral pulses intact. No lower extremity edema ASSESSMENT: Paroxysmal atrial fibrillation with RVR, not on anticoagulation secondary to history of vaginal bleeding Chronic systolic heart failure Nonischemic cardiomyopathy with previous AICD implantation, EF 20-25% Pulmonary hypertension Leukocytosis Elevated liver enzymes Hypertension Hyperlipidemia Anxiety Hyponatremia Hypotension PLAN: Continue telemetry monitoring Discontinue Aldactone Continue metoprolol Hold Entresto and Lasix today Patient not on anticoagulation secondary to history of vaginal bleeding Further recommendations pending patient course Patient to follow up outpatient with Dr. Salcedo Nurse practitioner note has been reviewed by physician. Signing provider agrees with the documented findings, assessment, and plan of care. Objective - Vital Signs Vital signs: Vital Signs Temp 98 F 12/17/20 08:38 Pulse 83 12/17/20 12:56 Resp 18 12/17/20 08:40 BP 84/57 12/17/20 12:56 Pulse Ox 99 12/17/20 08:38 Intake & Output 12/16/20 12/17/20 12/17/20 18:59 06:59 18:59 Intake Total 1020 540 240 Output Total 200 1350 Balance 820 -810 240 Weight 119.6 kg Intake: Intake, IV Titration 300 Amount Sodium Chloride 0.9% 1, 300 000 ml @ 50 mls/hr IV . Q20H [facility] Rx#:[id number] Oral 720 540 240 Output: Urine 200 1350 Other: Voiding Method Toilet Toilet # Voids 1 - Labs CBC & Chem 7: 12/17/20 08:54 12/17/20 08:54 Labs: Abnormal Lab Results - Last 24 Hours (Table) 12/17/20 12/17/20 Range/Units 08:54 08:54 Hgb 10.8 L (11.4-16.0) gm/dL MCV 74.5 L (80.0-100.0) fL MCH 23.2 L (25.0-35.0) pg RDW 20.2 H (11.5-15.5) % Sodium 128 L (137-145) mmol/L Chloride 96 L (98-107) mmol/L Carbon Dioxide 21 L (22-30) mmol/L BUN 42 H (7-17) mg/dL Creatinine 1.20 H (0.52-1.04) mg/dL Glucose 105 H (74-99) mg/dL ALT 43 H (4-34) U/L Total Protein 5.7 L (6.3-8.2) g/dL Albumin 3.4 L (3.5-5.0) g/dL Microbiology - Last 24 Hours (Table) 12/12/20 11:03 Blood Culture - Preliminary Blood No Growth after 96 hours
[2020-12-17] MEDS: METOPROLOL SUCCINATE (ER) 50 MG TAB.ER.24H PO SCH (14:26)
[2020-12-17] MEDS: SODIUM CHLORIDE 0.9% 1,000 ML IV SCH ×2 (14:27→20:09)
[2020-12-18] MEDS: PANTOPRAZOLE 40 MG TABLET PO SCH (06:26)
[2020-12-18 11:35] LABS: Albumin 3.5 g/dL (3.5-5.0); Total Bilirubin 1.4 mg/dL (0.2-1.3); Total Protein 5.9 g/dL (6.3-8.2)
[2020-12-18 11:38] LABS: Anisocytosis Moderate; Basophils % (A) 0 %; Eosinophils # (A) 0.1 k/uL (0-0.7); Eosinophils % (A) 0 %; HCT 36.5 % (34.0-46.0); HGB 10.7 gm/dL (11.4-16.0); Hypochromasia Marked; Lymphocytes # (A) 0.9 k/uL (1.0-4.8); Lymphocytes % (A) 7 %; MCH 22.8 pg (25.0-35.0); MCHC 29.4 g/dL (31.0-37.0); MCV 77.7 fL (80.0-100.0); Mean Platelet Volume 6.9; Microcytosis Moderate; Monocytes # (A) 0.6 k/uL (0-1.0); Monocytes % (A) 5 %; Neutrophils # (A) 10.9 k/uL (1.3-7.7); Neutrophils % (A) 86 %; Platelet Count 375 k/uL (150-450); Poikilocytosis Slight; RBC 4.71 m/uL (3.80-5.40); RDW 20.6 % (11.5-15.5); WBC 12.7 k/uL (3.8-10.6)
[2020-12-18] MEDS: METOPROLOL SUCCINATE (ER) 50 MG TAB.ER.24H PO SCH (11:49)
--- NOTE | 2020-12-18 11:55 | P.PN ---
Subjective Progress Note Date: 12/18/20 HISTORY OF PRESENT ILLNESS: 12/14/2020 This is a 50-year-old female who follows in the office with Dr. Salcedo. Patient was admitted to the hospital secondary to A. fib with RVR. Telemetry reveals atrial fibrillation with a heart rate in the 90s. Patient has not anticoagulation secondary to a history of vaginal bleeding. Patient is currently on metoprolol succinate 100 mg twice a day and 50 mg at noon. Blood pressure 100/61. 12/17/2020 Cardiology was reconsulted secondary to hypotension. Patients blood pressure 84/57. Patient states her blood pressure at home runs between 80-100 systolic. She reports mild dizziness occasionally when walking. She reports she also has this at home. No syncope. Telemetry reveals afib with controlled ventricular rates. Sodium 128. 12/18/2020 Patient examined this morning the bedside. She denies chest pain or pressure. She denies shortness of breath. Patient's blood pressure has improved this morning with a systolic in the 100s. Patient reports diarrhea and an episode of emesis. Patient's sodium remains low at 128. PHYSICAL EXAM: VITAL SIGNS: Reviewed. GENERAL: Well-developed in no acute distress. NECK: Supple. No JVD or thyromegaly LUNGS: Respirations even and unlabored. Lungs essentially clear to auscultation bilaterally. HEART: Irregular rate and rhythm. S1 and S2 heard. EXTREMITIES: Normal range of motion. No clubbing or cyanosis. Peripheral pulses intact. No lower extremity edema ASSESSMENT: Paroxysmal atrial fibrillation with RVR, not on anticoagulation secondary to history of vaginal bleeding Chronic systolic heart failure Nonischemic cardiomyopathy with previous AICD implantation, EF 20-25% Pulmonary hypertension Leukocytosis Elevated liver enzymes Hypertension Hyperlipidemia Anxiety Hyponatremia Hypotension PLAN: Continue telemetry monitoring Continue current cardiac medications Patient not on anticoagulation secondary to history of vaginal bleeding Further recommendations pending patient course Patient to follow up outpatient with Dr. Salcedo Nurse practitioner note has been reviewed by physician. Signing provider agrees with the documented findings, assessment, and plan of care. Objective - Vital Signs Vital signs: Vital Signs Temp 98.4 F 12/18/20 09:05 Pulse 99 12/18/20 09:05 Resp 20 12/18/20 09:05 BP 106/66 12/18/20 09:05 Pulse Ox 99 07/10/21 09:05 Intake & Output 12/17/20 12/18/20 12/18/20 18:59 06:59 18:59 Intake Total 480 Balance 480 Weight 120.7 kg Intake: Oral 480 Other: Voiding Method Toilet Toilet Toilet # Voids 2 1 - Labs CBC & Chem 7: 12/18/20 10:44 12/17/20 08:54 Labs: Abnormal Lab Results - Last 24 Hours (Table) 12/18/20 Range/Units 10:44 WBC 12.7 H (3.8-10.6) k/uL Hgb 10.7 L (11.4-16.0) gm/dL MCV 77.7 L (80.0-100.0) fL MCH 22.8 L (25.0-35.0) pg MCHC 29.4 L (31.0-37.0) g/dL RDW 20.6 H (11.5-15.5) % Neutrophils # 10.9 H (1.3-7.7) k/uL Lymphocytes # 0.9 L (1.0-4.8) k/uL Microbiology - Last 24 Hours (Table) 12/12/20 11:03 Blood Culture - Preliminary Blood No Growth after 120 hours
[2020-12-18 11:57] LABS: Potassium 6.4 mmol/L (3.5-5.1)
[2020-12-18] MEDS: allopurinoL 300 MG TAB PO SCH (12:41)
[2020-12-18] MEDS: SACUBITRIL/VALSARTAN 24 MG-26 MG TABLET PO SCH ×2 (12:41→21:20)
[2020-12-18] MEDS: FUROSEMIDE 40 MG TAB PO SCH (12:41)
[2020-12-18] MEDS: FERROUS SULFATE 325 MG TAB PO SCH (12:41)
[2020-12-18] MEDS: ESCITALOPRAM 10 MG TAB PO SCH (12:41)
[2020-12-18] MEDS: METOPROLOL SUCCINATE (ER) 100 MG TAB.ER.24H PO SCH ×2 (12:41→19:40)
[2020-12-18] MEDS: SODIUM CHLORIDE 0.9% 1,000 ML IV SCH (12:43)
[2020-12-18 13:11] LABS: Magnesium 2.3 mg/dL (1.6-2.3); Potassium 5.1 mmol/L (3.5-5.1)
[2020-12-18] MEDS ORDERED: SODIUM POLYSTYRENE SULFONATE 15 GM/60 ML BOTTLE PO STA (13:35)
--- NOTE | 2020-12-18 15:34 | P.PN ---
Subjective Progress Note Date: 12/18/20 This is a 50-year-old female patient who presented to the ER with complaints of palpitations. Patient reports that she's had this issue intermittently occurring. She reports that she felt anxious with prompted her to come to ER for further evaluation. Patient has a past medical history of chronic systolic congestive heart failure, nonischemic cardiomyopathy with previous AICD placement, paroxysmal atrial fibrillation, essential hypertension, hyperlipidemia and anxiety. She denies any recent illness. X-ray completed showing nonacute abdomen. Cardiomegaly. Chest x-ray performed showing cardiom egaly no heart failure no change compared to recent exam. Gallbladder ultrasound performed showing mild gallbladder wall thickening no gallstones or dilated ducts. Liver enzymes slightly elevated total bili 1.4, AST 168, ALT 140 and alkaline phosphatase 132. Troponin negative. BNP 8720. At this time patient was started on IV Lasix IV Cardizem. Cardiology services have been consulted. Patient denies chest pain. Patient denies shortness breath. Patient denies nausea vomiting or diarrhea. Patient denies any urinary burning or frequency. On 12/13/2020 Patient was seen and examined on the medical floor, she is alert and oriented x 3 in no distress, she is still complaining of shortness of breath with any activity she is also complaining of occasional palpitation otherwise she denies any complaints there is no fever or chills no headache or dizziness no chest pain, no cough no nausea or vomiting no abdominal pain no diarrhea no blood in the stools no burning with urination no frequency or urgency and no hematuria, there is no weakness or numbness in any of the extremities no change in vision speech or gait. On 12/14/2020 patient is alert and oriented 3. Patient relating of some dizziness. At this time patient denies chest pain or shortness breath. Patient denies nausea vomiting or diarrhea. Patient denies any urinary burning or frequency patient to be transitioned per cardiology to oral Lasix On 12/15/2020 patient alert and oriented 3. Patient has been transitioned to oral Lasix and cleared for discharge from cardiology services. Patient's sodium low today at 128 did discuss case with cardiology services okay for patient to have small amount of fluid 50 mL of normal saline. Patient stopped vomiting of some dizziness upon standing. Patient denies chest pain or shortness of breath. Patient denies nausea vomiting or diarrhea. Patient denies any urinary burning or frequency On 12/16/2020atient was seen and examined on the medical floor, he is alert and oriented x 3 in no distress, he denies any complaints there is no fever or chills no headache or dizziness no chest pain no shortness of breath no palpitation no cough no nausea or vomiting no abdominal pain no diarrhea no blood in the stools no burning with urination no frequency or urgency and no hematuria, there is no weakness or numbness in any of the extremities no change in vision speech or gait. Blood pressure is still on the low side and sodium is still low at 128 at this time will decrease Lasix to 40 mg once daily and continue was normal saline at 50 mL per hour. Will recheck in a.m. On 12/17/2020. Patient is alert and oriented 3. Patient remains on normal saline at 50. Sodium remains at 128. Transvaginal ultrasound completed. At this time patient is still complaining of intermittent episodes of dizziness. Patient denies chest pain. Patient denies shortness of breath. Patient denies nausea vomiting or diarrhea. Patient denies any urinary burning or frequency On 12/18/2020 Patient was seen and examined on the medical floor, she is alert and oriented x 3 in no distress, she is complaining of generalized weakness and shortness of breath with activity otherwise she denies any complaints there is no fever or chills no headache or dizziness no chest pain no palpitation no cough no nausea or vomiting no abdominal pain no diarrhea no blood in the stools no burning with urination no frequency or urgency and no hematuria, there is no weakness or numbness in any of the extremities no change in vision speech or gait. Objective - Vital Signs Vital signs: Vital Signs Temp 98.0 F 12/18/20 12:00 Pulse 94 12/18/20 12:00 Resp 16 12/18/20 12:00 BP 87/61 12/18/20 12:00 Pulse Ox 96 12/18/20 12:00 Intake & Output 12/17/20 12/18/20 12/18/20 18:59 06:59 18:59 Intake Total 480 240 Output Total 20 Balance 480 220 Weight 120.7 kg Intake: Oral 480 240 Output: Emesis 20 Other: Voiding Method Toilet Toilet Toilet # Voids 2 1 1 # Bowel Movements 1 - Exam In general patient is alert and oriented x 3 in no distress HEENT head normocephalic and atraumatic Neck is supple no JVD no goiter no lymphadenopathy no carotid bruit Chest examination is clear to auscultation no crackles no wheezing Cardiac exam reveals irregular heart sounds S1 and S2 no gallops no murmurs Abdomen is soft nontender no organomegaly with normal bowel sounds Extremity exam reveals no edema no cyanosis or clubbing Neurological examination reveals no gross focal deficits - Labs CBC & Chem 7: 12/18/20 10:44 12/18/20 12:37 Labs: Abnormal Lab Results - Last 24 Hours (Table) 12/18/20 12/18/20 Range/Units 10:44 10:44 WBC 12.7 H (3.8-10.6) k/uL Hgb 10.7 L (11.4-16.0) gm/dL MCV 77.7 L (80.0-100.0) fL MCH 22.8 L (25.0-35.0) pg MCHC 29.4 L (31.0-37.0) g/dL RDW 20.6 H (11.5-15.5) % Neutrophils # 10.9 H (1.3-7.7) k/uL Lymphocytes # 0.9 L (1.0-4.8) k/uL Sodium 125 L (137-145) mmol/L Potassium 6.4 H* (3.5-5.1) mmol/L Chloride 96 L (98-107) mmol/L Carbon Dioxide 20 L (22-30) mmol/L BUN 45 H (7-17) mg/dL Creatinine 1.43 H (0.52-1.04) mg/dL Glucose 103 H (74-99) mg/dL Total Bilirubin 1.4 H (0.2-1.3) mg/dL AST 77 H (14-36) U/L ALT 56 H (4-34) U/L Total Protein 5.9 L (6.3-8.2) g/dL Microbiology - Last 24 Hours (Table) 12/12/20 11:03 Blood Culture - Final Blood No Growth after 144 hours Assessment and Plan Assessment: 1. Atrial fibrillation with rapid ventricular response. 2. Acute exacerbation of chronic systolic congestive heart failure. Patient has been transitioned to oral Lasix 3. Elevated liver enzymes. gallbladder ultrasound completed showing mild gallbladder wall thickening stones no dilated ducts. Tylenol and Lipitor currently on hold 4. Known history of nonischemic cardiomyopathy the with previous history of AICD placement 5. Paroxysmal atrial fibrillation patient unable to tolerate it regulation due to vaginal bleeding 6. History of essential hypertension 7. History of hyperlipidemia 8. History of anxiety disorder 9. Hyponatremia sodium low at 128. Normal saline at 50 ordered. Did discuss with cardiology services DVT prophylaxis SCDs. GI prophylaxis Protonix
[2020-12-18] MEDS: ACETAMINOPHEN TAB 325 MG TAB PO PRN (16:28)
[2020-12-18] MEDS: ENOXAPARIN 40 MG/0.4 ML SYRINGE SQ SCH (16:29)
[2020-12-19] MEDS: PANTOPRAZOLE 40 MG TABLET PO SCH (06:42)
[2020-12-19 08:04] LABS: Albumin 3.7 g/dL (3.5-5.0); Calcium 9.3 mg/dL (8.4-10.2); Potassium 5.3 mmol/L (3.5-5.1); Total Bilirubin 1.5 mg/dL (0.2-1.3); Total Protein 6.1 g/dL (6.3-8.2)
[2020-12-19 08:18] LABS: Anisocytosis Moderate; HCT 39.1 % (34.0-46.0); HGB 11.4 gm/dL (11.4-16.0); Hypochromasia Marked; MCH 22.6 pg (25.0-35.0); MCHC 29.1 g/dL (31.0-37.0); MCV 77.5 fL (80.0-100.0); Microcytosis Moderate; Platelet Count 395 k/uL (150-450); Poikilocytosis Slight; RBC 5.04 m/uL (3.80-5.40); RDW 20.6 % (11.5-15.5); WBC 15.6 k/uL (3.8-10.6)
[2020-12-19 09:42] LABS: Eosinophils # (M) 0.16 k/uL (0-0.7); Lymphocytes # (M) 1.87 k/uL (1.0-4.8); Monocytes # (M) 1.25 k/uL (0-1.0); Neutrophils # (M) 12.32 k/uL (1.3-7.7); Neutrophils % (M) 79 %; Nucleated Red Blood Cells 0 /100 WBC (0-0); Total Cells Counted 100
[2020-12-19] MEDS: ERGOCALCIFEROL 1,250 MCG (50,000 IU) CAPSULE PO SCH (09:55)
[2020-12-19] MEDS: METOPROLOL SUCCINATE (ER) 100 MG TAB.ER.24H PO SCH ×2 (09:55→20:24)
[2020-12-19] MEDS: ESCITALOPRAM 10 MG TAB PO SCH (09:56)
[2020-12-19] MEDS: allopurinoL 300 MG TAB PO SCH (09:56)
[2020-12-19] MEDS: ENOXAPARIN 40 MG/0.4 ML SYRINGE SQ SCH (09:56)
[2020-12-19] MEDS: ALPRAZolam 0.25 MG TAB PO PRN ×2 (09:58→20:43)
[2020-12-19] MEDS: FUROSEMIDE 40 MG TAB PO SCH (10:02)
--- NOTE | 2020-12-19 10:10 | XR ---
EXAMINATION TYPE: XR chest 2V DATE OF EXAM: 12/19/2020 COMPARISON: Prior chest x-ray 12/11/2020 HISTORY: Leukocytosis, congestion TECHNIQUE: Frontal and lateral views of the chest are obtained. FINDINGS: There is no focal air space opacity, pleural effusion, or pneumothorax seen. The heart re manfred enlarged. Generators present in the left pectoral region, there are leads in the right atrium a nd ventricle. Patient is rotated. The osseous structures are intact. IMPRESSION: Stable cardiomegaly.
[2020-12-19] MEDS: SACUBITRIL/VALSARTAN 24 MG-26 MG TABLET PO SCH (10:12)
--- NOTE | 2020-12-19 10:15 | P.PN ---
Subjective Progress Note Date: 12/19/20 This is a 50-year-old female patient who presented to the ER with complaints of palpitations. Patient reports that she's had this issue intermittently occurring. She reports that she felt anxious with prompted her to come to ER for further evaluation. Patient has a past medical history of chronic systolic congestive heart failure, nonischemic cardiomyopathy with previous AICD placement, paroxysmal atrial fibrillation, essential hypertension, hyperlipidemia and anxiety. She denies any recent illness. X-ray completed showing nonacute abdomen. Cardiomegaly. Chest x-ray performed showing cardiom egaly no heart failure no change compared to recent exam. Gallbladder ultrasound performed showing mild gallbladder wall thickening no gallstones or dilated ducts. Liver enzymes slightly elevated total bili 1.4, AST 168, ALT 140 and alkaline phosphatase 132. Troponin negative. BNP 8720. At this time patient was started on IV Lasix IV Cardizem. Cardiology services have been consulted. Patient denies chest pain. Patient denies shortness breath. Patient denies nausea vomiting or diarrhea. Patient denies any urinary burning or frequency. On 12/13/2020 Patient was seen and examined on the medical floor, she is alert and oriented x 3 in no distress, she is still complaining of shortness of breath with any activity she is also complaining of occasional palpitation otherwise she denies any complaints there is no fever or chills no headache or dizziness no chest pain, no cough no nausea or vomiting no abdominal pain no diarrhea no blood in the stools no burning with urination no frequency or urgency and no hematuria, there is no weakness or numbness in any of the extremities no change in vision speech or gait. On 12/14/2020 patient is alert and oriented 3. Patient relating of some dizziness. At this time patient denies chest pain or shortness breath. Patient denies nausea vomiting or diarrhea. Patient denies any urinary burning or frequency patient to be transitioned per cardiology to oral Lasix On 12/15/2020 patient alert and oriented 3. Patient has been transitioned to oral Lasix and cleared for discharge from cardiology services. Patient's sodium low today at 128 did discuss case with cardiology services okay for patient to have small amount of fluid 50 mL of normal saline. Patient stopped vomiting of some dizziness upon standing. Patient denies chest pain or shortness of breath. Patient denies nausea vomiting or diarrhea. Patient denies any urinary burning or frequency On 12/16/2020atient was seen and examined on the medical floor, he is alert and oriented x 3 in no distress, he denies any complaints there is no fever or chills no headache or dizziness no chest pain no shortness of breath no palpitation no cough no nausea or vomiting no abdominal pain no diarrhea no blood in the stools no burning with urination no frequency or urgency and no hematuria, there is no weakness or numbness in any of the extremities no change in vision speech or gait. Blood pressure is still on the low side and sodium is still low at 128 at this time will decrease Lasix to 40 mg once daily and continue was normal saline at 50 mL per hour. Will recheck in a.m. On 12/17/2020. Patient is alert and oriented 3. Patient remains on normal saline at 50. Sodium remains at 128. Transvaginal ultrasound completed. At this time patient is still complaining of intermittent episodes of dizziness. Patient denies chest pain. Patient denies shortness of breath. Patient denies nausea vomiting or diarrhea. Patient denies any urinary burning or frequency On 12/18/2020 Patient was seen and examined on the medical floor, she is alert and oriented x 3 in no distress, she is complaining of generalized weakness and shortness of breath with activity otherwise she denies any complaints there is no fever or chills no headache or dizziness no chest pain no palpitation no cough no nausea or vomiting no abdominal pain no diarrhea no blood in the stools no burning with urination no frequency or urgency and no hematuria, there is no weakness or numbness in any of the extremities no change in vision speech or gait. On 12/19/2020 patient is alert and oriented 3. Sodium remains low at 126, potassium 5.3. Running creatinine increasing 48 and 2.09. Patient reports that she's been nauseous with episodes of emesis throughout the night. Weight gain of 120.7-121.9. Patient does have some lower extremity edema. At this time given patient's acute renal injury but weight gain will consult nephrology services. Lasix on hold did discuss with cardiology services. Will order abdominal ultrasound for nausea and vomiting. Infectious disease also consulted for elevated white blood cell count. Chest x-ray UA and blood culture ordered. Critical care services also consulted Objective - Vital Signs Vital signs: Vital Signs Temp 98.1 F 12/18/20 23:20 Pulse 96 12/19/20 03:30 Resp 18 12/19/20 03:30 BP 111/77 12/19/20 03:30 Pulse Ox 100 12/19/20 03:30 Intake & Output 12/18/20 12/19/20 12/19/20 18:59 06:59 18:59 Intake Total 480 1200 118 Output Total 20 Balance 460 1200 118 Weight 121.9 kg Intake: Oral 480 1200 118 Output: Emesis 20 Other: Voiding Method Toilet Toilet # Voids 1 1 # Bowel Movements 1 - Exam In general patient is alert and oriented x 3 in no distress HEENT head normocephalic and atraumatic Neck is supple no JVD no goiter no lymphadenopathy no carotid bruit Chest examination is clear to auscultation no crackles no wheezing Cardiac exam reveals irregular heart sounds S1 and S2 no gallops no murmurs Abdomen is soft nontender no organomegaly with normal bowel sounds Extremity exam reveals no edema no cyanosis or clubbing Neurological examination reveals no gross focal deficits - Labs CBC & Chem 7: 12/19/20 06:46 12/19/20 06:46 Labs: Abnormal Lab Results - Last 24 Hours (Table) 12/18/20 12/18/20 12/19/20 Range/Units 10:44 10:44 06:46 WBC 12.7 H 15.6 H (3.8-10.6) k/uL Hgb 10.7 L (11.4-16.0) gm/dL MCV 77.7 L 77.5 L (80.0-100.0) fL MCH 22.8 L 22.6 L (25.0-35.0) pg MCHC 29.4 L 29.1 L (31.0-37.0) g/dL RDW 20.6 H 20.6 H (11.5-15.5) % Neutrophils # 10.9 H (1.3-7.7) k/uL Neutrophils # (Manual) 12.32 H (1.3-7.7) k/uL Lymphocytes # 0.9 L (1.0-4.8) k/uL Monocytes # (Manual) 1.25 H (0-1.0) k/uL Sodium 125 L (137-145) mmol/L Potassium 6.4 H* (3.5-5.1) mmol/L Chloride 96 L (98-107) mmol/L Carbon Dioxide 20 L (22-30) mmol/L BUN 45 H (7-17) mg/dL Creatinine 1.43 H (0.52-1.04) mg/dL Glucose 103 H (74-99) mg/dL Total Bilirubin 1.4 H (0.2-1.3) mg/dL AST 77 H (14-36) U/L ALT 56 H (4-34) U/L Total Protein 5.9 L (6.3-8.2) g/dL 12/19/20 Range/Units 06:46 WBC (3.8-10.6) k/uL Hgb (11.4-16.0) gm/dL MCV (80.0-100.0) fL MCH (25.0-35.0) pg MCHC (31.0-37.0) g/dL RDW (11.5-15.5) % Neutrophils # (1.3-7.7) k/uL Neutrophils # (Manual) (1.3-7.7) k/uL Lymphocytes # (1.0-4.8) k/uL Monocytes # (Manual) (0-1.0) k/uL Sodium 126 L (137-145) mmol/L Potassium 5.3 H (3.5-5.1) mmol/L Chloride 95 L (98-107) mmol/L Carbon Dioxide 17 L (22-30) mmol/L BUN 48 H (7-17) mg/dL Creatinine 2.09 H (0.52-1.04) mg/dL Glucose (74-99) mg/dL Total Bilirubin 1.5 H (0.2-1.3) mg/dL AST 80 H (14-36) U/L ALT 61 H (4-34) U/L Total Protein 6.1 L (6.3-8.2) g/dL Microbiology - Last 24 Hours (Table) 12/12/20 11:03 Blood Culture - Final Blood No Growth after 144 hours Assessment and Plan Assessment: 1. Atrial fibrillation with rapid ventricular response. 2. Acute exacerbation of chronic systolic congestive heart failure. Patient has been transitioned to oral Lasix 3. Elevated liver enzymes. gallbladder ultrasound completed showing mild gallbladder wall thickening stones no dilated ducts. Tylenol and Lipitor currently on hold 4. Known history of nonischemic cardiomyopathy the with previous history of AICD placement 5. Paroxysmal atrial fibrillation patient unable to tolerate it regulation due to vaginal bleeding 6. History of essential hypertension 7. History of hyperlipidemia 8. History of anxiety disorder 9. Hyponatremia sodium low at 128. Normal saline at 50 ordered. Did discuss with cardiology services 10. Acute kidney injury. Nephrology services will be consulted 11. Nausea and vomiting. Abdominal ultrasound ordered 12. Elevated white blood cell count. Patient was initially worked up on admission no infection found. Will reorder UA, chest x-ray and blood culture. Infectious disease service is consulted DVT prophylaxis SCDs. GI prophylaxis Protonix Cardiology services following Nephrology, infectious disease and critical care service is consulted Lasix currently on hold Abdominal ultrasound ordered
--- NOTE | 2020-12-19 10:53 | P.NPCON ---
History of Present Illness - Reason for Consult acute renal failure, hyponatremia - History of Present Illness Reason for consultation: Acute kidney injury and hyponatremia History of present illness: Patient is a 50-year-old female seen in renal consultation for acute kidney injury and electrolyte imbalance. Patient presented to the hospital on 12/11/2020. Palpitations. Patient states palpitations are going on 2-3 days prior to admission. She denies any syncopal episodes. No fever or chills. She has history of systolic CHF with ejection fraction of 20-25% with moderate tricuspid regurgitation and severe pulmonary hypertension. Potassium level was also high at 6.4 this admission and is improved with medical management. Entresto is currently held. Sodium level has been in the range of 125-133 this admission. He was 126 this morning. She was maintained on IV fluids with normal saline at 50 mL an hour. She does complain of significant edema in her lower extremities. Oral intake is fair. No vomiting or diarrhea. No history of diabetes. Denies family history of renal disease. Vital signs are stable. General: The patient appeared well nourished and normally developed. HEENT: Head exam is unremarkable. Neck is without jugular venous distension. LUNGS: Breath sounds decreased. HEART: Rate and Rhythm are regular. ABDOMEN: Soft, no distention. Obese. EXTREMITITES: 2+ edema. Past Medical History Past Medical History: Atrial Fibrillation, Heart Failure, Eye Disorder, Hyperlipidemia, Hypertension, Skin Disorder Additional Past Medical History / Comment(s): psoriasis, gout, keratoconus rt eye, anemic. History of Any Multi-Drug Resistant Organisms: None Reported Past Surgical History: Heart Catheterization, Pacemaker Additional Past Surgical History / Comment(s): cardioversion, lumbar injection, pacemaker placement Past Anesthesia/Blood Transfusion Reactions: No Reported Reaction Type of Cardiac Device: Permanent Pacemaker Device Placement Date:: 06/30/2020 Past Psychological History: Anxiety Smoking Status: Never smoker Past Alcohol Use History: None Reported Additional Past Alcohol Use History / Comment(s): Quit smoking 1999. smoked for a couple yrs Past Drug Use History: None Reported - Past Family History Mother Family Medical History: AICD/Pacemaker Father Family Medical History: AICD/Pacemaker Medications and Allergies Home Medications Medication Instructions Recorded Confirmed Type Atorvastatin [Lipitor] 20 mg PO DAILY 07/31/16 12/11/20 History Ergocalciferol [Vitamin D2 50,000 unit PO KENT 03/08/20 12/11/20 History (DRISDOL)] Allopurinol [Zyloprim] 300 mg PO DAILY 05/11/20 12/11/20 History Sacubitril/Valsartan [Entresto 24 1 tab PO BID 07/02/20 12/11/20 History mg-26 mg Tablet] Ferrous Sulfate [Feosol] 325 mg PO DAILY@1200 12/02/20 12/11/20 History ALPRAZolam [Xanax] 0.25 mg PO QID PRN tab 12/06/20 12/11/20 Rx Acetaminophen Tab [Tylenol] 500 mg PO Q6HR PRN tab 12/06/20 12/11/20 Rx Escitalopram [Lexapro] 10 mg PO DAILY tab 12/06/20 12/11/20 Rx Furosemide [Lasix] 40 mg PO BID@0900,1600 30 Days #60 12/06/20 12/11/20 Rx tab Metoprolol Tartrate [Lopressor] 75 mg PO TID 30 Days #270 tab 12/06/20 12/11/20 Rx Spironolactone [Aldactone] 25 mg PO DAILY 30 Days #30 tab 12/06/20 12/11/20 Rx Allergies Allergy/AdvReac Type Severity Reaction Status Date / Time amoxicillin Allergy Rash/Hives Verified 12/11/20 17:44 Penicillins Allergy Rash/Hives Verified 12/11/20 17:44 Sulfa (Sulfonamide Allergy Swelling Verified 12/11/20 17:44 Antibiotics) Physical Exam Vitals: Vital Signs Temp Pulse Resp BP Pulse Ox 12/19/20 03:30 96 18 111/77 100 12/18/20 23:20 98.1 F 85 17 110/70 96 12/18/20 15:00 98.3 F 88 18 110/81 98 12/18/20 12:00 98.0 F 94 16 87/61 96 Intake and Output 12/18/20 12/19/20 12/19/20 22:59 06:59 14:59 Intake Total 1440 118 Balance 1440 118 Intake: Oral 1440 118 Other: Voiding Method Toilet Toilet # Voids 1 1 # Bowel Movements 1 Weight 121.9 kg Results - Lab Results Most recent lab results Calcium 9.3 mg/dL (8.4-10.2) 12/19/20 06:46 Magnesium 2.3 mg/dL (1.6-2.3) 12/18/20 12:37 12/19/20 06:46 12/19/20 06:46 Assessment and Plan Plan: Assessment: 1. Acute kidney injury secondary to ATN secondary to cardiorenal syndrome and hemodynamic instability. Baseline creatinine near 1 and is elevated at 2.09 today. UA benign. 2. Acute on chronic systolic CHF with ejection fraction of 20-25% with moderate tricuspid regurgitation. 3. Pulmonary hypertension. 4. Hyperkalemia secondary to acute kidney injury, metabolic acidosis and entreso. Better. 5. Metabolic acidosis secondary to acute kidney injury. 6. Hypervolemic hyponatremia. 7. A. fib with RVR. Cardiology following. 8. Fluid overload. Plan: Hep-Lock IV fluids. Start Lasix drip at 5 mL an hour. Add oral sodium bicarbonate. 1200 mL fluid restriction. Hold Entresto for now. Repeat electrolytes in the morning. Avoid nephrotoxins. Thank you for the consultation. I will continue to follow the patient with you during her hospital stay.
--- NOTE | 2020-12-19 11:01 | P.PN ---
Subjective Progress Note Date: 12/19/20 HISTORY OF PRESENT ILLNESS: 12/14/2020 This is a 50-year-old female who follows in the office with Dr. Salcedo. Patient was admitted to the hospital secondary to A. fib with RVR. Telemetry reveals atrial fibrillation with a heart rate in the 90s. Patient has not anticoagulation secondary to a history of vaginal bleeding. Patient is currently on metoprolol succinate 100 mg twice a day and 50 mg at noon. Blood pressure 100/61. 12/17/2020 Cardiology was reconsulted secondary to hypotension. Patients blood pressure 84/57. Patient states her blood pressure at home runs between 80-100 systolic. She reports mild dizziness occasionally when walking. She reports she also has this at home. No syncope. Telemetry reveals afib with controlled ventricular rates. Sodium 128. 12/18/2020 Patient examined this morning the bedside. She denies chest pain or pressure. She denies shortness of breath. Patient's blood pressure has improved this morning with a systolic in the 100s. Patient reports diarrhea and an episode of emesis. Patient's sodium remains low at 128. 12/19/2020 Patient examined this morning. Patient is sitting up in the chair. Patient states her diarrhea has resolved. She reports lower extremity edema. She denies having any shortness of breath. She denies chest pain or pressure. Blood pressure stable with a systolic blood pressure in the 100s. Sodium today is 126. Aldactone has been discontinued. Lasix has been held. However nephrology was consulted today and started the patient on a Lasix drip. BUN 48. Creatinine up to 2.09. PHYSICAL EXAM: VITAL SIGNS: Reviewed. GENERAL: Well-developed in no acute distress. NECK: Supple. No JVD or thyromegaly LUNGS: Respirations even and unlabored. Lungs diminished bilaterally. HEART: Irregular rate and rhythm. S1 and S2 heard. EXTREMITIES: Normal range of motion. No clubbing or cyanosis. Peripheral pulses intact. 2+ lower extremity edema ASSESSMENT: Paroxysmal atrial fibrillation with RVR, not on anticoagulation secondary to history of vaginal bleeding Acute on chronic systolic heart failure Nonischemic cardiomyopathy with previous AICD implantation, EF 20-25% Acute kidney injury Pulmonary hypertension Leukocytosis Elevated liver enzymes Hypertension Hyperlipidemia Anxiety Hyponatremia Hypotension PLAN: Continue telemetry monitoring Continue current cardiac medications Patient not on anticoagulation secondary to history of vaginal bleeding Nephrology started patient on IV Lasix drip. Further management of diuretics pe r nephrology Continue to hold Entresto Further recommendations pending patient course Patient to follow up outpatient with Dr. Salcedo Nurse practitioner note has been reviewed by physician. Signing provider agrees with the documented findings, assessment, and plan of care. Objective - Vital Signs Vital signs: Vital Signs Temp 98.1 F 12/18/20 23:20 Pulse 96 12/19/20 03:30 Resp 18 12/19/20 03:30 BP 111/77 12/19/20 03:30 Pulse Ox 100 12/19/20 03:30 Intake & Output 12/18/20 12/19/20 12/19/20 18:59 06:59 18:59 Intake Total 480 1200 118 Output Total 20 Balance 460 1200 118 Weight 121.9 kg Intake: Oral 480 1200 118 Output: Emesis 20 Other: Voiding Method Toilet Toilet # Voids 1 1 # Bowel Movements 1 - Labs CBC & Chem 7: 12/19/20 06:46 12/19/20 06:46 Labs: Abnormal Lab Results - Last 24 Hours (Table) 12/18/20 12/18/20 12/19/20 Range/Units 10:44 10:44 06:46 WBC 12.7 H 15.6 H (3.8-10.6) k/uL Hgb 10.7 L (11.4-16.0) gm/dL MCV 77.7 L 77.5 L (80.0-100.0) fL MCH 22.8 L 22.6 L (25.0-35.0) pg MCHC 29.4 L 29.1 L (31.0-37.0) g/dL RDW 20.6 H 20.6 H (11.5-15.5) % Neutrophils # 10.9 H (1.3-7.7) k/uL Neutrophils # (Manual) 12.32 H (1.3-7.7) k/uL Lymphocytes # 0.9 L (1.0-4.8) k/uL Monocytes # (Manual) 1.25 H (0-1.0) k/uL Sodium 125 L (137-145) mmol/L Potassium 6.4 H* (3.5-5.1) mmol/L Chloride 96 L (98-107) mmol/L Carbon Dioxide 20 L (22-30) mmol/L BUN 45 H (7-17) mg/dL Creatinine 1.43 H (0.52-1.04) mg/dL Glucose 103 H (74-99) mg/dL Total Bilirubin 1.4 H (0.2-1.3) mg/dL AST 77 H (14-36) U/L ALT 56 H (4-34) U/L Total Protein 5.9 L (6.3-8.2) g/dL 12/19/20 Range/Units 06:46 WBC (3.8-10.6) k/uL Hgb (11.4-16.0) gm/dL MCV (80.0-100.0) fL MCH (25.0-35.0) pg MCHC (31.0-37.0) g/dL RDW (11.5-15.5) % Neutrophils # (1.3-7.7) k/uL Neutrophils # (Manual) (1.3-7.7) k/uL Lymphocytes # (1.0-4.8) k/uL Monocytes # (Manual) (0-1.0) k/uL Sodium 126 L (137-145) mmol/L Potassium 5.3 H (3.5-5.1) mmol/L Chloride 95 L (98-107) mmol/L Carbon Dioxide 17 L (22-30) mmol/L BUN 48 H (7-17) mg/dL Creatinine 2.09 H (0.52-1.04) mg/dL Glucose (74-99) mg/dL Total Bilirubin 1.5 H (0.2-1.3) mg/dL AST 80 H (14-36) U/L ALT 61 H (4-34) U/L Total Protein 6.1 L (6.3-8.2) g/dL Microbiology - Last 24 Hours (Table) 12/12/20 11:03 Blood Culture - Final Blood No Growth after 144 hours
--- NOTE | 2020-12-19 11:42 | P.CNPUL ---
History of Present Illness Consult date: 12/19/20 Reason for consult: dyspnea History of present illness: I was asked to evaluate this 50-year-old female patient because of shortness of breath. Obviously the patient has advanced cardiomyopathy. She has nonischemic cardiomyopathy and she has an AICD in place. She also has chronic atrial fibrillation. She was hospitalized for decompensated heart failure and she is obviously fluid overload. The chest x-ray still showing pulmonary edema and the patient has significant swelling lower extremities bilaterally. Her proBNP level was 8728 at time of admission. She was started on IV Lasix. She was also given IV Cardizem is having issues with atrial fibrillation. Currently she is off the Cardizem drip. Earlier this morning, her creatinine came up to 2 and the patient was taken off Aldactone and the patient was also taken off the Entre sto patient will be started on Lasix drip per nephrology recommendation. The patient is currently sitting up on a recliner. Her blood pressure still maintained and the patient is on room air oxygen. She is a nonsmoker. No previous history of lung disease. No home oxygen. No angina. No palpitations. No syncope. No other complaints otherwise. On examination, she continues having the edema lower extremities are laterally. Her sodium level is currently at 126 with a heart failure. Potassium level is at 5.3 with a creatinine of 2.0. She has no fever. Review of Systems REVIEW OF SYSTEMS: No fever or chills. No cough or expectoration. No diaphoresis. Patient denies headache, dizziness, blurred vision, double vision. Patient denies any stomach discomfort. No nausea, vomiting. No hematochezia. No hematemesis. Denies any black stools or blood in his stools. Denies dysuria or hematuria. No muscle weakness or numbness. 11 increased dyspnea. The patient is having his lower extremity edema. No cough or sputum production. No hemoptysis. No syncope. Past Medical History Past Medical History: Atrial Fibrillation, Heart Failure, Eye Disorder, Hyperlipidemia, Hypertension, Skin Disorder Additional Past Medical History / Comment(s): psoriasis, gout, keratoconus rt eye, anemic. History of Any Multi-Drug Resistant Organisms: None Reported Past Surgical History: Heart Catheterization, Pacemaker Additional Past Surgical History / Comment(s): cardioversion, lumbar injection, pacemaker placement Past Anesthesia/Blood Transfusion Reactions: No Reported Reaction Type of Cardiac Device: Permanent Pacemaker Device Placement Date:: 06/30/2020 Past Psychological History: Anxiety Smoking Status: Never smoker Past Alcohol Use History: None Reported Additional Past Alcohol Use History / Comment(s): Quit smoking 1999. smoked for a couple yrs Past Drug Use History: None Reported - Past Family History Mother Family Medical History: AICD/Pacemaker Father Family Medical History: AICD/Pacemaker Medications and Allergies Home Medications Medication Instructions Recorded Confirmed Type Atorvastatin [Lipitor] 20 mg PO DAILY 07/31/16 12/11/20 History Ergocalciferol [Vitamin D2 50,000 unit PO KENT 03/08/20 12/11/20 History (DRISDOL)] Allopurinol [Zyloprim] 300 mg PO DAILY 05/11/20 12/11/20 History Sacubitril/Valsartan [Entresto 24 1 tab PO BID 07/02/20 12/11/20 History mg-26 mg Tablet] Ferrous Sulfate [Feosol] 325 mg PO DAILY@1200 12/02/20 12/11/20 History ALPRAZolam [Xanax] 0.25 mg PO QID PRN tab 12/06/20 12/11/20 Rx Acetaminophen Tab [Tylenol] 500 mg PO Q6HR PRN tab 12/06/20 12/11/20 Rx Escitalopram [Lexapro] 10 mg PO DAILY tab 12/06/20 12/11/20 Rx Furosemide [Lasix] 40 mg PO BID@0900,1600 30 Days #60 12/06/20 12/11/20 Rx tab Metoprolol Tartrate [Lopressor] 75 mg PO TID 30 Days #270 tab 12/06/20 12/11/20 Rx Spironolactone [Aldactone] 25 mg PO DAILY 30 Days #30 tab 12/06/20 12/11/20 Rx Allergies Allergy/AdvReac Type Severity Reaction Status Date / Time amoxicillin Allergy Rash/Hives Verified 12/11/20 17:44 Penicillins Allergy Rash/Hives Verified 12/11/20 17:44 Sulfa (Sulfonamide Allergy Swelling Verified 12/11/20 17:44 Antibiotics) Physical Exam Vitals: Vital Signs Temp Pulse Resp BP Pulse Ox 12/19/20 03:30 96 18 111/77 100 12/18/20 23:20 98.1 F 85 17 110/70 96 07/10/21 15:00 98.3 F 88 18 110/81 98 12/18/20 12:00 98.0 F 94 16 87/61 96 Intake and Output 12/18/20 12/19/20 12/19/20 22:59 06:59 14:59 Intake Total 1440 118 Balance 1440 118 Intake: Oral 1440 118 Other: Voiding Method Toilet Toilet # Voids 1 1 # Bowel Movements 1 Weight 121.9 kg GENERAL: Well-developed in no acute distress. Head exam was generally normal. There was no scleral icterus or corneal arcus. Mucous membranes were moist. NECK: Supple. Positive JVD or thyromegaly LUNGS: Respirations even and unlabored. Lungs diminished bilaterally. HEART: Irregular rate and rhythm. S1 and S2 heard. Abdominal exam revealed normal bowel sounds. The abdomen was soft, non-tender, and without masses, organomegaly, or appreciable enlargement of the abdominal aorta. EXTREMITIES: Normal range of motion. No clubbing or cyanosis. Peripheral pulses intact. 2+ lower extremity edema Examination of the skin revealed no evidence of significant rashes, suspicious appearing nevi or other concerning lesions. Neurologically, the patient is awake and alert and the patient does not have any focal neurological deficit. Cranial nerves are essentially intact. Results - Laboratory Findings CBC and BMP: 12/19/20 06:46 12/19/20 06:46 PT/INR, D-dimer PT 13.9 sec (9.0-12.0) H 12/11/20 17:56 INR 1.4 (<1.2) H 12/11/20 17:56 Abnormal lab findings: Abnormal Labs 12/11/20 12/11/20 12/11/20 17:56 17:56 17:56 WBC 14.6 H Hgb Hct MCV 76.1 L MCH 22.3 L MCHC 29.3 L RDW 20.2 H Neutrophils # 12.3 H Neutrophils # (Manual) Lymphocytes # Monocytes # Monocytes # (Manual) PT 13.9 H INR 1.4 H Sodium 133 L Potassium Chloride Carbon Dioxide BUN 33 H Creatinine 1.12 H Glucose 128 H Total Bilirubin 1.4 H AST 168 H ALT 140 H Alkaline Phosphatase 132 H Total Protein Albumin Urine Blood Ur Squamous Epith Cells Hyaline Casts Urine Mucus 12/12/20 12/12/20 12/12/20 07:12 07:12 07:36 WBC 12.2 H Hgb 11.0 L Hct MCV 77.2 L MCH 22.8 L MCHC 29.5 L RDW 20.0 H Neutrophils # 9.5 H Neutrophils # (Manual) Lymphocytes # Monocytes # 1.1 H Monocytes # (Manual) PT INR Sodium 132 L Potassium Chloride Carbon Dioxide BUN 38 H Creatinine Glucose Total Bilirubin 1.4 H AST 136 H ALT 137 H Alkaline Phosphatase Total Protein 6.1 L Albumin Urine Blood Small H Ur Squamous Epith Cells 5 H Hyaline Casts 37 H Urine Mucus Rare H 12/13/20 12/13/20 12/14/20 06:07 06:07 06:54 WBC 13.4 H 12.1 H Hgb 10.4 L Hct MCV 75.6 L 75.0 L MCH 23.4 L 22.8 L MCHC 30.4 L RDW 20.0 H 20.0 H Neutrophils # 10.4 H 9.3 H Neutrophils # (Manual) Lymphocytes # Monocytes # 1.1 H Monocytes # (Manual) PT INR Sodium 134 L Potassium Chloride 97 L Carbon Dioxide BUN 33 H Creatinine Glucose Total Bilirubin AST 83 H ALT 115 H Alkaline Phosphatase Total Protein Albumin Urine Blood Ur Squamous Epith Cells Hyaline Casts Urine Mucus 12/14/20 12/15/20 12/15/20 06:54 07:17 07:17 WBC 11.5 H Hgb 10.4 L Hct 32.5 L MCV 73.9 L MCH 23.6 L MCHC RDW 20.2 H Neutrophils # Neutrophils # (Manual) Lymphocytes # Monocytes # Monocytes # (Manual) PT INR Sodium 129 L 128 L Potassium Chloride 95 L 96 L Carbon Dioxide BUN 36 H 40 H Creatinine Glucose 71 L Total Bilirubin AST 60 H ALT 83 H Alkaline Phosphatase Total Protein 5.7 L Albumin 3.4 L Urine Blood Ur Squamous Epith Cells Hyaline Casts Urine Mucus 12/16/20 12/16/20 12/17/20 08:52 08:52 08:54 WBC Hgb 11.1 L 10.8 L Hct MCV 75.6 L 74.5 L MCH 21.9 L 23.2 L MCHC 28.9 L RDW 20.3 H 20.2 H Neutrophils # 8.1 H Neutrophils # (Manual) Lymphocytes # Monocytes # Monocytes # (Manual) PT INR Sodium 128 L Potassium Chloride 95 L Carbon Dioxide BUN 42 H Creatinine 1.07 H Glucose Total Bilirubin AST ALT 55 H Alkaline Phosphatase Total Protein 6.2 L Albumin Urine Blood Ur Squamous Epith Cells Hyaline Casts Urine Mucus 12/17/20 12/18/20 12/18/20 08:54 10:44 10:44 WBC 12.7 H Hgb 10.7 L Hct MCV 77.7 L MCH 22.8 L MCHC 29.4 L RDW 20.6 H Neutrophils # 10.9 H Neutrophils # (Manual) Lymphocytes # 0.9 L Monocytes # Monocytes # (Manual) PT INR Sodium 128 L 125 L Potassium 6.4 H* Chloride 96 L 96 L Carbon Dioxide 21 L 20 L BUN 42 H 45 H Creatinine 1.20 H 1.43 H Glucose 105 H 103 H Total Bilirubin 1.4 H AST 77 H ALT 43 H 56 H Alkaline Phosphatase Total Protein 5.7 L 5.9 L Albumin 3.4 L Urine Blood Ur Squamous Epith Cells Hyaline Casts Urine Mucus 12/19/20 12/19/20 06:46 06:46 WBC 15.6 H Hgb Hct MCV 77.5 L MCH 22.6 L MCHC 29.1 L RDW 20.6 H Neutrophils # Neutrophils # (Manual) 12.32 H Lymphocytes # Monocytes # Monocytes # (Manual) 1.25 H PT INR Sodium 126 L Potassium 5.3 H Chloride 95 L Carbon Dioxide 17 L BUN 48 H Creatinine 2.09 H Glucose Total Bilirubin 1.5 H AST 80 H ALT 61 H Alkaline Phosphatase Total Protein 6.1 L Albumin Urine Blood Ur Squamous Epith Cells Hyaline Casts Urine Mucus - Diagnostic Findings Chest x-ray: image reviewed Assessment and Plan Plan: 1 acute exacerbation of chronic nonischemic cardiomyopathy and the patient is in overt failure with significant third spacing and volume overload in addition to acute renal azotemia/ cardiorenal 2 chronic atrial fibrillation Paroxysmal atrial fibrillation with RVR, not on anticoagulation , currently Cardizem drip 3 Nonischemic cardiomyopathy with previous AICD implantation, EF 20-25% 4 Acute kidney injury 5 hyponatremia secondary to above 6 hypertension 7 hyperlipidemia 8 chronic hypotension secondary to above 9 elevated LFTs secondary to above 10 history of AICD insertion PLAN: Ideally, there is no active or any chronic lung disease or disorder this patient. Her decompensated heart failure is the main issue for now. The patie nt was ordered to be started on a Lasix drip. I agreed to that. If needed, can also transferred to the intensive care unit and we can give her dobutamine to augment cardiac output and this will be further discussed with cardiology. Nephrology is on the case. We'll monitor renal function. We'll monitor electrolytes. Regarding his for now because of previous history of vaginal bleed. Continue to hold Entresto and Aldactone for now. We'll continue to follow.
[2020-12-19] MEDS: FUROSEMIDE 100 MG in SODIUM CHLORIDE 0.9% 90 ML IV SCH (13:39)
[2020-12-19] MEDS: FERROUS SULFATE 325 MG TAB PO SCH (13:44)
[2020-12-19] MEDS: METOPROLOL SUCCINATE (ER) 50 MG TAB.ER.24H PO SCH (13:44)
[2020-12-19] MEDS: SODIUM BICARBONATE TAB 650 MG TAB PO SCH ×2 (13:44→20:24)
[2020-12-19 14:21] LABS: Appearance,Urine Cloudy (Clear); Bacteria,Urine Moderate /hpf; Bilirubin,Urine Negative (Negative); Blood,Urine Moderate (Negative); Color,Urine Yellow; Glucose,Urine (UA) Negative (Negative); Hyaline Casts,Urine 3 /lpf (0-2); Ketones,Urine Negative (Negative); Leukocyte Esterase,Urine Large (Negative); Nitrite,Urine Negative (Negative); Protein,Urine 1+ (Negative); RBC,Urine 14 /hpf (0-5); Specific Gravity,Urine 1.008 (1.001-1.035); Squamous Epithelial Cell,Urine <1 /hpf (0-4); Urobilinogen,Urine <2.0 mg/dL (<2.0); WBC,Urine 35 /hpf (0-5)
--- NOTE | 2020-12-19 21:36 | US ---
EXAMINATION TYPE: US abdomen complete DATE OF EXAM: 12/19/2020 COMPARISON: US 2020 CLINICAL HISTORY: nausea and vomiting. Exam done portable. EXAM MEASUREMENTS: Liver Length: 19.1 cm Gallbladder Wall: 0.4 cm CBD: 0.4 cm Spleen: 10.3 cm Right Kidney: 10.1 x 4.3 x 4.8 cm Left Kidney: 10.9 x 5.4 x 5.0 cm Difficult and limited study due to patient body habitus Pancreas: visualized portions wnl, partially obscured by overlying midline bowel gas Liver: enlarged, mildly heterogeneous Gallbladder: wnl Evidence for sonographic Jennings's sign: no CBD: visualized portions wnl, partially obscured by overlying bowel gas Spleen: visualized portions wnl, limited by overlying bowel gas Right Kidney: wnl Left Kidney: visualized portions wnl, limited by overlying bowel gas Upper IVC: wnl Abd Aorta: visualized portions wnl, partially obscured by overlying midline bowel gas IMPRESSION: No sonographic evidence for acute abnormality. Hepatomegaly.
--- NOTE | 2020-12-19 22:38 | P.CONS ---
History of Present Illness - Reason for Consult Consult date: 12/19/20 Leukocytosis Requesting physician: Valery Arenas - Chief Complaint Palpitations x few days - History of Present Illness Patient is a 50-year-old female presented to the hospital more than a week ago for evaluation of palpitation symptom has been getting worse for a few days before presenting to hospital no chest pain cough or any fever patient has been evaluated by cardiology services in this patient who did not have any fever during this admission patient did have a white count elevation on admission of 14.6 the subsequent normalized however over the last 2 days it has been trending up which has prompted this infectious disease consultation patient denies having any headache or URI symptoms, the patient denies having any chest pain no shortness of breath or cough no nausea no vomiting no abdominal pain no diarrhea infectious was consulted because of her worsening white count and need for antibiotic therapy patient did have a chest x-ray done this admission which shows cardiomegaly but no infiltrate UA was done which was mildly positive cloudy with a lot of slight decrease in the 25 WBC with moderate bacteria. Review of Systems Positive point has been mentioned in the HPI rest of the systems are negative Past Medical History Past Medical History: Atrial Fibrillation, Heart Failure, Eye Disorder, Hyperlipidemia, Hypertension, Skin Disorder Additional Past Medical History / Comment(s): psoriasis, gout, keratoconus rt eye, anemic. History of Any Multi-Drug Resistant Organisms: None Reported Past Surgical History: Heart Catheterization, Pacemaker Additional Past Surgical History / Comment(s): cardioversion, lumbar injection, pacemaker placement Past Anesthesia/Blood Transfusion Reactions: No Reported Reaction Type of Cardiac Device: Permanent Pacemaker Device Placement Date:: 06/30/2020 Past Psychological History: Anxiety Smoking Status: Never smoker Past Alcohol Use History: None Reported Additional Past Alcohol Use History / Comment(s): Quit smoking 1999. smoked for a couple yrs Past Drug Use History: None Reported - Past Family History Mother Family Medical History: AICD/Pacemaker Father Family Medical History: AICD/Pacemaker Medications and Allergies Home Medications Medication Instructions Recorded Confirmed Type Atorvastatin [Lipitor] 20 mg PO DAILY 07/31/16 12/11/20 History Ergocalciferol [Vitamin D2 50,000 unit PO KENT 03/08/20 12/11/20 History (DRISDOL)] Allopurinol [Zyloprim] 300 mg PO DAILY 05/11/20 12/11/20 History Sacubitril/Valsartan [Entresto 24 1 tab PO BID 07/02/20 12/11/20 History mg-26 mg Tablet] Ferrous Sulfate [Feosol] 325 mg PO DAILY@1200 12/02/20 12/11/20 History ALPRAZolam [Xanax] 0.25 mg PO QID PRN tab 12/06/20 12/11/20 Rx Acetaminophen Tab [Tylenol] 500 mg PO Q6HR PRN tab 12/06/20 12/11/20 Rx Escitalopram [Lexapro] 10 mg PO DAILY tab 12/06/20 12/11/20 Rx Furosemide [Lasix] 40 mg PO BID@0900,1600 30 Days #60 12/06/20 12/11/20 Rx tab Metoprolol Tartrate [Lopressor] 75 mg PO TID 30 Days #270 tab 12/06/20 12/11/20 Rx Spironolactone [Aldactone] 25 mg PO DAILY 30 Days #30 tab 12/06/20 12/11/20 Rx Allergies Allergy/AdvReac Type Severity Reaction Status Date / Time amoxicillin Allergy Rash/Hives Verified 12/11/20 17:44 Penicillins Allergy Rash/Hives Verified 12/11/20 17:44 Sulfa (Sulfonamide Allergy Swelling Verified 12/11/20 17:44 Antibiotics) Physical Exam Vitals: Vital Signs Temp Pulse Resp BP Pulse Ox 12/19/20 11:15 96 F L 86 16 90/52 100 12/19/20 08:35 98.5 F 107 H 16 108/60 100 12/19/20 03:30 96 18 111/77 100 12/18/20 23:20 98.1 F 85 17 110/70 96 12/18/20 15:00 98.3 F 88 18 110/81 98 Intake and Output 12/18/20 12/19/20 12/19/20 22:59 06:59 14:59 Intake Total 1440 118 Balance 1440 118 Intake: Oral 1440 118 Other: Voiding Method Toilet Toilet Toilet # Voids 1 1 # Bowel Movements 1 Weight 121.9 kg GENERAL DESCRIPTION: Middle-aged female up in the chair, no distress. No tachypnea or accessory muscle of respiration use. HEENT: Shows Pallor , no scleral icterus. Oral mucous membrane is dry. No pharyngeal erythema or thrush NECK: Trachea central, no thyromegaly. LUNGS: Unlabored breathing. Decreased this from the base. No wheeze or crackle. HEART: S1, S2, regular rate and rhythm. No loud murmur ABDOMEN: Soft, no tenderness , guarding or rigidity, no organomegaly EXTREMITIES: No edema of feet. SKIN: No rash, no masses palpable. Occasional bruises to the right arm NEUROLOGICAL: The patient is awake, alert, oriented x3, mood and affect normal. Results CBC & Chem 7: 12/19/20 06:46 12/19/20 06:46 Labs: Abnormal Lab Results - Last 24 Hours (Table) 12/19/20 12/19/20 12/19/20 Range/Units 06:46 06:46 13:30 WBC 15.6 H (3.8-10.6) k/uL MCV 77.5 L (80.0-100.0) fL MCH 22.6 L (25.0-35.0) pg MCHC 29.1 L (31.0-37.0) g/dL RDW 20.6 H (11.5-15.5) % Neutrophils # (Manual) 12.32 H (1.3-7.7) k/uL Monocytes # (Manual) 1.25 H (0-1.0) k/uL Sodium 126 L (137-145) mmol/L Potassium 5.3 H (3.5-5.1) mmol/L Chloride 95 L (98-107) mmol/L Carbon Dioxide 17 L (22-30) mmol/L BUN 48 H (7-17) mg/dL Creatinine 2.09 H (0.52-1.04) mg/dL Total Bilirubin 1.5 H (0.2-1.3) mg/dL AST 80 H (14-36) U/L ALT 61 H (4-34) U/L Total Protein 6.1 L (6.3-8.2) g/dL Urine Appearance Cloudy H (Clear) Urine Protein 1+ H (Negative) Urine Blood Moderate H (Negative) Ur Leukocyte Esterase Large H (Negative) Urine RBC 14 H (0-5) /hpf Urine WBC 35 H (0-5) /hpf Urine WBC Clumps Few H (None) /hpf Urine Bacteria Moderate H (None) /hpf Hyaline Casts 3 H (0-2) /lpf Microbiology - Last 24 Hours (Table) 12/12/20 11:03 Blood Culture - Final Blood No Growth after 144 hours Assessment and Plan Assessment: 1-patient with her leukocytosis and this patient has been to hospital for more than a week now, and this patient with no fever initial work-up did shows a positive UA and no other obvious focus of infection (1) Leukocytosis Current Visit: Yes Status: Acute Code(s): D72.829 - ELEVATED WHITE BLOOD CELL COUNT, UNSPECIFIED SNOMED Code(s): 755711556 (2) UTI (urinary tract infection) Current Visit: Yes Status: Acute Code(s): N39.0 - URINARY TRACT INFECTION, SITE NOT SPECIFIED SNOMED Code(s): 61975165 Plan: 1-we will start the patient on Rocephin 1 g daily 2-check a blood culture CRP We will follow on clinical condition and cultures to further adjust medication if needed Thank you for this consultation we will follow the patient along with you Time with Patient: Greater than 30
[2020-12-20 05:35] LABS: Anisocytosis Moderate; Basophils % (A) 0 %; Eosinophils # (A) 0.1 k/uL (0-0.7); Eosinophils % (A) 1 %; HCT 36.1 % (34.0-46.0); HGB 10.6 gm/dL (11.4-16.0); Hypochromasia Marked; Lymphocytes # (A) 1.1 k/uL (1.0-4.8); Lymphocytes % (A) 9 %; MCH 22.7 pg (25.0-35.0); MCHC 29.5 g/dL (31.0-37.0); MCV 76.9 fL (80.0-100.0); Mean Platelet Volume 7.4; Microcytosis Moderate; Monocytes # (A) 0.7 k/uL (0-1.0); Monocytes % (A) 6 %; Neutrophils # (A) 9.8 k/uL (1.3-7.7); Neutrophils % (A) 82 %; Platelet Count 370 k/uL (150-450); Poikilocytosis Slight; RBC 4.69 m/uL (3.80-5.40)
[2020-12-20 05:45] LABS: Albumin 3.6 g/dL (3.5-5.0); C Reactive Protein 3.8 mg/dL (<1.0); Calcium 9.1 mg/dL (8.4-10.2); Potassium 4.6 mmol/L (3.5-5.1); Total Bilirubin 1.1 mg/dL (0.2-1.3); Total Protein 5.9 g/dL (6.3-8.2)
[2020-12-20] MEDS: FUROSEMIDE 100 MG in SODIUM CHLORIDE 0.9% 90 ML IV SCH ×2 (06:32→18:38)
[2020-12-20] MEDS: PANTOPRAZOLE 40 MG TABLET PO SCH (06:32)
[2020-12-20] MEDS: ESCITALOPRAM 10 MG TAB PO SCH (09:12)
[2020-12-20] MEDS: SODIUM BICARBONATE TAB 650 MG TAB PO SCH ×2 (09:12→20:18)
[2020-12-20] MEDS: allopurinoL 300 MG TAB PO SCH (09:12)
[2020-12-20] MEDS: METOPROLOL SUCCINATE (ER) 100 MG TAB.ER.24H PO SCH ×2 (09:12→20:18)
[2020-12-20] MEDS: ENOXAPARIN 40 MG/0.4 ML SYRINGE SQ SCH (09:12)
[2020-12-20] MEDS: METOPROLOL SUCCINATE (ER) 50 MG TAB.ER.24H PO SCH (11:53)
[2020-12-20] MEDS: FERROUS SULFATE 325 MG TAB PO SCH (11:53)
--- NOTE | 2020-12-20 13:00 | P.PN ---
Subjective Progress Note Date: 12/20/20 HISTORY OF PRESENT ILLNESS: 12/14/2020 This is a 50-year-old female who follows in the office with Dr. Salcedo. Patient was admitted to the hospital secondary to A. fib with RVR. Telemetry reveals atrial fibrillation with a heart rate in the 90s. Patient has not anticoagulation secondary to a history of vaginal bleeding. Patient is currently on metoprolol succinate 100 mg twice a day and 50 mg at noon. Blood pressure 100/61. 12/17/2020 Cardiology was reconsulted secondary to hypotension. Patients blood pressure 84/57. Patient states her blood pressure at home runs between 80-100 systolic. She reports mild dizziness occasionally when walking. She reports she also has this at home. No syncope. Telemetry reveals afib with controlled ventricular rates. Sodium 128. 12/18/2020 Patient examined this morning the bedside. She denies chest pain or pressure. She denies shortness of breath. Patient's blood pressure has improved this morning with a systolic in the 100s. Patient reports diarrhea and an episode of emesis. Patient's sodium remains low at 128. 12/19/2020 Patient examined this morning. Patient is sitting up in the chair. Patient states her diarrhea has resolved. She reports lower extremity edema. She denies having any shortness of breath. She denies chest pain or pressure. Blood pressure stable with a systolic blood pressure in the 100s. Sodium today is 126. Aldactone has been discontinued. Lasix has been held. However nephrology was consulted today and started the patient on a Lasix drip. BUN 48. Creatinine up to 2.09. 12/20/2020 Patient examined this morning at the bedside. Patient denies chest pain or pressure. Denies shortness of breath. She is on a lasix drip at 5mg/hr. BUN 53. Creatinine 2.16 Sodium 129. PHYSICAL EXAM: VITAL SIGNS: Reviewed. GENERAL: Well-developed in no acute distress. NECK: Supple. No JVD or thyromegaly LUNGS: Respirations even and unlabored. Lungs diminished bilaterally. HEART: Irregular rate and rhythm. S1 and S2 heard. EXTREMITIES: Normal range of motion. No clubbing or cyanosis. Peripheral pulses intact. 2+ lower extremity edema ASSESSMENT: Paroxysmal atrial fibrillation with RVR, not on anticoagulation secondary to history of vaginal bleeding Acute on chronic systolic heart failure Nonischemic cardiomyopathy with previous AICD implantation, EF 20-25% Acute kidney injury Pulmonary hypertension Leukocytosis Elevated liver enzymes Hypertension Hyperlipidemia Anxiety Hyponatremia Hypotension PLAN: Continue telemetry monitoring Continue current cardiac medications Patient not on anticoagulation secondary to history of vaginal bleeding Continue lasix drip per nephrology Continue to hold Entresto Further recommendations pending patient course Patient to follow up outpatient with Dr. Salcedo Nurse practitioner note has been reviewed by physician. Signing provider agrees with the documented findings, assessment, and plan of care. Objective - Vital Signs Vital signs: Vital Signs Temp 97.5 F L 12/20/20 11:30 Pulse 91 12/20/20 11:30 Resp 18 12/20/20 11:30 BP 116/72 12/20/20 11:30 Pulse Ox 97 12/20/20 11:30 Intake & Output 12/19/20 12/20/20 12/20/20 18:59 06:59 18:59 Intake Total 358 324.417 420 Output Total 500 1500 1100 Balance -142 -1175.583 -680 Weight 120.9 kg Intake: Intake, IV Titration 84.417 Amount Furosemide 100 mg In 84.417 Sodium Chloride 0.9% 90 ml @ 5 MG/HR 5 mls/hr IV .Q20H [facility] Rx#:[id number] Oral 358 240 420 Blood Product 0 Output: Urine 500 1500 1100 Other: Voiding Method Toilet Toilet Toilet # Voids 3 1 # Bowel Movements 1 - Labs CBC & Chem 7: 12/20/20 04:36 12/20/20 04:36 Labs: Abnormal Lab Results - Last 24 Hours (Table) 12/19/20 12/20/20 12/20/20 Range/Units 13:30 04:36 04:36 WBC 12.0 H (3.8-10.6) k/uL Hgb 10.6 L (11.4-16.0) gm/dL MCV 76.9 L (80.0-100.0) fL MCH 22.7 L (25.0-35.0) pg MCHC 29.5 L (31.0-37.0) g/dL RDW 21.0 H (11.5-15.5) % Neutrophils # 9.8 H (1.3-7.7) k/uL Sodium 129 L (137-145) mmol/L Chloride 95 L (98-107) mmol/L BUN 53 H (7-17) mg/dL Creatinine 2.16 H (0.52-1.04) mg/dL AST 91 H (14-36) U/L ALT 66 H (4-34) U/L C-Reactive Protein 3.8 H (<1.0) mg/dL Total Protein 5.9 L (6.3-8.2) g/dL Urine Appearance Cloudy H (Clear) Urine Protein 1+ H (Negative) Urine Blood Moderate H (Negative) Ur Leukocyte Esterase Large H (Negative) Urine RBC 14 H (0-5) /hpf Urine WBC 35 H (0-5) /hpf Urine WBC Clumps Few H (None) /hpf Urine Bacteria Moderate H (None) /hpf Hyaline Casts 3 H (0-2) /lpf Microbiology - Last 24 Hours (Table) 12/19/20 10:16 Blood Culture - Preliminary Blood No Growth after 24 hours
--- NOTE | 2020-12-20 13:23 | P.PN ---
Subjective Progress Note Date: 12/20/20 Principal diagnosis: Shortness of breath I was asked to evaluate this 50-year-old female patient because of shortness of breath. Obviously the patient has advanced cardiomyopathy. She has nonischemic cardiomyopathy and she has an AICD in place. She also has chronic atrial fib rillation. She was hospitalized for decompensated heart failure and she is obviously fluid overload. The chest x-ray still showing pulmonary edema and the patient has significant swelling lower extremities bilaterally. Her proBNP level was 8728 at time of admission. She was started on IV Lasix. She was also given IV Cardizem is having issues with atrial fibrillation. Currently she is off the Cardizem drip. Earlier this morning, her creatinine came up to 2 and the patient was taken off Aldactone and the patient was also taken off the Entresto patient will be started on Lasix drip per nephrology recommendation. The patient is currently sitting up on a recliner. Her blood pressure still maintained and the patient is on room air oxygen. She is a nonsmoker. No previous history of lung disease. No home oxygen. No angina. No palpitations. No syncope. No other complaints otherwise. On examination, she continues having the edema lower extremities are laterally. Her sodium level is currently at 126 with a heart failure. Potassium level is at 5.3 with a creatinine of 2.0. She has no fever. On 12/20/2020 patient seen in follow-up on selective care unit, she is resting in bed, appears to be in no acute distress, she remains on Lasix infusion at 5 mg per hour, she is in -1.3 L net fluid balance over the last 24 hours, no dobutamine infusion. Compensated chest pain, she is on room air, with a pulse ox of 97-99%, no complaints of worsening dyspnea, or wheezing, no fever or chills. Minimal lower extremity edema. ID service is following, patient remains on ceftriaxone, blood cultures have been negative. Patient is being treated for urinary tract infection. Objective - Vital Signs Vital signs: Vital Signs Temp 97.5 F L 12/20/20 11:30 Pulse 91 12/20/20 11:30 Resp 18 12/20/20 11:30 BP 116/72 12/20/20 11:30 Pulse Ox 97 12/20/20 11:30 Intake & Output 12/19/20 12/20/2021 18:59 06:59 18:59 Intake Total 358 324.417 420 Output Total 500 1500 1100 Balance -142 -1175.583 -680 Weight 120.9 kg Intake: Intake, IV Titration 84.417 Amount Furosemide 100 mg In 84.417 Sodium Chloride 0.9% 90 ml @ 5 MG/HR 5 mls/hr IV .Q20H [facility] Rx#:[id number] Oral 358 240 420 Blood Product 0 Output: Urine 500 1500 1100 Other: Voiding Method Toilet Toilet Toilet # Voids 3 1 # Bowel Movements 1 - Exam GENERAL EXAM: Alert, very pleasant, 50-year-old obese white female, on room air, with a pulse ox of 99% comfortable in no apparent distress. HEAD: Normocephalic/atraumatic. EYES: Normal reaction of pupils, equal size. Conjunctiva pink, sclera white. NOSE: Clear with pink turbinates. THROAT: No erythema or exudates. NECK: No masses, no JVD, no thyroid enlargement, no adenopathy. CHEST: No chest wall deformity. Symmetrical expansion. LUNGS: Equal air entry with no crackles, wheeze, rhonchi or dullness. CVS: Regular rate and rhythm, normal S1 and S2, no gallops, no murmurs, no rubs ABDOMEN: Soft, nontender. No hepatosplenomegaly, normal bowel sounds, no guarding or rigidity. EXTREMITIES: No clubbing, no edema, no cyanosis, 2+ pulses and upper and lower extremities. MUSCULOSKELETAL: Muscle strength and tone normal. SPINE: No scoliosis or deformity SKIN: No rashes CENTRAL NERVOUS SYSTEM: Alert and oriented -3. No focal deficits, tone is normal in all 4 extremities. PSYCHIATRIC: Alert and oriented -3. Appropriate affect. Intact judgment and insight. - Labs CBC & Chem 7: 12/20/20 04:36 12/20/20 04:36 Labs: Abnormal Lab Results - Last 24 Hours (Table) 12/19/20 12/20/20 12/20/20 Range/Units 13:30 04:36 04:36 WBC 12.0 H (3.8-10.6) k/uL Hgb 10.6 L (11.4-16.0) gm/dL MCV 76.9 L (80.0-100.0) fL MCH 22.7 L (25.0-35.0) pg MCHC 29.5 L (31.0-37.0) g/dL RDW 21.0 H (11.5-15.5) % Neutrophils # 9.8 H (1.3-7.7) k/uL Sodium (137-145) mmol/L Chloride (98-107) mmol/L BUN (7-17) mg/dL Creatinine (0.52-1.04) mg/dL AST (14-36) U/L ALT (4-34) U/L C-Reactive Protein (<1.0) mg/dL Total Protein (6.3-8.2) g/dL Procalcitonin 0.31 H (0.02-0.09) ng/mL Urine Appearance Cloudy H (Clear) Urine Protein 1+ H (Negative) Urine Blood Moderate H (Negative) Ur Leukocyte Esterase Large H (Negative) Urine RBC 14 H (0-5) /hpf Urine WBC 35 H (0-5) /hpf Urine WBC Clumps Few H (None) /hpf Urine Bacteria Moderate H (None) /hpf Hyaline Casts 3 H (0-2) /lpf 12/20/20 Range/Units 04:36 WBC (3.8-10.6) k/uL Hgb (11.4-16.0) gm/dL MCV (80.0-100.0) fL MCH (25.0-35.0) pg MCHC (31.0-37.0) g/dL RDW (11.5-15.5) % Neutrophils # (1.3-7.7) k/uL Sodium 129 L (137-145) mmol/L Chloride 95 L (98-107) mmol/L BUN 53 H (7-17) mg/dL Creatinine 2.16 H (0.52-1.04) mg/dL AST 91 H (14-36) U/L ALT 66 H (4-34) U/L C-Reactive Protein 3.8 H (<1.0) mg/dL Total Protein 5.9 L (6.3-8.2) g/dL Procalcitonin (0.02-0.09) ng/mL Urine Appearance (Clear) Urine Protein (Negative) Urine Blood (Negative) Ur Leukocyte Esterase (Negative) Urine RBC (0-5) /hpf Urine WBC (0-5) /hpf Urine WBC Clumps (None) /hpf Urine Bacteria (None) /hpf Hyaline Casts (0-2) /lpf Microbiology - Last 24 Hours (Table) 12/19/20 10:16 Blood Culture - Preliminary Blood No Growth after 24 hours Assessment and Plan Plan: Assessment: 1 acute exacerbation of chronic nonischemic cardiomyopathy and the patient is in overt failure with significant third spacing and volume overload in addition to acute renal azotemia/ cardiorenal 2 chronic atrial fibrillation Paroxysmal atrial fibrillation with RVR, not on anticoagulation , currently Cardizem drip 3 Nonischemic cardiomyopathy with previous AICD implantation, EF 20-25% 4 Acute kidney injury 5 hyponatremia secondary to above 6 hypertension 7 hyperlipidemia 8 chronic hypotension secondary to above 9 elevated LFTs secondary to above 10 history of AICD insertion Plan: Continue diuretics per cardiology Patient is maintaining negative fluid balance Remains on antibiotics for urinary tract infection Breathing is stable, patient is on room air No fever or chills, no cough, no wheezing no phlegm production Continue with accurate intake and output, daily labs We'll continue to follow I performed a history & physical examination of the patient and discussed their management with my nurse practitioner, Roselia Barnes. I reviewed the nurse practitioner's note and agree with the documented findings and plan of care. Lung sounds are positive for diminished breath sounds The findings and the impression was discussed with the patient. I attest to the documentation by the nurse practitioner. Time with Patient: Less than 30
--- NOTE | 2020-12-20 17:34 | P.PN ---
Subjective Progress Note Date: 12/20/20 This is a 50-year-old female patient who presented to the ER with complaints of palpitations. Patient reports that she's had this issue intermittently occurring. She reports that she felt anxious with prompted her to come to ER for further evaluation. Patient has a past medical history of chronic systolic congestive heart failure, nonischemic cardiomyopathy with previous AICD placement, paroxysmal atrial fibrillation, essential hypertension, hyperlipidemia and anxiety. She denies any recent illness. X-ray completed showing nonacute abdomen. Cardiomegaly. Chest x-ray performed showing cardiom egaly no heart failure no change compared to recent exam. Gallbladder ultrasound performed showing mild gallbladder wall thickening no gallstones or dilated ducts. Liver enzymes slightly elevated total bili 1.4, AST 168, ALT 140 and alkaline phosphatase 132. Troponin negative. BNP 8720. At this time patient was started on IV Lasix IV Cardizem. Cardiology services have been consulted. Patient denies chest pain. Patient denies shortness breath. Patient denies nausea vomiting or diarrhea. Patient denies any urinary burning or frequency. On 12/13/2020 Patient was seen and examined on the medical floor, she is alert and oriented x 3 in no distress, she is still complaining of shortness of breath with any activity she is also complaining of occasional palpitation otherwise she denies any complaints there is no fever or chills no headache or dizziness no chest pain, no cough no nausea or vomiting no abdominal pain no diarrhea no blood in the stools no burning with urination no frequency or urgency and no hematuria, there is no weakness or numbness in any of the extremities no change in vision speech or gait. On 12/14/2020 patient is alert and oriented 3. Patient relating of some dizziness. At this time patient denies chest pain or shortness breath. Patient denies nausea vomiting or diarrhea. Patient denies any urinary burning or frequency patient to be transitioned per cardiology to oral Lasix On 12/15/2020 patient alert and oriented 3. Patient has been transitioned to oral Lasix and cleared for discharge from cardiology services. Patient's sodium low today at 128 did discuss case with cardiology services okay for patient to have small amount of fluid 50 mL of normal saline. Patient stopped vomiting of some dizziness upon standing. Patient denies chest pain or shortness of breath. Patient denies nausea vomiting or diarrhea. Patient denies any urinary burning or frequency On 12/16/2020atient was seen and examined on the medical floor, he is alert and oriented x 3 in no distress, he denies any complaints there is no fever or chills no headache or dizziness no chest pain no shortness of breath no palpitation no cough no nausea or vomiting no abdominal pain no diarrhea no blood in the stools no burning with urination no frequency or urgency and no hematuria, there is no weakness or numbness in any of the extremities no change in vision speech or gait. Blood pressure is still on the low side and sodium is still low at 128 at this time will decrease Lasix to 40 mg once daily and continue was normal saline at 50 mL per hour. Will recheck in a.m. On 12/17/2020. Patient is alert and oriented 3. Patient remains on normal saline at 50. Sodium remains at 128. Transvaginal ultrasound completed. At this time patient is still complaining of intermittent episodes of dizziness. Patient denies chest pain. Patient denies shortness of breath. Patient denies nausea vomiting or diarrhea. Patient denies any urinary burning or frequency On 12/18/2020 Patient was seen and examined on the medical floor, she is alert and oriented x 3 in no distress, she is complaining of generalized weakness and shortness of breath with activity otherwise she denies any complaints there is no fever or chills no headache or dizziness no chest pain no palpitation no cough no nausea or vomiting no abdominal pain no diarrhea no blood in the stools no burning with urination no frequency or urgency and no hematuria, there is no weakness or numbness in any of the extremities no change in vision speech or gait. On 12/19/2020 patient is alert and oriented 3. Sodium remains low at 126, potassium 5.3. Running creatinine increasing 48 and 2.09. Patient reports that she's been nauseous with episodes of emesis throughout the night. Weight gain of 120.7-121.9. Patient does have some lower extremity edema. At this time given patient's acute renal injury but weight gain will consult nephrology services. Lasix on hold did discuss with cardiology services. Will order abdominal ultrasound for nausea and vomiting. Infectious disease also consulted for elevated white blood cell count. Chest x-ray UA and blood culture ordered. Critical care services also consulted. On 12/20/2020 Patient was seen and examined on the medical floor, she is alert and oriented x 3 in no distress, she is complaining of bilateral lower extremity edema, and complaining of shortness of breath with any activity otherwise she denies any complaints there is no fever or chills no headache or dizziness no chest pain no palpitation no cough no nausea or vomiting no abdominal pain no diarrhea no blood in the stools no burning with urination no frequency or urgenc y and no hematuria, there is no weakness or numbness in any of the extremities no change in vision speech or gait. Objective - Vital Signs Vital signs: Vital Signs Temp 97.5 F L 12/20/20 11:30 Pulse 91 12/20/20 11:30 Resp 18 12/20/20 11:30 BP 116/72 12/20/20 11:30 Pulse Ox 97 12/20/20 11:30 Intake & Output 12/19/20 12/20/20 12/20/20 18:59 06:59 18:59 Intake Total 358 324.417 660 Output Total 500 1500 2500 Balance -142 -1175.583 -1840 Weight 120.9 kg Intake: Intake, IV Titration 84.417 Amount Furosemide 100 mg In 84.417 Sodium Chloride 0.9% 90 ml @ 5 MG/HR 5 mls/hr IV .Q20H [facility] Rx#:[id number] Oral 358 240 660 Blood Product 0 Output: Urine 500 1500 2500 Other: Voiding Method Toilet Toilet Toilet # Voids 3 1 # Bowel Movements 1 - Exam In general patient is alert and oriented x 3 in no distress HEENT head normocephalic and atraumatic Neck is supple no JVD no goiter no lymphadenopathy no carotid bruit Chest examination is clear to auscultation no crackles no wheezing Cardiac exam reveals irregular heart sounds S1 and S2 no gallops no murmurs Abdomen is soft nontender no organomegaly with normal bowel sounds Extremity exam reveals no edema no cyanosis or clubbing Neurological examination reveals no gross focal deficits - Labs CBC & Chem 7: 12/20/20 04:36 12/20/20 04:36 Labs: Abnormal Lab Results - Last 24 Hours (Table) 12/20/20 12/20/20 12/20/20 Range/Units 04:36 04:36 04:36 WBC 12.0 H (3.8-10.6) k/uL Hgb 10.6 L (11.4-16.0) gm/dL MCV 76.9 L (80.0-100.0) fL MCH 22.7 L (25.0-35.0) pg MCHC 29.5 L (31.0-37.0) g/dL RDW 21.0 H (11.5-15.5) % Neutrophils # 9.8 H (1.3-7.7) k/uL Sodium 129 L (137-145) mmol/L Chloride 95 L (98-107) mmol/L BUN 53 H (7-17) mg/dL Creatinine 2.16 H (0.52-1.04) mg/dL AST 91 H (14-36) U/L ALT 66 H (4-34) U/L C-Reactive Protein 3.8 H (<1.0) mg/dL Total Protein 5.9 L (6.3-8.2) g/dL Procalcitonin 0.31 H (0.02-0.09) ng/mL Microbiology - Last 24 Hours (Table) 12/19/20 10:16 Blood Culture - Preliminary Blood No Growth after 24 hours Assessment and Plan Assessment: 1. Atrial fibrillation with rapid ventricular response. 2. Acute exacerbation of chronic systolic congestive heart failure. Patient is now on Lasix drip 3. Elevated liver enzymes. gallbladder ultrasound completed showing mild gallbladder wall thickening stones no dilated ducts. Tylenol and Lipitor currently on hold 4. Known history of nonischemic cardiomyopathy the with previous history of AICD placement 5. Paroxysmal atrial fibrillation patient unable to tolerate it regulation due to vaginal bleeding 6. History of essential hypertension 7. History of hyperlipidemia 8. History of anxiety disorder 9. Hyponatremia sodium low at 128. Normal saline at 50 ordered. Did discuss with cardiology services 10. Acute kidney injury. Nephrology services will be consulted 11. Nausea and vomiting. Abdominal ultrasound ordered 12. Elevated white blood cell count. Patient was initially worked up on admission no infection found. Will reorder UA, chest x-ray and blood culture. Infectious disease service is consulted DVT prophylaxis SCDs. GI prophylaxis Protonix Cardiology services following Nephrology, infectious disease and critical care service is consulted Lasix currently on hold Abdominal ultrasound ordered
--- NOTE | 2020-12-20 18:00 | PN ---
PROGRESS NOTE Patient is seen for followup for hyponatremia and acute kidney injury. She has underlying history of congestive heart failure with the EF 20-25% with severe pulmonary hypertension. Currently patient's IV fluids have been discontinued. She is maintained on Lasix drip and has had good urine output. EXAMINATION: Today blood pressure was 93/63 this morning, heart rate 96 per minute, she is afebrile. Examination of the heart S1, S2. Examination of the lungs, bilateral breath sounds are heard. Abdomen is soft, nontender. Examination lower extremities shows edema 1+ bilaterally. [employer] exam grossly intact. LAB: Show sodium 129, potassium 4.6, chloride 95, BUN 53, serum creatinine 2.16 mg/dL, hemoglobin 10.6 g/dL. ASSESSMENT: 1. Acute kidney injury associated with ATN/cardiorenal syndrome with benign UA. Baseline creatinine around 1. 2. Acute on chronic systolic congestive heart failure with ejection fraction 20-25% with moderate tricuspid regurgitation. 3. Severe pulmonary hypertension. 4. Hyperkalemia associated with acute kidney injury, metabolic acidosis and Entresto, currently off of Entresto. Potassium has improved. 5. Hypervolemic hyponatremia. 6. Atrial fibrillation with rapid ventricular response, being followed by Cardiology. PLAN: Continue with the Lasix drip for now. Repeat labs in a.m. Avoid excessive salt intake. MMODL / IJN: [id number] /
[2020-12-20] MEDS: ACETAMINOPHEN TAB 325 MG TAB PO PRN (20:22)
[2020-12-20] MEDS: ALPRAZolam 0.25 MG TAB PO PRN (20:22)
--- NOTE | 2020-12-20 23:01 | PN ---
PROGRESS NOTE DATE OF SERVICE: 12/20/2020 REASON FOR FOLLOWUP: Leukocytosis, possible UTI. INTERVAL HISTORY: Patient is afebrile. The patient is breathing comfortably. Denies any chest pain, shortness of breath or cough. No nausea, vomiting. No abdominal pain or diarrhea. PHYSICAL EXAMINATION: Blood pressure 95/51 with a pulse of 99. Temperature 98.2. She is 98% on room air. General description is a middle-aged female lying in no distress. Respiratory system: Unlabored breathing. Decreased breath sounds. No wheeze. Heart: S1, S2. Regular rate and rhythm. Abdomen is soft, no tenderness. LABS: Hemoglobin is 10.3, white count 12. BUN of 53, creatinine is 2.16. Urine is positive. Culture is pending. DIAGNOSTIC IMPRESSION AND PLAN: Patient with leukocytosis, multifactorial, likely component of urinary tract infection. UA was positive. Cultures are pending. Rocephin to continue while waiting for the culture to finalize and continue supportive care. MMODL / IJN: [id number] /
[2020-12-21] MEDS: PANTOPRAZOLE 40 MG TABLET PO SCH (06:09)
[2020-12-21 08:00] LABS: Anisocytosis Moderate; HCT 34.6 % (34.0-46.0); HGB 10.6 gm/dL (11.4-16.0); Hypochromasia Marked; MCH 23.2 pg (25.0-35.0); MCHC 30.6 g/dL (31.0-37.0); Mean Platelet Volume 7.3; Microcytosis Moderate; Platelet Count 347 k/uL (150-450); Poikilocytosis Slight; RBC 4.55 m/uL (3.80-5.40); RDW 21.4 % (11.5-15.5); WBC 12.2 k/uL (3.8-10.6)
[2020-12-21 08:11] LABS: Albumin 3.5 g/dL (3.5-5.0); Calcium 9.1 mg/dL (8.4-10.2); Potassium 3.9 mmol/L (3.5-5.1); Total Bilirubin 0.9 mg/dL (0.2-1.3); Total Protein 5.6 g/dL (6.3-8.2)
--- NOTE | 2020-12-21 08:50 | XR ---
EXAMINATION TYPE: XR chest 1V portable DATE OF EXAM: 12/21/2020 CLINICAL HISTORY: chf. TECHNIQUE: Portable frontal view of the chest. COMPARISON: 12/19/2020 FINDINGS: Left-sided dual-chamber AICD. The cardiomediastinal silhouette is enlarged. Pulmonary vasculature is normal. There is no focal air space opacity. No pleural effusion. No pneumothorax seen. No acute displaced osseous fracture. IMPRESSION: Redemonstrated cardiomegaly. No pulmonary vascular congestion.
[2020-12-21] MEDS: METOPROLOL SUCCINATE (ER) 100 MG TAB.ER.24H PO SCH ×2 (08:57→20:01)
[2020-12-21] MEDS: allopurinoL 300 MG TAB PO SCH (08:57)
[2020-12-21] MEDS: SODIUM BICARBONATE TAB 650 MG TAB PO SCH (08:57)
[2020-12-21] MEDS: ESCITALOPRAM 10 MG TAB PO SCH (08:57)
[2020-12-21] MEDS: ENOXAPARIN 40 MG/0.4 ML SYRINGE SQ SCH (08:58)
[2020-12-21 10:00] LABS: Eosinophils # (M) 0.49 k/uL (0-0.7); Neutrophils # (M) 9.52 k/uL (1.3-7.7); Neutrophils % (M) 78 %; Nucleated Red Blood Cells 0 /100 WBC (0-0); Total Cells Counted 100
--- NOTE | 2020-12-21 12:19 | P.PN ---
Subjective Progress Note Date: 12/21/20 Principal diagnosis: Shortness of breath I was asked to evaluate this 50-year-old female patient because of shortness of breath. Obviously the patient has advanced cardiomyopathy. She has nonischemic cardiomyopathy and she has an AICD in place. She also has chronic atrial fib rillation. She was hospitalized for decompensated heart failure and she is obviously fluid overload. The chest x-ray still showing pulmonary edema and the patient has significant swelling lower extremities bilaterally. Her proBNP level was 8728 at time of admission. She was started on IV Lasix. She was also given IV Cardizem is having issues with atrial fibrillation. Currently she is off the Cardizem drip. Earlier this morning, her creatinine came up to 2 and the patient was taken off Aldactone and the patient was also taken off the Entresto patient will be started on Lasix drip per nephrology recommendation. The patient is currently sitting up on a recliner. Her blood pressure still maintained and the patient is on room air oxygen. She is a nonsmoker. No previous history of lung disease. No home oxygen. No angina. No palpitations. No syncope. No other complaints otherwise. On examination, she continues having the edema lower extremities are laterally. Her sodium level is currently at 126 with a heart failure. Potassium level is at 5.3 with a creatinine of 2.0. She has no fever. On 12/20/2020 patient seen in follow-up on selective care unit, she is resting in bed, appears to be in no acute distress, she remains on Lasix infusion at 5 mg per hour, she is in -1.3 L net fluid balance over the last 24 hours, no dobutamine infusion. Compensated chest pain, she is on room air, with a pulse ox of 97-99%, no complaints of worsening dyspnea, or wheezing, no fever or chills. Minimal lower extremity edema. ID service is following, patient remains on ceftriaxone, blood cultures have been negative. Patient is being treated for urinary tract infection. On 12/21/2020 patient seen in follow-up on medical surgical floor. She is up in the bathroom, she ambulated, tolerated activity well, room air pulse ox is 99%, she states her breathing is improving, she is breathing quite comfortably, she's been afebrile, hemodynamically she is stable, she remains on Lasix infusion at 5 mg per hour, she is avoiding, she is in -3.5 L net fluid balance over the last 24 hours, her weight continues to trend down, today's labs have been reviewed, her white blood cell count is fairly stable at 12.2, hemoglobin is 10.6, sodium is up to 136, potassium 3.9, renal profile is improving, BUN is 49, creatinine is 1.78, pro calcitonin level is 0.31, patient is on antibiotics for urinary tract infection. Objective - Vital Signs Vital signs: Vital Signs Temp 97.7 F 12/21/20 11:51 Pulse 87 12/21/20 11:51 Resp 18 12/21/20 11:51 BP 100/61 12/21/20 11:51 Pulse Ox 99 12/21/20 11:51 Intake & Output 12/20/20 12/21/20 12/21/20 18:59 06:59 18:59 Intake Total 900.5 120 Output Total 2500 1905 1200 Balance -1599.5 -1905 -1080 Weight 118.7 kg Intake: Intake, IV Titration 60.5 Amount Furosemide 100 mg In 60.5 Sodium Chloride 0.9% 90 ml @ 5 MG/HR 5 mls/hr IV .Q20H [facility] Rx#:[id number] Oral 840 120 Output: Urine 2500 1905 1200 Other: Voiding Method Toilet Toilet Toilet # Voids 1 1 1 - Exam GENERAL EXAM: Alert, very pleasant, 50-year-old obese white female, on room air, with a pulse ox of 99% comfortable in no apparent distress. HEAD: Normocephalic/atraumatic. EYES: Normal reaction of pupils, equal size. Conjunctiva pink, sclera white. NOSE: Clear with pink turbinates. THROAT: No erythema or exudates. NECK: No masses, no JVD, no thyroid enlargement, no adenopathy. CHEST: No chest wall deformity. Symmetrical expansion. LUNGS: Equal air entry with no crackles, wheeze, rhonchi or dullness. CVS: Regular rate and rhythm, normal S1 and S2, no gallops, no murmurs, no rubs ABDOMEN: Soft, nontender. No hepatosplenomegaly, normal bowel sounds, no guarding or rigidity. EXTREMITIES: No clubbing, no edema, no cyanosis, 2+ pulses and upper and lower extremities. MUSCULOSKELETAL: Muscle strength and tone normal. SPINE: No scoliosis or deformity SKIN: No rashes CENTRAL NERVOUS SYSTEM: Alert and oriented -3. No focal deficits, tone is normal in all 4 extremities. PSYCHIATRIC: Alert and oriented -3. Appropriate affect. Intact judgment and insight. - Labs CBC & Chem 7: 12/21/20 07:16 12/21/20 07:16 Labs: Abnormal Lab Results - Last 24 Hours (Table) 12/20/20 12/21/20 12/21/20 Range/Units 04:36 07:16 07:16 WBC 12.2 H (3.8-10.6) k/uL Hgb 10.6 L (11.4-16.0) gm/dL MCV 76.0 L (80.0-100.0) fL MCH 23.2 L (25.0-35.0) pg MCHC 30.6 L (31.0-37.0) g/dL RDW 21.4 H (11.5-15.5) % Neutrophils # (Manual) 9.52 H (1.3-7.7) k/uL Monocytes # (Manual) 1.10 H (0-1.0) k/uL Sodium 136 L (137-145) mmol/L BUN 49 H (7-17) mg/dL Creatinine 1.78 H (0.52-1.04) mg/dL AST 58 H (14-36) U/L ALT 55 H (4-34) U/L Total Protein 5.6 L (6.3-8.2) g/dL Procalcitonin 0.31 H (0.02-0.09) ng/mL Microbiology - Last 24 Hours (Table) 12/20/20 11:00 Urine Culture - Preliminary Urine,Clean Catch 12/19/20 10:16 Blood Culture - Preliminary Blood No Growth after 24 hours Assessment and Plan Plan: Assessment: 1 acute exacerbation of chronic nonischemic cardiomyopathy and the patient is in overt failure with significant third spacing and volume overload in addition to acute renal azotemia/ cardiorenal 2 chronic atrial fibrillation Paroxysmal atrial fibrillation with RVR, not on anticoagulation 3 Nonischemic cardiomyopathy with previous AICD implantation, EF 20-25% 4 Acute kidney injury 5 hyponatremia secondary to above 6 hypertension 7 hyperlipidemia 8 chronic hypotension secondary to above 9 elevated LFTs secondary to above 10 history of AICD insertion Plan: Breathing comfortably Maintaining stable O2 saturations on room air Continue diuretics per nephrology Today's chest x-ray has been reviewed showing cardiomegaly, but no pulmonary vascular congestion Patient probably could be switched over to IV push Lasix However will defer further decision to nephrology Patient is stable from pulmonary perspective Pulmonary service will sign off and follow on an as-needed basis I performed a history & physical examination of the patient and discussed their management with my nurse practitioner, Roselia Barnes. I reviewed the nurse practitioner's note and agree with the documented findings and plan of care. Lung sounds are positive for diminished breath sounds The findings and the impression was discussed with the patient. I attest to the documentation by the nurse practitioner. Time with Patient: Less than 30
[2020-12-21] MEDS: METOPROLOL SUCCINATE (ER) 50 MG TAB.ER.24H PO SCH (12:48)
[2020-12-21] MEDS: FERROUS SULFATE 325 MG TAB PO SCH (12:48)
--- NOTE | 2020-12-21 12:50 | P.PN ---
Subjective Progress Note Date: 12/21/20 HISTORY OF PRESENT ILLNESS: 12/14/2020 This is a 50-year-old female who follows in the office with Dr. Salcedo. Patient was admitted to the hospital secondary to A. fib with RVR. Telemetry reveals atrial fibrillation with a heart rate in the 90s. Patient has not anticoagulation secondary to a history of vaginal bleeding. Patient is currently on metoprolol succinate 100 mg twice a day and 50 mg at noon. Blood pressure 100/61. 12/17/2020 Cardiology was reconsulted secondary to hypotension. Patients blood pressure 84/57. Patient states her blood pressure at home runs between 80-100 systolic. She reports mild dizziness occasionally when walking. She reports she also has this at home. No syncope. Telemetry reveals afib with controlled ventricular rates. Sodium 128. 12/18/2020 Patient examined this morning the bedside. She denies chest pain or pressure. She denies shortness of breath. Patient's blood pressure has improved this morning with a systolic in the 100s. Patient reports diarrhea and an episode of emesis. Patient's sodium remains low at 128. 12/19/2020 Patient examined this morning. Patient is sitting up in the chair. Patient states her diarrhea has resolved. She reports lower extremity edema. She denies having any shortness of breath. She denies chest pain or pressure. Blood pressure stable with a systolic blood pressure in the 100s. Sodium today is 126. Aldactone has been discontinued. Lasix has been held. However nephrology was consulted today and started the patient on a Lasix drip. BUN 48. Creatinine up to 2.09. 12/20/2020 Patient examined this morning at the bedside. Patient denies chest pain or pressure. Denies shortness of breath. She is on a lasix drip at 5mg/hr. BUN 53. Creatinine 2.16 Sodium 129. 12/21/2020 Patient examined this morning. She is sitting up in the chair. She denies chest pain or pressure. Reports occasional shortness of breath with exertion. She continues to have lower extremity edema. She is on a lasix drip per nephrology. BUN 49. Creatinine 1.78. PHYSICAL EXAM: VITAL SIGNS: Reviewed. GENERAL: Well-developed in no acute distress. NECK: Supple. No JVD or thyromegaly LUNGS: Respirations even and unlabored. Lungs diminished bilaterally. HEART: Irregular rate and rhythm. S1 and S2 heard. EXTREMITIES: Normal range of motion. No clubbing or cyanosis. Peripheral pulses intact. 2+ lower extremity edema ASSESSMENT: Paroxysmal atrial fibrillation with RVR, not on anticoagulation secondary to history of vaginal bleeding Acute on chronic systolic heart failure Nonischemic cardiomyopathy with previous AICD implantation, EF 20-25% Acute kidney injury Pulmonary hypertension Leukocytosis Elevated liver enzymes Hypertension Hyperlipidemia Anxiety Hyponatremia Hypotension PLAN: Continue telemetry monitoring Continue current cardiac medications Patient not on anticoagulation secondary to history of vaginal bleeding Continue lasix drip per nephrology Continue to hold Entresto Further recommendations pending patient course Patient to follow up outpatient with Dr. Salcedo Nurse practitioner note has been reviewed by physician. Signing provider agrees with the documented findings, assessment, and plan of care. Objective - Vital Signs Vital signs: Vital Signs Temp 97.7 F 12/21/20 11:51 Pulse 87 12/21/20 11:51 Resp 18 12/21/20 11:51 BP 100/61 12/21/20 11:51 Pulse Ox 99 12/21/20 11:51 Intake & Output 12/20/20 12/21/20 12/21/20 18:59 06:59 18:59 Intake Total 900.5 120 Output Total 2500 1905 1200 Balance -1599.5 -1905 -1080 Weight 118.7 kg Intake: Intake, IV Titration 60.5 Amount Furosemide 100 mg In 60.5 Sodium Chloride 0.9% 90 ml @ 5 MG/HR 5 mls/hr IV .Q20H [facility] Rx#:[id number] Oral 840 120 Output: Urine 2500 1905 1200 Other: Voiding Method Toilet Toilet Toilet # Voids 1 1 1 - Labs CBC & Chem 7: 12/21/20 07:16 12/21/20 07:16 Labs: Abnormal Lab Results - Last 24 Hours (Table) 12/20/20 12/21/20 12/21/20 Range/Units 04:36 07:16 07:16 WBC 12.2 H (3.8-10.6) k/uL Hgb 10.6 L (11.4-16.0) gm/dL MCV 76.0 L (80.0-100.0) fL MCH 23.2 L (25.0-35.0) pg MCHC 30.6 L (31.0-37.0) g/dL RDW 21.4 H (11.5-15.5) % Neutrophils # (Manual) 9.52 H (1.3-7.7) k/uL Monocytes # (Manual) 1.10 H (0-1.0) k/uL Sodium 136 L (137-145) mmol/L BUN 49 H (7-17) mg/dL Creatinine 1.78 H (0.52-1.04) mg/dL AST 58 H (14-36) U/L ALT 55 H (4-34) U/L Total Protein 5.6 L (6.3-8.2) g/dL Procalcitonin 0.31 H (0.02-0.09) ng/mL Microbiology - Last 24 Hours (Table) 12/19/20 10:16 Blood Culture - Preliminary Blood No Growth after 48 hours 12/20/20 11:00 Urine Culture - Preliminary Urine,Clean Catch
--- NOTE | 2020-12-21 13:29 | PN ---
PROGRESS NOTE Patient is seen for followup for acute kidney injury and hyponatremia. Her serum sodium has improved to 136 today. She denies any significant complaints. Creatinine is down to 1.7 from 2.1. PHYSICAL EXAMINATION: On examination today, blood pressure is 100/61, heart rate 87 per minute. Patient is afebrile. Examination of the heart S1, S2. Examination of the lungs, bilateral breath sounds are heard. Abdomen is soft, nontender. Examination of lower extremities shows no significant edema. STATEMENT PROCESSOR exam grossly intact. LAB: Show sodium 136, potassium 3.9, chloride 100, BUN 49, creatinine 1.78, hemoglobin 10.6 g/dL. ASSESSMENT: 1. Hypervolemic hyponatremia, currently improving with diuresis. 2. Acute kidney injury mostly ATN/cardiorenal syndrome with benign UA. Baseline creatinine around 1. 3. Acute on chronic systolic congestive heart failure, ejection fraction 20-25% with moderate tricuspid regurgitation. 4. Severe pulmonary hypertension. 5. Hyperkalemia associated with acute kidney injury, metabolic acidosis on Entresto, currently improved off these medications. 6. Atrial fibrillation with RVR, being followed by Cardiology. PLAN: The continue to diurese patient. We can discontinue the Lasix drip tomorrow morning and switch to IV push Lasix. MMODL / IJN: [id number] /
--- NOTE | 2020-12-21 13:37 | PN ---
PROGRESS NOTE DATE OF SERVICE: 12/21/2020 REASON FOR FOLLOWUP: Leukocytosis, likely UTI infection. INTERVAL HISTORY: Patient is afebrile. The patient is breathing comfortably. No chest pain, shortness of breath or cough. No abdominal pain, no diarrhea. PHYSICAL EXAMINATION: Blood pressure 100/61, pulse of 87, temperature 97.7, she is 99% on room air. General description is a middle-aged female lying in bed in no distress. Respiratory system: Unlabored breathing, clear to auscultation anteriorly. Heart S1, S2, regular rate and rhythm. Abdomen is soft, no tenderness. LABS: Hemoglobin is 10.5, white count BUN of 49, creatinine 1.78. DIAGNOSTIC IMPRESSION AND PLAN: Patient with leukocytosis, multifactorial, possible component of UTI. Initial improvement in the white count with Rocephin and to continue while waiting for the culture to finalize and monitor her clinical course closely. MMODL / IJN: [id number] /
[2020-12-21] MEDS: ALPRAZolam 0.25 MG TAB PO PRN (16:01)
[2020-12-21] MEDS: ACETAMINOPHEN TAB 325 MG TAB PO PRN (20:40)
[2020-12-22] MEDS: FUROSEMIDE 100 MG in SODIUM CHLORIDE 0.9% 90 ML IV SCH (01:16)
[2020-12-22] MEDS: PANTOPRAZOLE 40 MG TABLET PO SCH (06:34)
[2020-12-22] MEDS: METOPROLOL SUCCINATE (ER) 100 MG TAB.ER.24H PO SCH ×2 (08:44→19:49)
[2020-12-22] MEDS: allopurinoL 300 MG TAB PO SCH (08:44)
[2020-12-22] MEDS: ENOXAPARIN 40 MG/0.4 ML SYRINGE SQ SCH ×2 (08:44→08:48)
[2020-12-22] MEDS: ESCITALOPRAM 10 MG TAB PO SCH (08:44)
[2020-12-22] MEDS: ALPRAZolam 0.25 MG TAB PO PRN (08:54)
[2020-12-22 09:21] LABS: Anisocytosis Moderate; Basophils # (A) 0.1 k/uL (0-0.2); Basophils % (A) 1 %; Eosinophils # (A) 0.2 k/uL (0-0.7); Eosinophils % (A) 2 %; HCT 38.3 % (34.0-46.0); HGB 10.9 gm/dL (11.4-16.0); Hypochromasia Marked; Lymphocytes # (A) 0.8 k/uL (1.0-4.8); Lymphocytes % (A) 8 %; MCH 22.2 pg (25.0-35.0); MCHC 28.5 g/dL (31.0-37.0); Mean Platelet Volume 6.5; Microcytosis Moderate; Monocytes # (A) 0.5 k/uL (0-1.0); Monocytes % (A) 5 %; Neutrophils # (A) 8.8 k/uL (1.3-7.7); Neutrophils % (A) 84 %; Platelet Count 316 k/uL (150-450); Poikilocytosis Slight; RBC 4.91 m/uL (3.80-5.40); RDW 21.2 % (11.5-15.5); WBC 10.6 k/uL (3.8-10.6)
[2020-12-22 09:53] LABS: Albumin 3.7 g/dL (3.5-5.0); Calcium 9.3 mg/dL (8.4-10.2); Potassium 3.9 mmol/L (3.5-5.1)
--- NOTE | 2020-12-22 11:31 | P.PN ---
Subjective Progress Note Date: 12/21/20 This is a 50-year-old female patient who presented to the ER with complaints of palpitations. Patient reports that she's had this issue intermittently occurring. She reports that she felt anxious with prompted her to come to ER for further evaluation. Patient has a past medical history of chronic systolic congestive heart failure, nonischemic cardiomyopathy with previous AICD placement, paroxysmal atrial fibrillation, essential hypertension, hyperlipidemia and anxiety. She denies any recent illness. X-ray completed showing nonacute abdomen. Cardiomegaly. Chest x-ray performed showing cardiom egaly no heart failure no change compared to recent exam. Gallbladder ultrasound performed showing mild gallbladder wall thickening no gallstones or dilated ducts. Liver enzymes slightly elevated total bili 1.4, AST 168, ALT 140 and alkaline phosphatase 132. Troponin negative. BNP 8720. At this time patient was started on IV Lasix IV Cardizem. Cardiology services have been consulted. Patient denies chest pain. Patient denies shortness breath. Patient denies nausea vomiting or diarrhea. Patient denies any urinary burning or frequency. On 12/13/2020 Patient was seen and examined on the medical floor, she is alert and oriented x 3 in no distress, she is still complaining of shortness of breath with any activity she is also complaining of occasional palpitation otherwise she denies any complaints there is no fever or chills no headache or dizziness no chest pain, no cough no nausea or vomiting no abdominal pain no diarrhea no blood in the stools no burning with urination no frequency or urgency and no hematuria, there is no weakness or numbness in any of the extremities no change in vision speech or gait. On 12/14/2020 patient is alert and oriented 3. Patient relating of some dizziness. At this time patient denies chest pain or shortness breath. Patient denies nausea vomiting or diarrhea. Patient denies any urinary burning or frequency patient to be transitioned per cardiology to oral Lasix On 12/15/2020 patient alert and oriented 3. Patient has been transitioned to oral Lasix and cleared for discharge from cardiology services. Patient's sodium low today at 128 did discuss case with cardiology services okay for patient to have small amount of fluid 50 mL of normal saline. Patient stopped vomiting of some dizziness upon standing. Patient denies chest pain or shortness of breath. Patient denies nausea vomiting or diarrhea. Patient denies any urinary burning or frequency On 12/16/2020atient was seen and examined on the medical floor, he is alert and oriented x 3 in no distress, he denies any complaints there is no fever or chills no headache or dizziness no chest pain no shortness of breath no palpitation no cough no nausea or vomiting no abdominal pain no diarrhea no blood in the stools no burning with urination no frequency or urgency and no hematuria, there is no weakness or numbness in any of the extremities no change in vision speech or gait. Blood pressure is still on the low side and sodium is still low at 128 at this time will decrease Lasix to 40 mg once daily and continue was normal saline at 50 mL per hour. Will recheck in a.m. On 12/17/2020. Patient is alert and oriented 3. Patient remains on normal saline at 50. Sodium remains at 128. Transvaginal ultrasound completed. At this time patient is still complaining of intermittent episodes of dizziness. Patient denies chest pain. Patient denies shortness of breath. Patient denies nausea vomiting or diarrhea. Patient denies any urinary burning or frequency On 12/18/2020 Patient was seen and examined on the medical floor, she is alert and oriented x 3 in no distress, she is complaining of generalized weakness and shortness of breath with activity otherwise she denies any complaints there is no fever or chills no headache or dizziness no chest pain no palpitation no cough no nausea or vomiting no abdominal pain no diarrhea no blood in the stools no burning with urination no frequency or urgency and no hematuria, there is no weakness or numbness in any of the extremities no change in vision speech or gait. On 12/19/2020 patient is alert and oriented 3. Sodium remains low at 126, potassium 5.3. Running creatinine increasing 48 and 2.09. Patient reports that she's been nauseous with episodes of emesis throughout the night. Weight gain of 120.7-121.9. Patient does have some lower extremity edema. At this time given patient's acute renal injury but weight gain will consult nephrology services. Lasix on hold did discuss with cardiology services. Will order abdominal ultrasound for nausea and vomiting. Infectious disease also consulted for elevated white blood cell count. Chest x-ray UA and blood culture ordered. Critical care services also consulted. On 12/20/2020 Patient was seen and examined on the medical floor, she is alert and oriented x 3 in no distress, she is complaining of bilateral lower extremity edema, and complaining of shortness of breath with any activity otherwise she denies any complaints there is no fever or chills no headache or dizziness no chest pain no palpitation no cough no nausea or vomiting no abdominal pain no diarrhea no blood in the stools no burning with urination no frequency or urgenc y and no hematuria, there is no weakness or numbness in any of the extremities no change in vision speech or gait. On 12/21/2020 patient's alert and oriented 3. Patient has been started on Lasix drip. Reports some improvement with shortness of breath. Patient denies chest pain. Patient denies nausea vomiting or diarrhea. Patient currently on Rocephin for UTI. Nephrology, cardiology and infectious disease services are following. Objective - Vital Signs Vital signs: Vital Signs Temp 97.9 F 12/21/20 16:00 Pulse 70 12/21/20 16:00 Resp 18 12/21/20 16:00 BP 99/62 12/21/20 16:00 Pulse Ox 100 12/21/20 16:00 Intake & Output 12/20/20 12/21/20 12/21/20 18:59 06:59 18:59 Intake Total 900.5 238 Output Total 2500 1905 1999 Balance -0119.5 -4815 -4832 Weight 118.7 kg Intake: Intake, IV Titration 60.5 Amount Furosemide 100 mg In 60.5 Sodium Chloride 0.9% 90 ml @ 5 MG/HR 5 mls/hr IV .Q20H [facility] Rx#:[id number] Oral 840 238 Output: Urine 2500 1905 1999 Other: Voiding Method Toilet Toilet Toilet # Voids 1 1 1 - Exam In general patient is alert and oriented x 3 in no distress HEENT head normocephalic and atraumatic Neck is supple no JVD no goiter no lymphadenopathy no carotid bruit Chest examination is clear to auscultation no crackles no wheezing Cardiac exam reveals irregular heart sounds S1 and S2 no gallops no murmurs Abdomen is soft nontender no organomegaly with normal bowel sounds Extremity exam reveals no edema no cyanosis or clubbing Neurological examination reveals no gross focal deficits - Labs CBC & Chem 7: 12/22/20 09:04 12/22/20 09:04 Labs: Abnormal Lab Results - Last 24 Hours (Table) 12/21/20 12/21/20 Range/Units 07:16 07:16 WBC 12.2 H (3.8-10.6) k/uL Hgb 10.6 L (11.4-16.0) gm/dL MCV 76.0 L (80.0-100.0) fL MCH 23.2 L (25.0-35.0) pg MCHC 30.6 L (31.0-37.0) g/dL RDW 21.4 H (11.5-15.5) % Neutrophils # (Manual) 9.52 H (1.3-7.7) k/uL Monocytes # (Manual) 1.10 H (0-1.0) k/uL Sodium 136 L (137-145) mmol/L BUN 49 H (7-17) mg/dL Creatinine 1.78 H (0.52-1.04) mg/dL AST 58 H (14-36) U/L ALT 55 H (4-34) U/L Total Protein 5.6 L (6.3-8.2) g/dL Microbiology - Last 24 Hours (Table) 12/19/20 10:16 Blood Culture - Preliminary Blood No Growth after 48 hours 12/20/20 11:00 Urine Culture - Preliminary Urine,Clean Catch Assessment and Plan Assessment: 1. Atrial fibrillation with rapid ventricular response. 2. Acute exacerbation of chronic systolic congestive heart failure. Patient is now on Lasix drip 3. Elevated liver enzymes. gallbladder ultrasound completed showing mild gallbladder wall thickening stones no dilated ducts. Tylenol and Lipitor currently on hold 4. Known history of nonischemic cardiomyopathy the with previous history of AICD placement 5. Paroxysmal atrial fibrillation patient unable to tolerate it regulation due to vaginal bleeding 6. History of essential hypertension 7. History of hyperlipidemia 8. History of anxiety disorder 9. Hyponatremia sodium low at 128. Normal saline at 50 ordered. Did discuss with cardiology services 10. Acute kidney injury. Nephrology services will be consulted 11. Nausea and vomiting. Abdominal ultrasound ordered 12. Elevated white blood cell count. Patient was initially worked up on admission no infection found. Will reorder UA, chest x-ray and blood culture. Infectious disease service is consulted DVT prophylaxis SCDs. GI prophylaxis Protonix Cardiology services following Nephrology, infectious disease and critical care service is consulted alison oshea ordered per nephrology
--- NOTE | 2020-12-22 11:34 | P.PN ---
Subjective Progress Note Date: 12/22/20 This is a 50-year-old female patient who presented to the ER with complaints of palpitations. Patient reports that she's had this issue intermittently occurring. She reports that she felt anxious with prompted her to come to ER for further evaluation. Patient has a past medical history of chronic systolic congestive heart failure, nonischemic cardiomyopathy with previous AICD placement, paroxysmal atrial fibrillation, essential hypertension, hyperlipidemia and anxiety. She denies any recent illness. X-ray completed showing nonacute abdomen. Cardiomegaly. Chest x-ray performed showing cardiom egaly no heart failure no change compared to recent exam. Gallbladder ultrasound performed showing mild gallbladder wall thickening no gallstones or dilated ducts. Liver enzymes slightly elevated total bili 1.4, AST 168, ALT 140 and alkaline phosphatase 132. Troponin negative. BNP 8720. At this time patient was started on IV Lasix IV Cardizem. Cardiology services have been consulted. Patient denies chest pain. Patient denies shortness breath. Patient denies nausea vomiting or diarrhea. Patient denies any urinary burning or frequency. On 12/13/2020 Patient was seen and examined on the medical floor, she is alert and oriented x 3 in no distress, she is still complaining of shortness of breath with any activity she is also complaining of occasional palpitation otherwise she denies any complaints there is no fever or chills no headache or dizziness no chest pain, no cough no nausea or vomiting no abdominal pain no diarrhea no blood in the stools no burning with urination no frequency or urgency and no hematuria, there is no weakness or numbness in any of the extremities no change in vision speech or gait. On 12/14/2020 patient is alert and oriented 3. Patient relating of some dizziness. At this time patient denies chest pain or shortness breath. Patient denies nausea vomiting or diarrhea. Patient denies any urinary burning or frequency patient to be transitioned per cardiology to oral Lasix On 12/15/2020 patient alert and oriented 3. Patient has been transitioned to oral Lasix and cleared for discharge from cardiology services. Patient's sodium low today at 128 did discuss case with cardiology services okay for patient to have small amount of fluid 50 mL of normal saline. Patient stopped vomiting of some dizziness upon standing. Patient denies chest pain or shortness of breath. Patient denies nausea vomiting or diarrhea. Patient denies any urinary burning or frequency On 12/16/2020atient was seen and examined on the medical floor, he is alert and oriented x 3 in no distress, he denies any complaints there is no fever or chills no headache or dizziness no chest pain no shortness of breath no palpitation no cough no nausea or vomiting no abdominal pain no diarrhea no blood in the stools no burning with urination no frequency or urgency and no hematuria, there is no weakness or numbness in any of the extremities no change in vision speech or gait. Blood pressure is still on the low side and sodium is still low at 128 at this time will decrease Lasix to 40 mg once daily and continue was normal saline at 50 mL per hour. Will recheck in a.m. On 12/17/2020. Patient is alert and oriented 3. Patient remains on normal saline at 50. Sodium remains at 128. Transvaginal ultrasound completed. At this time patient is still complaining of intermittent episodes of dizziness. Patient denies chest pain. Patient denies shortness of breath. Patient denies nausea vomiting or diarrhea. Patient denies any urinary burning or frequency On 12/18/2020 Patient was seen and examined on the medical floor, she is alert and oriented x 3 in no distress, she is complaining of generalized weakness and shortness of breath with activity otherwise she denies any complaints there is no fever or chills no headache or dizziness no chest pain no palpitation no cough no nausea or vomiting no abdominal pain no diarrhea no blood in the stools no burning with urination no frequency or urgency and no hematuria, there is no weakness or numbness in any of the extremities no change in vision speech or gait. On 12/19/2020 patient is alert and oriented 3. Sodium remains low at 126, potassium 5.3. Running creatinine increasing 48 and 2.09. Patient reports that she's been nauseous with episodes of emesis throughout the night. Weight gain of 120.7-121.9. Patient does have some lower extremity edema. At this time given patient's acute renal injury but weight gain will consult nephrology services. Lasix on hold did discuss with cardiology services. Will order abdominal ultrasound for nausea and vomiting. Infectious disease also consulted for elevated white blood cell count. Chest x-ray UA and blood culture ordered. Critical care services also consulted. On 12/20/2020 Patient was seen and examined on the medical floor, she is alert and oriented x 3 in no distress, she is complaining of bilateral lower extremity edema, and complaining of shortness of breath with any activity otherwise she denies any complaints there is no fever or chills no headache or dizziness no chest pain no palpitation no cough no nausea or vomiting no abdominal pain no diarrhea no blood in the stools no burning with urination no frequency or urgenc y and no hematuria, there is no weakness or numbness in any of the extremities no change in vision speech or gait. On 12/21/2020 patient's alert and oriented 3. Patient has been started on Lasix drip. Reports some improvement with shortness of breath. Patient denies chest pain. Patient denies nausea vomiting or diarrhea. Patient currently on Rocephin for UTI. Nephrology, cardiology and infectious disease services are following. On 12/22/2009 1 patient's alert and oriented 3. Patient transitioned from Lasix drip to IV push Lasix. Weight improving from 118.7 kg to 117.9. White blood cell has normalized 10.6. Creatinine improving to 1.51 and bun 44. Patient reports she had a bowel movement in which she had to strain and noticed some bright red blood Lasix secondary to her hemorrhoids. Hemoglobin remained stable at 10.9 we'll continue to monitor hemoglobin and a further episodes of bleeding. At that time patient denies chest pain. Patient denies nausea vomiting or diarrhea. Patient denies any urinary burning or frequency Objective - Vital Signs Vital signs: Vital Signs Temp 98.1 F 12/22/20 08:00 Pulse 91 12/22/20 08:00 Resp 18 12/22/20 08:00 BP 128/64 12/22/20 08:00 Pulse Ox 100 12/22/20 08:00 Intake & Output 12/21/20 12/22/20 12/22/20 18:59 06:59 18:59 Intake Total 458 240 Output Total 2600 1900 800 Balance -2142 -1900 -560 Weight 117.9 kg Intake: Intake, IV Titration 100 Amount Furosemide 100 mg In 100 Sodium Chloride 0.9% 90 ml @ 5 MG/HR 5 mls/hr IV .Q20H [facility] Rx#:[id number] Oral 358 240 Output: Urine 2600 1900 800 Other: Voiding Method Toilet Toilet Toilet # Voids 1 1 1 - Exam In general patient is alert and oriented x 3 in no distress HEENT head normocephalic and atraumatic Neck is supple no JVD no goiter no lymphadenopathy no carotid bruit Chest examination is clear to auscultation no crackles no wheezing Cardiac exam reveals irregular heart sounds S1 and S2 no gallops no murmurs Abdomen is soft nontender no organomegaly with normal bowel sounds Extremity exam reveals no edema no cyanosis or clubbing Neurological examination reveals no gross focal deficits - Labs CBC & Chem 7: 12/22/20 09:04 12/22/20 09:04 Labs: Abnormal Lab Results - Last 24 Hours (Table) 12/22/20 12/22/20 Range/Units 09:04 09:04 Hgb 10.9 L (11.4-16.0) gm/dL MCV 78.0 L (80.0-100.0) fL MCH 22.2 L (25.0-35.0) pg MCHC 28.5 L (31.0-37.0) g/dL RDW 21.2 H (11.5-15.5) % Neutrophils # 8.8 H (1.3-7.7) k/uL Lymphocytes # 0.8 L (1.0-4.8) k/uL Carbon Dioxide 33 H (22-30) mmol/L BUN 44 H (7-17) mg/dL Creatinine 1.51 H (0.52-1.04) mg/dL Glucose 155 H (74-99) mg/dL AST 46 H (14-36) U/L ALT 45 H (4-34) U/L Total Protein 6.0 L (6.3-8.2) g/dL Microbiology - Last 24 Hours (Table) 12/20/20 11:00 Urine Culture - Final Urine,Clean Catch 12/19/20 10:16 Blood Culture - Preliminary Blood No Growth after 48 hours Assessment and Plan Assessment: 1. Atrial fibrillation with rapid ventricular response. 2. Acute exacerbation of chronic systolic congestive heart failure. Patient is now on Lasix drip 3. Elevated liver enzymes. gallbladder ultrasound completed showing mild gallbladder wall thickening stones no dilated ducts. Tylenol and Lipitor currently on hold 4. Known history of nonischemic cardiomyopathy the with previous history of AICD placement 5. Paroxysmal atrial fibrillation patient unable to tolerate it regulation due to vaginal bleeding 6. History of essential hypertension 7. History of hyperlipidemia 8. History of anxiety disorder 9. Hyponatremia sodium low at 128. Resolved 10. Acute kidney injury. Nephrology services will be consulted 11. Nausea and vomiting. Abdominal ultrasound ordered 12. Elevated white blood cell count likely secondary to urinary tract infe ction. Patient was initially worked up on admission no infection found. Infectious disease service is following DVT prophylaxis SCDs. GI prophylaxis Protonix Cardiology services following Nephrology, infectious disease and critical care service is consulted Patient transitioned from Lasix drip to IV Lasix
--- NOTE | 2020-12-22 12:03 | P.PN ---
Subjective Progress Note Date: 12/22/20 HISTORY OF PRESENT ILLNESS: 12/14/2020 This is a 50-year-old female who follows in the office with Dr. Salecdo. Patient was admitted to the hospital secondary to A. fib with RVR. Telemetry reveals atrial fibrillation with a heart rate in the 90s. Patient has not anticoagulation secondary to a history of vaginal bleeding. Patient is currently on metoprolol succinate 100 mg twice a day and 50 mg at noon. Blood pressure 100/61. 12/17/2020 Cardiology was reconsulted secondary to hypotension. Patients blood pressure 84/57. Patient states her blood pressure at home runs between 80-100 systolic. She reports mild dizziness occasionally when walking. She reports she also has this at home. No syncope. Telemetry reveals afib with controlled ventricular rates. Sodium 128. 12/18/2020 Patient examined this morning the bedside. She denies chest pain or pressure. She denies shortness of breath. Patient's blood pressure has improved this morning with a systolic in the 100s. Patient reports diarrhea and an episode of emesis. Patient's sodium remains low at 128. 12/19/2020 Patient examined this morning. Patient is sitting up in the chair. Patient states her diarrhea has resolved. She reports lower extremity edema. She denies having any shortness of breath. She denies chest pain or pressure. Blood pressure stable with a systolic blood pressure in the 100s. Sodium today is 126. Aldactone has been discontinued. Lasix has been held. However nephrology was consulted today and started the patient on a Lasix drip. BUN 48. Creatinine up to 2.09. 12/20/2020 Patient examined this morning at the bedside. Patient denies chest pain or pressure. Denies shortness of breath. She is on a lasix drip at 5mg/hr. BUN 53. Creatinine 2.16 Sodium 129. 12/21/2020 Patient examined this morning. She is sitting up in the chair. She denies chest pain or pressure. Reports occasional shortness of breath with exertion. She continues to have lower extremity edema. She is on a lasix drip per nephrology. BUN 49. Creatinine 1.78. 12/22/2020 Patient examined this morning. She is sitting up in the chair. She denies chest pain or pressure. She currently denies shortness of breath. She does have some improvement in her lower extremity edema. Her lasix has been changed from IV infusion to IV push per nephrology. Creatinine 1.51 today. BUN 44. PHYSICAL EXAM: VITAL SIGNS: Reviewed. GENERAL: Well-developed in no acute distress. NECK: Supple. No JVD or thyromegaly LUNGS: Respirations even and unlabored. Lungs diminished bilaterally. HEART: Irregular rate and rhythm. S1 and S2 heard. EXTREMITIES: Normal range of motion. No clubbing or cyanosis. Peripheral pulses intact. 2+ lower extremity edema ASSESSMENT: Paroxysmal atrial fibrillation with RVR, not on anticoagulation secondary to history of vaginal bleeding Acute on chronic systolic heart failure Nonischemic cardiomyopathy with previous AICD implantation, EF 20-25% Acute kidney injury Pulmonary hypertension Leukocytosis Elevated liver enzymes Hypertension Hyperlipidemia Anxiety Hyponatremia Hypotension PLAN: Continue telemetry monitoring Continue current cardiac medications Patient not on anticoagulation secondary to history of vaginal bleeding Continue lasix per nephrology Continue to hold Entresto until ERIBERTO resolves Further recommendations pending patient course Patient to follow up outpatient with Dr. Salcedo Nurse practitioner note has been reviewed by physician. Signing provider agrees with the documented findings, assessment, and plan of care. Objective - Vital Signs Vital signs: Vital Signs Temp 98.1 F 12/22/20 08:00 Pulse 91 12/22/20 08:00 Resp 18 12/22/20 08:00 BP 128/64 12/22/20 08:00 Pulse Ox 100 12/22/20 08:00 Intake & Output 12/21/20 12/22/20 12/22/20 18:59 06:59 18:59 Intake Total 458 240 Output Total 2600 1900 800 Balance -2142 -1900 -560 Weight 117.9 kg Intake: Intake, IV Titration 100 Amount Furosemide 100 mg In 100 Sodium Chloride 0.9% 90 ml @ 5 MG/HR 5 mls/hr IV .Q20H [facility] Rx#:[id number] Oral 358 240 Output: Urine 2600 1900 800 Other: Voiding Method Toilet Toilet Toilet # Voids 1 1 1 - Labs CBC & Chem 7: 12/22/20 09:04 12/22/20 09:04 Labs: Abnormal Lab Results - Last 24 Hours (Table) 12/22/20 12/22/20 Range/Units 09:04 09:04 Hgb 10.9 L (11.4-16.0) gm/dL MCV 78.0 L (80.0-100.0) fL MCH 22.2 L (25.0-35.0) pg MCHC 28.5 L (31.0-37.0) g/dL RDW 21.2 H (11.5-15.5) % Neutrophils # 8.8 H (1.3-7.7) k/uL Lymphocytes # 0.8 L (1.0-4.8) k/uL Carbon Dioxide 33 H (22-30) mmol/L BUN 44 H (7-17) mg/dL Creatinine 1.51 H (0.52-1.04) mg/dL Glucose 155 H (74-99) mg/dL AST 46 H (14-36) U/L ALT 45 H (4-34) U/L Total Protein 6.0 L (6.3-8.2) g/dL Microbiology - Last 24 Hours (Table) 12/20/20 11:00 Urine Culture - Final Urine,Clean Catch 12/19/20 10:16 Blood Culture - Preliminary Blood No Growth after 48 hours
[2020-12-22] MEDS: FERROUS SULFATE 325 MG TAB PO SCH (12:16)
[2020-12-22] MEDS: METOPROLOL SUCCINATE (ER) 50 MG TAB.ER.24H PO SCH (12:16)
--- NOTE | 2020-12-22 18:14 | PN ---
PROGRESS NOTE DATE OF SERVICE: 12/22/2020. REASON FOR FOLLOW UP: 1. Leukocytosis. 2. UTI. INTERVAL HISTORY: Patient is afebrile. The patient is breathing comfortably. Patient denies having any chest pain, shortness of breath. Occasional cough. No abdominal pain or diarrhea. PHYSICAL EXAMINATION: Blood pressure 94/51 with a pulse of 90, temperature 98.5. She is 100% on room air. General description is a middle-aged female up in the bed in no distress. Respiratory system: Unlabored breathing. Clear to auscultation anteriorly. Heart: S1, S2. Regular rate and rhythm. Abdomen: Soft, no tenderness. LABS: Hemoglobin is 10.4, white count 10.6, BUN of 44, creatinine 1.51. DIAGNOSTIC IMPRESSION AND PLAN: Patient with leukocytosis, multifactorial, possible component of urinary tract infection. She did have positive UA though cultures came back negative. However, the patient white count normalized with Rocephin to continue and monitor clinical course closely. MMODL / IJN: [id number] /
[2020-12-22] MEDS: FUROSEMIDE 10 MG/ML 10 ML VIAL IV SCH (19:50)
[2020-12-22] MEDS: ACETAMINOPHEN TAB 325 MG TAB PO PRN (21:33)
[2020-12-23] MEDS: PANTOPRAZOLE 40 MG TABLET PO SCH (06:14)
[2020-12-23 07:43] LABS: Anisocytosis Moderate; Basophils # (A) 0.1 k/uL (0-0.2); Basophils % (A) 1 %; Eosinophils # (A) 0.3 k/uL (0-0.7); Eosinophils % (A) 2 %; HCT 33.8 % (34.0-46.0); HGB 10.1 gm/dL (11.4-16.0); Hypochromasia Marked; Lymphocytes # (A) 1.1 k/uL (1.0-4.8); Lymphocytes % (A) 10 %; MCH 23.2 pg (25.0-35.0); MCV 77.3 fL (80.0-100.0); Microcytosis Moderate; Monocytes # (A) 0.9 k/uL (0-1.0); Monocytes % (A) 9 %; Neutrophils # (A) 8.4 k/uL (1.3-7.7); Neutrophils % (A) 77 %; Platelet Count 284 k/uL (150-450); Poikilocytosis Slight; RBC 4.38 m/uL (3.80-5.40); RDW 21.4 % (11.5-15.5); WBC 10.8 k/uL (3.8-10.6)
[2020-12-23 07:48] LABS: Albumin 3.3 g/dL (3.5-5.0); Calcium 8.6 mg/dL (8.4-10.2); Potassium 3.7 mmol/L (3.5-5.1); Total Bilirubin 0.9 mg/dL (0.2-1.3); Total Protein 5.5 g/dL (6.3-8.2)
[2020-12-23] MEDS: ACETAMINOPHEN TAB 325 MG TAB PO PRN (09:23)
[2020-12-23] MEDS: METOPROLOL SUCCINATE (ER) 100 MG TAB.ER.24H PO SCH ×2 (09:24→20:17)
[2020-12-23] MEDS: allopurinoL 300 MG TAB PO SCH (09:24)
[2020-12-23] MEDS: ESCITALOPRAM 10 MG TAB PO SCH (09:25)
[2020-12-23] MEDS: ENOXAPARIN 40 MG/0.4 ML SYRINGE SQ SCH (09:26)
[2020-12-23] MEDS: FUROSEMIDE 10 MG/ML 10 ML VIAL IV SCH ×2 (09:27→20:18)
--- NOTE | 2020-12-23 10:55 | P.PN ---
Subjective Progress Note Date: 12/23/20 HISTORY OF PRESENT ILLNESS: 12/14/2020 This is a 50-year-old female who follows in the office with Dr. Salcedo. Patient was admitted to the hospital secondary to A. fib with RVR. Telemetry reveals atrial fibrillation with a heart rate in the 90s. Patient has not anticoagulation secondary to a history of vaginal bleeding. Patient is currently on metoprolol succinate 100 mg twice a day and 50 mg at noon. Blood pressure 100/61. 12/17/2020 Cardiology was reconsulted secondary to hypotension. Patients blood pressure 84/57. Patient states her blood pressure at home runs between 80-100 systolic. She reports mild dizziness occasionally when walking. She reports she also has this at home. No syncope. Telemetry reveals afib with controlled ventricular rates. Sodium 128. 12/18/2020 Patient examined this morning the bedside. She denies chest pain or pressure. She denies shortness of breath. Patient's blood pressure has improved this morning with a systolic in the 100s. Patient reports diarrhea and an episode of emesis. Patient's sodium remains low at 128. 12/19/2020 Patient examined this morning. Patient is sitting up in the chair. Patient states her diarrhea has resolved. She reports lower extremity edema. She denies having any shortness of breath. She denies chest pain or pressure. Blood pressure stable with a systolic blood pressure in the 100s. Sodium today is 126. Aldactone has been discontinued. Lasix has been held. However nephrology was consulted today and started the patient on a Lasix drip. BUN 48. Creatinine up to 2.09. 12/20/2020 Patient examined this morning at the bedside. Patient denies chest pain or pressure. Denies shortness of breath. She is on a lasix drip at 5mg/hr. BUN 53. Creatinine 2.16 Sodium 129. 12/21/2020 Patient examined this morning. She is sitting up in the chair. She denies chest pain or pressure. Reports occasional shortness of breath with exertion. She continues to have lower extremity edema. She is on a lasix drip per nephrology. BUN 49. Creatinine 1.78. 12/22/2020 Patient examined this morning. She is sitting up in the chair. She denies chest pain or pressure. She currently denies shortness of breath. She does have some improvement in her lower extremity edema. Her lasix has been changed from IV infusion to IV push per nephrology. Creatinine 1.51 today. BUN 44. 12/23/2020 Patient examined this morning at the bedside. Patient states she is tired this morning and did not sleep all overnight. She denies chest pain or pressure. She currently denies shortness of breath. She continues to have improvement in her lower extremity edema. She remains on IV Lasix per nephrology. BUN 39. Creatinine 1.26. Fluid balance over the last 24 hours is -1100 mL. PHYSICAL EXAM: VITAL SIGNS: Reviewed. GENERAL: Well-developed in no acute distress. NECK: Supple. No JVD or thyromegaly LUNGS: Respirations even and unlabored. Lungs diminished bilaterally. HEART: Irregular rate and rhythm. S1 and S2 heard. EXTREMITIES: Normal range of motion. No clubbing or cyanosis. Peripheral p ulses intact. 2+ lower extremity edema ASSESSMENT: Paroxysmal atrial fibrillation with RVR, not on anticoagulation secondary to history of vaginal bleeding Acute on chronic systolic heart failure Nonischemic cardiomyopathy with previous AICD implantation, EF 20-25% Acute kidney injury Pulmonary hypertension Leukocytosis Elevated liver enzymes Hypertension Hyperlipidemia Anxiety Hyponatremia Hypotension PLAN: Continue telemetry monitoring Continue current cardiac medications Patient not on anticoagulation secondary to history of vaginal bleeding Continue lasix per nephrology Continue to hold Entresto until ERIBERTO resolves Further recommendations pending patient course Patient to follow up outpatient with Dr. Salcedo Nurse practitioner note has been reviewed by physician. Signing provider agrees with the documented findings, assessment, and plan of care. Objective - Vital Signs Vital signs: Vital Signs Temp 98.3 F 12/23/20 09:21 Pulse 87 12/23/20 09:21 Resp 16 12/23/20 09:21 BP 103/60 12/23/20 09:21 Pulse Ox 97 12/23/20 09:21 Intake & Output 12/22/20 12/23/20 12/23/20 18:59 06:59 18:59 Intake Total 600 640 Output Total 1700 400 Balance -1100 240 Weight 114 kg Intake: Oral 600 640 Output: Urine 1700 400 Other: Voiding Method Toilet Toilet Toilet # Voids 1 1 - Labs CBC & Chem 7: 12/23/20 06:56 12/23/20 06:56 Labs: Abnormal Lab Results - Last 24 Hours (Table) 12/23/20 12/23/20 Range/Units 06:56 06:56 WBC 10.8 H (3.8-10.6) k/uL Hgb 10.1 L (11.4-16.0) gm/dL Hct 33.8 L (34.0-46.0) % MCV 77.3 L (80.0-100.0) fL MCH 23.2 L (25.0-35.0) pg MCHC 30.0 L (31.0-37.0) g/dL RDW 21.4 H (11.5-15.5) % Neutrophils # 8.4 H (1.3-7.7) k/uL Carbon Dioxide 31 H (22-30) mmol/L BUN 39 H (7-17) mg/dL Creatinine 1.26 H (0.52-1.04) mg/dL Total Protein 5.5 L (6.3-8.2) g/dL Albumin 3.3 L (3.5-5.0) g/dL Microbiology - Last 24 Hours (Table) 12/19/20 10:16 Blood Culture - Preliminary Blood No Growth after 72 hours
[2020-12-23] MEDS ORDERED: Potassium Replacement Protocol 1 EACH MISC MISCELLANE PRN (11:04)
[2020-12-23] MEDS: METOPROLOL SUCCINATE (ER) 50 MG TAB.ER.24H PO SCH (11:41)
[2020-12-23] MEDS: FERROUS SULFATE 325 MG TAB PO SCH (11:42)
[2020-12-23] MEDS ORDERED: POTASSIUM CHLORIDE ER 20 MEQ TAB.ER PO SCH (12:00)
--- NOTE | 2020-12-23 12:17 | PN ---
PROGRESS NOTE Patient is seen for followup for acute kidney injury and volume overload. She is currently being diuresed. Serum creatinine continues to improve with creatinine down to 1.26 from 2.1 at peak. The patient is maintained on IV Lasix 60 mg q.12 hours. She has had good urine output. She had been maintained on Lasix drip for a long period of time as well. Her weight is down significantly. A 24 hour output documented at 4.5 L. EXAMINATION: Today blood pressure 103/60, heart rate 87 per minute, she is afebrile. Examination of the heart S1, S2. Examination of the lungs, bilateral breath sounds are heard. Abdomen is soft, nontender. Examination of lower extremities shows edema 2+ bilaterally. STAND GRINDER exam grossly intact. LAB: Show sodium 138, potassium 3.7, chloride 99, BUN 39, creatinine 1.26, hemoglobin 10.1 g/dL. ASSESSMENT: 1. Acute kidney injury, cardiorenal, currently significantly improved. Continue with IV Lasix. Patient still has some edema in her lower extremities. 2. Acute on chronic systolic congestive heart failure, ejection fraction 20-25% with moderate tricuspid regurgitation. 3. Severe pulmonary hypertension. 4. Hyperkalemia associated with acute kidney injury, metabolic acidosis and Entresto, currently improved. 5. Atrial fibrillation with an RVR with controlled ventricular response currently. Patient is maintained on metoprolol. PLAN: Continue with the current dose of IV Lasix. Repeat labs, monitor electrolytes in a.m. MMODL / IJN: [id number] /
--- NOTE | 2020-12-23 18:03 | PN ---
PROGRESS NOTE DATE OF SERVICE: 12/23/2020 REASON FOR FOLLOWUP: Leukocytosis and UTI infection. INTERVAL HISTORY: The patient is afebrile. The patient is breathing comfortably. Denies any palpitation. No chest pain, shortness of breath, abdominal pain. No diarrhea. PHYSICAL EXAMINATION: Blood pressure 110/72 with a pulse of 83, temperature 98.6. The patient is a middle- aged female up in the chair in no distress. RESPIRATORY SYSTEM: Unlabored breathing, decreased BS, no wheeze. HEART S1, S2. Regular rhythm. LABS: Hemoglobin 10.2, BUN of 39, creatinine 1.2. DIAGNOSTIC IMPRESSION AND PLAN: Patient with leukocytosis, multifactorial, possible component of UTI, adequately treated. Urine cultures remain negative, white count normalized. Antibiotic can be discontinued on discharge. Continue supportive care. MMODL / IJN: [id number] /
--- NOTE | 2020-12-23 19:15 | P.PN ---
Subjective Progress Note Date: 12/23/20 This is a 50-year-old female patient who presented to the ER with complaints of palpitations. Patient reports that she's had this issue intermittently occurring. She reports that she felt anxious with prompted her to come to ER for further evaluation. Patient has a past medical history of chronic systolic congestive heart failure, nonischemic cardiomyopathy with previous AICD placement, paroxysmal atrial fibrillation, essential hypertension, hyperlipidemia and anxiety. She denies any recent illness. X-ray completed showing nonacute abdomen. Cardiomegaly. Chest x-ray performed showing cardiom egaly no heart failure no change compared to recent exam. Gallbladder ultrasound performed showing mild gallbladder wall thickening no gallstones or dilated ducts. Liver enzymes slightly elevated total bili 1.4, AST 168, ALT 140 and alkaline phosphatase 132. Troponin negative. BNP 8720. At this time patient was started on IV Lasix IV Cardizem. Cardiology services have been consulted. Patient denies chest pain. Patient denies shortness breath. Patient denies nausea vomiting or diarrhea. Patient denies any urinary burning or frequency. On 12/13/2020 Patient was seen and examined on the medical floor, she is alert and oriented x 3 in no distress, she is still complaining of shortness of breath with any activity she is also complaining of occasional palpitation otherwise she denies any complaints there is no fever or chills no headache or dizziness no chest pain, no cough no nausea or vomiting no abdominal pain no diarrhea no blood in the stools no burning with urination no frequency or urgency and no hematuria, there is no weakness or numbness in any of the extremities no change in vision speech or gait. On 12/14/2020 patient is alert and oriented 3. Patient relating of some dizziness. At this time patient denies chest pain or shortness breath. Patient denies nausea vomiting or diarrhea. Patient denies any urinary burning or frequency patient to be transitioned per cardiology to oral Lasix On 12/15/2020 patient alert and oriented 3. Patient has been transitioned to oral Lasix and cleared for discharge from cardiology services. Patient's sodium low today at 128 did discuss case with cardiology services okay for patient to have small amount of fluid 50 mL of normal saline. Patient stopped vomiting of some dizziness upon standing. Patient denies chest pain or shortness of breath. Patient denies nausea vomiting or diarrhea. Patient denies any urinary burning or frequency On 12/16/2020atient was seen and examined on the medical floor, he is alert and oriented x 3 in no distress, he denies any complaints there is no fever or chills no headache or dizziness no chest pain no shortness of breath no palpitation no cough no nausea or vomiting no abdominal pain no diarrhea no blood in the stools no burning with urination no frequency or urgency and no hematuria, there is no weakness or numbness in any of the extremities no change in vision speech or gait. Blood pressure is still on the low side and sodium is still low at 128 at this time will decrease Lasix to 40 mg once daily and continue was normal saline at 50 mL per hour. Will recheck in a.m. On 12/17/2020. Patient is alert and oriented 3. Patient remains on normal saline at 50. Sodium remains at 128. Transvaginal ultrasound completed. At this time patient is still complaining of intermittent episodes of dizziness. Patient denies chest pain. Patient denies shortness of breath. Patient denies nausea vomiting or diarrhea. Patient denies any urinary burning or frequency On 12/18/2020 Patient was seen and examined on the medical floor, she is alert and oriented x 3 in no distress, she is complaining of generalized weakness and shortness of breath with activity otherwise she denies any complaints there is no fever or chills no headache or dizziness no chest pain no palpitation no cough no nausea or vomiting no abdominal pain no diarrhea no blood in the stools no burning with urination no frequency or urgency and no hematuria, there is no weakness or numbness in any of the extremities no change in vision speech or gait. On 12/19/2020 patient is alert and oriented 3. Sodium remains low at 126, potassium 5.3. Running creatinine increasing 48 and 2.09. Patient reports that she's been nauseous with episodes of emesis throughout the night. Weight gain of 120.7-121.9. Patient does have some lower extremity edema. At this time given patient's acute renal injury but weight gain will consult nephrology services. Lasix on hold did discuss with cardiology services. Will order abdominal ultrasound for nausea and vomiting. Infectious disease also consulted for elevated white blood cell count. Chest x-ray UA and blood culture ordered. Critical care services also consulted. On 12/20/2020 Patient was seen and examined on the medical floor, she is alert and oriented x 3 in no distress, she is complaining of bilateral lower extremity edema, and complaining of shortness of breath with any activity otherwise she denies any complaints there is no fever or chills no headache or dizziness no chest pain no palpitation no cough no nausea or vomiting no abdominal pain no diarrhea no blood in the stools no burning with urination no frequency or urgenc y and no hematuria, there is no weakness or numbness in any of the extremities no change in vision speech or gait. On 12/21/2020 patient's alert and oriented 3. Patient has been started on Lasix drip. Reports some improvement with shortness of breath. Patient denies chest pain. Patient denies nausea vomiting or diarrhea. Patient currently on Rocephin for UTI. Nephrology, cardiology and infectious disease services are following. On 12/22/2009 1 patient's alert and oriented 3. Patient transitioned from Lasix drip to IV push Lasix. Weight improving from 118.7 kg to 117.9. White blood cell has normalized 10.6. Creatinine improving to 1.51 and bun 44. Patient reports she had a bowel movement in which she had to strain and noticed some bright red blood Lasix secondary to her hemorrhoids. Hemoglobin remained stable at 10.9 we'll continue to monitor hemoglobin and a further episodes of bleeding. At that time patient denies chest pain. Patient denies nausea vomiting or diarrhea. Patient denies any urinary burning or frequency. On 12/23/2020 patient was seen and examined on the medical floor she is alert and oriented 3 in no distress she is still complaining of shortness of breath with activity otherwise she denies any complaints at this time Objective - Vital Signs Vital signs: Vital Signs Temp 98.3 F 12/23/20 09:21 Pulse 87 12/23/20 09:21 Resp 16 12/23/20 09:21 BP 103/60 12/23/20 09:21 Pulse Ox 97 12/23/20 09:21 Intake & Output 12/22/20 12/23/20 12/23/20 18:59 06:59 18:59 Intake Total 600 640 Output Total 1700 400 Balance -1100 240 Weight 114 kg Intake: Oral 600 640 Output: Urine 1700 400 Other: Voiding Method Toilet Toilet Toilet # Voids 1 1 - Exam In general patient is alert and oriented x 3 in no distress HEENT head normocephalic and atraumatic Neck is supple no JVD no goiter no lymphadenopathy no carotid bruit Chest examination is clear to auscultation no crackles no wheezing Cardiac exam reveals irregular heart sounds S1 and S2 no gallops no murmurs Abdomen is soft nontender no organomegaly with normal bowel sounds Extremity exam reveals no edema no cyanosis or clubbing Neurological examination reveals no gross focal deficits - Labs CBC & Chem 7: 12/23/20 06:56 12/23/20 06:56 Labs: Abnormal Lab Results - Last 24 Hours (Table) 12/23/20 12/23/20 Range/Units 06:56 06:56 WBC 10.8 H (3.8-10.6) k/uL Hgb 10.1 L (11.4-16.0) gm/dL Hct 33.8 L (34.0-46.0) % MCV 77.3 L (80.0-100.0) fL MCH 23.2 L (25.0-35.0) pg MCHC 30.0 L (31.0-37.0) g/dL RDW 21.4 H (11.5-15.5) % Neutrophils # 8.4 H (1.3-7.7) k/uL Carbon Dioxide 31 H (22-30) mmol/L BUN 39 H (7-17) mg/dL Creatinine 1.26 H (0.52-1.04) mg/dL Total Protein 5.5 L (6.3-8.2) g/dL Albumin 3.3 L (3.5-5.0) g/dL Microbiology - Last 24 Hours (Table) 12/19/20 10:16 Blood Culture - Preliminary Blood No Growth after 72 hours Assessment and Plan Assessment: 1. Atrial fibrillation with rapid ventricular response. 2. Acute exacerbation of chronic systolic congestive heart failure. Patient is now on Lasix drip 3. Elevated liver enzymes. gallbladder ultrasound completed showing mild gallbladder wall thickening stones no dilated ducts. Tylenol and Lipitor currently on hold 4. Known history of nonischemic cardiomyopathy the with previous history of AICD placement 5. Paroxysmal atrial fibrillation patient unable to tolerate it regulation due to vaginal bleeding 6. History of essential hypertension 7. History of hyperlipidemia 8. History of anxiety disorder 9. Hyponatremia sodium low at 128. Resolved 10. Acute kidney injury. Nephrology services will be consulted 11. Nausea and vomiting. Abdominal ultrasound ordered 12. Elevated white blood cell count likely secondary to urinary tract infection. Patient was initially worked up on admission no infection found. Infectious disease service is following DVT prophylaxis SCDs. GI prophylaxis Protonix Cardiology services following Nephrology, infectious disease and critical care service is consulted Patient transitioned from Lasix drip to IV Lasix
[2020-12-23] MEDS: ALPRAZolam 0.25 MG TAB PO PRN (22:38)
[2020-12-24] MEDS: PANTOPRAZOLE 40 MG TABLET PO SCH (06:42)
[2020-12-24] MEDS: allopurinoL 300 MG TAB PO SCH (08:48)
[2020-12-24] MEDS: ALPRAZolam 0.25 MG TAB PO PRN ×2 (08:48→22:39)
[2020-12-24] MEDS: ENOXAPARIN 40 MG/0.4 ML SYRINGE SQ SCH (08:48)
[2020-12-24] MEDS: ACETAMINOPHEN TAB 325 MG TAB PO PRN (08:48)
[2020-12-24] MEDS: ESCITALOPRAM 10 MG TAB PO SCH (08:49)
[2020-12-24] MEDS: METOPROLOL SUCCINATE (ER) 100 MG TAB.ER.24H PO SCH ×2 (08:49→20:21)
[2020-12-24] MEDS: FUROSEMIDE 10 MG/ML 10 ML VIAL IV SCH (08:57)
[2020-12-24 09:21] LABS: Anisocytosis Moderate; Basophils # (A) 0.1 k/uL (0-0.2); Basophils % (A) 1 %; Eosinophils # (A) 0.2 k/uL (0-0.7); Eosinophils % (A) 2 %; HCT 35.7 % (34.0-46.0); HGB 10.7 gm/dL (11.4-16.0); Hypochromasia Marked; Lymphocytes # (A) 1.1 k/uL (1.0-4.8); Lymphocytes % (A) 10 %; MCH 23.3 pg (25.0-35.0); MCHC 30.1 g/dL (31.0-37.0); MCV 77.4 fL (80.0-100.0); Mean Platelet Volume 7.2; Microcytosis Moderate; Monocytes # (A) 0.8 k/uL (0-1.0); Monocytes % (A) 7 %; Neutrophils # (A) 8.6 k/uL (1.3-7.7); Neutrophils % (A) 80 %; Platelet Count 284 k/uL (150-450); Poikilocytosis Slight; RBC 4.61 m/uL (3.80-5.40); RDW 21.5 % (11.5-15.5); WBC 10.8 k/uL (3.8-10.6)
[2020-12-24 09:37] LABS: Albumin 3.7 g/dL (3.5-5.0); Calcium 9.6 mg/dL (8.4-10.2); Potassium 4.1 mmol/L (3.5-5.1); Total Bilirubin 1.1 mg/dL (0.2-1.3)
--- NOTE | 2020-12-24 10:23 | PN ---
PROGRESS NOTE Patient is seen for followup for fluid overload and acute kidney injury. Renal function has been improving. Serum creatinine although jumped up to 1.4 from 1.2 yesterday. Her creatinine had peaked at about 2.1 mg/dL. Currently patient is maintained on IV Lasix 60 mg IV q.12 hours. Her urine output has been at about 1.9 L which is a bit lower than the 4.5 that she had previously. PHYSICAL EXAMINATION: Blood pressure is 111/71, heart rate 110 per minute. She is afebrile. Examination of the heart S1, S2. Examination of the lungs, bilateral breath sounds are heard. Decreased breath sounds at bases. Abdomen is soft, obese, nontender. Examination of lower extremities show edema 2+ bilaterally. CARD HAND exam grossly intact. LAB: Show sodium 138, potassium 4.1, BUN 37, serum creatinine 1.4, hemoglobin 10.7 g/dL. ASSESSMENT: 1. Acute kidney injury, cardiorenal. Serum creatinine had been improving, however, today it is higher than yesterday. We can decrease the Lasix to 40 mg q.12 hours and switch to p.o. diuretics tomorrow. 2. Volume overload, currently improved. 3. Acute on top of chronic systolic congestive heart failure. 4. Cardiomyopathy, ejection fraction 20-25% with moderate tricuspid regurgitation, severe pulmonary hypertension. 5. Atrial fibrillation with RVR, now with controlled ventricular response. 6. Hyperkalemia on initial admission, currently improved. PLAN: Decrease Lasix to 40 mg q.12 hours. Switch to p.o. diuretics in a.m. Avoid nephrotoxic agents. Avoid hypotension. MMODL / IJN: [id number] /
--- NOTE | 2020-12-24 10:45 | P.PN ---
Subjective Progress Note Date: 12/24/20 This is a 50-year-old female patient who presented to the ER with complaints of palpitations. Patient reports that she's had this issue intermittently occurring. She reports that she felt anxious with prompted her to come to ER for further evaluation. Patient has a past medical history of chronic systolic congestive heart failure, nonischemic cardiomyopathy with previous AICD placement, paroxysmal atrial fibrillation, essential hypertension, hyperlipidemia and anxiety. She denies any recent illness. X-ray completed showing nonacute abdomen. Cardiomegaly. Chest x-ray performed showing cardiom egaly no heart failure no change compared to recent exam. Gallbladder ultrasound performed showing mild gallbladder wall thickening no gallstones or dilated ducts. Liver enzymes slightly elevated total bili 1.4, AST 168, ALT 140 and alkaline phosphatase 132. Troponin negative. BNP 8720. At this time patient was started on IV Lasix IV Cardizem. Cardiology services have been consulted. Patient denies chest pain. Patient denies shortness breath. Patient denies nausea vomiting or diarrhea. Patient denies any urinary burning or frequency. On 12/13/2020 Patient was seen and examined on the medical floor, she is alert and oriented x 3 in no distress, she is still complaining of shortness of breath with any activity she is also complaining of occasional palpitation otherwise she denies any complaints there is no fever or chills no headache or dizziness no chest pain, no cough no nausea or vomiting no abdominal pain no diarrhea no blood in the stools no burning with urination no frequency or urgency and no hematuria, there is no weakness or numbness in any of the extremities no change in vision speech or gait. On 12/14/2020 patient is alert and oriented 3. Patient relating of some dizziness. At this time patient denies chest pain or shortness breath. Patient denies nausea vomiting or diarrhea. Patient denies any urinary burning or frequency patient to be transitioned per cardiology to oral Lasix On 12/15/2020 patient alert and oriented 3. Patient has been transitioned to oral Lasix and cleared for discharge from cardiology services. Patient's sodium low today at 128 did discuss case with cardiology services okay for patient to have small amount of fluid 50 mL of normal saline. Patient stopped vomiting of some dizziness upon standing. Patient denies chest pain or shortness of breath. Patient denies nausea vomiting or diarrhea. Patient denies any urinary burning or frequency On 12/16/2020atient was seen and examined on the medical floor, he is alert and oriented x 3 in no distress, he denies any complaints there is no fever or chills no headache or dizziness no chest pain no shortness of breath no palpitation no cough no nausea or vomiting no abdominal pain no diarrhea no blood in the stools no burning with urination no frequency or urgency and no hematuria, there is no weakness or numbness in any of the extremities no change in vision speech or gait. Blood pressure is still on the low side and sodium is still low at 128 at this time will decrease Lasix to 40 mg once daily and continue was normal saline at 50 mL per hour. Will recheck in a.m. On 12/17/2020. Patient is alert and oriented 3. Patient remains on normal saline at 50. Sodium remains at 128. Transvaginal ultrasound completed. At this time patient is still complaining of intermittent episodes of dizziness. Patient denies chest pain. Patient denies shortness of breath. Patient denies nausea vomiting or diarrhea. Patient denies any urinary burning or frequency On 12/18/2020 Patient was seen and examined on the medical floor, she is alert and oriented x 3 in no distress, she is complaining of generalized weakness and shortness of breath with activity otherwise she denies any complaints there is no fever or chills no headache or dizziness no chest pain no palpitation no cough no nausea or vomiting no abdominal pain no diarrhea no blood in the stools no burning with urination no frequency or urgency and no hematuria, there is no weakness or numbness in any of the extremities no change in vision speech or gait. On 12/19/2020 patient is alert and oriented 3. Sodium remains low at 126, potassium 5.3. Running creatinine increasing 48 and 2.09. Patient reports that she's been nauseous with episodes of emesis throughout the night. Weight gain of 120.7-121.9. Patient does have some lower extremity edema. At this time given patient's acute renal injury but weight gain will consult nephrology services. Lasix on hold did discuss with cardiology services. Will order abdominal ultrasound for nausea and vomiting. Infectious disease also consulted for elevated white blood cell count. Chest x-ray UA and blood culture ordered. Critical care services also consulted. On 12/20/2020 Patient was seen and examined on the medical floor, she is alert and oriented x 3 in no distress, she is complaining of bilateral lower extremity edema, and complaining of shortness of breath with any activity otherwise she denies any complaints there is no fever or chills no headache or dizziness no chest pain no palpitation no cough no nausea or vomiting no abdominal pain no diarrhea no blood in the stools no burning with urination no frequency or urgenc y and no hematuria, there is no weakness or numbness in any of the extremities no change in vision speech or gait. On 12/21/2020 patient's alert and oriented 3. Patient has been started on Lasix drip. Reports some improvement with shortness of breath. Patient denies chest pain. Patient denies nausea vomiting or diarrhea. Patient currently on Rocephin for UTI. Nephrology, cardiology and infectious disease services are following. On 12/22/2009 1 patient's alert and oriented 3. Patient transitioned from Lasix drip to IV push Lasix. Weight improving from 118.7 kg to 117.9. White blood cell has normalized 10.6. Creatinine improving to 1.51 and bun 44. Patient reports she had a bowel movement in which she had to strain and noticed some bright red blood Lasix secondary to her hemorrhoids. Hemoglobin remained stable at 10.9 we'll continue to monitor hemoglobin and a further episodes of bleeding. At that time patient denies chest pain. Patient denies nausea vomiting or diarrhea. Patient denies any urinary burning or frequency. On 12/23/2020 patient was seen and examined on the medical floor she is alert and oriented 3 in no distress she is still complaining of shortness of breath with activity otherwise she denies any complaints at this time On 12/24/2020 patient's alert and oriented 3. Patient remains on IV Lasix 60 mg twice a day. Per infectious disease no need for antibiotics at discharge. PT OT has been consulted. At this time patient denies chest pain. Patient is still complaining of mild shortness breath. Patient denies nausea vomiting or diarrhea. Patient denies any urinary burning or frequency Objective - Vital Signs Vital signs: Vital Signs Temp 97.8 F 12/24/20 08:00 Pulse 110 H 12/24/20 08:00 Resp 16 12/24/20 08:00 BP 111/71 12/24/20 08:00 Pulse Ox 98 12/24/20 08:00 Intake & Output 12/23/20 12/24/20 12/24/20 18:59 06:59 18:59 Intake Total 880 250 Output Total 1450 500 600 Balance -570 -500 -350 Weight 113.4 kg Intake: Oral 880 250 Output: Urine 1450 500 600 Other: Voiding Method Toilet Toilet Toilet # Voids 1 - Exam In general patient is alert and oriented x 3 in no distress HEENT head normocephalic and atraumatic Neck is supple no JVD no goiter no lymphadenopathy no carotid bruit Chest examination is clear to auscultation no crackles no wheezing Cardiac exam reveals irregular heart sounds S1 and S2 no gallops no murmurs Abdomen is soft nontender no organomegaly with normal bowel sounds Extremity exam reveals no edema no cyanosis or clubbing Neurological examination reveals no gross focal deficits - Labs CBC & Chem 7: 12/24/20 08:31 12/24/20 08:31 Labs: Abnormal Lab Results - Last 24 Hours (Table) 12/24/20 12/24/20 Range/Units 08:31 08:31 WBC 10.8 H (3.8-10.6) k/uL Hgb 10.7 L (11.4-16.0) gm/dL MCV 77.4 L (80.0-100.0) fL MCH 23.3 L (25.0-35.0) pg MCHC 30.1 L (31.0-37.0) g/dL RDW 21.5 H (11.5-15.5) % Neutrophils # 8.6 H (1.3-7.7) k/uL BUN 37 H (7-17) mg/dL Creatinine 1.40 H (0.52-1.04) mg/dL Total Protein 6.0 L (6.3-8.2) g/dL Microbiology - Last 24 Hours (Table) 12/19/20 10:16 Blood Culture - Preliminary Blood No Growth after 96 hours Assessment and Plan Assessment: 1. Atrial fibrillation with rapid ventricular response. 2. Acute exacerbation of chronic systolic congestive heart failure. Patient is now on Lasix drip 3. Elevated liver enzymes. gallbladder ultrasound completed showing mild gallbladder wall thickening stones no dilated ducts. Tylenol and Lipitor currently on hold 4. Known history of nonischemic cardiomyopathy the with previous history of AICD placement 5. Paroxysmal atrial fibrillation patient unable to tolerate it regulation due to vaginal bleeding 6. History of essential hypertension 7. History of hyperlipidemia 8. History of anxiety disorder 9. Hyponatremia sodium low at 128. Resolved 10. Acute kidney injury. Nephrology services will be consulted 11. Nausea and vomiting. Abdominal ultrasound ordered 12. Elevated white blood cell count likely secondary to urinary tract infection. Patient was initially worked up on admission no infection found. Infectious disease service is following DVT prophylaxis SCDs. GI prophylaxis Protonix Cardiology services following Nephrology, infectious disease and critical care service is consulted Patient transitioned from Lasix drip to IV Lasix
[2020-12-24] MEDS: METOPROLOL SUCCINATE (ER) 50 MG TAB.ER.24H PO SCH (11:16)
[2020-12-24] MEDS: FERROUS SULFATE 325 MG TAB PO SCH (11:16)
[2020-12-24] MEDS ORDERED: POTASSIUM CHLORIDE 20 MEQ in WATER FOR INJECTION 1 100ML.BAG IVPB STA (14:01)
--- NOTE | 2020-12-24 14:44 | P.PN ---
Subjective Progress Note Date: 12/24/20 HISTORY OF PRESENT ILLNESS: 12/14/2020 This is a 50-year-old female who follows in the office with Dr. Salcedo. Patient was admitted to the hospital secondary to A. fib with RVR. Telemetry reveals atrial fibrillation with a heart rate in the 90s. Patient has not anticoagulation secondary to a history of vaginal bleeding. Patient is currently on metoprolol succinate 100 mg twice a day and 50 mg at noon. Blood pressure 100/61. 12/17/2020 Cardiology was reconsulted secondary to hypotension. Patients blood pressure 84/57. Patient states her blood pressure at home runs between 80-100 systolic. She reports mild dizziness occasionally when walking. She reports she also has this at home. No syncope. Telemetry reveals afib with controlled ventricular rates. Sodium 128. 12/18/2020 Patient examined this morning the bedside. She denies chest pain or pressure. She denies shortness of breath. Patient's blood pressure has improved this morning with a systolic in the 100s. Patient reports diarrhea and an episode of emesis. Patient's sodium remains low at 128. 12/19/2020 Patient examined this morning. Patient is sitting up in the chair. Patient states her diarrhea has resolved. She reports lower extremity edema. She denies having any shortness of breath. She denies chest pain or pressure. Blood pressure stable with a systolic blood pressure in the 100s. Sodium today is 126. Aldactone has been discontinued. Lasix has been held. However nephrology was consulted today and started the patient on a Lasix drip. BUN 48. Creatinine up to 2.09. 12/20/2020 Patient examined this morning at the bedside. Patient denies chest pain or pressure. Denies shortness of breath. She is on a lasix drip at 5mg/hr. BUN 53. Creatinine 2.16 Sodium 129. 12/21/2020 Patient examined this morning. She is sitting up in the chair. She denies chest pain or pressure. Reports occasional shortness of breath with exertion. She continues to have lower extremity edema. She is on a lasix drip per nephrology. BUN 49. Creatinine 1.78. 12/22/2020 Patient examined this morning. She is sitting up in the chair. She denies chest pain or pressure. She currently denies shortness of breath. She does have some improvement in her lower extremity edema. Her lasix has been changed from IV infusion to IV push per nephrology. Creatinine 1.51 today. BUN 44. 12/23/2020 Patient examined this morning at the bedside. Patient states she is tired this morning and did not sleep all overnight. She denies chest pain or pressure. She currently denies shortness of breath. She continues to have improvement in her lower extremity edema. She remains on IV Lasix per nephrology. BUN 39. Creatinine 1.26. Fluid balance over the last 24 hours is -1100 mL. 12/24/2020 Patient examined this morning at the bedside. She denies chest pain or pressure. She denies shortness of breath. She remains on IV Lasix per nephrology. PHYSICAL EXAM: VITAL SIGNS: Reviewed. GENERAL: Well-developed in no acute distress. NECK: Supple. No JVD or thyromegaly LUNGS: Respirations even and unlabored. Lungs diminished bilaterally. HEART: Irregular rate and rhythm. S1 and S2 heard. EXTREMITIES: Normal range of motion. No clubbing or cyanosis. Peripheral pulses intact. 1-2+ lower extremity edema ASSESSMENT: Paroxysmal atrial fibrillation with RVR, not on anticoagulation secondary to history of vaginal bleeding Acute on chronic systolic heart failure Nonischemic cardiomyopathy with previous AICD implantation, EF 20-25% Acute kidney injury Pulmonary hypertension Leukocytosis Elevated liver enzymes Hypertension Hyperlipidemia Anxiety Hyponatremia Hypotension PLAN: Continue telemetry monitoring Continue current cardiac medications Patient not on anticoagulation secondary to history of vaginal bleeding Continue lasix per nephrology Continue to hold Entresto until ERIBERTO resolves Further recommendations pending patient course Patient to follow up outpatient with Dr. Salcedo Nurse practitioner note has been reviewed by physician. Signing provider agrees with the documented findings, assessment, and plan of care. Objective - Vital Signs Vital signs: Vital Signs Temp 98 F 12/24/20 11:00 Pulse 100 12/24/20 13:20 Resp 16 12/24/20 13:20 BP 110/71 12/24/20 11:00 Pulse Ox 96 12/24/20 11:00 Intake & Output 12/23/20 12/24/20 12/24/20 18:59 06:59 18:59 Intake Total 880 490 Output Total 1450 500 600 Balance -570 -500 -110 Weight 113.4 kg Intake: Oral 880 490 Output: Urine 1450 500 600 Other: Voiding Method Toilet Toilet Toilet # Voids 1 - Labs CBC & Chem 7: 12/24/20 08:31 12/24/20 08:31 Labs: Abnormal Lab Results - Last 24 Hours (Table) 12/24/20 12/24/20 Range/Units 08:31 08:31 WBC 10.8 H (3.8-10.6) k/uL Hgb 10.7 L (11.4-16.0) gm/dL MCV 77.4 L (80.0-100.0) fL MCH 23.3 L (25.0-35.0) pg MCHC 30.1 L (31.0-37.0) g/dL RDW 21.5 H (11.5-15.5) % Neutrophils # 8.6 H (1.3-7.7) k/uL BUN 37 H (7-17) mg/dL Creatinine 1.40 H (0.52-1.04) mg/dL Total Protein 6.0 L (6.3-8.2) g/dL Microbiology - Last 24 Hours (Table) 12/19/20 10:16 Blood Culture - Preliminary Blood No Growth after 120 hours
[2020-12-24] MEDS ORDERED: POTASSIUM CHLORIDE ER 20 MEQ TAB.ER PO SCH ×2 (16:00→21:00)
--- NOTE | 2020-12-24 19:18 | PN ---
PROGRESS NOTE DATE OF SERVICE: 12/24/2020 REASON FOR FOLLOWUP: Leukocytosis and possible UTI. INTERVAL HISTORY: Patient is afebrile. The patient is feeling better. Breathing comfortably. No chest pain, shortness of breath or cough. No abdominal pain or diarrhea. PHYSICAL EXAMINATION: Her blood pressure is 109/67, pulse of 109, temperature 98.6, she is 98% room air. GENERAL DESCRIPTION: The patient is a middle-aged female up in the chair in no distress. RESPIRATORY SYSTEM: Unlabored breathing, decreased intensity of breath sounds. No wheeze. HEART: S1, S2. Regular rate and rhythm. ABDOMEN: Soft, nontender. LABS: Hemoglobin is 10.1, white count 10.8. BUN of 37, creatinine 1.40. Blood and urine cultures remain negative. DIAGNOSTIC IMPRESSION AND PLAN: Patient admitted to the hospital with ( ) in this patient who did have a positive UA and concern for a urinary tract infection. The patient white count responded to the Rocephin, to continue. ( ) the patient can be safely discontinued on discharge. Continue supportive care. MMODL / IJN: [id number] /
[2020-12-24] MEDS: FUROSEMIDE 10 MG/ML 4 ML VIAL IV SCH (20:21)
[2020-12-25] MEDS: PANTOPRAZOLE 40 MG TABLET PO SCH (06:40)
[2020-12-25] MEDS: ENOXAPARIN 40 MG/0.4 ML SYRINGE SQ SCH (08:26)
[2020-12-25] MEDS: FUROSEMIDE 10 MG/ML 4 ML VIAL IV SCH (08:26)
[2020-12-25] MEDS: ESCITALOPRAM 10 MG TAB PO SCH (08:26)
[2020-12-25] MEDS: allopurinoL 300 MG TAB PO SCH (08:27)
[2020-12-25] MEDS: METOPROLOL SUCCINATE (ER) 100 MG TAB.ER.24H PO SCH ×2 (08:27→20:56)
[2020-12-25] MEDS ORDERED: ONDANSETRON 4 MG/2 ML VIAL IVP STA (08:30)
[2020-12-25 08:53] LABS: Anisocytosis Moderate; Basophils # (A) 0.1 k/uL (0-0.2); Basophils % (A) 1 %; Eosinophils # (A) 0.1 k/uL (0-0.7); Eosinophils % (A) 1 %; HCT 37.6 % (34.0-46.0); HGB 10.9 gm/dL (11.4-16.0); Hypochromasia Marked; Lymphocytes # (A) 1.1 k/uL (1.0-4.8); Lymphocytes % (A) 10 %; MCH 22.9 pg (25.0-35.0); MCHC 29.1 g/dL (31.0-37.0); MCV 78.6 fL (80.0-100.0); Mean Platelet Volume 7.1; Microcytosis Moderate; Monocytes # (A) 0.6 k/uL (0-1.0); Monocytes % (A) 6 %; Neutrophils # (A) 8.5 k/uL (1.3-7.7); Neutrophils % (A) 81 %; Platelet Count 292 k/uL (150-450); Poikilocytosis Slight; RBC 4.78 m/uL (3.80-5.40); RDW 21.3 % (11.5-15.5); WBC 10.4 k/uL (3.8-10.6)
[2020-12-25 08:58] LABS: Albumin 3.6 g/dL (3.5-5.0); Calcium 9.5 mg/dL (8.4-10.2); Magnesium 1.9 mg/dL (1.6-2.3); Potassium 4.1 mmol/L (3.5-5.1); Total Bilirubin 1.1 mg/dL (0.2-1.3); Total Protein 5.8 g/dL (6.3-8.2)
--- NOTE | 2020-12-25 09:12 | P.PN ---
Subjective Progress Note Date: 12/25/20 This is a 50-year-old female patient who presented to the ER with complaints of palpitations. Patient reports that she's had this issue intermittently occurring. She reports that she felt anxious with prompted her to come to ER for further evaluation. Patient has a past medical history of chronic systolic congestive heart failure, nonischemic cardiomyopathy with previous AICD placement, paroxysmal atrial fibrillation, essential hypertension, hyperlipidemia and anxiety. She denies any recent illness. X-ray completed showing nonacute abdomen. Cardiomegaly. Chest x-ray performed showing cardiom egaly no heart failure no change compared to recent exam. Gallbladder ultrasound performed showing mild gallbladder wall thickening no gallstones or dilated ducts. Liver enzymes slightly elevated total bili 1.4, AST 168, ALT 140 and alkaline phosphatase 132. Troponin negative. BNP 8720. At this time patient was started on IV Lasix IV Cardizem. Cardiology services have been consulted. Patient denies chest pain. Patient denies shortness breath. Patient denies nausea vomiting or diarrhea. Patient denies any urinary burning or frequency. On 12/13/2020 Patient was seen and examined on the medical floor, she is alert and oriented x 3 in no distress, she is still complaining of shortness of breath with any activity she is also complaining of occasional palpitation otherwise she denies any complaints there is no fever or chills no headache or dizziness no chest pain, no cough no nausea or vomiting no abdominal pain no diarrhea no blood in the stools no burning with urination no frequency or urgency and no hematuria, there is no weakness or numbness in any of the extremities no change in vision speech or gait. On 12/14/2020 patient is alert and oriented 3. Patient relating of some dizziness. At this time patient denies chest pain or shortness breath. Patient denies nausea vomiting or diarrhea. Patient denies any urinary burning or frequency patient to be transitioned per cardiology to oral Lasix On 12/15/2020 patient alert and oriented 3. Patient has been transitioned to oral Lasix and cleared for discharge from cardiology services. Patient's sodium low today at 128 did discuss case with cardiology services okay for patient to have small amount of fluid 50 mL of normal saline. Patient stopped vomiting of some dizziness upon standing. Patient denies chest pain or shortness of breath. Patient denies nausea vomiting or diarrhea. Patient denies any urinary burning or frequency On 12/16/2020atient was seen and examined on the medical floor, he is alert and oriented x 3 in no distress, he denies any complaints there is no fever or chills no headache or dizziness no chest pain no shortness of breath no palpitation no cough no nausea or vomiting no abdominal pain no diarrhea no blood in the stools no burning with urination no frequency or urgency and no hematuria, there is no weakness or numbness in any of the extremities no change in vision speech or gait. Blood pressure is still on the low side and sodium is still low at 128 at this time will decrease Lasix to 40 mg once daily and continue was normal saline at 50 mL per hour. Will recheck in a.m. On 12/17/2020. Patient is alert and oriented 3. Patient remains on normal saline at 50. Sodium remains at 128. Transvaginal ultrasound completed. At this time patient is still complaining of intermittent episodes of dizziness. Patient denies chest pain. Patient denies shortness of breath. Patient denies nausea vomiting or diarrhea. Patient denies any urinary burning or frequency On 12/18/2020 Patient was seen and examined on the medical floor, she is alert and oriented x 3 in no distress, she is complaining of generalized weakness and shortness of breath with activity otherwise she denies any complaints there is no fever or chills no headache or dizziness no chest pain no palpitation no cough no nausea or vomiting no abdominal pain no diarrhea no blood in the stools no burning with urination no frequency or urgency and no hematuria, there is no weakness or numbness in any of the extremities no change in vision speech or gait. On 12/19/2020 patient is alert and oriented 3. Sodium remains low at 126, potassium 5.3. Running creatinine increasing 48 and 2.09. Patient reports that she's been nauseous with episodes of emesis throughout the night. Weight gain of 120.7-121.9. Patient does have some lower extremity edema. At this time given patient's acute renal injury but weight gain will consult nephrology services. Lasix on hold did discuss with cardiology services. Will order abdominal ultrasound for nausea and vomiting. Infectious disease also consulted for elevated white blood cell count. Chest x-ray UA and blood culture ordered. Critical care services also consulted. On 12/20/2020 Patient was seen and examined on the medical floor, she is alert and oriented x 3 in no distress, she is complaining of bilateral lower extremity edema, and complaining of shortness of breath with any activity otherwise she denies any complaints there is no fever or chills no headache or dizziness no chest pain no palpitation no cough no nausea or vomiting no abdominal pain no diarrhea no blood in the stools no burning with urination no frequency or urgenc y and no hematuria, there is no weakness or numbness in any of the extremities no change in vision speech or gait. On 12/21/2020 patient's alert and oriented 3. Patient has been started on Lasix drip. Reports some improvement with shortness of breath. Patient denies chest pain. Patient denies nausea vomiting or diarrhea. Patient currently on Rocephin for UTI. Nephrology, cardiology and infectious disease services are following. On 12/22/2009 1 patient's alert and oriented 3. Patient transitioned from Lasix drip to IV push Lasix. Weight improving from 118.7 kg to 117.9. White blood cell has normalized 10.6. Creatinine improving to 1.51 and bun 44. Patient reports she had a bowel movement in which she had to strain and noticed some bright red blood Lasix secondary to her hemorrhoids. Hemoglobin remained stable at 10.9 we'll continue to monitor hemoglobin and a further episodes of bleeding. At that time patient denies chest pain. Patient denies nausea vomiting or diarrhea. Patient denies any urinary burning or frequency. On 12/23/2020 patient was seen and examined on the medical floor she is alert and oriented 3 in no distress she is still complaining of shortness of breath with activity otherwise she denies any complaints at this time On 12/24/2020 patient's alert and oriented 3. Patient remains on IV Lasix 60 mg twice a day. Per infectious disease no need for antibiotics at discharge. PT OT has been consulted. At this time patient denies chest pain. Patient is still complaining of mild shortness breath. Patient denies nausea vomiting or diarrhea. Patient denies any urinary burning or frequency On 12/25/2020 patient having some nausea this AM. Patient remains on IV Lasix. Weight 113.4 to 112.8. Creatinine 1.53 and bun 40. At this time patient denies any chest pain or shortness breath. Patient denies nausea vomiting or diarrhea. Patient denies any urinary burning or frequency Objective - Vital Signs Vital signs: Vital Signs Temp 98.1 F 12/25/20 08:00 Pulse 62 12/25/20 08:00 Resp 18 12/25/20 08:00 BP 97/68 12/25/20 08:00 Pulse Ox 97 12/25/20 08:00 Intake & Output 12/24/20 12/25/20 12/25/20 18:59 06:59 18:59 Intake Total 980 Output Total 600 1310 Balance 380 -1310 Weight 112.8 kg Intake: Oral 980 Output: Urine 600 1310 Other: Voiding Method Toilet Toilet # Voids 4 - Exam In general patient is alert and oriented x 3 in no distress HEENT head normocephalic and atraumatic Neck is supple no JVD no goiter no lymphadenopathy no carotid bruit Chest examination is clear to auscultation no crackles no wheezing Cardiac exam reveals irregular heart sounds S1 and S2 no gallops no murmurs Abdomen is soft nontender no organomegaly with normal bowel sounds Extremity exam reveals no edema no cyanosis or clubbing Neurological examination reveals no gross focal deficits - Labs CBC & Chem 7: 12/25/20 08:25 12/25/20 08:25 Labs: Abnormal Lab Results - Last 24 Hours (Table) 12/24/20 12/24/20 12/25/20 Range/Units 08:31 08:31 08:25 WBC 10.8 H (3.8-10.6) k/uL Hgb 10.7 L 10.9 L (11.4-16.0) gm/dL MCV 77.4 L 78.6 L (80.0-100.0) fL MCH 23.3 L 22.9 L (25.0-35.0) pg MCHC 30.1 L 29.1 L (31.0-37.0) g/dL RDW 21.5 H 21.3 H (11.5-15.5) % Neutrophils # 8.6 H 8.5 H (1.3-7.7) k/uL BUN 37 H (7-17) mg/dL Creatinine 1.40 H (0.52-1.04) mg/dL Total Protein 6.0 L (6.3-8.2) g/dL 12/25/20 Range/Units 08:25 WBC (3.8-10.6) k/uL Hgb (11.4-16.0) gm/dL MCV (80.0-100.0) fL MCH (25.0-35.0) pg MCHC (31.0-37.0) g/dL RDW (11.5-15.5) % Neutrophils # (1.3-7.7) k/uL BUN 40 H (7-17) mg/dL Creatinine 1.53 H (0.52-1.04) mg/dL Total Protein 5.8 L (6.3-8.2) g/dL Microbiology - Last 24 Hours (Table) 12/19/20 10:16 Blood Culture - Preliminary Blood No Growth after 120 hours Assessment and Plan Assessment: 1. Atrial fibrillation with rapid ventricular response. 2. Acute exacerbation of chronic systolic congestive heart failure. Patient is now on Lasix drip area Lasix has been transitioned IV Lasix 3. Elevated liver enzymes. gallbladder ultrasound completed showing mild gallbladder wall thickening stones no dilated ducts. Tylenol and Lipitor currently on hold 4. Known history of nonischemic cardiomyopathy the with previous history of AICD placement 5. Paroxysmal atrial fibrillation patient unable to tolerate it regulation due to vaginal bleeding 6. History of essential hypertension 7. History of hyperlipidemia 8. History of anxiety disorder 9. Hyponatremia sodium low at 128. Resolved 10. Acute kidney injury. Nephrology services following 11. Nausea and vomiting. Abdominal ultrasound completed showing no sonographic evidence for acute abnormality at a medically. 12. Elevated white blood cell count likely secondary to urinary tract infection. Patient was initially worked up on admission no infection found. Infectious disease service is following DVT prophylaxis SCDs. GI prophylaxis Protonix Cardiology services following Nephrology, infectious disease and critical care service following Patient transitioned from Lasix drip to IV Lasix PT OT consulted
--- NOTE | 2020-12-25 09:44 | PN ---
PROGRESS NOTE Patient is seen for followup for acute kidney injury and volume overload. Her renal function is stable. Her creatinine is at 1.5, slightly increased, mostly associated with recent diuresis. Overall, patient states she is feeling well. The dose of Lasix was decreased yesterday. PHYSICAL EXAMINATION: On examination today, blood pressure 97/68, heart rate 62 per minute, she is afebrile. Examination of the heart S1, S2. Examination of the lungs, bilateral breath sounds are heard. Abdomen is soft, nontender. Examination of lower extremities shows edema, chronic 2+ bilaterally. [employer] exam grossly intact. LAB: Show sodium 138, potassium 4.1, chloride 99, BUN 40, creatinine 1.53, hemoglobin 10.9. ASSESSMENT: 1. Acute kidney injury cardiorenal. Serum creatinine had improved to about 1.2 from peak of 2.0 and now it has increased again to about 1.4-1.5. I will switch the diuretics to oral. 2. Severe volume overload, currently improved. 3. Cardiomyopathy, ejection fraction 20-25%. 4. Atrial fibrillation with RVR now with controlled ventricular response. 5. Hyperkalemia on initial admission now improved. PLAN: Switch to p.o. diuretics today. The patient was taking 40 mg p.o. b.i.d. at home. We can keep her on 60 mg p.o. b.i.d. MMODL / IJN: [id number] /
[2020-12-25] MEDS: METOPROLOL SUCCINATE (ER) 50 MG TAB.ER.24H PO SCH (11:22)
[2020-12-25] MEDS: FERROUS SULFATE 325 MG TAB PO SCH (11:22)
--- NOTE | 2020-12-25 13:52 | P.PN ---
Subjective Progress Note Date: 12/25/20 HISTORY OF PRESENT ILLNESS: 12/14/2020 This is a 50-year-old female who follows in the office with Dr. Salcedo. Patient was admitted to the hospital secondary to A. fib with RVR. Telemetry reveals atrial fibrillation with a heart rate in the 90s. Patient has not anticoagulation secondary to a history of vaginal bleeding. Patient is currently on metoprolol succinate 100 mg twice a day and 50 mg at noon. Blood pressure 100/61. 12/17/2020 Cardiology was reconsulted secondary to hypotension. Patients blood pressure 84/57. Patient states her blood pressure at home runs between 80-100 systolic. She reports mild dizziness occasionally when walking. She reports she also has this at home. No syncope. Telemetry reveals afib with controlled ventricular rates. Sodium 128. 12/18/2020 Patient examined this morning the bedside. She denies chest pain or pressure. She denies shortness of breath. Patient's blood pressure has improved this morning with a systolic in the 100s. Patient reports diarrhea and an episode of emesis. Patient's sodium remains low at 128. 12/19/2020 Patient examined this morning. Patient is sitting up in the chair. Patient states her diarrhea has resolved. She reports lower extremity edema. She denies having any shortness of breath. She denies chest pain or pressure. Blood pressure stable with a systolic blood pressure in the 100s. Sodium today is 126. Aldactone has been discontinued. Lasix has been held. However nephrology was consulted today and started the patient on a Lasix drip. BUN 48. Creatinine up to 2.09. 12/20/2020 Patient examined this morning at the bedside. Patient denies chest pain or pressure. Denies shortness of breath. She is on a lasix drip at 5mg/hr. BUN 53. Creatinine 2.16 Sodium 129. 12/21/2020 Patient examined this morning. She is sitting up in the chair. She denies chest pain or pressure. Reports occasional shortness of breath with exertion. She continues to have lower extremity edema. She is on a lasix drip per nephrology. BUN 49. Creatinine 1.78. 12/22/2020 Patient examined this morning. She is sitting up in the chair. She denies chest pain or pressure. She currently denies shortness of breath. She does have some improvement in her lower extremity edema. Her lasix has been changed from IV infusion to IV push per nephrology. Creatinine 1.51 today. BUN 44. 12/23/2020 Patient examined this morning at the bedside. Patient states she is tired this morning and did not sleep all overnight. She denies chest pain or pressure. She currently denies shortness of breath. She continues to have improvement in her lower extremity edema. She remains on IV Lasix per nephrology. BUN 39. Creatinine 1.26. Fluid balance over the last 24 hours is -1100 mL. 12/24/2020 Patient examined this morning at the bedside. She denies chest pain or pressure. She denies shortness of breath. She remains on IV Lasix per nephrology. 12/25/2020 Patient examined this morning at the bedside. She denies chest pain or pressure. She denies shortness of breath. She remains on IV Lasix per nephrology. BUN 40. Creatinine 1.53. Patient complains of nausea this morning without episodes of vomiting. Blood pressure 90/73. PHYSICAL EXAM: VITAL SIGNS: Reviewed. GENERAL: Well-developed in no acute distress. NECK: Supple. No JVD or thyromegaly LUNGS: Respirations even and unlabored. Lungs diminished bilaterally. HEART: Irregular rate and rhythm. S1 and S2 heard. EXTREMITIES: Normal range of motion. No clubbing or cyanosis. Peripheral pulses intact. 1-2+ lower extremity edema ASSESSMENT: Paroxysmal atrial fibrillation with RVR, not on anticoagulation secondary to history of vaginal bleeding Acute on chronic systolic heart failure Nonischemic cardiomyopathy with previous AICD implantation, EF 20-25% Acute kidney injury Pulmonary hypertension Leukocytosis Elevated liver enzymes Hypertension Hyperlipidemia Anxiety Hyponatremia Hypotension PLAN: Continue telemetry monitoring Continue current cardiac medications Patient not on anticoagulation secondary to history of vaginal bleeding Continue lasix per nephrology Continue to hold Entresto until ERIBERTO resolves Further recommendations pending patient course Patient to follow up outpatient with Dr. Salcedo Nurse practitioner note has been reviewed by physician. Signing provider agrees with the documented findings, assessment, and plan of care. Objective - Vital Signs Vital signs: Vital Signs Temp 98.3 F 12/25/20 11:22 Pulse 102 H 12/25/20 13:45 Resp 16 12/25/20 11:22 BP 98/73 12/25/20 11:22 Pulse Ox 94 L 12/25/20 11:22 Intake & Output 12/24/20 12/25/20 12/25/20 18:59 06:59 18:59 Intake Total 980 Output Total 600 1310 Balance 380 -1310 Weight 112.8 kg 112.8 kg Intake: Oral 980 Output: Urine 600 1310 Other: Voiding Method Toilet Toilet # Voids 4 2 - Labs CBC & Chem 7: 12/25/20 08:25 12/25/20 08:25 Labs: Abnormal Lab Results - Last 24 Hours (Table) 12/25/20 12/25/20 Range/Units 08:25 08:25 Hgb 10.9 L (11.4-16.0) gm/dL MCV 78.6 L (80.0-100.0) fL MCH 22.9 L (25.0-35.0) pg MCHC 29.1 L (31.0-37.0) g/dL RDW 21.3 H (11.5-15.5) % Neutrophils # 8.5 H (1.3-7.7) k/uL BUN 40 H (7-17) mg/dL Creatinine 1.53 H (0.52-1.04) mg/dL Total Protein 5.8 L (6.3-8.2) g/dL Microbiology - Last 24 Hours (Table) 12/19/20 10:16 Blood Culture - Final Blood No Growth after 144 hours
[2020-12-25] MEDS: FUROSEMIDE 20 MG TAB PO SCH (15:04)
[2020-12-25] MEDS: ACETAMINOPHEN TAB 325 MG TAB PO PRN (15:04)
[2020-12-25] MEDS: ALPRAZolam 0.25 MG TAB PO PRN (15:04)
--- NOTE | 2020-12-25 17:17 | PN ---
PROGRESS NOTE DATE OF SERVICE: 12/25/2020 REASON FOR FOLLOWUP: Leukocytosis and UTI. INTERVAL HISTORY: Patient is afebrile. The patient is breathing comfortably. Patient denies having any chest pain or shortness of breath or cough. Has been complaining of some nausea but no vomiting. PHYSICAL EXAMINATION: Her blood pressure is 194/63 with a pulse of 81, temperature 98, she is 95% on room air. GENERAL DESCRIPTION: The patient is a middle-aged female up in the chair in no distress. RESPIRATORY SYSTEM: Unlabored breathing clear to auscultation anteriorly. HEART: S1, S2. Regular rate and rhythm. ABDOMEN: Soft, no tenderness. LABS: Hemoglobin is 10.4, BUN of 40, creatinine 1.53. DIAGNOSTIC IMPRESSION AND PLAN: 1. Patient elevated white count, possible component of UTI, adequately treated. The patient's white count has normalized. Culture has been negative. Rocephin will be discontinued. 2. Has been complaining of some nausea and Zofran will be added. If any worsening symptoms may need further workup. MMODL / IJN: [id number] /
[2020-12-26] MEDS: PANTOPRAZOLE 40 MG TABLET PO SCH (06:10)
[2020-12-26] MEDS: FUROSEMIDE 20 MG TAB PO SCH ×2 (07:25→13:01)
[2020-12-26] MEDS: METOPROLOL SUCCINATE (ER) 100 MG TAB.ER.24H PO SCH ×2 (07:25→21:23)
[2020-12-26] MEDS: ESCITALOPRAM 10 MG TAB PO SCH (07:25)
[2020-12-26] MEDS: ENOXAPARIN 40 MG/0.4 ML SYRINGE SQ SCH (07:25)
[2020-12-26] MEDS: allopurinoL 300 MG TAB PO SCH (07:25)
[2020-12-26] MEDS: ACETAMINOPHEN TAB 325 MG TAB PO PRN (07:28)
[2020-12-26] MEDS: ERGOCALCIFEROL 1,250 MCG (50,000 IU) CAPSULE PO SCH (07:28)
[2020-12-26] MEDS: ALPRAZolam 0.25 MG TAB PO PRN ×2 (07:28→21:23)
[2020-12-26 08:19] LABS: Albumin 3.8 g/dL (3.5-5.0); Calcium 9.5 mg/dL (8.4-10.2); Potassium 3.9 mmol/L (3.5-5.1); Total Protein 6.1 g/dL (6.3-8.2)
[2020-12-26 08:30] LABS: Anisocytosis Moderate; HCT 39.1 % (34.0-46.0); HGB 11.1 gm/dL (11.4-16.0); Hypochromasia Marked; MCH 22.5 pg (25.0-35.0); MCHC 28.4 g/dL (31.0-37.0); MCV 79.3 fL (80.0-100.0); Mean Platelet Volume 7.2; Microcytosis Moderate; Platelet Count 288 k/uL (150-450); Poikilocytosis Slight; RBC 4.92 m/uL (3.80-5.40); RDW 21.7 % (11.5-15.5)
[2020-12-26 10:21] LABS: Neutrophils % (M) 79 %; Nucleated Red Blood Cells 0 /100 WBC (0-0); Total Cells Counted 100
[2020-12-26 10:22] LABS: Polychromasia Present
--- NOTE | 2020-12-26 12:13 | P.PN ---
Subjective Progress Note Date: 12/26/20 HISTORY OF PRESENT ILLNESS: 12/14/2020 This is a 50-year-old female who follows in the office with Dr. Salcedo. Patient was admitted to the hospital secondary to A. fib with RVR. Telemetry reveals atrial fibrillation with a heart rate in the 90s. Patient has not anticoagulation secondary to a history of vaginal bleeding. Patient is currently on metoprolol succinate 100 mg twice a day and 50 mg at noon. Blood pressure 100/61. 12/17/2020 Cardiology was reconsulted secondary to hypotension. Patients blood pressure 84/57. Patient states her blood pressure at home runs between 80-100 systolic. She reports mild dizziness occasionally when walking. She reports she also has this at home. No syncope. Telemetry reveals afib with controlled ventricular rates. Sodium 128. 12/18/2020 Patient examined this morning the bedside. She denies chest pain or pressure. She denies shortness of breath. Patient's blood pressure has improved this morning with a systolic in the 100s. Patient reports diarrhea and an episode of emesis. Patient's sodium remains low at 128. 12/19/2020 Patient examined this morning. Patient is sitting up in the chair. Patient states her diarrhea has resolved. She reports lower extremity edema. She denies having any shortness of breath. She denies chest pain or pressure. Blood pressure stable with a systolic blood pressure in the 100s. Sodium today is 126. Aldactone has been discontinued. Lasix has been held. However nephrology was consulted today and started the patient on a Lasix drip. BUN 48. Creatinine up to 2.09. 12/20/2020 Patient examined this morning at the bedside. Patient denies chest pain or pressure. Denies shortness of breath. She is on a lasix drip at 5mg/hr. BUN 53. Creatinine 2.16 Sodium 129. 12/21/2020 Patient examined this morning. She is sitting up in the chair. She denies chest pain or pressure. Reports occasional shortness of breath with exertion. She continues to have lower extremity edema. She is on a lasix drip per nephrology. BUN 49. Creatinine 1.78. 12/22/2020 Patient examined this morning. She is sitting up in the chair. She denies chest pain or pressure. She currently denies shortness of breath. She does have some improvement in her lower extremity edema. Her lasix has been changed from IV infusion to IV push per nephrology. Creatinine 1.51 today. BUN 44. 12/23/2020 Patient examined this morning at the bedside. Patient states she is tired this morning and did not sleep all overnight. She denies chest pain or pressure. She currently denies shortness of breath. She continues to have improvement in her lower extremity edema. She remains on IV Lasix per nephrology. BUN 39. Creatinine 1.26. Fluid balance over the last 24 hours is -1100 mL. 12/24/2020 Patient examined this morning at the bedside. She denies chest pain or pressure. She denies shortness of breath. She remains on IV Lasix per nephrology. 12/25/2020 Patient examined this morning at the bedside. She denies chest pain or pressure. She denies shortness of breath. She remains on IV Lasix per nephrology. BUN 40. Creatinine 1.53. Patient complains of nausea this morning without episodes of vomiting. Blood pressure 90/73. 12/26/2020 Patient examined this morning at the bedside. Denies chest pain or pressure. Denies SOB. Vital signs are stable. PHYSICAL EXAM: VITAL SIGNS: Reviewed. GENERAL: Well-developed in no acute distress. NECK: Supple. No JVD or thyromegaly LUNGS: Respirations even and unlabored. Lungs diminished bilaterally. HEART: Irregular rate and rhythm. S1 and S2 heard. EXTREMITIES: Normal range of motion. No clubbing or cyanosis. Peripheral pulses intact. 1-2+ lower extremity edema ASSESSMENT: Paroxysmal atrial fibrillation with RVR, not on anticoagulation secondary to history of vaginal bleeding Acute on chronic systolic heart failure Nonischemic cardiomyopathy with previous AICD implantation, EF 20-25% Acute kidney injury Pulmonary hypertension Leukocytosis Elevated liver enzymes Hypertension Hyperlipidemia Anxiety Hyponatremia Hypotension PLAN: Continue telemetry monitoring Continue current cardiac medications Patient not on anticoagulation secondary to history of vaginal bleeding Continue lasix per nephrology Continue to hold Entresto until ERIBERTO resolves Further recommendations pending patient course Patient to follow up outpatient with Dr. Salcedo We will sign off. Please reconsult if needed Nurse practitioner note has been reviewed by physician. Signing provider agrees with the documented findings, assessment, and plan of care. Objective - Vital Signs Vital signs: Vital Signs Temp 98.2 F 12/26/20 07:24 Pulse 105 H 12/26/20 08:00 Resp 18 12/26/20 07:24 BP 121/85 12/26/20 07:24 Pulse Ox 99 12/26/20 07:24 Intake & Output 12/25/20 12/26/20 12/26/20 18:59 06:59 18:59 Intake Total 120 Output Total 660 Balance 120 -660 Weight 112.8 kg 113 kg Intake: Oral 120 Output: Urine 660 Other: Voiding Method Toilet # Voids 2 2 - Labs CBC & Chem 7: 12/26/20 07:13 12/26/20 07:13 Labs: Abnormal Lab Results - Last 24 Hours (Table) 12/26/20 12/26/20 Range/Units 07:13 07:13 Hgb 11.1 L (11.4-16.0) gm/dL MCV 79.3 L (80.0-100.0) fL MCH 22.5 L (25.0-35.0) pg MCHC 28.4 L (31.0-37.0) g/dL RDW 21.7 H (11.5-15.5) % Neutrophils # (Manual) 7.90 H (1.3-7.7) k/uL Chloride 97 L (98-107) mmol/L BUN 43 H (7-17) mg/dL Creatinine 1.66 H (0.52-1.04) mg/dL AST 43 H (14-36) U/L ALT 35 H (4-34) U/L Total Protein 6.1 L (6.3-8.2) g/dL Microbiology - Last 24 Hours (Table) 12/19/20 10:16 Blood Culture - Final Blood No Growth after 144 hours
[2020-12-26] MEDS: METOPROLOL SUCCINATE (ER) 50 MG TAB.ER.24H PO SCH (13:01)
[2020-12-26] MEDS: FERROUS SULFATE 325 MG TAB PO SCH (13:01)
--- NOTE | 2020-12-26 13:14 | PN ---
PROGRESS NOTE Patient is seen for followup for acute kidney injury, volume overload. She was maintained on Lasix drip which is now discontinued and patient was maintained on IV Lasix. She has had good urine output initially about 4 L over 24 hours now staying at about 2 L. Serum creatinine is slowly increased over the last couple of days and Lasix was switched to p.o. The patient states that she has been voiding fairly well. EXAMINATION: Today blood pressure 103/70, heart rate 101 per minute. She is afebrile. Examination of the heart S1, S2. Examination of the lungs, bilateral breath sounds are heard. Decreased breath sounds at bases. Abdomen is soft, nontender, obese. Examination lower extremities shows edema 1+ bilaterally. [employer] exam grossly intact. LABS: Show sodium 137, potassium 3.9, chloride 97, BUN 43, creatinine 1.6, hemoglobin 11.1 g/dL. ASSESSMENT: 1. Acute kidney injury initially cardiorenal, improved with diuresis. Serum creatinine slowly increasing again. Lasix has been switched to p.o. I will check a post-void scan. Rule out urine retention. Continue with current dose of p.o. Lasix for now. 2. Volume overload, now improved. 3. Cardiomyopathy, ejection fraction 20-25%. 4. Atrial fibrillation with RVR, now with improved ventricular response. 5. Hyperkalemia on initial admission, now improved. PLAN: Check post-void residual. Continue with current dose of p.o. Lasix. Repeat labs in a.m. MMODL / IJN: [id number] /
--- NOTE | 2020-12-26 13:55 | P.PN ---
Subjective Progress Note Date: 12/26/20 This is a 50-year-old female patient who presented to the ER with complaints of palpitations. Patient reports that she's had this issue intermittently occurring. She reports that she felt anxious with prompted her to come to ER for further evaluation. Patient has a past medical history of chronic systolic congestive heart failure, nonischemic cardiomyopathy with previous AICD placement, paroxysmal atrial fibrillation, essential hypertension, hyperlipidemia and anxiety. She denies any recent illness. X-ray completed showing nonacute abdomen. Cardiomegaly. Chest x-ray performed showing cardiom egaly no heart failure no change compared to recent exam. Gallbladder ultrasound performed showing mild gallbladder wall thickening no gallstones or dilated ducts. Liver enzymes slightly elevated total bili 1.4, AST 168, ALT 140 and alkaline phosphatase 132. Troponin negative. BNP 8720. At this time patient was started on IV Lasix IV Cardizem. Cardiology services have been consulted. Patient denies chest pain. Patient denies shortness breath. Patient denies nausea vomiting or diarrhea. Patient denies any urinary burning or frequency. On 12/13/2020 Patient was seen and examined on the medical floor, she is alert and oriented x 3 in no distress, she is still complaining of shortness of breath with any activity she is also complaining of occasional palpitation otherwise she denies any complaints there is no fever or chills no headache or dizziness no chest pain, no cough no nausea or vomiting no abdominal pain no diarrhea no blood in the stools no burning with urination no frequency or urgency and no hematuria, there is no weakness or numbness in any of the extremities no change in vision speech or gait. On 12/14/2020 patient is alert and oriented 3. Patient relating of some dizziness. At this time patient denies chest pain or shortness breath. Patient denies nausea vomiting or diarrhea. Patient denies any urinary burning or frequency patient to be transitioned per cardiology to oral Lasix On 12/15/2020 patient alert and oriented 3. Patient has been transitioned to oral Lasix and cleared for discharge from cardiology services. Patient's sodium low today at 128 did discuss case with cardiology services okay for patient to have small amount of fluid 50 mL of normal saline. Patient stopped vomiting of some dizziness upon standing. Patient denies chest pain or shortness of breath. Patient denies nausea vomiting or diarrhea. Patient denies any urinary burning or frequency On 12/16/2020atient was seen and examined on the medical floor, he is alert and oriented x 3 in no distress, he denies any complaints there is no fever or chills no headache or dizziness no chest pain no shortness of breath no palpitation no cough no nausea or vomiting no abdominal pain no diarrhea no blood in the stools no burning with urination no frequency or urgency and no hematuria, there is no weakness or numbness in any of the extremities no change in vision speech or gait. Blood pressure is still on the low side and sodium is still low at 128 at this time will decrease Lasix to 40 mg once daily and continue was normal saline at 50 mL per hour. Will recheck in a.m. On 12/17/2020. Patient is alert and oriented 3. Patient remains on normal saline at 50. Sodium remains at 128. Transvaginal ultrasound completed. At this time patient is still complaining of intermittent episodes of dizziness. Patient denies chest pain. Patient denies shortness of breath. Patient denies nausea vomiting or diarrhea. Patient denies any urinary burning or frequency On 12/18/2020 Patient was seen and examined on the medical floor, she is alert and oriented x 3 in no distress, she is complaining of generalized weakness and shortness of breath with activity otherwise she denies any complaints there is no fever or chills no headache or dizziness no chest pain no palpitation no cough no nausea or vomiting no abdominal pain no diarrhea no blood in the stools no burning with urination no frequency or urgency and no hematuria, there is no weakness or numbness in any of the extremities no change in vision speech or gait. On 12/19/2020 patient is alert and oriented 3. Sodium remains low at 126, potassium 5.3. Running creatinine increasing 48 and 2.09. Patient reports that she's been nauseous with episodes of emesis throughout the night. Weight gain of 120.7-121.9. Patient does have some lower extremity edema. At this time given patient's acute renal injury but weight gain will consult nephrology services. Lasix on hold did discuss with cardiology services. Will order abdominal ultrasound for nausea and vomiting. Infectious disease also consulted for elevated white blood cell count. Chest x-ray UA and blood culture ordered. Critical care services also consulted. On 12/20/2020 Patient was seen and examined on the medical floor, she is alert and oriented x 3 in no distress, she is complaining of bilateral lower extremity edema, and complaining of shortness of breath with any activity otherwise she denies any complaints there is no fever or chills no headache or dizziness no chest pain no palpitation no cough no nausea or vomiting no abdominal pain no diarrhea no blood in the stools no burning with urination no frequency or urgenc y and no hematuria, there is no weakness or numbness in any of the extremities no change in vision speech or gait. On 12/21/2020 patient's alert and oriented 3. Patient has been started on Lasix drip. Reports some improvement with shortness of breath. Patient denies chest pain. Patient denies nausea vomiting or diarrhea. Patient currently on Rocephin for UTI. Nephrology, cardiology and infectious disease services are following. On 12/22/2009 1 patient's alert and oriented 3. Patient transitioned from Lasix drip to IV push Lasix. Weight improving from 118.7 kg to 117.9. White blood cell has normalized 10.6. Creatinine improving to 1.51 and bun 44. Patient reports she had a bowel movement in which she had to strain and noticed some bright red blood Lasix secondary to her hemorrhoids. Hemoglobin remained stable at 10.9 we'll continue to monitor hemoglobin and a further episodes of bleeding. At that time patient denies chest pain. Patient denies nausea vomiting or diarrhea. Patient denies any urinary burning or frequency. On 12/23/2020 patient was seen and examined on the medical floor she is alert and oriented 3 in no distress she is still complaining of shortness of breath with activity otherwise she denies any complaints at this time On 12/24/2020 patient's alert and oriented 3. Patient remains on IV Lasix 60 mg twice a day. Per infectious disease no need for antibiotics at discharge. PT OT has been consulted. At this time patient denies chest pain. Patient is still complaining of mild shortness breath. Patient denies nausea vomiting or diarrhea. Patient denies any urinary burning or frequency On 12/25/2020 patient having some nausea this AM. Patient remains on IV Lasix. Weight 113.4 to 112.8. Creatinine 1.53 and bun 40. At this time patient denies any chest pain or shortness breath. Patient denies nausea vomiting or diarrhea. Patient denies any urinary burning or frequency. On 12/26/2020 Patient was seen and examined on the medical floor, she is alert and oriented x 3 in no distress, she is still complaining of generalized w eakness and shortness of breath with any activity otherwise she denies any complaints there is no fever or chills no headache or dizziness no chest pain no palpitation no cough no nausea or vomiting no abdominal pain no diarrhea no blood in the stools no burning with urination no frequency or urgency and no hematuria, there is no weakness or numbness in any of the extremities no change in vision speech or gait. Objective - Vital Signs Vital signs: Vital Signs Temp 98.2 F 12/26/20 07:24 Pulse 105 H 12/26/20 07:24 Resp 18 12/26/20 07:24 BP 121/85 12/26/20 07:24 Pulse Ox 99 12/26/20 07:24 Intake & Output 12/25/20 12/26/20 12/26/20 18:59 06:59 18:59 Intake Total 120 Output Total 660 Balance 120 -660 Weight 112.8 kg 113 kg Intake: Oral 120 Output: Urine 660 Other: Voiding Method Toilet # Voids 2 2 - Exam In general patient is alert and oriented x 3 in no distress HEENT head normocephalic and atraumatic Neck is supple no JVD no goiter no lymphadenopathy no carotid bruit Chest examination is clear to auscultation no crackles no wheezing Cardiac exam reveals irregular heart sounds S1 and S2 no gallops no murmurs Abdomen is soft nontender no organomegaly with normal bowel sounds Extremity exam reveals no edema no cyanosis or clubbing Neurological examination reveals no gross focal deficits - Labs CBC & Chem 7: 12/26/20 07:13 12/26/20 07:13 Labs: Abnormal Lab Results - Last 24 Hours (Table) 12/25/20 12/25/20 Range/Units 08:25 08:25 Hgb 10.9 L (11.4-16.0) gm/dL MCV 78.6 L (80.0-100.0) fL MCH 22.9 L (25.0-35.0) pg MCHC 29.1 L (31.0-37.0) g/dL RDW 21.3 H (11.5-15.5) % Neutrophils # 8.5 H (1.3-7.7) k/uL BUN 40 H (7-17) mg/dL Creatinine 1.53 H (0.52-1.04) mg/dL Total Protein 5.8 L (6.3-8.2) g/dL Microbiology - Last 24 Hours (Table) 12/19/20 10:16 Blood Culture - Final Blood No Growth after 144 hours Assessment and Plan Assessment: 1. Atrial fibrillation with rapid ventricular response. 2. Acute exacerbation of chronic systolic congestive heart failure. Patient is now on Lasix drip area Lasix has been transitioned IV Lasix 3. Elevated liver enzymes. gallbladder ultrasound completed showing mild gallbladder wall thickening stones no dilated ducts. Tylenol and Lipitor c urrently on hold 4. Known history of nonischemic cardiomyopathy the with previous history of AICD placement 5. Paroxysmal atrial fibrillation patient unable to tolerate it regulation due to vaginal bleeding 6. History of essential hypertension 7. History of hyperlipidemia 8. History of anxiety disorder 9. Hyponatremia sodium low at 128. Resolved 10. Acute kidney injury. Nephrology services following 11. Nausea and vomiting. Abdominal ultrasound completed showing no sonographic evidence for acute abnormality at a medically. 12. Elevated white blood cell count likely secondary to urinary tract infection. Patient was initially worked up on admission no infection found. In fectious disease service is following DVT prophylaxis SCDs. GI prophylaxis Protonix Cardiology services following Nephrology, infectious disease and critical care service following Patient transitioned from Lasix drip to IV Lasix PT OT consulted
--- NOTE | 2020-12-26 16:00 | PN ---
PROGRESS NOTE DATE OF SERVICE: 12/27/2020 REASON FOR FOLLOWUP: UTI and leukocytosis. INTERVAL HISTORY: Patient is afebrile. The patient is feeling better. Breathing comfortably. Denies having any chest pain, shortness of breath, no cough, no diarrhea. PHYSICAL EXAMINATION: Blood pressure 110/70 with a pulse of 101, temperature ( ), she is 95% on room air. GENERAL DESCRIPTION: Is a middle-aged female up in the chair in no distress. RESPIRATORY SYSTEM: Unlabored breathing, decreased intensity of breath sounds. No wheeze. HEART: S1, S2. Regular rate and rhythm. LABS: Hemoglobin 11.1, white count 10.0 BUN of 43, creatinine 1.66. DIAGNOSTIC IMPRESSION AND PLAN: Patient with elevated white count, multifactorial, possible pneumonia that has been adequately treated. Patient white count normal and culture negative. Patient completed antibiotic therapy. Monitor the patient closely off antibiotics. MMODL / IJN: [id number] /
[2020-12-27] MEDS: PANTOPRAZOLE 40 MG TABLET PO SCH (06:38)
[2020-12-27 08:16] LABS: Albumin 3.5 g/dL (3.5-5.0); Calcium 9.1 mg/dL (8.4-10.2); Potassium 3.7 mmol/L (3.5-5.1); Total Protein 5.5 g/dL (6.3-8.2)
[2020-12-27 08:25] LABS: Anisocytosis Moderate; Basophils # (A) 0.1 k/uL (0-0.2); Basophils % (A) 1 %; Eosinophils # (A) 0.2 k/uL (0-0.7); Eosinophils % (A) 2 %; HCT 36.6 % (34.0-46.0); HGB 10.5 gm/dL (11.4-16.0); Hypochromasia Marked; Lymphocytes % (A) 9 %; MCH 22.6 pg (25.0-35.0); MCHC 28.6 g/dL (31.0-37.0); Mean Platelet Volume 7.2; Microcytosis Moderate; Monocytes # (A) 1.3 k/uL (0-1.0); Monocytes % (A) 11 %; Neutrophils # (A) 8.3 k/uL (1.3-7.7); Neutrophils % (A) 75 %; Platelet Count 243 k/uL (150-450); Poikilocytosis Slight; RBC 4.64 m/uL (3.80-5.40); RDW 21.9 % (11.5-15.5); WBC 11.2 k/uL (3.8-10.6)
[2020-12-27] MEDS: allopurinoL 300 MG TAB PO SCH (09:25)
[2020-12-27] MEDS: ESCITALOPRAM 10 MG TAB PO SCH (09:26)
[2020-12-27] MEDS: ENOXAPARIN 40 MG/0.4 ML SYRINGE SQ SCH (09:26)
[2020-12-27] MEDS: METOPROLOL SUCCINATE (ER) 100 MG TAB.ER.24H PO SCH ×2 (09:26→19:56)
[2020-12-27] MEDS: FUROSEMIDE 20 MG TAB PO SCH ×2 (09:26→15:58)
[2020-12-27] MEDS ORDERED: FUROSEMIDE 10 MG/ML 4 ML VIAL IV STA (10:21)
--- NOTE | 2020-12-27 10:23 | P.PN ---
Subjective Patient is seen in follow-up for acute kidney injury. Renal function better. Maintain on oral diuretics. Good urine output. Still has edema in the lower extremity is. Vital signs are stable. General: The patient appeared well nourished and normally developed. HEENT: Head exam is unremarkable. Neck is without jugular venous distension. LUNGS: Breath sounds decreased. HEART: Rate and Rhythm are regular. ABDOMEN: Soft, no distention. EXTREMITITES: 2+ edema. Objective - Vital Signs Vital signs: Vital Signs Temp 97.8 F 12/27/20 04:00 Pulse 67 12/27/20 04:00 Resp 18 12/27/20 04:00 BP 140/79 12/27/20 04:00 Pulse Ox 92 L 12/27/20 04:00 Intake & Output 12/26/20 12/27/20 12/27/20 18:59 06:59 18:59 Intake Total 240 200 Output Total 800 300 Balance -560 -300 200 Weight 114.3 kg Intake: Oral 240 200 Output: Urine 800 300 Other: Voiding Method Toilet # Voids 1 - Labs CBC & Chem 7: 12/27/20 07:29 12/27/20 07:29 Labs: Abnormal Lab Results - Last 24 Hours (Table) 12/26/20 12/27/20 12/27/20 Range/Units 07:13 07:29 07:29 WBC 11.2 H (3.8-10.6) k/uL Hgb 10.5 L (11.4-16.0) gm/dL MCV 79.0 L (80.0-100.0) fL MCH 22.6 L (25.0-35.0) pg MCHC 28.6 L (31.0-37.0) g/dL RDW 21.9 H (11.5-15.5) % Neutrophils # (Manual) 7.90 H (1.3-7.7) k/uL Sodium 134 L (137-145) mmol/L Chloride 96 L (98-107) mmol/L BUN 43 H (7-17) mg/dL Creatinine 1.49 H (0.52-1.04) mg/dL AST 40 H (14-36) U/L Total Protein 5.5 L (6.3-8.2) g/dL Assessment and Plan Plan: Assessment: 1. Acute kidney injury secondary to ATN secondary to cardiorenal syndrome and hemodynamic instability. Renal function better. Creatinine 1.49 today. UA benign. 2. Acute on chronic systolic CHF with ejection fraction of 20-25% with moderate tricuspid regurgitation. 3. Pulmonary hypertension. 4. Hyperkalemia secondary to acute kidney injury, metabolic acidosis and entreso. Resolved. 5. Metabolic acidosis secondary to acute kidney injury. Resolved. 6. Hypervolemic hyponatremia. 7. A. fib with RVR. Cardiology following. 8. Fluid overload. Plan: 1200 mL fluid restriction. Maintain oral Lasix 60 mg twice daily. I will give her additional dose of Lasix 40 mg IV once. Repeat electrolytes in the morning.
[2020-12-27] MEDS: FERROUS SULFATE 325 MG TAB PO SCH (11:39)
[2020-12-27] MEDS: METOPROLOL SUCCINATE (ER) 50 MG TAB.ER.24H PO SCH (11:39)
--- NOTE | 2020-12-27 13:16 | PN ---
PROGRESS NOTE DATE OF SERVICE: 12/27/2020. REASON FOR FOLLOW UP: The patient is afebrile. The patient is breathing comfortably. Denies any chest pain, shortness of breath, cough, no abdominal pain and no diarrhea. PHYSICAL EXAMINATION: On examination, blood pressure General description is a middle aged female up in the bed in no distress. Respiratory system: Unlabored breathing. Decreased breath sounds in the bases. No wheeze. Heart: S1, S2 regular rate and rhythm. Abdomen soft, no tenderness. LABORATORY DATA: Hemoglobin 10.5, white count 7.6, BUN 4, creatinine 0.59. DIAGNOSTIC IMPRESSION AND PLAN: This patient with elevated white count urinary tract infection. Patient has completed her antibiotic therapy. The patient white count normalized, slightly up today. However no obvious focus of infection. We will monitor closely off antibiotic therapy. If spikes any fever, Continue supportive care. MMODL / IJN: [id number] /
--- NOTE | 2020-12-27 17:22 | P.PN ---
Subjective Progress Note Date: 12/27/20 This is a 50-year-old female patient who presented to the ER with complaints of palpitations. Patient reports that she's had this issue intermittently occurring. She reports that she felt anxious with prompted her to come to ER for further evaluation. Patient has a past medical history of chronic systolic congestive heart failure, nonischemic cardiomyopathy with previous AICD placement, paroxysmal atrial fibrillation, essential hypertension, hyperlipidemia and anxiety. She denies any recent illness. X-ray completed showing nonacute abdomen. Cardiomegaly. Chest x-ray performed showing cardiom egaly no heart failure no change compared to recent exam. Gallbladder ultrasound performed showing mild gallbladder wall thickening no gallstones or dilated ducts. Liver enzymes slightly elevated total bili 1.4, AST 168, ALT 140 and alkaline phosphatase 132. Troponin negative. BNP 8720. At this time patient was started on IV Lasix IV Cardizem. Cardiology services have been consulted. Patient denies chest pain. Patient denies shortness breath. Patient denies nausea vomiting or diarrhea. Patient denies any urinary burning or frequency. On 12/13/2020 Patient was seen and examined on the medical floor, she is alert and oriented x 3 in no distress, she is still complaining of shortness of breath with any activity she is also complaining of occasional palpitation otherwise she denies any complaints there is no fever or chills no headache or dizziness no chest pain, no cough no nausea or vomiting no abdominal pain no diarrhea no blood in the stools no burning with urination no frequency or urgency and no hematuria, there is no weakness or numbness in any of the extremities no change in vision speech or gait. On 12/14/2020 patient is alert and oriented 3. Patient relating of some dizziness. At this time patient denies chest pain or shortness breath. Patient denies nausea vomiting or diarrhea. Patient denies any urinary burning or frequency patient to be transitioned per cardiology to oral Lasix On 12/15/2020 patient alert and oriented 3. Patient has been transitioned to oral Lasix and cleared for discharge from cardiology services. Patient's sodium low today at 128 did discuss case with cardiology services okay for patient to have small amount of fluid 50 mL of normal saline. Patient stopped vomiting of some dizziness upon standing. Patient denies chest pain or shortness of breath. Patient denies nausea vomiting or diarrhea. Patient denies any urinary burning or frequency On 12/16/2020atient was seen and examined on the medical floor, he is alert and oriented x 3 in no distress, he denies any complaints there is no fever or chills no headache or dizziness no chest pain no shortness of breath no palpitation no cough no nausea or vomiting no abdominal pain no diarrhea no blood in the stools no burning with urination no frequency or urgency and no hematuria, there is no weakness or numbness in any of the extremities no change in vision speech or gait. Blood pressure is still on the low side and sodium is still low at 128 at this time will decrease Lasix to 40 mg once daily and continue was normal saline at 50 mL per hour. Will recheck in a.m. On 12/17/2020. Patient is alert and oriented 3. Patient remains on normal saline at 50. Sodium remains at 128. Transvaginal ultrasound completed. At this time patient is still complaining of intermittent episodes of dizziness. Patient denies chest pain. Patient denies shortness of breath. Patient denies nausea vomiting or diarrhea. Patient denies any urinary burning or frequency On 12/18/2020 Patient was seen and examined on the medical floor, she is alert and oriented x 3 in no distress, she is complaining of generalized weakness and shortness of breath with activity otherwise she denies any complaints there is no fever or chills no headache or dizziness no chest pain no palpitation no cough no nausea or vomiting no abdominal pain no diarrhea no blood in the stools no burning with urination no frequency or urgency and no hematuria, there is no weakness or numbness in any of the extremities no change in vision speech or gait. On 12/19/2020 patient is alert and oriented 3. Sodium remains low at 126, potassium 5.3. Running creatinine increasing 48 and 2.09. Patient reports that she's been nauseous with episodes of emesis throughout the night. Weight gain of 120.7-121.9. Patient does have some lower extremity edema. At this time given patient's acute renal injury but weight gain will consult nephrology services. Lasix on hold did discuss with cardiology services. Will order abdominal ultrasound for nausea and vomiting. Infectious disease also consulted for elevated white blood cell count. Chest x-ray UA and blood culture ordered. Critical care services also consulted. On 12/20/2020 Patient was seen and examined on the medical floor, she is alert and oriented x 3 in no distress, she is complaining of bilateral lower extremity edema, and complaining of shortness of breath with any activity otherwise she denies any complaints there is no fever or chills no headache or dizziness no chest pain no palpitation no cough no nausea or vomiting no abdominal pain no diarrhea no blood in the stools no burning with urination no frequency or urgenc y and no hematuria, there is no weakness or numbness in any of the extremities no change in vision speech or gait. On 12/21/2020 patient's alert and oriented 3. Patient has been started on Lasix drip. Reports some improvement with shortness of breath. Patient denies chest pain. Patient denies nausea vomiting or diarrhea. Patient currently on Rocephin for UTI. Nephrology, cardiology and infectious disease services are following. On 12/22/2009 1 patient's alert and oriented 3. Patient transitioned from Lasix drip to IV push Lasix. Weight improving from 118.7 kg to 117.9. White blood cell has normalized 10.6. Creatinine improving to 1.51 and bun 44. Patient reports she had a bowel movement in which she had to strain and noticed some bright red blood Lasix secondary to her hemorrhoids. Hemoglobin remained stable at 10.9 we'll continue to monitor hemoglobin and a further episodes of bleeding. At that time patient denies chest pain. Patient denies nausea vomiting or diarrhea. Patient denies any urinary burning or frequency. On 12/23/2020 patient was seen and examined on the medical floor she is alert and oriented 3 in no distress she is still complaining of shortness of breath with activity otherwise she denies any complaints at this time On 12/24/2020 patient's alert and oriented 3. Patient remains on IV Lasix 60 mg twice a day. Per infectious disease no need for antibiotics at discharge. PT OT has been consulted. At this time patient denies chest pain. Patient is still complaining of mild shortness breath. Patient denies nausea vomiting or diarrhea. Patient denies any urinary burning or frequency On 12/25/2020 patient having some nausea this AM. Patient remains on IV Lasix. Weight 113.4 to 112.8. Creatinine 1.53 and bun 40. At this time patient denies any chest pain or shortness breath. Patient denies nausea vomiting or diarrhea. Patient denies any urinary burning or frequency. On 12/26/2020 Patient was seen and examined on the medical floor, she is alert and oriented x 3 in no distress, she is still complaining of generalized w eakness and shortness of breath with any activity otherwise she denies any complaints there is no fever or chills no headache or dizziness no chest pain no palpitation no cough no nausea or vomiting no abdominal pain no diarrhea no blood in the stools no burning with urination no frequency or urgency and no hematuria, there is no weakness or numbness in any of the extremities no change in vision speech or gait. On 12/27/2020 Patient is alert and oriented x 3 in no distress, she is still complaining of generalized weakness and shortness of breath with any activity otherwise she denies any complaints there is no fever or chills no headache or dizziness no chest pain no palpitation no cough no nausea or vomiting no abdominal pain no diarrhea no blood in the stools no burning with urination no frequency or urgency and no hematuria, there is no weakness or numbness in any of the extremities no change in vision speech or gait. She is complaining of weakness and severe bilateral lower extremities edema. Objective - Vital Signs Vital signs: Vital Signs Temp 97.8 F 12/27/20 04:00 Pulse 67 12/27/20 04:00 Resp 18 12/27/20 04:00 BP 140/79 12/27/20 04:00 Pulse Ox 92 L 12/27/20 04:00 Intake & Output 12/26/20 12/27/20 12/27/20 18:59 06:59 18:59 Intake Total 240 200 Output Total 800 300 Balance -560 -300 200 Weight 114.3 kg Intake: Oral 240 200 Output: Urine 800 300 Other: Voiding Method Toilet # Voids 1 - Exam In general patient is alert and oriented x 3 in no distress HEENT head normocephalic and atraumatic Neck is supple no JVD no goiter no lymphadenopathy no carotid bruit Chest examination is clear to auscultation no crackles no wheezing Cardiac exam reveals irregular heart sounds S1 and S2 no gallops no murmurs Abdomen is soft nontender no organomegaly with normal bowel sounds Extremity exam reveals no edema no cyanosis or clubbing Neurological examination reveals no gross focal deficits - Labs CBC & Chem 7: 12/27/20 07:29 12/27/20 07:29 Labs: Abnormal Lab Results - Last 24 Hours (Table) 12/26/20 12/27/20 12/27/20 Range/Units 07:13 07:29 07:29 WBC 11.2 H (3.8-10.6) k/uL Hgb 10.5 L (11.4-16.0) gm/dL MCV 79.0 L (80.0-100.0) fL MCH 22.6 L (25.0-35.0) pg MCHC 28.6 L (31.0-37.0) g/dL RDW 21.9 H (11.5-15.5) % Neutrophils # (Manual) 7.90 H (1.3-7.7) k/uL Sodium 134 L (137-145) mmol/L Chloride 96 L (98-107) mmol/L BUN 43 H (7-17) mg/dL Creatinine 1.49 H (0.52-1.04) mg/dL AST 40 H (14-36) U/L Total Protein 5.5 L (6.3-8.2) g/dL Assessment and Plan Assessment: 1. Atrial fibrillation with rapid ventricular response. 2. Acute exacerbation of chronic systolic congestive heart failure. Patient is now on Lasix drip area Lasix has been transitioned IV Lasix 3. Elevated liver enzymes. gallbladder ultrasound completed showing mild gallbladder wall thickening stones no dilated ducts. Tylenol and Lipitor currently on hold 4. Known history of nonischemic cardiomyopathy the with previous history of AICD placement 5. Paroxysmal atrial fibrillation patient unable to tolerate it regulation due to vaginal bleeding 6. History of essential hypertension 7. History of hyperlipidemia 8. History of anxiety disorder 9. Hyponatremia sodium low at 128. Resolved 10. Acute kidney injury. Nephrology services following 11. Nausea and vomiting. Abdominal ultrasound completed showing no sonographic evidence for acute abnormality at a medically. 12. Elevated white blood cell count likely secondary to urinary tract infection. Patient was initially worked up on admission no infection found. Infectious disease service is following DVT prophylaxis SCDs. GI prophylaxis Protonix Cardiology services following Nephrology, infectious disease and critical care service following Patient transitioned from Lasix drip to IV Lasix PT OT consulted
[2020-12-28] MEDS: PANTOPRAZOLE 40 MG TABLET PO SCH (06:17)
[2020-12-28 07:57] LABS: Calcium 8.9 mg/dL (8.4-10.2); Magnesium 1.7 mg/dL (1.6-2.3); Potassium 3.4 mmol/L (3.5-5.1)
[2020-12-28] MEDS ORDERED: POTASSIUM CHLORIDE ER 20 MEQ TAB.ER PO STA (09:25)
[2020-12-28] MEDS ORDERED: FUROSEMIDE 10 MG/ML 4 ML VIAL IV STA (10:05)
--- NOTE | 2020-12-28 10:08 | P.PN ---
Subjective Patient is seen in follow-up for acute kidney injury. Renal function better. Maintain on oral diuretics. Good urine output. No active complaints. Oral intake fair. Vital signs are stable. General: The patient appeared well nourished and normally developed. HEENT: Head exam is unremarkable. Neck is without jugular venous distension. LUNGS: Breath sounds decreased. HEART: Rate and Rhythm are regular. ABDOMEN: Soft, no distention. EXTREMITITES: 2+ edema. Objective - Vital Signs Vital signs: Vital Signs Temp 98.5 F 12/28/20 04:00 Pulse 76 12/28/20 04:00 Resp 17 12/28/20 04:00 BP 118/74 12/28/20 04:00 Pulse Ox 97 12/28/20 04:00 Intake & Output 12/27/20 12/28/20 12/28/20 18:59 06:59 18:59 Intake Total 680 Output Total 1050 500 Balance -370 -500 Intake: Oral 680 Output: Urine 1050 500 Other: Voiding Method Toilet Toilet - Labs CBC & Chem 7: 12/27/20 07:29 12/28/20 07:01 Labs: Abnormal Lab Results - Last 24 Hours (Table) 12/27/20 12/28/20 Range/Units 07:29 07:01 Neutrophils # 8.3 H (1.3-7.7) k/uL Monocytes # 1.3 H (0-1.0) k/uL Sodium 134 L (137-145) mmol/L Potassium 3.4 L (3.5-5.1) mmol/L Chloride 95 L (98-107) mmol/L BUN 38 H (7-17) mg/dL Creatinine 1.37 H (0.52-1.04) mg/dL Assessment and Plan Plan: Assessment: 1. Acute kidney injury secondary to ATN secondary to cardiorenal syndrome and hemodynamic instability. Renal function better. Creatinine 1.37 today. UA benign. 2. Acute on chronic systolic CHF with ejection fraction of 20-25% with moderate tricuspid regurgitation. 3. Pulmonary hypertension. 4. Hyperkalemia secondary to acute kidney injury, metabolic acidosis and entreso. Resolved. Now hypokalemic and being replaced. 5. Metabolic acidosis secondary to acute kidney injury. Resolved. 6. Hypervolemic hyponatremia. 7. A. fib with RVR. Cardiology following. 8. Fluid overload. Plan: 1200 mL fluid restriction. Maintain oral Lasix 60 mg twice daily. Repeat 40 mg IV Lasix once today. Replace potassium and add maintenance potassium supplementation. Repeat electrolytes in the morning.
[2020-12-28] MEDS: ENOXAPARIN 40 MG/0.4 ML SYRINGE SQ SCH (10:16)
[2020-12-28] MEDS: FUROSEMIDE 20 MG TAB PO SCH ×2 (10:16→17:34)
[2020-12-28] MEDS: allopurinoL 300 MG TAB PO SCH (10:17)
[2020-12-28] MEDS: ESCITALOPRAM 10 MG TAB PO SCH (10:17)
[2020-12-28] MEDS: METOPROLOL SUCCINATE (ER) 100 MG TAB.ER.24H PO SCH ×2 (10:17→22:54)
[2020-12-28] MEDS: METOPROLOL SUCCINATE (ER) 50 MG TAB.ER.24H PO SCH (11:48)
[2020-12-28] MEDS: FERROUS SULFATE 325 MG TAB PO SCH (11:48)
[2020-12-28] MEDS ORDERED: SODIUM CHLORIDE 0.9% 500 ML 500 ML IV ONE (20:12)
--- NOTE | 2020-12-28 23:05 | PN ---
PROGRESS NOTE DATE OF SERVICE: 12/28/2020 REASON FOR FOLLOWUP: Leukocytosis and UTI. INTERVAL HISTORY: Patient is afebrile. The patient is breathing comfortably. Denies having any chest pain, shortness of breath or cough. No abdominal pain or diarrhea. PHYSICAL EXAMINATION: Blood pressure is 98/77 with pulse of , temperature of 98. She is 99% on room air. General description is a middle-aged female lying in no distress. Respiratory system: Unlabored breathing, decreased breath sounds at the bases, no wheeze. Heart S1, S2. Regular rate and rhythm. Abdomen is soft, no tenderness. LABS: No CBC was done today. BUN of 28, creatinine 1.7. DIAGNOSTIC IMPRESSION AND PLAN: Patient with leukocytosis, multifactorial, possible component of urinary tract infection. The patient white count did normalize on Rocephin and has completed a seven- day course of Rocephin. Currently being monitored off antibiotic therapy. Continue supportive care. MMODL / IJN: [id number] /
[2020-12-29 03:37] LABS: Calcium 8.9 mg/dL (8.4-10.2); Magnesium 1.7 mg/dL (1.6-2.3); Potassium 3.7 mmol/L (3.5-5.1)
[2020-12-29] MEDS: PANTOPRAZOLE 40 MG TABLET PO SCH (06:19)
[2020-12-29] MEDS: METOPROLOL SUCCINATE (ER) 100 MG TAB.ER.24H PO SCH ×2 (08:43→20:13)
[2020-12-29] MEDS: FERROUS SULFATE 325 MG TAB PO SCH (08:43)
[2020-12-29] MEDS: allopurinoL 300 MG TAB PO SCH (08:43)
[2020-12-29] MEDS: ESCITALOPRAM 10 MG TAB PO SCH (08:43)
[2020-12-29] MEDS: ENOXAPARIN 40 MG/0.4 ML SYRINGE SQ SCH (08:43)
[2020-12-29] MEDS ORDERED: POTASSIUM CHLORIDE ER 20 MEQ TAB.ER PO SCH (09:00)
[2020-12-29] MEDS: FUROSEMIDE 20 MG TAB PO SCH ×2 (10:41→19:10)
--- NOTE | 2020-12-29 11:00 | P.PN ---
Subjective Progress Note Date: 12/28/20 This is a 50-year-old female patient who presented to the ER with complaints of palpitations. Patient reports that she's had this issue intermittently occurring. She reports that she felt anxious with prompted her to come to ER for further evaluation. Patient has a past medical history of chronic systolic congestive heart failure, nonischemic cardiomyopathy with previous AICD placement, paroxysmal atrial fibrillation, essential hypertension, hyperlipidemia and anxiety. She denies any recent illness. X-ray completed showing nonacute abdomen. Cardiomegaly. Chest x-ray performed showing cardiom egaly no heart failure no change compared to recent exam. Gallbladder ultrasound performed showing mild gallbladder wall thickening no gallstones or dilated ducts. Liver enzymes slightly elevated total bili 1.4, AST 168, ALT 140 and alkaline phosphatase 132. Troponin negative. BNP 8720. At this time patient was started on IV Lasix IV Cardizem. Cardiology services have been consulted. Patient denies chest pain. Patient denies shortness breath. Patient denies nausea vomiting or diarrhea. Patient denies any urinary burning or frequency. On 12/13/2020 Patient was seen and examined on the medical floor, she is alert and oriented x 3 in no distress, she is still complaining of shortness of breath with any activity she is also complaining of occasional palpitation otherwise she denies any complaints there is no fever or chills no headache or dizziness no chest pain, no cough no nausea or vomiting no abdominal pain no diarrhea no blood in the stools no burning with urination no frequency or urgency and no hematuria, there is no weakness or numbness in any of the extremities no change in vision speech or gait. On 12/14/2020 patient is alert and oriented 3. Patient relating of some dizziness. At this time patient denies chest pain or shortness breath. Patient denies nausea vomiting or diarrhea. Patient denies any urinary burning or frequency patient to be transitioned per cardiology to oral Lasix On 12/15/2020 patient alert and oriented 3. Patient has been transitioned to oral Lasix and cleared for discharge from cardiology services. Patient's sodium low today at 128 did discuss case with cardiology services okay for patient to have small amount of fluid 50 mL of normal saline. Patient stopped vomiting of some dizziness upon standing. Patient denies chest pain or shortness of breath. Patient denies nausea vomiting or diarrhea. Patient denies any urinary burning or frequency On 12/16/2020atient was seen and examined on the medical floor, he is alert and oriented x 3 in no distress, he denies any complaints there is no fever or chills no headache or dizziness no chest pain no shortness of breath no palpitation no cough no nausea or vomiting no abdominal pain no diarrhea no blood in the stools no burning with urination no frequency or urgency and no hematuria, there is no weakness or numbness in any of the extremities no change in vision speech or gait. Blood pressure is still on the low side and sodium is still low at 128 at this time will decrease Lasix to 40 mg once daily and continue was normal saline at 50 mL per hour. Will recheck in a.m. On 12/17/2020. Patient is alert and oriented 3. Patient remains on normal saline at 50. Sodium remains at 128. Transvaginal ultrasound completed. At this time patient is still complaining of intermittent episodes of dizziness. Patient denies chest pain. Patient denies shortness of breath. Patient denies nausea vomiting or diarrhea. Patient denies any urinary burning or frequency On 12/18/2020 Patient was seen and examined on the medical floor, she is alert and oriented x 3 in no distress, she is complaining of generalized weakness and shortness of breath with activity otherwise she denies any complaints there is no fever or chills no headache or dizziness no chest pain no palpitation no cough no nausea or vomiting no abdominal pain no diarrhea no blood in the stools no burning with urination no frequency or urgency and no hematuria, there is no weakness or numbness in any of the extremities no change in vision speech or gait. On 12/19/2020 patient is alert and oriented 3. Sodium remains low at 126, potassium 5.3. Running creatinine increasing 48 and 2.09. Patient reports that she's been nauseous with episodes of emesis throughout the night. Weight gain of 120.7-121.9. Patient does have some lower extremity edema. At this time given patient's acute renal injury but weight gain will consult nephrology services. Lasix on hold did discuss with cardiology services. Will order abdominal ultrasound for nausea and vomiting. Infectious disease also consulted for elevated white blood cell count. Chest x-ray UA and blood culture ordered. Critical care services also consulted. On 12/20/2020 Patient was seen and examined on the medical floor, she is alert and oriented x 3 in no distress, she is complaining of bilateral lower extremity edema, and complaining of shortness of breath with any activity otherwise she denies any complaints there is no fever or chills no headache or dizziness no chest pain no palpitation no cough no nausea or vomiting no abdominal pain no diarrhea no blood in the stools no burning with urination no frequency or urgenc y and no hematuria, there is no weakness or numbness in any of the extremities no change in vision speech or gait. On 12/21/2020 patient's alert and oriented 3. Patient has been started on Lasix drip. Reports some improvement with shortness of breath. Patient denies chest pain. Patient denies nausea vomiting or diarrhea. Patient currently on Rocephin for UTI. Nephrology, cardiology and infectious disease services are following. On 12/22/2009 1 patient's alert and oriented 3. Patient transitioned from Lasix drip to IV push Lasix. Weight improving from 118.7 kg to 117.9. White blood cell has normalized 10.6. Creatinine improving to 1.51 and bun 44. Patient reports she had a bowel movement in which she had to strain and noticed some bright red blood Lasix secondary to her hemorrhoids. Hemoglobin remained stable at 10.9 we'll continue to monitor hemoglobin and a further episodes of bleeding. At that time patient denies chest pain. Patient denies nausea vomiting or diarrhea. Patient denies any urinary burning or frequency. On 12/23/2020 patient was seen and examined on the medical floor she is alert and oriented 3 in no distress she is still complaining of shortness of breath with activity otherwise she denies any complaints at this time On 12/24/2020 patient's alert and oriented 3. Patient remains on IV Lasix 60 mg twice a day. Per infectious disease no need for antibiotics at discharge. PT OT has been consulted. At this time patient denies chest pain. Patient is still complaining of mild shortness breath. Patient denies nausea vomiting or diarrhea. Patient denies any urinary burning or frequency On 12/25/2020 patient having some nausea this AM. Patient remains on IV Lasix. Weight 113.4 to 112.8. Creatinine 1.53 and bun 40. At this time patient denies any chest pain or shortness breath. Patient denies nausea vomiting or diarrhea. Patient denies any urinary burning or frequency. On 12/26/2020 Patient was seen and examined on the medical floor, she is alert and oriented x 3 in no distress, she is still complaining of generalized w eakness and shortness of breath with any activity otherwise she denies any complaints there is no fever or chills no headache or dizziness no chest pain no palpitation no cough no nausea or vomiting no abdominal pain no diarrhea no blood in the stools no burning with urination no frequency or urgency and no hematuria, there is no weakness or numbness in any of the extremities no change in vision speech or gait. On 12/27/2020 Patient is alert and oriented x 3 in no distress, she is still complaining of generalized weakness and shortness of breath with any activity otherwise she denies any complaints there is no fever or chills no headache or dizziness no chest pain no palpitation no cough no nausea or vomiting no abdominal pain no diarrhea no blood in the stools no burning with urination no frequency or urgency and no hematuria, there is no weakness or numbness in any of the extremities no change in vision speech or gait. She is complaining of weakness and severe bilateral lower extremities edema. On 12/28/2030 patient's alert and oriented 3. Patient planning of generalized weakness and shortness of breath. Creatinine 1.37 bun 38. Patient denies chest pain or shortness breath. Patient denies nausea vomiting or diarrhea. Patient denies any urinary burning or frequency. PT OT consulted Objective - Vital Signs Vital signs: Vital Signs Temp 98.1 F 12/28/20 08:00 Pulse 105 H 12/28/20 13:09 Resp 18 12/28/20 12:00 BP 110/74 12/28/20 12:00 Pulse Ox 98 12/28/20 12:00 Intake & Output 12/27/20 12/28/20 12/28/20 18:59 06:59 18:59 Intake Total 680 240 Output Total 1050 500 400 Balance -370 -500 -160 Intake: Oral 680 240 Output: Urine 1050 500 400 Other: Voiding Method Toilet Toilet # Voids 0 # Bowel Movements 0 - Exam In general patient is alert and oriented x 3 in no distress HEENT head normocephalic and atraumatic Neck is supple no JVD no goiter no lymphadenopathy no carotid bruit Chest examination is clear to auscultation no crackles no wheezing Cardiac exam reveals irregular heart sounds S1 and S2 no gallops no murmurs Abdomen is soft nontender no organomegaly with normal bowel sounds Extremity exam reveals no edema no cyanosis or clubbing Neurological examination reveals no gross focal deficits - Labs CBC & Chem 7: 12/27/20 07:29 12/29/20 02:52 Labs: Abnormal Lab Results - Last 24 Hours (Table) 12/28/20 Range/Units 07:01 Sodium 134 L (137-145) mmol/L Potassium 3.4 L (3.5-5.1) mmol/L Chloride 95 L (98-107) mmol/L BUN 38 H (7-17) mg/dL Creatinine 1.37 H (0.52-1.04) mg/dL Assessment and Plan Assessment: 1. Atrial fibrillation with rapid ventricular response. 2. Acute exacerbation of chronic systolic congestive heart failure. Patient is now on Lasix drip area Lasix has been transitioned IV Lasix 3. Elevated liver enzymes. gallbladder ultrasound completed showing mild gallbladder wall thickening stones no dilated ducts. Tylenol and Lipitor currently on hold 4. Known history of nonischemic cardiomyopathy the with previous history of AICD placement 5. Paroxysmal atrial fibrillation patient unable to tolerate it regulation due to vaginal bleeding 6. History of essential hypertension 7. History of hyperlipidemia 8. History of anxiety disorder 9. Hyponatremia sodium low at 128. Resolved 10. Acute kidney injury. Nephrology services following 11. Nausea and vomiting. Abdominal ultrasound completed showing no sonographic evidence for acute abnormality at a medically. 12. Elevated white blood cell count likely secondary to urinary tract infection. Patient was initially worked up on admission no infection found. Infectious disease service is following DVT prophylaxis SCDs. GI prophylaxis Protonix Cardiology services following Nephrology, infectious disease and critical care service following Patient transitioned from Lasix drip to IV Lasix PT OT consulted
--- NOTE | 2020-12-29 11:03 | P.PN ---
Subjective Progress Note Date: 12/29/20 This is a 50-year-old female patient who presented to the ER with complaints of palpitations. Patient reports that she's had this issue intermittently occurring. She reports that she felt anxious with prompted her to come to ER for further evaluation. Patient has a past medical history of chronic systolic congestive heart failure, nonischemic cardiomyopathy with previous AICD placement, paroxysmal atrial fibrillation, essential hypertension, hyperlipidemia and anxiety. She denies any recent illness. X-ray completed showing nonacute abdomen. Cardiomegaly. Chest x-ray performed showing cardiom egaly no heart failure no change compared to recent exam. Gallbladder ultrasound performed showing mild gallbladder wall thickening no gallstones or dilated ducts. Liver enzymes slightly elevated total bili 1.4, AST 168, ALT 140 and alkaline phosphatase 132. Troponin negative. BNP 8720. At this time patient was started on IV Lasix IV Cardizem. Cardiology services have been consulted. Patient denies chest pain. Patient denies shortness breath. Patient denies nausea vomiting or diarrhea. Patient denies any urinary burning or frequency. On 12/13/2020 Patient was seen and examined on the medical floor, she is alert and oriented x 3 in no distress, she is still complaining of shortness of breath with any activity she is also complaining of occasional palpitation otherwise she denies any complaints there is no fever or chills no headache or dizziness no chest pain, no cough no nausea or vomiting no abdominal pain no diarrhea no blood in the stools no burning with urination no frequency or urgency and no hematuria, there is no weakness or numbness in any of the extremities no change in vision speech or gait. On 12/14/2020 patient is alert and oriented 3. Patient relating of some dizziness. At this time patient denies chest pain or shortness breath. Patient denies nausea vomiting or diarrhea. Patient denies any urinary burning or frequency patient to be transitioned per cardiology to oral Lasix On 12/15/2020 patient alert and oriented 3. Patient has been transitioned to oral Lasix and cleared for discharge from cardiology services. Patient's sodium low today at 128 did discuss case with cardiology services okay for patient to have small amount of fluid 50 mL of normal saline. Patient stopped vomiting of some dizziness upon standing. Patient denies chest pain or shortness of breath. Patient denies nausea vomiting or diarrhea. Patient denies any urinary burning or frequency On 12/16/2020atient was seen and examined on the medical floor, he is alert and oriented x 3 in no distress, he denies any complaints there is no fever or chills no headache or dizziness no chest pain no shortness of breath no palpitation no cough no nausea or vomiting no abdominal pain no diarrhea no blood in the stools no burning with urination no frequency or urgency and no hematuria, there is no weakness or numbness in any of the extremities no change in vision speech or gait. Blood pressure is still on the low side and sodium is still low at 128 at this time will decrease Lasix to 40 mg once daily and continue was normal saline at 50 mL per hour. Will recheck in a.m. On 12/17/2020. Patient is alert and oriented 3. Patient remains on normal saline at 50. Sodium remains at 128. Transvaginal ultrasound completed. At this time patient is still complaining of intermittent episodes of dizziness. Patient denies chest pain. Patient denies shortness of breath. Patient denies nausea vomiting or diarrhea. Patient denies any urinary burning or frequency On 12/18/2020 Patient was seen and examined on the medical floor, she is alert and oriented x 3 in no distress, she is complaining of generalized weakness and shortness of breath with activity otherwise she denies any complaints there is no fever or chills no headache or dizziness no chest pain no palpitation no cough no nausea or vomiting no abdominal pain no diarrhea no blood in the stools no burning with urination no frequency or urgency and no hematuria, there is no weakness or numbness in any of the extremities no change in vision speech or gait. On 12/19/2020 patient is alert and oriented 3. Sodium remains low at 126, potassium 5.3. Running creatinine increasing 48 and 2.09. Patient reports that she's been nauseous with episodes of emesis throughout the night. Weight gain of 120.7-121.9. Patient does have some lower extremity edema. At this time given patient's acute renal injury but weight gain will consult nephrology services. Lasix on hold did discuss with cardiology services. Will order abdominal ultrasound for nausea and vomiting. Infectious disease also consulted for elevated white blood cell count. Chest x-ray UA and blood culture ordered. Critical care services also consulted. On 12/20/2020 Patient was seen and examined on the medical floor, she is alert and oriented x 3 in no distress, she is complaining of bilateral lower extremity edema, and complaining of shortness of breath with any activity otherwise she denies any complaints there is no fever or chills no headache or dizziness no chest pain no palpitation no cough no nausea or vomiting no abdominal pain no diarrhea no blood in the stools no burning with urination no frequency or urgenc y and no hematuria, there is no weakness or numbness in any of the extremities no change in vision speech or gait. On 12/21/2020 patient's alert and oriented 3. Patient has been started on Lasix drip. Reports some improvement with shortness of breath. Patient denies chest pain. Patient denies nausea vomiting or diarrhea. Patient currently on Rocephin for UTI. Nephrology, cardiology and infectious disease services are following. On 12/22/2009 1 patient's alert and oriented 3. Patient transitioned from Lasix drip to IV push Lasix. Weight improving from 118.7 kg to 117.9. White blood cell has normalized 10.6. Creatinine improving to 1.51 and bun 44. Patient reports she had a bowel movement in which she had to strain and noticed some bright red blood Lasix secondary to her hemorrhoids. Hemoglobin remained stable at 10.9 we'll continue to monitor hemoglobin and a further episodes of bleeding. At that time patient denies chest pain. Patient denies nausea vomiting or diarrhea. Patient denies any urinary burning or frequency. On 12/23/2020 patient was seen and examined on the medical floor she is alert and oriented 3 in no distress she is still complaining of shortness of breath with activity otherwise she denies any complaints at this time On 12/24/2020 patient's alert and oriented 3. Patient remains on IV Lasix 60 mg twice a day. Per infectious disease no need for antibiotics at discharge. PT OT has been consulted. At this time patient denies chest pain. Patient is still complaining of mild shortness breath. Patient denies nausea vomiting or diarrhea. Patient denies any urinary burning or frequency On 12/25/2020 patient having some nausea this AM. Patient remains on IV Lasix. Weight 113.4 to 112.8. Creatinine 1.53 and bun 40. At this time patient denies any chest pain or shortness breath. Patient denies nausea vomiting or diarrhea. Patient denies any urinary burning or frequency. On 12/26/2020 Patient was seen and examined on the medical floor, she is alert and oriented x 3 in no distress, she is still complaining of generalized w eakness and shortness of breath with any activity otherwise she denies any complaints there is no fever or chills no headache or dizziness no chest pain no palpitation no cough no nausea or vomiting no abdominal pain no diarrhea no blood in the stools no burning with urination no frequency or urgency and no hematuria, there is no weakness or numbness in any of the extremities no change in vision speech or gait. On 12/27/2020 Patient is alert and oriented x 3 in no distress, she is still complaining of generalized weakness and shortness of breath with any activity otherwise she denies any complaints there is no fever or chills no headache or dizziness no chest pain no palpitation no cough no nausea or vomiting no abdominal pain no diarrhea no blood in the stools no burning with urination no frequency or urgency and no hematuria, there is no weakness or numbness in any of the extremities no change in vision speech or gait. She is complaining of weakness and severe bilateral lower extremities edema. On 12/28/2020 patient's alert and oriented 3. Patient planning of generalized weakness and shortness of breath. Creatinine 1.37 bun 38. Patient denies chest pain or shortness breath. Patient denies nausea vomiting or diarrhea. Patient denies any urinary burning or frequency. PT OT consulted On 12/29/2020 A-team called on patient last night due to decreased blood pressure and increased lethargy. Patient was given 500 mL bolus. At that time patient also found to have low pulse ox. This a.m. patient remains a no 3 but has increased lethargy. Will order chest x-ray ABGs reconsult cardiology and pulmonary services. At this time vitals remained stable. Patient denies any acute complaints. Patient denies chest pain or shortness breath. Patient vomiting or diarrhea. Patient denies any urinary burning or frequency Objective - Vital Signs Vital signs: Vital Signs Temp 97.8 F 12/29/20 04:40 Pulse 95 12/29/20 08:56 Resp 20 12/29/20 08:00 BP 111/67 12/29/20 10:40 Pulse Ox 100 12/29/20 08:00 Intake & Output 12/28/20 12/29/20 12/29/20 18:59 06:59 18:59 Intake Total 740 0 Output Total 400 700 Balance 340 -700 0 Intake: Oral 740 0 Output: Urine 400 700 Straight 400 Post Void Residual 0 Other: Voiding Method Toilet # Voids 2 # Bowel Movements 0 - Exam In general patient is alert and oriented x 3 in no distress HEENT head normocephalic and atraumatic Neck is supple no JVD no goiter no lymphadenopathy no carotid bruit Chest examination is clear to auscultation no crackles no wheezing Cardiac exam reveals irregular heart sounds S1 and S2 no gallops no murmurs Abdomen is soft nontender no organomegaly with normal bowel sounds Extremity exam reveals no edema no cyanosis or clubbing Neurological examination reveals no gross focal deficits - Labs CBC & Chem 7: 12/27/20 07:29 12/29/20 02:52 Labs: Abnormal Lab Results - Last 24 Hours (Table) 12/29/20 12/29/20 Range/Units 02:52 02:52 Sodium 133 L (137-145) mmol/L Chloride 97 L (98-107) mmol/L BUN 35 H (7-17) mg/dL Creatinine 1.24 H (0.52-1.04) mg/dL Troponin I 0.038 H* (0.000-0.034) ng/mL Assessment and Plan Assessment: 1. Atrial fibrillation with rapid ventricular response. 2. Acute exacerbation of chronic systolic congestive heart failure. Patient is now on Lasix drip area Lasix has been transitioned IV Lasix. Patient has been transitioned to by mouth Lasix 3. Elevated liver enzymes. gallbladder ultrasound completed showing mild gallbladder wall thickening stones no dilated ducts. Tylenol and Lipitor currently on hold 4. Known history of nonischemic cardiomyopathy the with previous history of AICD placement 5. Paroxysmal atrial fibrillation patient unable to tolerate it regulation due to vaginal bleeding 6. History of essential hypertension 7. History of hyperlipidemia 8. History of anxiety disorder 9. Hyponatremia sodium low at 128. Resolved 10. Acute kidney injury. Nephrology services following 11. Nausea and vomiting. Abdominal ultrasound completed showing no sonographic evidence for acute abnormality at a medically. 12. Elevated white blood cell count likely secondary to urinary tract infection. Patient was initially worked up on admission no infection found. Infectious disease service is following 13. Increased lethargy. Chest x-ray and ABGs ordered. Pulmonary and cardiology services reconsulted DVT prophylaxis SCDs. GI prophylaxis Protonix Cardiology services following Nephrology, infectious disease and critical care service following PT OT consulted
[2020-12-29 11:11] LABS: ABG Base Excess 5.8 mmol/L; ABG HCO3 29 mmol/L (21-25); ABG PCO2 38 mmHg (35-45); ABG PH 7.49 (7.35-7.45); ABG PO2 150 mmHg (83-108); ABG TCO2 30 mmol/L (19-24); Allen Test Performed? Yes
--- NOTE | 2020-12-29 12:41 | P.PN ---
Subjective Patient is seen in follow-up for acute kidney injury. Renal function better. Maintain on oral diuretics. Good urine output. No active complaints. Oral intake fair. Vital signs are stable. General: The patient appeared well nourished and normally developed. HEENT: Head exam is unremarkable. Neck is without jugular venous distension. LUNGS: Breath sounds decreased. HEART: Rate and Rhythm are regular. ABDOMEN: Soft, no distention. EXTREMITITES: 1+ edema. Objective - Vital Signs Vital signs: Vital Signs Temp 97.8 F 12/29/20 04:40 Pulse 95 12/29/20 08:56 Resp 20 12/29/20 08:00 BP 111/67 12/29/20 10:40 Pulse Ox 100 12/29/20 08:00 Intake & Output 12/28/20 12/29/20 12/29/20 18:59 06:59 18:59 Intake Total 740 0 Output Total 400 700 400 Balance 340 -700 -400 Intake: Oral 740 0 Output: Urine 400 700 400 Straight 400 Post Void Residual 0 Other: Voiding Method Toilet # Voids 2 # Bowel Movements 0 - Labs CBC & Chem 7: 12/27/20 07:29 12/29/20 02:52 Labs: Abnormal Lab Results - Last 24 Hours (Table) 12/29/20 12/29/20 12/29/20 Range/Units 02:52 02:52 11:08 ABG pH 7.49 H (7.35-7.45) ABG pO2 150 H (83-108) mmHg ABG HCO3 29 H (21-25) mmol/L ABG Total CO2 30 H (19-24) mmol/L ABG O2 Saturation 100.0 H (94-97) % Sodium 133 L (137-145) mmol/L Chloride 97 L (98-107) mmol/L BUN 35 H (7-17) mg/dL Creatinine 1.24 H (0.52-1.04) mg/dL Troponin I 0.038 H* (0.000-0.034) ng/mL Assessment and Plan Plan: Assessment: 1. Acute kidney injury secondary to ATN secondary to cardiorenal syndrome and hemodynamic instability. Renal function better. Creatinine 1.24 today. UA benign. 2. Acute on chronic systolic CHF with ejection fraction of 20-25% with moderate tricuspid regurgitation. 3. Pulmonary hypertension. 4. Hypokalemia from diuresis. Replaced. Maintained on potassium supple mentation. 5. Metabolic acidosis secondary to acute kidney injury. Resolved. 6. Hypervolemic hyponatremia. 7. A. fib with RVR. Cardiology following. 8. Fluid overload. Improving with diuresis. Plan: 1200 mL fluid restriction. Maintain oral Lasix 60 mg twice daily. Avoid nephrotoxins. Continue to monitor renal function and urine output
[2020-12-29] MEDS: METOPROLOL SUCCINATE (ER) 50 MG TAB.ER.24H PO SCH (12:44)
[2020-12-29] MEDS: ACETAMINOPHEN TAB 325 MG TAB PO PRN (12:44)
--- NOTE | 2020-12-29 13:39 | XR ---
EXAMINATION TYPE: XR chest 1V portable DATE OF EXAM: 12/29/2020 COMPARISON: 12/21/2020 HISTORY: Desaturation TECHNIQUE: Single frontal view of the chest is obtained. FINDINGS: The visualized lungs are grossly clear. Enlargement of the cardiac silhouette is similar with AICD in place. IMPRESSION: No definite acute process.
[2020-12-30 02:35] LABS: Glucose,Whole Blood 137 mg/dL (75-99)
[2020-12-30] MEDS: ALPRAZolam 0.25 MG TAB PO PRN ×2 (02:37→05:06)
[2020-12-30 02:47] LABS: Magnesium 1.9 mg/dL (1.6-2.3); Potassium 4.5 mmol/L (3.5-5.1)
[2020-12-30] MEDS ORDERED: AMIODARONE 360 MG in DEXTROSE 5% IN WATER 200 ML IV ONE ×2 (03:00)
[2020-12-30] MEDS ORDERED: DEXTROSE 5% IN WATER 100 ML with AMIODARONE 150 MG IV ONE (03:00)
[2020-12-30 04:40] LABS: Glucose,Whole Blood 75 mg/dL (75-99)
[2020-12-30] MEDS ORDERED: SODIUM CHLORIDE 0.9% 500 ML 500 ML IV ONE (04:47)
[2020-12-30 05:23] LABS: Glucose,Whole Blood 83 mg/dL (75-99)
[2020-12-30 05:27] LABS: Anisocytosis Moderate; HCT 51.7 % (34.0-46.0); HGB 13.1 gm/dL (11.4-16.0); Hypochromasia Marked; MCH 23.6 pg (25.0-35.0); MCHC 25.4 g/dL (31.0-37.0); Macrocytosis Slight; Mean Platelet Volume 7.3; Platelet Count 129 k/uL (150-450); RBC 5.57 m/uL (3.80-5.40); RDW 21.3 % (11.5-15.5)
[2020-12-30 05:29] LABS: MCV 92.7 fL (80.0-100.0)
--- NOTE | 2020-12-30 05:44 | XR ---
EXAMINATION TYPE: XR chest 1V portable DATE OF EXAM: 12/30/2020 COMPARISON: Yesterday HISTORY: Hypoxemia TECHNIQUE: FINDINGS: Heart is enlarged. There is some pulmonary vascular congestion. There is left axillary pace maker noted. There are chest leads. IMPRESSION: There is some pulmonary interstitial edema consistent with congestive heart failure that is the same or slightly worse than yesterday.
--- NOTE | 2020-12-30 05:54 | P.EN ---
A team note RN notified physician for multiple runs of nonsustained V. 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 fib not on anticoagulation due to uterine bleeding Patient admitted to the hospital about 2 weeks ago for A. fib with RVR and acute CHF exacerbation Today on telemetry she was having runs of nonsustained V. tach Currently patient is asymptomatic laying down comfortable in bed, Blood pressure systolic in the 80s she normally runs in the 90s. Patient on metoprolol Check magnesium and potassium replaced as needed to keep magnesium above 2 and potassium above 4 Patient reevaluated again due to recurrent episodes of nonsustained V. tach Patient will be started on amiodarone with amiodarone bolus 150 mg and then amiodarone drip Another a team called on this patient for reevaluation due to hypoxemia and difficulty breathing this time Heartrate was noticed in the range of 140-160 EKG showed A. fib with RVR Telemetry is showing episodes of nonsustained V. tach from earlier Patient is currently on amiodarone drip Case discussed with cardiology, unable to perform cardioversion due to patient not being on anticoagulation with contraindication due to uterine bleeding Plan Transfer patient to ICU for close monitoring Continue with amiodarone drip Replace magnesium for goal above 2 [employer] consultation to evaluate for uterine bleeding Total amount of critical care time spent was 68 minutes not counting procedures performed.
[2020-12-30 05:57] LABS: Band Neutrophils % 7 %; Eosinophils # (M) 0.22 k/uL (0-0.7); Lymphocytes # (M) 1.95 k/uL (1.0-4.8); Neutrophils % (M) 77 %; Nucleated Red Blood Cells 2 /100 WBC (0-0); Total Cells Counted 200; WBC 21.7 k/uL (3.8-10.6)
[2020-12-30 05:58] LABS: Anisocytosis (M) Present; Ovalocytes Present; Poikilocytosis (M) Present; Polychromasia Present
[2020-12-30] MEDS ORDERED: NOREPINEPHRIN 4 MG-0.9% NS PMX 4 MG/250 ML ML IV ONE (05:58)
[2020-12-30] MEDS ORDERED: propofoL 100 ML IV ONE (06:04)
[2020-12-30] MEDS: NOREPINEPHRINE 4 MG in SODIUM CHLORIDE 0.9% 250 ML IV SCH ×2 (06:05→08:08)
[2020-12-30 06:23] LABS: Albumin 4.3 g/dL (3.5-5.0); Magnesium 2.2 mg/dL (1.6-2.3); Potassium 4.3 mmol/L (3.5-5.1); Total Bilirubin 3.3 mg/dL (0.2-1.3); Total Protein 6.7 g/dL (6.3-8.2)
--- NOTE | 2020-12-30 06:52 | XR ---
EXAMINATION TYPE: XR chest 1V portable DATE OF EXAM: 12/30/2020 COMPARISON: Today HISTORY: Check tube placement Endotracheal tube is approximately 7 cm from the zulma. There is pulmonary interstitial and airspace edema. There is left axillary pacemaker. IMPRESSION: There is increasing pulmonary edema compared to exam one hour ago.
--- NOTE | 2020-12-30 07:13 | P.OBCN ---
History of Present Illness Consult date: 12/30/20 Reason for consult: other (vaginal bleeding) Chief complaint: palpitations History of present illness: 50 year old female presented to hospital on 12/11 with palpitations. She has been on a general medical floor since then. She was found to have an arrythmia but anticoagulation was stopped due to increased vaginal bleeding. US was done. the endometrium is only 0.46cm but there is a 7cm complex cystic structure in the right adnexa. She did have mild anemia but her hgb now is 13. lowest was 10. Early this morning, prior to my consultation, pt's status declined. She is now intubated and in the ICU. I was consulted for the vaginal bleeding to see if she could go back on anticoagulation. I am unable to get a history on this patient as she is sedated and intubated. Review of Systems Constitutional: Denies chills, Denies fever Cardiovascular: Reports palpitations Genitourinary: Reports abnormal vaginal bleeding Past Medical History Past Medical History: Atrial Fibrillation, Heart Failure, Eye Disorder, Hyperlipidemia, Hypertension, Skin Disorder Additional Past Medical History / Comment(s): psoriasis, gout, keratoconus rt eye, anemic. History of Any Multi-Drug Resistant Organisms: None Reported Past Surgical History: Heart Catheterization, Pacemaker Additional Past Surgical History / Comment(s): cardioversion, lumbar injection, pacemaker placement Past Anesthesia/Blood Transfusion Reactions: No Reported Reaction Type of Cardiac Device: Permanent Pacemaker Device Placement Date:: 06/30/2020 Past Psychological History: Anxiety Smoking Status: Never smoker Past Alcohol Use History: None Reported Additional Past Alcohol Use History / Comment(s): Quit smoking 1999. smoked for a couple yrs Past Drug Use History: None Reported - Past Family History Mother Family Medical History: AICD/Pacemaker Father Family Medical History: AICD/Pacemaker Medications and Allergies Home Medications Medication Instructions Recorded Confirmed Type Atorvastatin [Lipitor] 20 mg PO DAILY 07/31/16 12/11/20 History Ergocalciferol [Vitamin D2 50,000 unit PO KENT 03/08/20 12/11/20 History (DRISDOL)] Allopurinol [Zyloprim] 300 mg PO DAILY 05/11/20 12/11/20 History Sacubitril/Valsartan [Entresto 24 1 tab PO BID 07/02/20 12/11/20 History mg-26 mg Tablet] Ferrous Sulfate [Feosol] 325 mg PO DAILY@1200 12/02/20 12/11/20 History ALPRAZolam [Xanax] 0.25 mg PO QID PRN tab 12/06/20 12/11/20 Rx Acetaminophen Tab [Tylenol] 500 mg PO Q6HR PRN tab 12/06/20 12/11/20 Rx Escitalopram [Lexapro] 10 mg PO DAILY tab 12/06/20 12/11/20 Rx Furosemide [Lasix] 40 mg PO BID@0900,1600 30 Days #60 12/06/20 12/11/20 Rx tab Metoprolol Tartrate [Lopressor] 75 mg PO TID 30 Days #270 tab 12/06/20 12/11/20 Rx Spironolactone [Aldactone] 25 mg PO DAILY 30 Days #30 tab 12/06/20 12/11/20 Rx Allergies Allergy/AdvReac Type Severity Reaction Status Date / Time amoxicillin Allergy Rash/Hives Verified 12/11/20 17:44 Penicillins Allergy Rash/Hives Verified 12/11/20 17:44 Sulfa (Sulfonamide Allergy Swelling Verified 12/11/20 17:44 Antibiotics) Exam Osteopathic Statement: *. No significant issues noted on an osteopathic structural exam other than those noted in the History and Physical/Consult. Vital Signs Temp Pulse Resp BP Pulse Ox 12/30/20 03:09 80/40 12/30/20 02:45 160 H 35 H 76/40 98 12/30/20 02:25 41/25 12/30/20 02:15 146 H 33 H 113/85 98 12/29/20 23:55 98.5 F 98 17 90/71 100 12/29/20 20:10 98.4 F 91 18 113/80 99 12/29/20 16:00 97.6 F 99 18 129/85 97 12/29/20 12:47 128 H 12/29/20 12:30 98.1 F 108 H 18 92/71 94 L 12/29/20 10:40 111/67 12/29/20 08:56 95 123/74 12/29/20 08:00 95 20 115/72 100 Intake and Output 12/29/20 12/30/20 12/30/20 22:59 06:59 14:59 Other: Voiding Method Toilet Toilet pelvic exam completed. Jackson is in place. No blood seen coming out of vagina. I did see a bit of dark blood on my glove after the pelvic exam. Exam limited due to body habitus. no lesions within vagina. Results Result Diagrams: 12/30/20 05:06 12/30/20 05:06 Abnormal Lab Results - Last 24 Hours (Table) 12/29/20 12/30/20 12/30/20 Range/Units 11:08 02:33 05:06 WBC 21.7 H (3.8-10.6) k/uL RBC 5.57 H (3.80-5.40) m/uL Hct 51.7 H (34.0-46.0) % MCH 23.6 L (25.0-35.0) pg MCHC 25.4 L (31.0-37.0) g/dL RDW 21.3 H (11.5-15.5) % Plt Count 129 L (150-450) k/uL Neutrophils # (Manual) 18.20 H (1.3-7.7) k/uL Monocytes # (Manual) 1.30 H (0-1.0) k/uL Nucleated RBCs 2 H (0-0) /100 WBC D-Dimer (<0.60) mg/L FEU ABG pH 7.49 H (7.35-7.45) ABG pO2 150 H (83-108) mmHg ABG HCO3 29 H (21-25) mmol/L ABG Total CO2 30 H (19-24) mmol/L ABG O2 Saturation 100.0 H (94-97) % Chloride (98-107) mmol/L Carbon Dioxide (22-30) mmol/L BUN (7-17) mg/dL Creatinine (0.52-1.04) mg/dL Glucose (74-99) mg/dL POC Glucose (mg/dL) 137 H (75-99) mg/dL Total Bilirubin (0.2-1.3) mg/dL AST (14-36) U/L ALT (4-34) U/L 12/30/20 12/30/20 Range/Units 05:06 05:06 WBC (3.8-10.6) k/uL RBC (3.80-5.40) m/uL Hct (34.0-46.0) % MCH (25.0-35.0) pg MCHC (31.0-37.0) g/dL RDW (11.5-15.5) % Plt Count (150-450) k/uL Neutrophils # (Manual) (1.3-7.7) k/uL Monocytes # (Manual) (0-1.0) k/uL Nucleated RBCs (0-0) /100 WBC D-Dimer >35.20 H (<0.60) mg/L FEU ABG pH (7.35-7.45) ABG pO2 (83-108) mmHg ABG HCO3 (21-25) mmol/L ABG Total CO2 (19-24) mmol/L ABG O2 Saturation (94-97) % Chloride 96 L (98-107) mmol/L Carbon Dioxide 14 L (22-30) mmol/L BUN 29 H (7-17) mg/dL Creatinine 2.08 H (0.52-1.04) mg/dL Glucose 100 H (74-99) mg/dL POC Glucose (mg/dL) (75-99) mg/dL Total Bilirubin 3.3 H (0.2-1.3) mg/dL AST 216 H (14-36) U/L ALT 110 H (4-34) U/L Assessment and Plan (1) Atrial fibrillation with RVR Current Visit: Yes Status: Acute Code(s): I48.91 - UNSPECIFIED ATRIAL FIBRILLATION SNOMED Code(s): 436031595619013 (2) Congestive heart failure Current Visit: Yes Status: Acute Code(s): I50.9 - HEART FAILURE, UNSPECIFIED SNOMED Code(s): 13021307 (3) Dysfunctional uterine bleeding Current Visit: No Status: Acute Code(s): N93.8 - OTHER SPECIFIED ABNORMAL UTERINE AND VAGINAL BLEEDING SNOMED Code(s): 79101837243820 (4) Complex cyst of right ovary Current Visit: Yes Status: Acute Code(s): N83.291 - OTHER OVARIAN CYST, RIGHT SIDE SNOMED Code(s): 14994339727547998 Plan: 1. I am unable to verify if this is postmenopausal bleeding or normal for this patient. The bleeding is minimal at this point and there is no signs of polyps or hyperplasia. I would advise to go back on anticoagulation since it is necessary- I will follow her vaginal bleeding/flow. 2. This complex cyst is concerning and I will order a CA-125 to be drawn. This could be falsely elevated at times but at least we may clear the picture up a little with the level.
[2020-12-30] MEDS ORDERED: CISATRACURIUM 2 MG/ML 5 ML VIAL IV ONE (07:20)
[2020-12-30] MEDS: PANTOPRAZOLE 40 MG TABLET PO SCH (07:30)
[2020-12-30 07:51] LABS: ABG HCO3 11 mmol/L (21-25); ABG PCO2 29 mmHg (35-45); ABG PO2 268 mmHg (83-108); ABG TCO2 12 mmol/L (19-24); Allen Test Performed? Yes
[2020-12-30 07:53] LABS: ABG PH 7.19 (7.35-7.45)
[2020-12-30] MEDS ORDERED: SODIUM CHLORIDE 0.9% 150 ML with VASOPRESSIN 60 UNIT IV SCH ×2 (08:00)
[2020-12-30] MEDS ORDERED: SODIUM BICARB 8.4% 50 ML SYR (1 MEQ/ML) IV STA (08:29)
--- NOTE | 2020-12-30 08:41 | XR ---
EXAMINATION TYPE: XR chest 1V portable DATE OF EXAM: 12/30/2020 COMPARISON: 12/30/2020 HISTORY: Line placement TECHNIQUE: Single frontal view of the chest is obtained. FINDINGS: Endotracheal tube is in appropriate position. Interval placement of an enteric tube which is subdiaph ragmatic but traverses inferiorly off this image. Left basilar pleural-parenchymal disease and patchy airspace disease bilaterally appears similar to t he prior exam. Cardiac silhouette is unchanged in size with AICD leads. IMPRESSION: New enteric tube is subdiaphragmatic traverses inferiorly off this image. Other findings appear simil ar to the prior exam.
[2020-12-30] MEDS ORDERED: PANTOPRAZOLE 40 MG/10 ML VIAL IV SCH (09:00)
--- NOTE | 2020-12-30 09:03 | P.PN ---
Subjective Patient is seen in follow-up for acute kidney injury. Renal function worse today. Patient went into V. tach last night. She was subsequently intubated. She is currently on amiodarone drip as well as Levophed and vasopressin. Vital signs: On vasopressor support. General: The patient appeared well nourished and normally developed. HEENT: Head exam is unremarkable. Intubated. LUNGS: Breath sounds decreased. HEART: Irregular rate and rhythm. Abdomen: Soft, no distention. EXTREMITITES: Trace edema. Objective - Vital Signs Vital signs: Vital Signs Temp 99.2 F 12/30/20 05:40 Pulse 126 H 12/30/20 07:00 Resp 29 H 12/30/20 07:00 BP 58/26 12/30/20 07:00 Pulse Ox 77 L 12/30/20 06:50 Intake & Output 12/29/20 12/30/20 12/30/20 18:59 06:59 18:59 Intake Total 180 500 119.558 Output Total 400 20 20 Balance -220 480 99.558 Intake: IV 500 100 0.9 NS 100 Sodium Chloride 0.9% 500 500 ml 500 ml @ 999 mls/hr IV .Q31M [facility] Rx#:[id number] Intake, IV Titration 19.558 Amount Norepinephrine 4 mg In 19.558 Sodium Chloride 0.9% 250 ml @ 0.05 MCG/KG/MIN 21. 336 mls/hr IV .[id number] [facility] Rx#:[id number] Oral 180 Output: Urine 400 20 20 Other: Voiding Method Toilet Toilet - Labs CBC & Chem 7: 12/30/20 05:06 12/30/20 05:06 Labs: Abnormal Lab Results - Last 24 Hours (Table) 12/29/20 12/30/20 12/30/20 Range/Units 11:08 02:33 05:06 WBC 21.7 H (3.8-10.6) k/uL RBC 5.57 H (3.80-5.40) m/uL Hct 51.7 H (34.0-46.0) % MCH 23.6 L (25.0-35.0) pg MCHC 25.4 L (31.0-37.0) g/dL RDW 21.3 H (11.5-15.5) % Plt Count 129 L (150-450) k/uL Neutrophils # (Manual) 18.20 H (1.3-7.7) k/uL Monocytes # (Manual) 1.30 H (0-1.0) k/uL Nucleated RBCs 2 H (0-0) /100 WBC D-Dimer (<0.60) mg/L FEU ABG pH 7.49 H (7.35-7.45) ABG pCO2 (35-45) mmHg ABG pO2 150 H (83-108) mmHg ABG HCO3 29 H (21-25) mmol/L ABG Total CO2 30 H (19-24) mmol/L ABG O2 Saturation 100.0 H (94-97) % Chloride (98-107) mmol/L Carbon Dioxide (22-30) mmol/L BUN (7-17) mg/dL Creatinine (0.52-1.04) mg/dL Glucose (74-99) mg/dL POC Glucose (mg/dL) 137 H (75-99) mg/dL Total Bilirubin (0.2-1.3) mg/dL AST (14-36) U/L ALT (4-34) U/L 12/30/20 12/30/20 12/30/20 Range/Units 05:06 05:06 07:49 WBC (3.8-10.6) k/uL RBC (3.80-5.40) m/uL Hct (34.0-46.0) % MCH (25.0-35.0) pg MCHC (31.0-37.0) g/dL RDW (11.5-15.5) % Plt Count (150-450) k/uL Neutrophils # (Manual) (1.3-7.7) k/uL Monocytes # (Manual) (0-1.0) k/uL Nucleated RBCs (0-0) /100 WBC D-Dimer >35.20 H (<0.60) mg/L FEU ABG pH 7.19 L* (7.35-7.45) ABG pCO2 29 L (35-45) mmHg ABG pO2 268 H (83-108) mmHg ABG HCO3 11 L (21-25) mmol/L ABG Total CO2 12 L (19-24) mmol/L ABG O2 Saturation 100.0 H (94-97) % Chloride 96 L (98-107) mmol/L Carbon Dioxide 14 L (22-30) mmol/L BUN 29 H (7-17) mg/dL Creatinine 2.08 H (0.52-1.04) mg/dL Glucose 100 H (74-99) mg/dL POC Glucose (mg/dL) (75-99) mg/dL Total Bilirubin 3.3 H (0.2-1.3) mg/dL AST 216 H (14-36) U/L ALT 110 H (4-34) U/L Assessment and Plan Plan: Assessment: 1. Acute kidney injury secondary to ATN secondary to hypotension/v-tach. Renal function worse. Creatinine 2.0 today. UA benign. 2. Acute on chronic systolic CHF with ejection fraction of 20-25% with moderate tricuspid regurgitation. 3. Pulmonary hypertension. 4. Hypokalemia from diuresis. Replaced. Better. 5. Metabolic acidosis secondary to acute kidney injury. 6. Hypervolemic hyponatremia. Resolved. 7. V. tach maintained on amiodarone drip. 8. Fluid overload. Improved with diuresis. 9. Shock maintained on vasopressors. Plan: Stop oral Lasix. Wean FiO2 and vasopressors. I will give her sodium bicarb IV push. Add oral sodium bicarbonate. Continue to monitor renal function and urine output. If remains oliguric for the next 3-4 hours, will give Lasix 80 mg IV once. Continue to assess daily for need for renal replacement therapy.
[2020-12-30] MEDS ORDERED: SODIUM BICARB 8.4% 50 ML SYR (1 MEQ/ML) ONE (09:20)
[2020-12-30] MEDS ORDERED: NOREPINEPHRINE 32 MG in SODIUM CHLORIDE 0.9% 218 ML IV SCH (09:30)
[2020-12-30] MEDS: MAGNESIUM SULFATE-D5W PMX 1 GM in DEXTROSE/WATER 1 100ML.BAG IVPB SCH (09:36)
[2020-12-30] MEDS: AMIODARONE 450 MG in DEXTROSE 5% IN WATER 250 ML IV SCH ×2 (10:11)
[2020-12-30 10:34] VITALS: BMI 38.7
--- NOTE | 2020-12-30 10:34 | P.PN ---
Subjective Progress Note Date: 12/30/20 Principal diagnosis: Hypotension, acute respiratory failure The patient is seen today 12/30/2020 in the intensive care unit. She was admitted back on 12/11/2020 for atrial fibrillation with rapid ventricular response and acute exacerbation of chronic systolic congestive heart failure. We have been following the patient up through 12/21/2020 on the selective care unit. Approximately 5:00 this morning the patient developed runs of nonsustained ventricular tachycardia. She does have a known history of nonischemic cardiac myopathy with ejection fraction of 20%. Status post ICD placement. She does have paroxysmal atrial fibrillation and had not been on anticoagulation due to uterine bleeding. She was having heart rates up to 140- 160 bpm. Unable to perform cardioversion due to the patient being on blood thinners. She was initiated on amiodarone drip and transferred to the intensive care unit. Once there she became quite hypotensive and unable to protect her airway she was intubated by [facility]. She was seen in consultation in the ICU. She is currently intubated on mechanical ventilator at assist control mode with a rate of 20, tidal M4 100, FiO2 50% and a PEEP of 5. Morning blood gases revealed a pO2 268, pCO2 29, pH 7.2 this is on 100% FiO2. She is sedated on propofol at 30 mcg/kg/m. Requiring norepinephrine at 0.7 mcg/kg/m. Initiated on vasopressin at 0.03 units per minute. Continued on amiodarone at 1 mg/m. Left internal jugular catheter placed this morning. Right femoral arterial line placed. His x-ray shows some left basilar pleural parenchymal disease and patchy airspace disease bilaterally. Blood culture revealed no growth. Urine culture revealed no growth. White count 21.7. Hemoglobin 13.1. Platelet count 129,000. D-dimer greater than 35. Sodium 137. Potassium 4.3. Creatinine 2.08. AST 216. ALT 110. She's been on Lovenox for DVT prophylaxis. Objective - Vital Signs Vital signs: Vital Signs Temp 99.2 F 12/30/20 05:40 Pulse 126 H 12/30/20 07:00 Resp 29 H 12/30/20 07:00 BP 58/26 12/30/20 07:00 Pulse Ox 77 L 12/30/20 06:50 Intake & Output 12/29/20 12/30/20 12/30/20 18:59 06:59 18:59 Intake Total 180 500 119.558 Output Total 400 20 20 Balance -220 480 99.558 Intake: IV 500 100 0.9 NS 100 Sodium Chloride 0.9% 500 500 ml 500 ml @ 999 mls/hr IV .Q31M [facility] Rx#:[id number] Intake, IV Titration 19.558 Amount Norepinephrine 4 mg In 19.558 Sodium Chloride 0.9% 250 ml @ 0.05 MCG/KG/MIN 21. 336 mls/hr IV .[id number] [facility] Rx#:[id number] Oral 180 Output: Urine 400 20 20 Other: Voiding Method Toilet Toilet - Exam GENERAL EXAM: Intubated, sedated 50-year-old female patient, comfortable in no apparent distress. HEAD: Normocephalic. EYES: Sluggish reaction of pupils, equal size. NOSE: Clear with pink turbinates. THROAT: Oral endotracheal and gastric tube secured in place. No erythema or exudates. NECK: No masses, no JVD. CHEST: No chest wall deformity. LUNGS: Equal air entry with crackles in the bilateral bases. CVS: S1 and S2 normal with no audible murmur, regular rhythm. ABDOMEN: No hepatosplenomegaly, normal bowel sounds, no guarding or rigidity. SPINE: No scoliosis or deformity SKIN: No rashes CENTRAL NERVOUS SYSTEM: Sedated, tone is normal in all 4 extremities. EXTREMITIES: There is trace peripheral edema. No clubbing, no cyanosis. Peripheral pulses are intact. - Labs CBC & Chem 7: 12/30/20 05:06 12/30/20 05:06 Labs: Abnormal Lab Results - Last 24 Hours (Table) 12/29/20 12/30/20 12/30/20 Range/Units 11:08 02:33 05:06 WBC 21.7 H (3.8-10.6) k/uL RBC 5.57 H (3.80-5.40) m/uL Hct 51.7 H (34.0-46.0) % MCH 23.6 L (25.0-35.0) pg MCHC 25.4 L (31.0-37.0) g/dL RDW 21.3 H (11.5-15.5) % Plt Count 129 L (150-450) k/uL Neutrophils # (Manual) 18.20 H (1.3-7.7) k/uL Monocytes # (Manual) 1.30 H (0-1.0) k/uL Nucleated RBCs 2 H (0-0) /100 WBC D-Dimer (<0.60) mg/L FEU ABG pH 7.49 H (7.35-7.45) ABG pCO2 (35-45) mmHg ABG pO2 150 H (83-108) mmHg ABG HCO3 29 H (21-25) mmol/L ABG Total CO2 30 H (19-24) mmol/L ABG O2 Saturation 100.0 H (94-97) % Chloride (98-107) mmol/L Carbon Dioxide (22-30) mmol/L BUN (7-17) mg/dL Creatinine (0.52-1.04) mg/dL Glucose (74-99) mg/dL POC Glucose (mg/dL) 137 H (75-99) mg/dL Total Bilirubin (0.2-1.3) mg/dL AST (14-36) U/L ALT (4-34) U/L 12/30/20 12/30/20 12/30/20 Range/Units 05:06 05:06 07:49 WBC (3.8-10.6) k/uL RBC (3.80-5.40) m/uL Hct (34.0-46.0) % MCH (25.0-35.0) pg MCHC (31.0-37.0) g/dL RDW (11.5-15.5) % Plt Count (150-450) k/uL Neutrophils # (Manual) (1.3-7.7) k/uL Monocytes # (Manual) (0-1.0) k/uL Nucleated RBCs (0-0) /100 WBC D-Dimer >35.20 H (<0.60) mg/L FEU ABG pH 7.19 L* (7.35-7.45) ABG pCO2 29 L (35-45) mmHg ABG pO2 268 H (83-108) mmHg ABG HCO3 11 L (21-25) mmol/L ABG Total CO2 12 L (19-24) mmol/L ABG O2 Saturation 100.0 H (94-97) % Chloride 96 L (98-107) mmol/L Carbon Dioxide 14 L (22-30) mmol/L BUN 29 H (7-17) mg/dL Creatinine 2.08 H (0.52-1.04) mg/dL Glucose 100 H (74-99) mg/dL POC Glucose (mg/dL) (75-99) mg/dL Total Bilirubin 3.3 H (0.2-1.3) mg/dL AST 216 H (14-36) U/L ALT 110 H (4-34) U/L Assessment and Plan Assessment: 1 Acute hypoxemic respiratory failure secondary to an episode of severe hypotension and lethargy unable to protect her airway 2 Acute hypotension requiring norepinephrine and vasopressin 3 Nonsustained ventricular tachycardia, requiring IV amiodarone 4 Atrial fibrillation with rapid ventricular response, unable to anticoagulate due to vaginal bleeding 5 Elevated d-dimer, in a patient with A. fib RVR, not a candidate for blood thinners due to vaginal bleeding 6 Severe nonischemic cardiomyopathy with ejection fraction 20%, status post AICD placement 7 Acute kidney injury 8 Elevated liver enzymes secondary to hypotension Plan: The patient was seen and evaluated by Dr. Fontana Too unstable go for CT angiogram to rule out PE Continue Lovenox Decrease the FiO2 as tolerated Triple-lumen catheter and arterial lines placed Prognosis is poor CODE STATUS to be addressed We will continue to follow and make further recommendations based on her clinical status Critical care time not including procedures 38 minutes I, the cosigning physician, performed a history & physical examination of the patient. Lungs sounds with crackles in the bilateral bases. Maintaining good O2 saturations in the 90s on 50% FiO2 via mechanical ventilator I discussed the a ssessment and plan of care with my nurse practitioner, Sheila Atkinson. I attest to the above note as dictated by her.
--- NOTE | 2020-12-30 11:09 | PN ---
PROGRESS NOTE Ms. Reich is a 50-year-old female known history of severe nonischemic cardiomyopathy, history of atrial fibrillation, has not been anticoagulated recently because of recurrent vaginal bleeding, who was admitted on December 11 with progressive dyspnea and evidence of an atrial fibrillation with rapid ventricular response. The patient has history of pulmonary hypertension as well. She became more dyspneic last night with atrial fibrillation and rapid ventricular response, as well as episode of wide-complex rhythm and worsening pulmonary edema. She was transferred to the ICU and requiring mechanical ventilation. She is intubated and sedated at this point. She is scheduled to undergo central line placement by Dr. Evans for initiation of her IV amiodarone for complete control ventricular response. Her blood pressure is on the lower side and she continued to be in atrial fibrillation with rapid ventricular response. Yesterday, her blood pressure was down in the 70s. She had worsening renal function. On presentation, she is on vasopressors. She is intubated and sedated. PHYSICAL EXAMINATION: Blood pressure is running in the 80s with the heart rate in the 100-120s. LUNGS: Clear anteriorly. HEART: Irregular S1, S2. No S3. No rub. ABDOMEN: Soft, obese, positive bowel sounds. No organomegaly. EXTREMITIES: No significant edema. LAB DATA: Lab data revealed a white blood cell of 21.7, hemoglobin 13.1. Her pH 7.19, pCO2 of 268. BUN and creatinine 29 and 2.08, her AST is 216, ALT of 110. IMPRESSION: 1. Respiratory failure with probable worsening CHF, in a patient with known history of severe nonischemic cardiomyopathy. 2. Atrial fibrillation. Not anticoagulated at this time because of prior vaginal bleeding. 3. Prior history of ICD implantation. 4. Worsening renal function. 5. Abnormal liver function tests, probably related to lung congestion. 6. Atrial fibrillation with rapid ventricular response. RECOMMENDATION: From the cardiac standpoint, will continue on her diuresis. We will continue to follow her renal function and use pressors to stabilize her blood pressure. Unfortunately, prognosis remains quite guarded. We will await the input of the [employer] service regarding anticoagulation. Depending on her progress, further recommendation will be made. Thank you for this consult. We will follow with you. MMODL / IJN: [id number] /
[2020-12-30] MEDS: IPRATROPIUM-ALBUTEROL 3 ML NEB INHALATION SCH ×3 (11:55→20:03)
[2020-12-30] MEDS ORDERED: FUROSEMIDE 10 MG/ML 10 ML VIAL IV STA (12:39)
[2020-12-30] MEDS: ENOXAPARIN 40 MG/0.4 ML SYRINGE SQ SCH (12:48)
[2020-12-30] MEDS: CHLORHEXIDINE GLUCONATE 15 ML CUP MUCOUS MEM SCH ×2 (12:50→21:43)
[2020-12-30] MEDS ORDERED: DEXTROSE 50% SYRINGE 50 ML IVP ONE ×4 (12:56→19:50)
[2020-12-30 13:01] LABS: Glucose,Whole Blood <20 mg/dL (75-99)
[2020-12-30 13:04] LABS: Glucose,Whole Blood <20 mg/dL (75-99)
[2020-12-30 13:19] LABS: Glucose,Whole Blood 40 mg/dL (75-99)
[2020-12-30 13:35] LABS: Glucose,Whole Blood 244 mg/dL (75-99)
[2020-12-30 13:42] LABS: Calcium 7.8 mg/dL (8.4-10.2); Potassium 4.6 mmol/L (3.5-5.1)
[2020-12-30] MEDS: HYDROCORTISONE SUCCINATE 100 MG/2 ML VIAL IV SCH ×2 (13:49→18:29)
[2020-12-30 14:09] LABS: Glucose,Whole Blood 140 mg/dL (75-99)
--- NOTE | 2020-12-30 17:46 | P.PN ---
Subjective Progress Note Date: 12/30/20 This is a 50-year-old female patient who presented to the ER with complaints of palpitations. Patient reports that she's had this issue intermittently occurring. She reports that she felt anxious with prompted her to come to ER for further evaluation. Patient has a past medical history of chronic systolic congestive heart failure, nonischemic cardiomyopathy with previous AICD placement, paroxysmal atrial fibrillation, essential hypertension, hyperlipidemia and anxiety. She denies any recent illness. X-ray completed showing nonacute abdomen. Cardiomegaly. Chest x-ray performed showing cardiom egaly no heart failure no change compared to recent exam. Gallbladder ultrasound performed showing mild gallbladder wall thickening no gallstones or dilated ducts. Liver enzymes slightly elevated total bili 1.4, AST 168, ALT 140 and alkaline phosphatase 132. Troponin negative. BNP 8720. At this time patient was started on IV Lasix IV Cardizem. Cardiology services have been consulted. Patient denies chest pain. Patient denies shortness breath. Patient denies nausea vomiting or diarrhea. Patient denies any urinary burning or frequency. On 12/13/2020 Patient was seen and examined on the medical floor, she is alert and oriented x 3 in no distress, she is still complaining of shortness of breath with any activity she is also complaining of occasional palpitation otherwise she denies any complaints there is no fever or chills no headache or dizziness no chest pain, no cough no nausea or vomiting no abdominal pain no diarrhea no blood in the stools no burning with urination no frequency or urgency and no hematuria, there is no weakness or numbness in any of the extremities no change in vision speech or gait. On 12/14/2020 patient is alert and oriented 3. Patient relating of some dizziness. At this time patient denies chest pain or shortness breath. Patient denies nausea vomiting or diarrhea. Patient denies any urinary burning or frequency patient to be transitioned per cardiology to oral Lasix On 12/15/2020 patient alert and oriented 3. Patient has been transitioned to oral Lasix and cleared for discharge from cardiology services. Patient's sodium low today at 128 did discuss case with cardiology services okay for patient to have small amount of fluid 50 mL of normal saline. Patient stopped vomiting of some dizziness upon standing. Patient denies chest pain or shortness of breath. Patient denies nausea vomiting or diarrhea. Patient denies any urinary burning or frequency On 12/16/2020atient was seen and examined on the medical floor, he is alert and oriented x 3 in no distress, he denies any complaints there is no fever or chills no headache or dizziness no chest pain no shortness of breath no palpitation no cough no nausea or vomiting no abdominal pain no diarrhea no blood in the stools no burning with urination no frequency or urgency and no hematuria, there is no weakness or numbness in any of the extremities no change in vision speech or gait. Blood pressure is still on the low side and sodium is still low at 128 at this time will decrease Lasix to 40 mg once daily and continue was normal saline at 50 mL per hour. Will recheck in a.m. On 12/17/2020. Patient is alert and oriented 3. Patient remains on normal saline at 50. Sodium remains at 128. Transvaginal ultrasound completed. At this time patient is still complaining of intermittent episodes of dizziness. Patient denies chest pain. Patient denies shortness of breath. Patient denies nausea vomiting or diarrhea. Patient denies any urinary burning or frequency On 12/18/2020 Patient was seen and examined on the medical floor, she is alert and oriented x 3 in no distress, she is complaining of generalized weakness and shortness of breath with activity otherwise she denies any complaints there is no fever or chills no headache or dizziness no chest pain no palpitation no cough no nausea or vomiting no abdominal pain no diarrhea no blood in the stools no burning with urination no frequency or urgency and no hematuria, there is no weakness or numbness in any of the extremities no change in vision speech or gait. On 12/19/2020 patient is alert and oriented 3. Sodium remains low at 126, potassium 5.3. Running creatinine increasing 48 and 2.09. Patient reports that she's been nauseous with episodes of emesis throughout the night. Weight gain of 120.7-121.9. Patient does have some lower extremity edema. At this time given patient's acute renal injury but weight gain will consult nephrology services. Lasix on hold did discuss with cardiology services. Will order abdominal ultrasound for nausea and vomiting. Infectious disease also consulted for elevated white blood cell count. Chest x-ray UA and blood culture ordered. Critical care services also consulted. On 12/20/2020 Patient was seen and examined on the medical floor, she is alert and oriented x 3 in no distress, she is complaining of bilateral lower extremity edema, and complaining of shortness of breath with any activity otherwise she denies any complaints there is no fever or chills no headache or dizziness no chest pain no palpitation no cough no nausea or vomiting no abdominal pain no diarrhea no blood in the stools no burning with urination no frequency or urgenc y and no hematuria, there is no weakness or numbness in any of the extremities no change in vision speech or gait. On 12/21/2020 patient's alert and oriented 3. Patient has been started on Lasix drip. Reports some improvement with shortness of breath. Patient denies chest pain. Patient denies nausea vomiting or diarrhea. Patient currently on Rocephin for UTI. Nephrology, cardiology and infectious disease services are following. On 12/22/2009 1 patient's alert and oriented 3. Patient transitioned from Lasix drip to IV push Lasix. Weight improving from 118.7 kg to 117.9. White blood cell has normalized 10.6. Creatinine improving to 1.51 and bun 44. Patient reports she had a bowel movement in which she had to strain and noticed some bright red blood Lasix secondary to her hemorrhoids. Hemoglobin remained stable at 10.9 we'll continue to monitor hemoglobin and a further episodes of bleeding. At that time patient denies chest pain. Patient denies nausea vomiting or diarrhea. Patient denies any urinary burning or frequency. On 12/23/2020 patient was seen and examined on the medical floor she is alert and oriented 3 in no distress she is still complaining of shortness of breath with activity otherwise she denies any complaints at this time On 12/24/2020 patient's alert and oriented 3. Patient remains on IV Lasix 60 mg twice a day. Per infectious disease no need for antibiotics at discharge. PT OT has been consulted. At this time patient denies chest pain. Patient is still complaining of mild shortness breath. Patient denies nausea vomiting or diarrhea. Patient denies any urinary burning or frequency On 12/25/2020 patient having some nausea this AM. Patient remains on IV Lasix. Weight 113.4 to 112.8. Creatinine 1.53 and bun 40. At this time patient denies any chest pain or shortness breath. Patient denies nausea vomiting or diarrhea. Patient denies any urinary burning or frequency. On 12/26/2020 Patient was seen and examined on the medical floor, she is alert and oriented x 3 in no distress, she is still complaining of generalized w eakness and shortness of breath with any activity otherwise she denies any complaints there is no fever or chills no headache or dizziness no chest pain no palpitation no cough no nausea or vomiting no abdominal pain no diarrhea no blood in the stools no burning with urination no frequency or urgency and no hematuria, there is no weakness or numbness in any of the extremities no change in vision speech or gait. On 12/27/2020 Patient is alert and oriented x 3 in no distress, she is still complaining of generalized weakness and shortness of breath with any activity otherwise she denies any complaints there is no fever or chills no headache or dizziness no chest pain no palpitation no cough no nausea or vomiting no abdominal pain no diarrhea no blood in the stools no burning with urination no frequency or urgency and no hematuria, there is no weakness or numbness in any of the extremities no change in vision speech or gait. She is complaining of weakness and severe bilateral lower extremities edema. On 12/28/2020 patient's alert and oriented 3. Patient planning of generalized weakness and shortness of breath. Creatinine 1.37 bun 38. Patient denies chest pain or shortness breath. Patient denies nausea vomiting or diarrhea. Patient denies any urinary burning or frequency. PT OT consulted On 12/29/2020 A-team called on patient last night due to decreased blood pressure and increased lethargy. Patient was given 500 mL bolus. At that time patient also found to have low pulse ox. This a.m. patient remains a no 3 but has increased lethargy. Will order chest x-ray ABGs reconsult cardiology and pulmonary services. At this time vitals remained stable. Patient denies any acute complaints. Patient denies chest pain or shortness breath. Patient vomiting or diarrhea. Patient denies any urinary burning or frequency On 12/30/2020 patient was seen and examined in ICU she is intubated sedated maintained on mechanical ventilation, she was transferred to ICU early this morning due to hypotension she was intubated started on IV fluid and on vasopressors, condition is still marginal with low blood pressure, kidney functioning is worsening today was elevated creatinine to 2.39 up from 1.24 yesterday cardiology, pulmonary critical care and nephrology are following prognosis is guarded family is aware of condition Objective - Vital Signs Vital signs: Vital Signs Temp 100.1 F H 12/30/20 12:00 Pulse 115 H 12/30/20 14:30 Resp 30 H 12/30/20 14:30 BP 65/50 12/30/20 07:30 Pulse Ox 94 L 12/30/20 14:30 Intake & Output 12/29/20 12/30/20 12/30/20 18:59 06:59 18:59 Intake Total 180 500 465.087 Output Total 400 20 45 Balance -220 480 420.087 Weight 112 kg Intake: IV 500 300 0.9 NS 300 Sodium Chloride 0.9% 500 500 ml 500 ml @ 999 mls/hr IV .Q31M [facility] Rx#:[id number] Intake, IV Titration 95.087 Amount Norepinephrine 32 mg In 18.857 Sodium Chloride 0.9% 218 ml @ 0.05 MCG/KG/MIN 2. 625 mls/hr IV .Q24H [facility] Rx#:[id number] Norepinephrine 4 mg In 19.558 Sodium Chloride 0.9% 250 ml @ 0.05 MCG/KG/MIN 21. 336 mls/hr IV .[id number] [facility] Rx#:[id number] propofoL 1,000 mg In 56.672 Empty Bag 1 bag @ Titrate IV .Q0M [facility] Rx#: [id number] Oral 180 Tube Feeding 40 Other 30 Output: Urine 400 20 45 Other: Voiding Method Toilet Toilet Indwelling Catheter ABP, PAP, CO, CI - Last Documented Arterial Blood Pressure 72/51 - Exam In general patient is intubated sedated maintained on mechanical ventilation HEENT head normocephalic and atraumatic Neck is supple no JVD no goiter no lymphadenopathy no carotid bruit Chest examination scattered crackles bilaterally no wheezing Cardiac exam reveals irregular heart sounds S1 and S2 no gallops no murmurs Abdomen is soft nontender no organomegaly with normal bowel sounds Extremity exam reveals no edema no cyanosis or clubbing Neurological examination reveals no gross focal deficits - Labs CBC & Chem 7: 12/30/20 05:06 12/30/20 13:06 Labs: Abnormal Lab Results - Last 24 Hours (Table) 0712/30/20 12/30/20 Range/Units 01:58 02:33 05:06 WBC 21.7 H (3.8-10.6) k/uL RBC 5.57 H (3.80-5.40) m/uL Hct 51.7 H (34.0-46.0) % MCH 23.6 L (25.0-35.0) pg MCHC 25.4 L (31.0-37.0) g/dL RDW 21.3 H (11.5-15.5) % Plt Count 129 L (150-450) k/uL Neutrophils # (Manual) 18.20 H (1.3-7.7) k/uL Monocytes # (Manual) 1.30 H (0-1.0) k/uL Nucleated RBCs 2 H (0-0) /100 WBC D-Dimer (<0.60) mg/L FEU ABG pH (7.35-7.45) ABG pCO2 (35-45) mmHg ABG pO2 (83-108) mmHg ABG HCO3 (21-25) mmol/L ABG Total CO2 (19-24) mmol/L ABG O2 Saturation (94-97) % Sodium (137-145) mmol/L Chloride (98-107) mmol/L Carbon Dioxide (22-30) mmol/L BUN (7-17) mg/dL Creatinine (0.52-1.04) mg/dL Glucose (74-99) mg/dL POC Glucose (mg/dL) 137 H (75-99) mg/dL Calcium (8.4-10.2) mg/dL Total Bilirubin (0.2-1.3) mg/dL AST (14-36) U/L ALT (4-34) U/L CA 125 Antigen 150.6 H (0.0-30.1) U/mL 12/30/20 12/30/20 12/30/20 Range/Units 05:06 05:06 07:49 WBC (3.8-10.6) k/uL RBC (3.80-5.40) m/uL Hct (34.0-46.0) % MCH (25.0-35.0) pg MCHC (31.0-37.0) g/dL RDW (11.5-15.5) % Plt Count (150-450) k/uL Neutrophils # (Manual) (1.3-7.7) k/uL Monocytes # (Manual) (0-1.0) k/uL Nucleated RBCs (0-0) /100 WBC D-Dimer >35.20 H (<0.60) mg/L FEU ABG pH 7.19 L* (7.35-7.45) ABG pCO2 29 L (35-45) mmHg ABG pO2 268 H (83-108) mmHg ABG HCO3 11 L (21-25) mmol/L ABG Total CO2 12 L (19-24) mmol/L ABG O2 Saturation 100.0 H (94-97) % Sodium (137-145) mmol/L Chloride 96 L (98-107) mmol/L Carbon Dioxide 14 L (22-30) mmol/L BUN 29 H (7-17) mg/dL Creatinine 2.08 H (0.52-1.04) mg/dL Glucose 100 H (74-99) mg/dL POC Glucose (mg/dL) (75-99) mg/dL Calcium (8.4-10.2) mg/dL Total Bilirubin 3.3 H (0.2-1.3) mg/dL AST 216 H (14-36) U/L ALT 110 H (4-34) U/L CA 125 Antigen (0.0-30.1) U/mL 12/30/20 12/30/20 12/30/20 Range/Units 12:57 13:00 13:06 WBC (3.8-10.6) k/uL RBC (3.80-5.40) m/uL Hct (34.0-46.0) % MCH (25.0-35.0) pg MCHC (31.0-37.0) g/dL RDW (11.5-15.5) % Plt Count (150-450) k/uL Neutrophils # (Manual) (1.3-7.7) k/uL Monocytes # (Manual) (0-1.0) k/uL Nucleated RBCs (0-0) /100 WBC D-Dimer (<0.60) mg/L FEU ABG pH (7.35-7.45) ABG pCO2 (35-45) mmHg ABG pO2 (83-108) mmHg ABG HCO3 (21-25) mmol/L ABG Total CO2 (19-24) mmol/L ABG O2 Saturation (94-97) % Sodium 134 L (137-145) mmol/L Chloride 96 L (98-107) mmol/L Carbon Dioxide 12 L (22-30) mmol/L BUN 32 H (7-17) mg/dL Creatinine 2.39 H (0.52-1.04) mg/dL Glucose 253 H (74-99) mg/dL POC Glucose (mg/dL) <20 L <20 L (75-99) mg/dL Calcium 7.8 L (8.4-10.2) mg/dL Total Bilirubin (0.2-1.3) mg/dL AST (14-36) U/L ALT (4-34) U/L CA 125 Antigen (0.0-30.1) U/mL 12/30/20 12/30/20 12/30/20 Range/Units 13:18 13:34 14:07 WBC (3.8-10.6) k/uL RBC (3.80-5.40) m/uL Hct (34.0-46.0) % MCH (25.0-35.0) pg MCHC (31.0-37.0) g/dL RDW (11.5-15.5) % Plt Count (150-450) k/uL Neutrophils # (Manual) (1.3-7.7) k/uL Monocytes # (Manual) (0-1.0) k/uL Nucleated RBCs (0-0) /100 WBC D-Dimer (<0.60) mg/L FEU ABG pH (7.35-7.45) ABG pCO2 (35-45) mmHg ABG pO2 (83-108) mmHg ABG HCO3 (21-25) mmol/L ABG Total CO2 (19-24) mmol/L ABG O2 Saturation (94-97) % Sodium (137-145) mmol/L Chloride (98-107) mmol/L Carbon Dioxide (22-30) mmol/L BUN (7-17) mg/dL Creatinine (0.52-1.04) mg/dL Glucose (74-99) mg/dL POC Glucose (mg/dL) 40 L 244 H 140 H (75-99) mg/dL Calcium (8.4-10.2) mg/dL Total Bilirubin (0.2-1.3) mg/dL AST (14-36) U/L ALT (4-34) U/L CA 125 Antigen (0.0-30.1) U/mL Assessment and Plan Assessment: 1. Atrial fibrillation with rapid ventricular response. 2. Acute exacerbation of chronic systolic congestive heart failure. Patient is now on Lasix drip area Lasix has been transitioned IV Lasix. Patient has been transitioned to by mouth Lasix 3. Elevated liver enzymes. gallbladder ultrasound completed showing mild gallbladder wall thickening stones no dilated ducts. Tylenol and Lipitor curre ntly on hold 4. Known history of nonischemic cardiomyopathy the with previous history of AICD placement 5. Paroxysmal atrial fibrillation patient unable to tolerate it regulation due to vaginal bleeding 6. History of essential hypertension 7. History of hyperlipidemia 8. History of anxiety disorder 9. Hyponatremia sodium low at 128. Resolved 10. Acute kidney injury. Nephrology services following 11. Nausea and vomiting. Abdominal ultrasound completed showing no sonographic evidence for acute abnormality at a medically. 12. Elevated white blood cell count likely secondary to urinary tract infection. Patient was initially worked up on admission no infection found. Infectious disease service is following 13. Increased lethargy. Chest x-ray and ABGs ordered. Pulmonary and cardiology services reconsulted DVT prophylaxis SCDs. GI prophylaxis Protonix Cardiology services following Nephrology, infectious disease and critical care service following Currently patient is in ICU intubated sedated maintained on mechanical ventilation due to hypotension and atrial fibrillation with rapid ventricular response Pressure is still low despite IV fluids and IV vasopressors Prognosis is guarded
[2020-12-30 18:13] LABS: Glucose,Whole Blood 27 mg/dL (75-99)
[2020-12-30] MEDS: SODIUM BICARBONATE TAB 650 MG TAB PO SCH ×2 (18:28→21:43)
[2020-12-30 18:29] LABS: Glucose,Whole Blood 144 mg/dL (75-99)
[2020-12-30 18:48] VITALS: BP 66/54
--- NOTE | 2020-12-30 19:10 | OP ---
OPERATIVE REPORT OPERATORS: Dr. Wakefield. PROCEDURES: Right femoral arterial line and a left internal jugular triple-lumen catheter. TRIPLE LUMEN CATHETER PLACEMENT: Indication: Administration of fluids and pressors. A time-out was completed verifying correct patient, procedure, site, positioning, and implants) or special equipment if applicable. The patient was placed in a dependent position appropriate for triple lumen catheter placement based on the vein to be cannulated. The patient's right shoulder was prepped and draped in sterile fashion. 1% Lidocaine was used to anesthetize the surrounding skin area. A triple lumen 9F Cordis catheter was introduced into the right internal jugular using Seldinger technique. The catheter was threaded smoothly over the guide wire and appropriate blood return was obtained. Each lumen of the catheter was evacuated of air and flushed with sterile saline. The catheter was then sutured in place to the skin and a sterile dressing applied. Perfusion to the extremity distal to the point of catheter insertion was checked and found to be adequate. PREOPERATIVE/POSTOP DIAGNOSES: There was no immediate complication. Patient tolerated the procedure well. The catheter was sutured in place, a sterile dressing was applied by the nurse. A chest x- ray was ordered. The tip of catheter was seen in the area of the right atrium. There was no immediate complication. ARTERIAL LINE PLACEMENT: Indications: Frequent blood draws and blood gas monitoring. OPERATORS: Dr. Wakefield. PROCEDURE IN DETAIL: A time-out was completed verifying correct patient, procedure, site, positioning, and implants) or special equipment if applicable. Nahun's test was performed to ensure adequate perfusion. The patient's right/left wrist or right/left groin was prepped and draped in sterile fashion. 1% Lidocaine was used to anesthetize the area. An 18G Arrow arterial line was introduced into the radial/femoral artery. The catheter was threaded over the guide wire and the needle was removed with appropriate pulsatile blood return. Blood loss was minimal. The catheter was then sutured in place to the skin and a sterile dressing applied. Perfusion to the extremity distal to the point of catheter insertion was checked and found to be adequate. The patient tolerated the procedure well and there were no complications. PREOPERATIVE/POSTOP DIAGNOSES: No immediate complication. Catheter was sutured in place. There was good waveform. The patient tolerated procedure well. Sterile dressing was applied by the nurse. MMODL / IJN: [id number] / RADHA
[2020-12-30 19:47] LABS: Glucose,Whole Blood 66 mg/dL (75-99)
[2020-12-30] MEDS ORDERED: DEXTROSE 10% IN WATER 500 ML in EMPTY BAG 1 BAG IV SCH (20:00)
[2020-12-30 20:39] LABS: Appearance,Urine Cloudy (Clear); Bacteria,Urine Occasional /hpf; Bilirubin,Urine Negative (Negative); Blood,Urine Large (Negative); Color,Urine Yellow; Glucose,Urine (UA) Negative (Negative); Hyaline Casts,Urine 1 /lpf (0-2); Ketones,Urine Negative (Negative); Leukocyte Esterase,Urine Small (Negative); Mucus,Urine Rare /hpf; Nitrite,Urine Negative (Negative); PH, Urine 5.5 (5.0-8.0); Protein,Urine 1+ (Negative); RBC,Urine 28 /hpf (0-5); Specific Gravity,Urine 1.011 (1.001-1.035); Squamous Epithelial Cell,Urine 4 /hpf (0-4); Urobilinogen,Urine <2.0 mg/dL (<2.0); WBC,Urine 8 /hpf (0-5)
[2020-12-30 20:42] LABS: Glucose,Whole Blood 167 mg/dL (75-99)
[2020-12-30 23:54] LABS: Glucose,Whole Blood 102 mg/dL (75-99)
[2020-12-31] MEDS: IPRATROPIUM-ALBUTEROL 3 ML NEB INHALATION SCH ×3 (00:07→05:59)
[2020-12-31] MEDS: AMIODARONE 450 MG in DEXTROSE 5% IN WATER 250 ML IV SCH ×2 (00:42)
[2020-12-31] MEDS: HYDROCORTISONE SUCCINATE 100 MG/2 ML VIAL IV SCH (00:44)
[2020-12-31 01:32] VITALS: TEMP 97.8
[2020-12-31 02:07] VITALS: PULSE 60
[2020-12-31] MEDS ORDERED: CALCIUM CHLORIDE 100 MG/ML 10 ML SYRINGE ONE (02:43)
[2020-12-31] MEDS ORDERED: SODIUM BICARB 8.4% 50 ML SYR (1 MEQ/ML) ONE (02:43)
[2020-12-31] MEDS ORDERED: EPINEPHrine 10 ML SYRINGE (0.1 MG/ML) ONE (02:43)
[2020-12-31 03:04] LABS: ABG Base Excess -27.5 mmol/L; ABG Oxygen Saturation 99.9 % (94-97); ABG PCO2 32 mmHg (35-45); ABG PO2 274 mmHg (83-108); ABG TCO2 7 mmol/L (19-24); Allen Test Performed? Yes
[2020-12-31 03:10] LABS: ABG HCO3 6 mmol/L (21-25); ABG PH 6.87 (7.35-7.45)
[2020-12-31 03:36] LABS: Anisocytosis Moderate; HCT 45.6 % (34.0-46.0); HGB 11.9 gm/dL (11.4-16.0); Hypochromasia Marked; MCH 24.7 pg (25.0-35.0); MCHC 26.2 g/dL (31.0-37.0); MCV 94.5 fL (80.0-100.0); Macrocytosis Slight; RBC 4.83 m/uL (3.80-5.40); RDW 21.8 % (11.5-15.5)
[2020-12-31 03:46] LABS: African American GFR (CKD) 13 (>60 ml/min/1.73 sqM); Albumin 2.8 g/dL (3.5-5.0); Alkaline Phosphatase 308 U/L (38-126); Anion Gap 36 mmol/L; Blood Urea Nitrogen 30 mg/dL (7-17); Calcium 12.7 mg/dL (8.4-10.2); Chloride 97 mmol/L (98-107); Glucose 79 mg/dL (74-99); Non-African American GFR(CKD) 12 (>60 ml/min/1.73 sqM); Sodium 140 mmol/L (137-145); Total Bilirubin 3.2 mg/dL (0.2-1.3); Total Protein 4.9 g/dL (6.3-8.2)
[2020-12-31] MEDS ORDERED: MORPHINE SULFATE 4 MG/ML SYRINGE IV PRN (04:01)
[2020-12-31 04:09] LABS: Carbon Dioxide 7 mmol/L (22-30)
--- NOTE | 2020-12-31 04:14 | P.EN ---
Code Blue Note Activated at 2:43 AM. Arrived on the scene shortly after. Reviewed the chart and discussed the case with RN in detail. The patient has had a prolonged hospital stay with A. fib RVR, severe systolic CHF, and sepsis. The patient's condition had gradually been deteriorating over the past 24-48 hours. She was noted to be in PEA for which the ACLS protocol was performed. The patient was given epinephrine IV push 2, sodium bicarbonate 1, and calcium chloride 1. She subsequently had ROSC at 251. The family, primary team and intensivists were notified by the RN. Please refer to the code sheet for further details. Total amount of critical care time spent was greater than 30 minutes.
[2020-12-31 04:15] VITALS: RESP 20
[2020-12-31 04:15] LABS: Potassium 6.9 mmol/L (3.5-5.1)
[2020-12-31 04:58] LABS: ALT 7466 U/L (4-34)
[2020-12-31 05:19] LABS: AST >15000 U/L (14-36)
[2020-12-31 08:06] LABS: Band Neutrophils % 4 %; Lymphocytes # (M) 5.58 k/uL (1.0-4.8); Metamyelocytes # (M) 1.12 k/uL (0); Metamyelocytes % 3 %; Monocytes # (M) 1.12 k/uL (0-1.0); Myelocytes # (M) 0.74 k/uL (0); Myelocytes % 2 %; Neutrophils % (M) 74 %; Nucleated Red Blood Cells 10 /100 WBC (0-0); Total Cells Counted 200; WBC 37.2 k/uL (3.8-10.6)
[2020-12-31 08:07] LABS: Poikilocytosis (M) Present; Polychromasia Present
--- NOTE | 2020-12-31 10:56 | P.DS ---
Providers Date of admission: 12/11/20 20:03 Expected date of discharge: 12/31/20 Attending physician: Valery Arenas Consults: 12/19/20 09:15 Consult Physician Routine Consulting Provider: Janet Masters Consult Reason/Comments: hyponatremia Do you want consulting provider notified?: Yes 12/19/20 10:10 Consult Physician Routine Consulting Provider: Anjana Poole Consult Reason/Comments: shortness of breath Do you want consulting provider notified?: Yes Consult Physician Routine Consulting Provider: Paulo Matos Consult Reason/Comments: elevated WBc Do you want consulting provider notified?: Yes 12/29/20 10:45 Consult Physician Routine Consulting Provider: Quinten Bergeron Consult Reason/Comments: elevated trop Do you want consulting provider notified?: Yes 12/29/20 10:46 Consult Physician Routine Consulting Provider: Rashid Fontana Consult Reason/Comments: increaed lethargy Do you want consulting provider notified?: Yes 12/30/20 05:10 Consult Physician Stat Consulting Provider: Sridevi Azul Consult Reason/Comments: 7 CM ovarian cyst, vaginal bleeding, needs anticoag Do you want consulting provider notified?: Yes 12/30/20 06:41 Consult Physician Routine Consulting Provider: Rashid Fontana Consult Reason/Comments: Mechanical Ventilation Do you want consulting provider notified?: Already Contacted Primary care physician: Valery Arenas [facility] Course: Discharge diagnosis 1. Atrial fibrillation with rapid ventricular response. 2. Acute exacerbation of chronic systolic congestive heart failure. Patient is now on Lasix drip area Lasix has been transitioned IV Lasix. Patient has been transitioned to by mouth Lasix 3. Elevated liver enzymes. gallbladder ultrasound completed showing mild gallbladder wall thickening stones no dilated ducts. Tylenol and Lipitor currently on hold 4. Known history of nonischemic cardiomyopathy the with previous history of AICD placement 5. Paroxysmal atrial fibrillation patient unable to tolerate it regulation due to vaginal bleeding 6. History of essential hypertension 7. History of hyperlipidemia 8. History of anxiety disorder 9. Hyponatremia sodium low at 128. Resolved 10. Acute kidney injury. Nephrology services following 11. Nausea and vomiting. Abdominal ultrasound completed showing no sonographic evidence for acute abnormality at a medically. 12. Elevated white blood cell count likely secondary to urinary tract infection. Patient was initially worked up on admission no infection found. Infectious disease service is following 13. Acute hypoxic respiratory failure secondary to an episode of severe hypertension lethargy patient was intubated 14. Acute hypotension requiring vasopressors Hospital course This is a 50-year-old female patient who presented to the ER with complaints of palpitations. Patient reports that she's had this issue intermittently occurring. She reports that she felt anxious with prompted her to come to ER for further evaluation. Patient has a past medical history of chronic systolic congestive heart failure, nonischemic cardiomyopathy with previous AICD placem ent, paroxysmal atrial fibrillation, essential hypertension, hyperlipidemia and anxiety. She denies any recent illness. X-ray completed showing nonacute abdomen. Cardiomegaly. Chest x-ray performed showing cardiomegaly no heart failure no change compared to recent exam. Gallbladder ultrasound performed showing mild gallbladder wall thickening no gallstones or dilated ducts. Liver enzymes slightly elevated total bili 1.4, AST 168, ALT 140 and alkaline phosphatase 132. Troponin negative. BNP 8720. At this time patient was started on IV Lasix IV Cardizem. Cardiology services have been consulted. Patient denies chest pain. Patient denies shortness breath. Patient denies nausea vomiting or diarrhea. Patient denies any urinary burning or frequency. On 12/13/2020 Patient was seen and examined on the medical floor, she is alert and oriented x 3 in no distress, she is still complaining of shortness of breath with any activity she is also complaining of occasional palpitation otherwise she denies any complaints there is no fever or chills no headache or dizziness no chest pain, no cough no nausea or vomiting no abdominal pain no diarrhea no blood in the stools no burning with urination no frequency or urgency and no hematuria, there is no weakness or numbness in any of the extremities no change in vision speech or gait. On 12/14/2020 patient is alert and oriented 3. Patient relating of some dizziness. At this time patient denies chest pain or shortness breath. Patient denies nausea vomiting or diarrhea. Patient denies any urinary burning or frequency patient to be transitioned per cardiology to oral Lasix On 12/15/2020 patient alert and oriented 3. Patient has been transitioned to oral Lasix and cleared for discharge from cardiology services. Patient's sodium low today at 128 did discuss case with cardiology services okay for patient to have small amount of fluid 50 mL of normal saline. Patient stopped vomiting of some dizziness upon standing. Patient denies chest pain or shortness of breath. Patient denies nausea vomiting or diarrhea. Patient denies any urinary burning or frequency On 12/16/2020atient was seen and examined on the medical floor, he is alert and oriented x 3 in no distress, he denies any complaints there is no fever or chills no headache or dizziness no chest pain no shortness of breath no palpitation no cough no nausea or vomiting no abdominal pain no diarrhea no blood in the stools no burning with urination no frequency or urgency and no hematuria, there is no weakness or numbness in any of the extremities no change in vision speech or gait. Blood pressure is still on the low side and sodium is still low at 128 at this time will decrease Lasix to 40 mg once daily and continue was normal saline at 50 mL per hour. Will recheck in a.m. On 12/17/2020. Patient is alert and oriented 3. Patient remains on normal saline at 50. Sodium remains at 128. Transvaginal ultrasound completed. At this time patient is still complaining of intermittent episodes of dizziness. Patient denies chest pain. Patient denies shortness of breath. Patient denies nausea vomiting or diarrhea. Patient denies any urinary burning or frequency On 12/18/2020 Patient was seen and examined on the medical floor, she is alert and oriented x 3 in no distress, she is complaining of generalized weakness and shortness of breath with activity otherwise she denies any complaints there is no fever or chills no headache or dizziness no chest pain no palpitation no cough no nausea or vomiting no abdominal pain no diarrhea no blood in the stools no burning with urination no frequency or urgency and no hematuria, there is no weakness or numbness in any of the extremities no change in vision speech or gait. On 12/19/2020 patient is alert and oriented 3. Sodium remains low at 126, potassium 5.3. Running creatinine increasing 48 and 2.09. Patient reports that she's been nauseous with episodes of emesis throughout the night. Weight gain of 120.7-121.9. Patient does have some lower extremity edema. At this time given patient's acute renal injury but weight gain will consult nephrology services. Lasix on hold did discuss with cardiology services. Will order abdominal ultrasound for nausea and vomiting. Infectious disease also consulted for elevated white blood cell count. Chest x-ray UA and blood culture ordered. Critical care services also consulted. On 12/20/2020 Patient was seen and examined on the medical floor, she is alert and oriented x 3 in no distress, she is complaining of bilateral lower extremity edema, and complaining of shortness of breath with any activity otherwise she denies any complaints there is no fever or chills no headache or dizziness no chest pain no palpitation no cough no nausea or vomiting no abdominal pain no diarrhea no blood in the stools no burning with urination no frequency or urgency and no hematuria, there is no weakness or numbness in any of the extremities no change in vision speech or gait. On 12/21/2020 patient's alert and oriented 3. Patient has been started on Lasix drip. Reports some improvement with shortness of breath. Patient denies chest pain. Patient denies nausea vomiting or diarrhea. Patient currently on Rocephin for UTI. Nephrology, cardiology and infectious disease services are following. On 12/22/2009 1 patient's alert and oriented 3. Patient transitioned from Lasix drip to IV push Lasix. Weight improving from 118.7 kg to 117.9. White blood cell has normalized 10.6. Creatinine improving to 1.51 and bun 44. Patient reports she had a bowel movement in which she had to strain and noticed some bright red blood Lasix secondary to her hemorrhoids. Hemoglobin remained stable at 10.9 we'll continue to monitor hemoglobin and a further episodes of bleeding. At that time patient denies chest pain. Patient denies nausea vomiting or diarrhea. Patient denies any urinary burning or frequency. On 12/23/2020 patient was seen and examined on the medical floor she is alert and oriented 3 in no distress she is still complaining of shortness of breath with activity otherwise she denies any complaints at this time On 12/24/2020 patient's alert and oriented 3. Patient remains on IV Lasix 60 mg twice a day. Per infectious disease no need for antibiotics at discharge. PT OT has been consulted. At this time patient denies chest pain. Patient is still complaining of mild shortness breath. Patient denies nausea vomiting or diarrhea. Patient denies any urinary burning or frequency On 12/25/2020 patient having some nausea this AM. Patient remains on IV Lasix. Weight 113.4 to 112.8. Creatinine 1.53 and bun 40. At this time patient denies any chest pain or shortness breath. Patient denies nausea vomiting or diarrhea. Patient denies any urinary burning or frequency. On 12/26/2020 Patient was seen and examined on the medical floor, she is alert and oriented x 3 in no distress, she is still complaining of generalized weakness and shortness of breath with any activity otherwise she denies any complaints there is no fever or chills no headache or dizziness no chest pain no palpitation no cough no nausea or vomiting no abdominal pain no diarrhea no blood in the stools no burning with urination no frequency or urgency and no hematuria, there is no weakness or numbness in any of the extremities no change in vision speech or gait. On 12/27/2020 Patient is alert and oriented x 3 in no distress, she is still complaining of generalized weakness and shortness of breath with any activity otherwise she denies any complaints there is no fever or chills no headache or dizziness no chest pain no palpitation no cough no nausea or vomiting no abdominal pain no diarrhea no blood in the stools no burning with urination no frequency or urgency and no hematuria, there is no weakness or numbness in any of the extremities no change in vision speech or gait. She is complaining of weakness and severe bilateral lower extremities edema. On 12/28/2020 patient's alert and oriented 3. Patient planning of generalized weakness and shortness of breath. Creatinine 1.37 bun 38. Patient denies chest pain or shortness breath. Patient denies nausea vomiting or diarrhea. Patient denies any urinary burning or frequency. PT OT consulted On 12/29/2020 A-team called on patient last night due to decreased blood pressure and increased lethargy. Patient was given 500 mL bolus. At that time patient also found to have low pulse ox. This a.m. patient remains a no 3 but has increased lethargy. Will order chest x-ray ABGs reconsult cardiology and pulmonary services. At this time vitals remained stable. Patient denies any acute complaints. Patient denies chest pain or shortness breath. Patient vomi ting or diarrhea. Patient denies any urinary burning or frequency On 12/30/2020 patient was seen and examined in ICU she is intubated sedated maintained on mechanical ventilation, she was transferred to ICU early this morning due to hypotension she was intubated started on IV fluid and on vasopressors, condition is still marginal with low blood pressure, kidney functioning is worsening today was elevated creatinine to 2.39 up from 1.24 yesterday cardiology, pulmonary critical care and nephrology are following prognosis is guarded family is aware of condition On 12/31/2020 patient was in the intensive care unit on mechanical ventilation on high dose of vasopressors. At 243 this a.m. CODE BLUE was called patient was noted to be in PEA. ACLS protocol was initiated. Expiration time 0419 Plan - Discharge Summary Discharge Rx Participant: Yes New Discharge Prescriptions: No Action Atorvastatin [Lipitor] 20 mg PO DAILY Ergocalciferol [Vitamin D2 (DRISDOL)] 50,000 unit PO KENT Allopurinol [Zyloprim] 300 mg PO DAILY Sacubitril/Valsartan [Entresto 24 mg-26 mg Tablet] 1 tab PO BID Spironolactone [Aldactone] 25 mg PO DAILY 30 Days #30 tab Furosemide [Lasix] 40 mg PO BID@0900,1600 30 Days #60 tab Escitalopram [Lexapro] 10 mg PO DAILY tab Ferrous Sulfate [Feosol] 325 mg PO DAILY@1200 Metoprolol Tartrate [Lopressor] 75 mg PO TID 30 Days #270 tab Acetaminophen Tab [Tylenol] 500 mg PO Q6HR PRN tab PRN Reason: Fever And/ Or Pain ALPRAZolam [Xanax] 0.25 mg PO QID PRN tab PRN Reason: Anxiety Discharge Medication List Atorvastatin [Lipitor] 20 mg PO DAILY 07/31/16 [History] Ergocalciferol [Vitamin D2 (DRISDOL)] 50,000 unit PO KENT 03/08/20 [History] Allopurinol [Zyloprim] 300 mg PO DAILY 05/11/20 [History] Sacubitril/Valsartan [Entresto 24 mg-26 mg Tablet] 1 tab PO BID 07/02/20 [History] Ferrous Sulfate [Feosol] 325 mg PO DAILY@1200 12/02/20 [History] ALPRAZolam [Xanax] 0.25 mg PO QID PRN tab 12/06/20 [Rx] Acetaminophen Tab [Tylenol] 500 mg PO Q6HR PRN tab 12/06/20 [Rx] Escitalopram [Lexapro] 10 mg PO DAILY tab 12/06/20 [Rx] Furosemide [Lasix] 40 mg PO BID@0900,1600 30 Days #60 tab 12/06/20 [Rx] Metoprolol Tartrate [Lopressor] 75 mg PO TID 30 Days #270 tab 12/06/20 [Rx] Spironolactone [Aldactone] 25 mg PO DAILY 30 Days #30 tab 12/06/20 [Rx] Follow up Appointment(s)/Referral(s): Valery Arenas MD [Primary Care Provider] - 1-2 days Discharge Disposition: - Preliminary Cause of Preliminary Cause of : Ischemic cardiomyopathy
[2020-12-31 15:23] LABS: Platelet Count 41 k/uL (150-450)
--- NOTE | 2021-01-04 19:22 | CDI ---
Documentation Clarification Form Mortality Review Date: 01/04/2021 07:09:42 PM From: Stephie Donis Rn, CCDS Admit Date: 12/11/2020 08:03:00 PM Patient Name: Maria Del Rosario Reich Visit Number: [id number] Discharge Date: 12/31/2020 08:46:00 AM ATTENTION: The Clinical Documentation Specialists (CDI) and [facility] Coding Staff appreciate your assistance in clarifying documentation. Please respond to the clarification below the line at the bottom and electronically sign. The CDI & [facility] Coding staff will review the response and follow-up if needed. Please note: Queries are made part of the Legal Health Record. If you have any questions, please contact the author of this message via ITS. Dr. Valery Arenas Your patient has an abnormal lab value: 12/30 D-dimer >35.2. Please clarify if there is an additional diagnosis and/or clinical significance related to this value. History/Risk Factors: Anemia, Chronic Paroxysmal Atrial Fib, Acute on Chronic Systolic CHF, Non- ischemic Cardiomyopathy with AICD, ERIBERTO with ATN, Acute hypotension requiring vasopressors Clinical indicators: 12/30 0548 A-Team note: "RN notified physician for multiple runs of nonsustained V. tach Patient with history of nonischemic or the myopathy of 20% status post ICD, history of paroxysmal A. fib not on anticoagulation due to uterine bleeding. Patient admitted to the hospital about 2 weeks ago for A. fib with RVR and acute CHF exacerbation. Blood pressure systolic in the 80s she normally runs in the 90s. Another a team called on this patient for reevaluation due to hypoxemia and difficulty breathing this time." 12/30 Pulmonary Progress Note: Elevated d-dimer, in a patient with A. fib RVR, not a candidate for blood thinners due to vaginal bleeding." 12/30 CXR: "There is some pulmonary interstitial edema consistent with congestive heart failure that is the same or slightly worse than yesterday." 12/30 0650 V/S: HR 108, RR 36, B/P 80/36, Spo2 77% on 100% NRB Treatment: No anticoagulation O2 increased from 2L to 100% NRB, then patient was placed on mechanical ventilation Is there an additional diagnosis and/or clinical significance related to the above lab result/information? [ ] Critical D-dimer has no clinical significance [ ] Critical D-dimer is secondary to cardiac arrhythmia [ ] Critical D-dimer is indicative of possible additional diagnosis (please specify) [ ] Other, please specify [ ] Unable to determine (Template Last Revised: July 2020) Unable to determine MTDD
--- NOTE | 2021-01-04 20:01 | CDI ---
Documentation Clarification Form Mortality Review Date: 01/04/2021 07:58:57 PM From: Stephie Donis RN, CCDS Admit Date: 12/11/2020 08:03:00 PM Patient Name: Maria Del Rosario Reich Visit Number: [id number] Discharge Date: 12/31/2020 08:46:00 AM ATTENTION: The Clinical Documentation Specialists (CDI) and [facility] Coding Staff appreciate your assistance in clarifying documentation. Please respond to the clarification below the line at the bottom and electronically sign. The CDI & [facility] Coding staff will review the response and follow-up if needed. Please note: Queries are made part of the Legal Health Record. If you have any questions, please contact the author of this message via ITS. Dr. Valery Arenas Your patient has an abnormal AST/ALT/Alk Phos that were elevated on admission, declined and normalized, then acutely increased on 12/30. Please clarify if there is an additional diagnosis and/or clinical significance related to this value. History/Risk Factors: Acute on Chronic Systolic CHF, Non Ischemic Cardiomyopathy, V-tach, Acute Hypoxic Respiratory Failure, ERIBERTO with ATN, Shock with Vasopressor Dependence, Cardiac Arrest Clinical indicators: 12/12 H&P though D/C Summary: "Elevated liver enzymes. Gallbladder ultrasound completed showing mild gallbladder wall thickening stones no dilated ducts." 12/30Pulmonary progress Note: "Elevated liver enzymes secondary to hypotension." 12/30 Cardiology Progress note: "Abnormal liver function tests, probably related to lung congestion." 12/11-12/30 AST; 168/136/83/60/36/77/80/91/58/46/31/27/29/43/40/216/>[id number] ALT: 140/137/115/83/55/43/56/61/66/55/45/32/29/27/35/34/110/7466 Alk Phos: 132/101/118/105/108/93/107/105/117/109/99/83/101/92/100/95/110/308 12/11 US Gallbladder: "Mild gallbladder wall thickening. No gallstones. No dilated ducts." 12/19 US Abd: "Hepatomegaly" Treatment: 12/30 D5W @ 50 ml/hr. 12/30 Solu-Cortef 50 mg IV Q 6 hrs. 12/30 Lasix 80 mg IVP OT 12/30 Levophed Gtt titrate for B/P 12/30 Amiodarone Bolus and Gtt protocol 12/30 Iv Vasopressin Gtt @ 0.03 units/min 12/30 0.9% NS IVF Bolus Is there an additional diagnosis and/or clinical significance related to the above lab result/information? [ ] Acute elevation in liver enzymes secondary to Shocked Liver [ ] Acute elevation of liver enzymes due to Acute Liver Failure [ ] Acute elevation of liver enzymes due to Hepatic Congestion [ ] No additional diagnosis/Not clinically significant [ ] Other, please specify [ ] Unable to determine (Template Last Revised: July 2020) Acute elevation in liver enzymes secondary to shocked liver MTDD
--- NOTE | 2021-01-04 20:15 | CDI ---
Documentation Clarification Form Mortality Review Date: 01/04/2021 08:03:10 PM From: Stephie Donis RN, CCDS Admit Date: 12/11/2020 08:03:00 PM Patient Name: Maria Del Rosario Reich Visit Number: [id number] Discharge Date: 12/31/2020 08:46:00 AM ATTENTION: The Clinical Documentation Specialists (CDI) and [facility] Coding Staff appreciate your assistance in clarifying documentation. Please respond to the clarification below the line at the bottom and electronically sign. The CDI & [facility] Coding staff will review the response and follow-up if needed. Please note: Queries are made part of the Legal Health Record. If you have any questions, please contact the author of this message via ITS. Dr. Valery Arenas Conflicting documentation has been found in the medical record. As attending physician, please provide clarification. Nonischemic Cardiomyopathy is documented from the H&P until the D/C Summary 68 times in the medical record. 12/31 D/C Summary: PCD: "Ischemic Cardiomyopathy" History/Risk Factors: Nonischemic Cardiomyopathy with AICD, Acute on Chronic Systolic CHF, Chronic Paroxysmal Atrial Fib, HTN, HLD, Anxiety, EF 20%, Anemia Clinical Indicators: 12/12 H&P, Progress Notes, -12/31 D/C Summary: Known history of nonischemic cardiomyopathy with previous history of AICD placement." 12/03/2020 Echo: EF 20-25%, LV is severely dilated, RV severely enlarged, severe pulmonary HTN Treatment: 12/12-12/29 Toprol XL 100 mg Po BID 12/30 Amiodarone Gtt protocol, Levophed Gtt titrate for B/P, Vasopressin Gtt @ 0.03 units/min Several doses of IVP Lasix and Lasix Gtt @ 5mg/hr. 12/19-12/22 Please clarify which diagnosis is most appropriate: [ ] Nonischemic Cardiomyopathy [ ] Ischemic Cardiomyopathy [ ] Other (please specify) [ ] Unable to determine (Template Last Revised: August 2020) Nonischemic cardiomyopathy MTDD
--- NOTE | 2021-01-04 20:48 | CDI ---
Documentation Clarification Form Mortality Review Date: 01/04/2021 08:17:00 PM From: Stephie Donis RN, CCDS Admit Date: 12/11/2020 08:03:00 PM Patient Name: Maria Del Rosario Reich Visit Number: [id number] Discharge Date: 12/31/2020 08:46:00 AM ATTENTION: The Clinical Documentation Specialists (CDI) and [facility] Coding Staff appreciate your assistance in clarifying documentation. Please respond to the clarification below the line at the bottom and electronically sign. The CDI & [facility] Coding staff will review the response and follow-up if needed. Please note: Queries are made part of the Legal Health Record. If you have any questions, please contact the author of this message via ITS. Dr. Valery Arenas Sepsis was documented in A Code Blue Note and requires further clarification. The patient presented with the following clinical indicators. Additional clarification regarding the etiology/cause of the clinical indicators is requested. History/Risk Factors: Chronic paroxysmal Atrial Fib, Acute on Chronic Systolic CHR, nonischemic cardiomyopathy, HTN, HLD, Clinical Indicators: 12/31 Event Note: "The patient has had a prolonged hospital stay with A. fib RVR, severe systolic CHF, and sepsis." 12/31 D/C Summary: "Acute hypoxic respiratory failure secondary to an episode of severe hypotension, lethargy. Patient was intubated. Acute hypotension requiring vasopressors." 12/19 Patient was diagnosed with UTI 12/11-12/30 WBC: 14.6/12.2/13.4/12.1/11.5/10.6/9.8/12.7/15.6/12/12.2/10.6/10.8/10.4/10/11.2/21.7/ 37.2 12/20 Procalcitonin .31 Lactic acid: never checked Blood cultures: Negative x 3 12/30 0540 Vital signs: Temp 99.2, HR 133, RR 39, B/P 62/48, Spo2 77% on 1005 NRB Organ Dysfunction: Acute Hypoxic Respiratory Failure, ERIBERTO with ATN Treatment: 12/19 ID Consult: "UTI, start Rocephin 1 gm daily." Antibiotics: 12/19-12/25 Rocephin 1 gm IVPB Q 24 hrs. IV Bolus: 12/28 0.9% NS IVF Bolus 500 cc 12/30 0.9% NS IVF Bolus 500 cc 12/30 Vasopressin @ 0.03 units/min 12/30 Levophed titrate for B/P In your professional opinion, please clarify if these findings signify one of the following conditions: [ ] Sepsis secondary to UTI, Not POA [ ] Sepsis secondary to unknown cause, Not POA [ ] Sepsis ruled out [ ] Other, please specify [ ] Unable to determine Please also include if applicable [ ] Severe Sepsis with organ failure and Septic Shock SIRS Criteria: 2 or more of the following may indicate SIRS -Temperature < 96.8F (36C) or > 101.0F (38.3C) -Heart Rate > 90 bpm -Respiratory Rate > 20 breaths/min or PaCO2 < 32 mmHg -White Blood Cell Count > 12,000 or < 4,000 cells/mm3 or > 10% bands (Template Last Reviewed: July 2020) Unable to determine MTDD
--- NOTE | 2021-01-04 20:58 | CDI ---
Documentation Clarification Form Mortality Review Date: 01/04/2021 08:49:06 PM From: Stephie Donis RN, CCDS Admit Date: 12/11/2020 08:03:00 PM Patient Name: Maria Del Rosario Reich Visit Number: [id number] Discharge Date: 12/31/2020 08:46:00 AM ATTENTION: The Clinical Documentation Specialists (CDI) and [facility] Coding Staff appreciate your assistance in clarifying documentation. Please respond to the clarification below the line at the bottom and electronically sign. The CDI & [facility] Coding staff will review the response and follow-up if needed. Please note: Queries are made part of the Legal Health Record. If you have any questions, please contact the author of this message via ITS. Dr. Valery Arenas Shock is documented in the 12/30 Nephrology progress note. Additional clarification regarding the type of shock is requested on a patient with additional documentation of hypotension on vasopressors in a patient admitted with Acute Systolic CHF exacerbation and Atrial Fib RVR. Patient history/risk factors: Acute on Chronic Systolic CHF with and EF of 20%, Severe Pulmonary HTN, Nonischemic Cardiomyopathy with AICD, Chronic Paroxysmal Atrial Fib, HTN, HLD, ERIBERTO with ATN, Acute Hypoxic Respiratory placed on Mechanical Vent 12/30 Clinical Indicators: 12/30 Nephrology Progress Note: "Shock maintained on vasopressors." 12/30 Attending progress note: "On 12/30/2020 patient was seen and examined in ICU she is intubated sedated maintained on mechanical ventilation, she was transferred to ICU early this morning due to hypotension she was intubated started on IV fluid and on vasopressors, condition is still marginal with low blood pressure, kidney functioning is worsening today was elevated creatinine to 2.39 up from 1.24 yesterday cardiology, pulmonary critical care and nephrology are following prognosis is guarded family is aware of condition." 12/31 D/C Summary: "Acute hypotension requiring vasopressors. On 12/31/2020 patient was in the intensive care unit on mechanical ventilation on high dose of vasopressors." Treatment: 12/30 IVF bolus 0.9% NS 500 cc 12/30 IV Levophed Gtt titrate for B/P 12/30 Vasopressin 0.03 units/min Please clarify the type of shock, if known: [ ] Septic Shock [ ] Cardiogenic Shock [ ] Hypovolemic Shock [ ] Other, please specify [ ] Unable to determine (Template Last Revised: August 2020) Cardiogenic MTDD
--- NOTE | 2021-01-04 21:13 | CDI ---
Documentation Clarification Form Mortality Review Date: 01/04/2021 08:59:00 PM From: Stephie Donis RN, CCDS Admit Date: 12/11/2020 08:03:00 PM Patient Name: Maria Del Rosario Reich Visit Number: [id number] Discharge Date: 12/31/2020 08:46:00 AM ATTENTION: The Clinical Documentation Specialists (CDI) and [facility] Coding Staff appreciate your assistance in clarifying documentation. Please respond to the clarification below the line at the bottom and electronically sign. The CDI & [facility] Coding staff will review the response and follow-up if needed. Please note: Queries are made part of the Legal Health Record. If you have any questions, please contact the author of this message via ITS. Dr. Valery Arenas Cardiorenal disease is documented 13 times though out the medical record 12/19- 12/29 in Nephrology and Pulmonary Consultations and Progress Notes. This diagnosis includes CKD in a patient without any historical documentation or current documentation of CKD. Additional clarification regarding the presence and stage of CKD is requested. History/Risk Factors: 12/02-12/06/2020 Patients Historical BUN: // CR: .76/.9/1 GFR: >90/74.6/65.6 Clinical Indicators: 12/11-12/30 Current BUN: 33/38/33/36/40/42/45/48/53/49/44/39/37/40/43/38/35/32 CR: 1.12/.97/.89/.98/.97/1.07/1.2/1.43/2.09/2.16/1.78/1.51/1.26/1.4/1.53/1.66/1.49/1 .37/1.24/2.39 GFR: 54/69/76/67/69/61/53/43/27/26/33/40/50/44/40/36/40/45/51/23 12/19 Nephrology Consult: "Acute kidney injury secondary to ATN secondary to cardiorenal syndrome and hemodynamic instability." 12/19 Pulmonary Consult: acute exacerbation of chronic nonischemic cardiomyopathy and the patient is in overt failure with significant third spacing and volume overload in addition to acute renal azotemia/ cardiorenal." Treatment: Several Doses of IVP Lasix though out stay 12/19-12/22 Lasix gtt @ 5mg//hr. Electrolyte replacement protocols for Magnesium and Potassium 12/28 & 12/30 0.9% NS IVF Bolus 500 CC Please clarify the stage of the CKD, if known: [ ] CKD is ruled out [ ] CKD Stage 1 (GFR > 90) [ ] CKD Stage 2 (GFR 60-89) [ y ] CKD Stage 3 (GFR 30-59) [ ] CKD Stage 3a (GFR 45-59) [ ] CKD Stage 3b (GFR 30-44) [ ] CKD Stage 4 (GFR 15-29) [ ] CKD Stage 5 (GFR <15) [ ] ESRD [ ] Other, please specify [ ] Unable to determine (Template last revised: July 2020) Chronic kidney disease stage III MTDD
== END 2020-12-31 08:46 | disposition expired | DRG 308 ==
LOC: EC 17:38 → 3SCARD 20:03 → 2SICU 12-30 05:19
PROVIDERS: ADMIT Internal Medicine; ATTEND Internal Medicine
PROC: 0BH17EZ Insertion of Endotracheal Airway into Trachea, Via Natural or Artificial Opening (ICD-10-PCS; principal; 2020-12-30)
PROC: 3E033XZ Introduction of Vasopressor into Peripheral Vein, Percutaneous Approach (ICD-10-PCS; principal; 2020-12-30)
PROC: 4A133B1 Monitoring of Arterial Pressure, Peripheral, Percutaneous Approach (ICD-10-PCS; principal; 2020-12-30)
PROC: 0D9670Z Drainage of Stomach with Drainage Device, Via Natural or Artificial Opening (ICD-10-PCS; principal; 2020-12-30)
PROC: 4A133J1 Monitoring of Arterial Pulse, Peripheral, Percutaneous Approach (ICD-10-PCS; principal; 2020-12-30)
PROC: 04HY32Z Insertion of Monitoring Device into Lower Artery, Percutaneous Approach (ICD-10-PCS; principal; 2020-12-30)
PROC: 5A1935Z Respiratory Ventilation, Less than 24 Consecutive Hours (ICD-10-PCS; principal; 2020-12-30)
PROC: 3E0G76Z Introduction of Nutritional Substance into Upper GI, Via Natural or Artificial Opening (ICD-10-PCS; principal; 2020-12-30)
PROC: 05HM33Z Insertion of Infusion Device into Right Internal Jugular Vein, Percutaneous Approach (ICD-10-PCS; principal; 2020-12-30)
PROC: 5A12012 Performance of Cardiac Output, Single, Manual (ICD-10-PCS; 2020-12-31)
DX: I48.20 Chronic atrial fibrillation, unspecified (principal); I50.23 Acute on chronic systolic (congestive) heart failure; J96.01 Acute respiratory failure with hypoxia; N17.0 Acute kidney failure with tubular necrosis; K72.00 Acute and subacute hepatic failure without coma; A41.9 Sepsis, unspecified organism; I13.0 Hypertensive heart and chronic kidney disease with heart failure and stage 1 through stage 4 chronic kidney disease, or unspecified chronic kidney disease; E87.2 Acidosis; E87.1 Hypo-osmolality and hyponatremia; N39.0 Urinary tract infection, site not specified; I47.2 Ventricular tachycardia; I46.2 Cardiac arrest due to underlying cardiac condition; R57.0 Cardiogenic shock; D63.1 Anemia in chronic kidney disease; I95.89 Other hypotension; I42.8 Other cardiomyopathies; I27.20 Pulmonary hypertension, unspecified; N18.30 Chronic kidney disease, stage 3 unspecified; Z66 Do not resuscitate; Z51.5 Encounter for palliative care; I07.1 Rheumatic tricuspid insufficiency; E87.5 Hyperkalemia; E87.6 Hypokalemia; K82.8 Other specified diseases of gallbladder; K64.9 Unspecified hemorrhoids; E66.9 Obesity, unspecified; E78.5 Hyperlipidemia, unspecified; L40.9 Psoriasis, unspecified; M10.9 Gout, unspecified; K59.00 Constipation, unspecified; R19.7 Diarrhea, unspecified; N83.291 Other ovarian cyst, right side; N93.8 Other specified abnormal uterine and vaginal bleeding; H18.601 Keratoconus, unspecified, right eye; F41.9 Anxiety disorder, unspecified; R94.5 Abnormal results of liver function studies; R74.8 Abnormal levels of other serum enzymes; Z68.39 Body mass index [BMI] 39.0-39.9, adult; Z79.899 Other long term (current) drug therapy; Z95.810 Presence of automatic (implantable) cardiac defibrillator; Z87.891 Personal history of nicotine dependence; Z98.890 Other specified postprocedural states; Z71.3 Dietary counseling and surveillance; Z88.0 Allergy status to penicillin; Z88.2 Allergy status to sulfonamides
CPT/HCPCS: 36415; 36600; 51798; 71045; 71046; 74018; 76700; 76705; 76830; 76856; 80048; 80053; 81001; 82533; 82805; 83735; 83880; 84132; 84145; 84443; 84484; 85025; 85027; 85379; 85610; 85730; 86140; 86304; 87040; 87086; 87324; 93005; 93976; 94002; 94003; 94640; 94760; 96374; 96375; 99291